=== PATIENT | female | born 1950 | race Caucasian/White ===

== ENCOUNTER 2018-10-23 15:21 | Emergency (ER) | payer OTHER, MEDICARE, SELFPAY ==
[2018-10-23 15:21] VITALS: BP 209/90; PULSE 89; RESP 16; TEMP 36.1; O2SAT 100; BMI 26.2
[2018-10-23 16:05] VITALS: BP 197/97; PULSE 83; RESP 17; O2SAT 97
--- NOTE | 2018-10-23 16:11 | EKG12_ITS ---
Test Reason : HYPOTENSION Blood Pressure : / mmHG Vent. Rate : 079 BPM Atrial Rate : 079 BPM P-R Int : 168 ms QRS Dur : 078 ms QT Int : 368 ms P-R-T Axes : 061 009 051 degrees QTc Int : 421 ms Normal sinus rhythm Voltage criteria for left ventricular hypertrophy Abnormal ECG Confirmed by MELISSA CAROLINA, DIONICIO ([id number]), script editor JOSÉ MIGUEL FONTANEZ ([id number]) on 10/27/2018 9:17:50 AM Referred By: LUCIANO Confirmed By:DIONICIO TORRES MD
--- NOTE | 2018-10-23 16:15 | ED.DCSUM_ITS ---
- ER Visit Summary Date of Service: 10/23/18 Chief Complaint: Hypertension History of Present Illness: The patient is a 68 F who presents with elevated blood pressure that was noticed today. Patient states she went to get her yearly mammogram when they took her blood pressure. Patient states it was 220/120 there. Patient states she was then referred to the emergency department. Patient denies any symptoms. Patient does admit to recent cough and some sinus drainage. Patient admits to a mild bitemporal headache. Patient denies any fevers or chills. Patient denies any chest pain or shortness of breath. Patient denies any nausea or vomiting. Physical Examination: Vital signs are stable except for an elevated blood pressure of 209/90. Patient is afebrile. Patient is in no acute distress. Pupils are equal, round, and reactive to light bilaterally. Extraocular muscles are intact. Oral mucosa is pink and moist. Oropharynx is clear. Neck is supple. Trachea is midline. There is no JVD noted. Heart was regular rate and rhythm. Lungs are clear and equal bilaterally. Abdomen is soft nontender. Cranial nerves II through XII are intact. There are no focal motor or sensory deficits noted. Test Results: EKG showed normal sinus rhythm with a rate of 79. There is left ventricular hypertrophy noted. There are no acute ST or T wave changes. This was unchanged compared to previous EKG dated 12/17/99. CBC, basic metabolic profile, and troponin were obtained and were normal. PA and lateral chest x-ray shows chronic changes consistent with COPD but no acute cardiopulmonary process. Emergency Department Course and Treatment: Patient was given a dose of clonidine here. Patient's blood pressure improved. Patient was given a prescription for clonidine. Patient was instructed to follow-up with her primary care physician in 5-7 days. Patient understood and was agreeable with the plan. All questions were answered. Disposition: Discharge home Impression: Hypertension This note was generated with [employer] dictation software. It may contain incorrect words, spelling, and punctuation that were not noted in review of the chart prior to signing ED Disposition - Plan for ED Patient: Disposition: Home or Assisted Living Diagnosis: Hypertension Instructions: ED Hypertension New Begin Tx Prescriptions: Clonidine HCl [Catapres] 0.1 mg PO DAILY #10 tab Referrals: [facility] Doctor,Out of [Primary Care Provider] - 5-7 Days
[2018-10-23] MEDS: cloNIDine HCl 0.1 MG Tablet PO (16:48)
--- NOTE | 2018-10-23 16:50 | RAD_ITS ---
STUDY: X-RAY CHEST REASON FOR EXAM: Female, 68 years old. Hypertension. TECHNIQUE: Frontal and lateral views of the chest. COMPARISON: None. FINDINGS: Flattened hemidiaphragms and increased AP dimension of the chest, suggestive of COPD. No definite infiltrates. No definite effusions. There is borderline cardiomegaly. Normal mediastinum and bakari. Normal visualized pulmonary arteries. There is atherosclerotic calcification of the aortic arch with tortuosity. There are diffuse degenerative changes of the visualized thoracic spine. Normal visualized ribs, clavicles, and shoulders. There is no demonstrated abnormality of the visualized soft tissue structures of the upper abdomen. RAD/Chest PA and Lateral IMPRESSION: There are findings consistent with COPD. There is no evidence of acute chest disease. Electronically Signed: Erick Chen MD at 17:07 EST , Service support ,
[2018-10-23 17:14] LABS: Anion Gap 8 (5-15); BUN 13 mg/dL (7-18); BUN/Creat Ratio 15.7 RATIO (10-20); Chloride 107 mmol/L (98-107); Creatinine, Serum 0.83 mg/dL (0.55-1.02); EST Glomerular Filtration Rate 73 mL/min (>60); Est Glom Filt Rate - Afr Amer 88 mL/min (>60); Estimated Creatinine Clearance 54.41 ml/min; Glucose 92 mg/dL (74-106); Potassium 3.3 mmol/L (3.5-5.1); Sodium Level 142 mmol/L (136-145)
[2018-10-23 17:44] LABS: Absolute Lymphocyte Count 2.15 X10^3/ul (0.83-4.51); Absolute Neutrophil Count 5.2 X10^3/uL (2.0-7.7); Basophil# 0.02 X10^3/uL; Basophil% 0.2 % (0-1); Eosinophils% 3.6 % (0-5); Hematocrit 35.5 % (37-47); Hemoglobin 11.4 g/dl (12.0-15.0); Lymphocyte # 2.15 X10^3/ul (4.0); Lymphocyte % 25.7 % (19-41); Mean Corp Hgb Conc 32.1 g/gl (32-36); Mean Corpuscular Hgb 27.1 pg (27.0-32.0); Mean Corpuscular Volume 84.5 fL (81-99); Mean Platelet Vol. 10.1 fl (6.2-12.0); Monocyte% 8.4 % (0-10); Neutrophil # 5.18 X10^3/uL (2.7-7.7); Neutrophil % 61.9 % (47-70); Platelet Count 209 K/mm3 (150-450); RBC Distribution Width CV 14.9 % (11.6-14.6); RBC Distribution Width SD 46.4 fl (35.1-43.9); White Blood Count 8.4 K/mm3 (4.4-11.0)
[2018-10-23 17:52] LABS: POSITIVE COUNT NO; POSITIVE DIFFERENTIAL NO; POSITIVE MORPHOLOGY NO
[2018-10-23 18:00] VITALS: BP 186/93
[2018-10-23 18:22] VITALS: BP 199/100
[2018-10-23 18:32] VITALS: BP 165/100
[2018-10-23 19:31] VITALS: BP 158/51; PULSE 71; RESP 18; O2SAT 94
== END 2018-10-23 19:32 | disposition home or self-care (01) ==
PROVIDERS: Emergency Provider Emergency Medicine
DX: I10 Essential (primary) hypertension (principal); K21.9 Gastro-esophageal reflux disease without esophagitis; Z79.899 Other long term (current) drug therapy
CPT/HCPCS: 71046; 80048; 84484; 85025; 93005; 99285; A4216

== ENCOUNTER → 2018-11-19 07:54 | Outpatient (CLI) | payer OTHER, MEDICARE, SELFPAY ==
[2018-10-23 15:21] VITALS: BMI 26.2
[2018-11-19 10:16] LABS: AST(SGOT) 17 U/L (15-37); Alanine Aminotransfer ALT/SGPT 23 U/L (13-56); Albumin, Serum 3.7 g/dL (3.2-5.0); Alkaline Phosphatase 110 U/L (45-117); Cholesterol 248 mg/dL (200); Globulin 4.4 g/dL (2.2-4.2); High Density Lipoprotein 35 mg/dL; Protein, Total 8.1 g/dL (6.4-8.2); T4 Total, Thyroxin 13.2 ug/dL (4.8-13.9); Thyroid Stim Hormone (TSH) 1.29 uIU/mL (0.358-3.74); Triglycerides 199 mg/dL; Very Low Density Lipoprotein 40 mg/dL (5-40)
== END ==
DX: I10 Essential (primary) hypertension (principal)
CPT/HCPCS: 36415; 80061; 80076; 84436; 84443

== ENCOUNTER 2019-10-01 13:46 | Emergency (ER) | payer OTHER, MEDICARE, SELFPAY ==
[2019-10-01 13:47] VITALS: BP 176/93; PULSE 84; RESP 16; TEMP 37; O2SAT 98; BMI 27.7
--- NOTE | 2019-10-01 14:02 | NURSING ---
Pt reports N/T of tip of tongue and lips. No swelling noted. No dyspnea.
--- NOTE | 2019-10-01 14:18 | ED.DCSUM_ITS ---
History of Present Illness Chief Complaint: Numb/Ting Informant: Patient Narrative: Patient presents with what she thought was swelling of her tongue and some tingling, she had been placed on lisinopril last month however once she noticed that she researched it and stopped her lisinopril 6 days ago. Since then she has not had any swelling of her tongue she still feels some sore throat and some upper airway congestion. She has no fever or chills, she has no change in voice she does not feel her throat closing, she has no shortness of breath. Past Medical History - Allergies and Home Meds Allergies/Adverse Reactions: Allergies No Known Allergies Allergy (Verified 10/23/18 15:23) Primary Care Physician: Jose Doctor,Out of [Primary Care Provider] - Past Medical History: - - Hypertension Smoking Status: Never smoker Review of Systems General: Denies: Fever Eyes: Denies: Visual changes - bilaterally ENT: Reports: - - As in HPI Cardiovascular: Denies: Chest pain, Palpitations Respiratory: Denies: Dyspnea, Cough Gastrointestinal: Denies: Nausea, Vomiting Musculoskeletal: Denies: Myalgias Skin: Denies: Rash Neurological: Denies: Weakness Hematologic: Denies: Easy bleeding Allergy: Reports: Swelling of the mouth - Swelling of the tongue as in HPI, it has not swollen in about 6 days, Swelling of the tongue. Denies: Uticaria Physical Exam Vital Signs/Narrative: Vital Signs Temp Pulse Resp BP Pulse Ox 10/01/19 13:47 98.6 F 84 16 176/93 H 98 General: Well nourished, Well developed Head: Normocephalic ENT: - - Normal tongue, no edema is seen normal posterior oropharynx with slight postnasal drip. She does have rhinorrhea she has a slightly bulging left TM but there is no TM erythema. Cardiovascular: Regular rate, Regular rhythm Respiratory: No distress, CTA bilaterally Abdomen: Soft, Nontender Back: Nontender, Normal Inspection Extremities: Nontender, No edema Skin: Normal color, No rash Neurological: Alert, Normal Strength, Normal Sensation Diagnostic/Tx/Re-eval - Medical Decision Making It is very possible that the patient had a's induced angioedema, however she has not taken her LUIZ inhibitor in 6 days and has no signs or symptoms of angioedema at this time. She does have signs and symptoms of upper airway congestion but no signs or symptoms of streptococcal pharyngitis. I will treat her with decongestants, otherwise she is told she can never take lisinopril again, she is to follow-up with her PCP for further blood pressure monitoring. Disposition: Home ED Disposition - Plan for ED Patient: Disposition: Home or Assisted Living Diagnosis: Angioedema, Upper respiratory infection Instructions: ED Angioedema Prescriptions: Guaifenesin [Mucinex] 600 mg PO BID #10 tab Transmission Status: Pending to [id number] Referrals: [facility] Doctor,Out of [Primary Care Provider] - 3-5 Days Additional Instructions: You can never take lisinopril or any other medications in the class LUIZ inhibitors. This may lead to swelling of your tongue lips and airway and may cause .
== END 2019-10-01 14:47 | disposition home or self-care (01) ==
PROVIDERS: Emergency Provider Emergency Medicine
DX: T78.3XXA Angioneurotic edema, initial encounter (principal); J02.9 Acute pharyngitis, unspecified; I10 Essential (primary) hypertension
CPT/HCPCS: 99282

== ENCOUNTER 2020-10-19 16:58 | Outpatient (RCR) | payer OTHER, MEDICARE, SELFPAY ==
[2020-10-19] MEDS: COVID-19 VACC, MRNA(PFIZER)/PF 30 MCG/0.3 ML SYRINGE IM (10:31)
[2020-11-09] MEDS: COVID-19 VACC, MRNA(PFIZER)/PF 30 MCG/0.3 ML SYRINGE IM (10:13)
== END 2020-10-19 23:59 ==
LOC: IMMUN 16:58
PROVIDERS: Visit Provider Family Medicine
DX: Z23 Encounter for immunization (principal)
CPT/HCPCS: 0001A; 0002A

== ENCOUNTER → 2021-02-23 08:12 | Outpatient (CLI) | payer OTHER, MEDICARE, SELFPAY ==
[2021-02-23 10:16] LABS: AST(SGOT) 21 U/L (15-37); Alanine Aminotransfer ALT/SGPT 26 U/L (13-56); Albumin, Serum 3.9 g/dL (3.2-5.0); Alkaline Phosphatase 104 U/L (45-117); Anion Gap 9 (5-15); BUN 15 mg/dL (7-18); BUN/Creat Ratio 15.7 RATIO (10-20); Bilirubin, Direct 0.14 mg/dL (0.00-0.30); Calcium,Total 9.5 mg/dL (8.5-10.1); Chloride 99 mmol/L (98-107); Cholesterol 299 mg/dL (200); Creatinine, Serum 0.96 mg/dL (0.55-1.02); EST Glomerular Filtration Rate 62 mL/min (>60); Est Glom Filt Rate - Afr Amer 74 mL/min (>60); Globulin 4.4 g/dL (2.2-4.2); Glucose 97 mg/dL (74-106); High Density Lipoprotein 35 mg/dL; Potassium 3.2 mmol/L (3.5-5.1); Protein, Total 8.3 g/dL (6.4-8.2); Sodium Level 140 mmol/L (136-145); Triglycerides 324 mg/dL; Very Low Density Lipoprotein 65 mg/dL (5-40)
== END ==
DX: I10 Essential (primary) hypertension (principal)
CPT/HCPCS: 36415; 80048; 80061; 80076

== ENCOUNTER → 2022-05-08 | Outpatient (CLI) | payer OTHER, MEDICARE, SELFPAY ==
[2022-05-08 10:33] LABS: Hematocrit 33.7 % (37-47); Hemoglobin 10.9 g/dL (12.0-15.0); Mean Corp Hgb Conc 32.3 g/dL (32-36); Mean Corpuscular Hgb 27.4 pg (27.0-32.0); Mean Corpuscular Volume 84.7 fL (81-99); Mean Platelet Vol. 9.8 fl (6.2-12.0); Platelet Count 338 K/mm3 (150-450); RBC Distribution Width CV 15.8 % (11.6-14.6); RBC Distribution Width SD 49.1 fl (35.1-43.9); Red Blood Count 3.98 M/mm3 (4.2-5.4); White Blood Count 10.5 K/mm3 (4.4-11.0)
[2022-05-08 10:59] LABS: Anion Gap 7 (5-15); BUN 27 mg/dL (7-18); BUN/Creat Ratio 32.2 RATIO (10-20); Calcium,Total 9.8 mg/dL (8.5-10.1); Chloride 99 mmol/L (98-107); Creatinine, Serum 0.84 mg/dL (0.55-1.02); EST Glomerular Filtration Rate 71 mL/min (>60); Est Glom Filt Rate - Afr Amer 86 mL/min (>60); Glucose 88 mg/dL (74-106); Potassium 3.6 mmol/L (3.5-5.1); Sodium Level 136 mmol/L (136-145)
== END | disposition home or self-care (01) ==
PROVIDERS: Referring Provider Physician Assistant Surgical; Visit Provider Physician Assistant Surgical
DX: E87.6 Hypokalemia (principal); D64.89 Other specified anemias; K21.9 Gastro-esophageal reflux disease without esophagitis; I10 Essential (primary) hypertension; M19.90 Unspecified osteoarthritis, unspecified site; Z96.651 Presence of right artificial knee joint
CPT/HCPCS: 36415; 80048; 85027

== ENCOUNTER → 2022-08-21 | Outpatient (CLI) | payer OTHER, MEDICARE, SELFPAY ==
[2022-08-21 12:56] LABS: Hematocrit 34.1 % (37-47); Hemoglobin 10.8 g/dL (12.0-15.0); Mean Corp Hgb Conc 31.7 g/dL (32-36); Mean Corpuscular Hgb 27.1 pg (27.0-32.0); Mean Corpuscular Volume 85.7 fL (81-99); Platelet Count 509 K/mm3 (150-450); RBC Distribution Width CV 14.2 % (11.6-14.6); RBC Distribution Width SD 44.3 fl (35.1-43.9); Red Blood Count 3.98 M/mm3 (4.2-5.4); White Blood Count 11.2 K/mm3 (4.4-11.0)
== END | disposition home or self-care (01) ==
LOC: MTLAB 09:08
PROVIDERS: Referring Provider Physician Assistant Surgical; Visit Provider Physician Assistant Surgical
DX: I10 Essential (primary) hypertension (principal); M19.90 Unspecified osteoarthritis, unspecified site; D64.89 Other specified anemias
CPT/HCPCS: 36415; 85027

== ENCOUNTER 2023-01-01 08:30 | Outpatient (RCR) | payer OTHER, MEDICARE, SELFPAY ==
--- NOTE | 2022-12-26 10:17 | HP.OTEVAL_ITS ---
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 Date of Evaluation: 12/26/22 Occupational Therapist: Yamila Martinez, TANA/Joseph, CHT - Subjective This 72 year old female was seen for OT eval with dx of right primary osteoarthritis, unilateral primary osteoarthrits of first carpometacarpal joint. pt arrives to OT session. PT states Jul. she notices she woke up and her right hand she could not make a fist or move her wrist- pt went to ER an had xray was placed in brace. pt did go through with her knee sx a few days latter and when she woke up from this sx she could move her wrist and make a fist. pt states she again woke up in the morning of January 05. she could not move her wrist or make a fist again. Pt went to the Ortho on December 20 - pt states gave her a cortisone injection. pt states she did notice some improvement in ROM and a decrease in pain but not enough to be ind. with ADLs and IADLs. pt is right handed - ADLs Comments: pt states family is helping with all daily tasks. pt states she has constant resting pain and any attempt to use her right hand pain increases. - Pain right hand 4 Pain Intensity Range: 7 - ROM Forearm: right supination Neutral pronation WNL left WNL Wrist: right 25/30 left 75/75 CMC: right 10 left 10 MP: right 40 left 40 IP: right 25 left 65 Radial Abduction: right 30 left 45 ROM Comments: pt demo with ability to form bilateral composite fist-. pt demo with OA deformities on bilateral hand DIP and swan neck deformities. - Strength Strength Comments: Not tested due to OA deformities - Sensation Sensation Comments: denies - Quick DASH-Disab of Arm,Shoulder& Hand Quick DASH Score: 77.2725 - Goals Goal:: Pt will demonstrate understanding of joint protection and adaptive equipment to decrease joint stress while performing ADL tasks by d/c Goal:: Pt will demo ind. Donning/doffing of custom orthosis by end of 1st session. Pt will demonstrate understanding of orthosis use and precautions by end of 1st session and demonstrate knowledge of returning to clinic if orthosis needs adj. to increase comfort by end of 1st session. 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 Pain is limiting pts use of right hand with ADLS. Pt would benefit from skilled OT services 2-3 visits to provide ed. on joint protection ed. on ad. eq. Pt demo need for hand based custom orthosis to provide protection and support of right CMCJ and MPJ to assist in decreasing pts pain. Pt demo understanding and agrees to POC. Today therapist ed. pt on dx. and bracing. Pt demo need for custom orthosis providing support to right CMC and MPJ. therapist sawyer. Therapist ed. pt on use and precautions. Pt demo understanding- pt to return to clinic for orthosis adj. and ed. on ad. eq. Rehabilitation Potential: Questionable - Anticipated Interventions Orthoses, Joint Protection/Energy Conservation, Ergonomic Education, Caregiver Training, Home Program Other Interventions: orthosis precautions and use - Visit Plan TEXT: Thank you for the opportunity to evaluate your patient. For Medicare and Medicare HMO plans, please review the plan of care and approve it. It will need to be FAXED BACK to us at [phone] for Medicare purposes. Please let me know if there are questions or concerns regarding this plan of care. Physician Signature: Date:
--- NOTE | 2023-03-19 14:05 | HP.OT.NRP ---
Patient Information Patient Information: KAYLEE BERMUDEZ was seen in my office for initial evaluation on 12/26/22. The following Plan of Care was established for this patient: Anticipated Interventions Anticipated Interventions: Orthoses, Joint Protection/Energy Conservation, Ergonomic Education, Caregiver Training and Home Program Other Interventions: orthosis precautions and use Last Seen Last Seen: This patient was last seen in our office . Pertinent comments regarding their Occupational therapy will appear below: pt was seen for OT eval and one follow up visit. pt was ed. in orthosis use and bracing to decrease pts pain. pt has not returned or scheduled further apts. and at this time is D/C due to time laps in services. At this point I will be discontinuing this patient from occupational therapy. I would be happy to see this patient again in the future if found appropriate by the physician. Thank you! Yamila Martinez, OTR/L, CHT
== END 2023-01-01 19:00 | disposition home or self-care (01) ==
LOC: OT 08:30
PROVIDERS: Referring Provider Physician Assistant Surgical; Visit Provider Physician Assistant Surgical
DX: M19.041 Primary osteoarthritis, right hand (principal); M18.11 Unilateral primary osteoarthritis of first carpometacarpal joint, right hand
CPT/HCPCS: 97166; 97760

== ENCOUNTER 2023-07-26 00:37 | Inpatient (IN) | payer OTHER, MEDICARE, SELFPAY ==
[2023-07-26] VITALS (10 sets, daily range): BP systolic 117–164; BP diastolic 50–77; PULSE 74–87; RESP 15–18; TEMP 36.3–37.9; O2SAT 92–99; BMI 26.4; BMI 26.2
--- NOTE | 2023-07-26 01:05 | EX.ED.DYSGE1 ---
HPI History of Present Illness Chief Complaint: Flank Pain Narrative Narrative: 72-year-old female past medical history of GERD, hypertension, presents with left flank pain that began this afternoon. She states she started feeling twinges of pain in her left flank that radiated towards the front. It became worse at around 3 PM this afternoon, approximately 10 hours ago. She is nauseated and started vomiting. She vomited 3 times without any blood in her emesis. She denies any problems with bowel movements, no diarrhea. She denies any dysuria or hematuria. No exacerbating or alleviating factors. PFSH PFSH Home Medications lansoprazole 30 mg capsule,delayed release (Prevacid) 30 mg PO DAILY 10/23/18 [History Last Taken Unknown] guaifenesin 600 mg tablet, extended release 12 hr 600 mg PO BID #10 tabs 10/01/19 [Rx Last Taken Unknown] hydrochlorothiazide 25 mg tablet 25 mg PO DAILY 10/01/19 [History Last Taken 10/01/19] lisinopril 10 mg tablet 10 mg PO 10/01/19 [History Last Taken 09/26/19] Allergy/AdvReac Type Severity Reaction Status Date / Time clonidine Allergy Severe Shortness Verified 07/26/23 00:41 of breath LUIZ Inhibitors Allergy Angioedema Verified 07/26/23 00:40 Social History Smoking Status: Never smoker ROS ROS ED ROS Narrative Constitutional: No fever, no chills. HEENT: No sore throat. No neck pain. No loss of vision. No rhinorrhea. Cardiovascular: No chest pain. No palpitations. No pedal edema. Respiratory: No cough, no shortness of breath. Abdominal: No abdominal pain. 3 episodes of nausea and vomiting, no hematemesis. Genitourinary: No dysuria. No hematuria. Positive left flank pain. Radiates towards front. Musculoskeletal: No myalgias. No arthralgias. Neurologic: No headaches. No dizziness. No lightheadedness. Skin: No rash. No change in color. Psychiatric: No depression. No anxiety. EXAM Physical Exam Narrative Exam Narrative: Afebrile. Vital signs noted. HEENT: Normocephalic. Atraumatic. PERRL, EOMI. Neck soft and supple. No point tenderness or step off. Cardiovascular: Regular rate and rhythm. No murmurs, rubs, or gallops appreciated. Respiratory: No tachypnea. Lungs clear to auscultation bilaterally. Gastrointestinal: Abdomen soft, nontender, with normoactive bowel sounds. No rebound or guarding. Neurological: Awake. Alert. Nonfocal, nonlateralizing. Skin: No rash. Normal color. No pallor. Musculoskeletal: No pedal edema. Full range of motion extremities. Const Vital Signs: 07/26/23 00:41 Temperature 97.3 F L Temperature Source Oral Pulse Rate 78 Respiratory Rate 18 Blood Pressure 152/66 H Blood Pressure Mean 94 Pulse Ox 99 Oxygen Delivery Method Room Air MDM MDM MDM Narrative Medical decision making narrative: In the right shoulder gnosis is ureterolithiasis versus UTI versus diverticulitis. I have low suspicion for diverticulitis because the history and physical does not support this. She will be given morphine and ondansetron and IV fluids at 250 mL/h. CT will be obtained to rule out ureterolithiasis. I will also obtain a UA and basic lab work. I reviewed her laboratory work and she has a leukocytosis of 14 which may be demargination from her nausea and vomiting. Platelet count normal at 318, hemoglobin normal at 12.8. M potassium slightly low at 3.1 which I think is from her vomiting, creatinine slightly elevated at 1.21 with a BUN of 28 which may be more dehydration. Glucose is elevated at 163 with a normal anion gap of 9. Urinalysis shows WBC count of 5-10. This will be sent for culture. I reviewed the CT report which shows a 4 x 4 x 6 mm stone in the proximal third of the left ureter with hydronephrosis. After morphine and ondansetron, she was still having pain. Given the size of the stone, and her leukocytosis, while I do not have an immediate concern for urosepsis, I discussed patient with Dr. Gusman with urology who will admit the patient to the medical surgical floor. She will be started on Rocephin. Disposition is admit in stable condition. History & Record Review Discussion w/independent historian: Patient Lab Data Attestation: I reviewed the patient's lab results. Labs: Laboratory Results - last 24 hr 07/26/23 01:25 WBC 14.0 H RBC 4.87 Hgb 12.8 Hct 38.4 MCV 78.9 L MCH 26.3 L MCHC 33.3 RDW Std Deviation 43.2 RDW Coeff of Ebonie 15.1 H Plt Count 318 MPV 10.0 Immature Gran % (Auto) 0.800 Neut % (Auto) 81.9 H Lymph % (Auto) 11.2 L [place] % (Auto) 5.1 Eos % (Auto) 0.6 Baso % (Auto) 0.4 Absolute Neuts (auto) 11.5 H Absolute Lymphs (auto) 1.57 Nucleated RBC % 0 Sodium 138 Potassium 3.1 L Chloride 102 Carbon Dioxide 27.0 Anion Gap 9 BUN 28 H Creatinine 1.21 H Estim Creat Clear Calc 35.28 Est GFR (MDRD) Af Amer 56 L Est GFR (MDRD) Non-Af 47 L BUN/Creatinine Ratio 23.1 H Glucose 163 H Calcium 9.6 Urine Color Yellow Urine Clarity Clear Urine pH 7.0 Ur Specific [place] 1.010 Urine Protein 30 H Urine Glucose (UA) 100 H Urine Ketones Negative Urine Occult Blood 10 H Urine Nitrite Negative Urine Bilirubin Negative Urine Urobilinogen Normal Ur Leukocyte Esterase 100 H Urine RBC 0-5 SEEN Urine WBC 5-10 SEEN Ur Squamous Epith Cells 0 SEEN Urine Bacteria 0 SEEN Urine Mucus 0 SEEN Radiography Diagnostic Testing: Clinical Impression(s) from Imaging Studies Abdomen/Pelvis CT 07/26/23 01:42 IMPRESSION: Mild-moderate left hydronephrosis to the level of a 4 mm x 4 mm x 6 mm stone in the proximal left ureter. Left nephrolithiasis. No other acute findings. Cholecystectomy. Hysterectomy. Moderate diverticulosis. Small hiatal hernia. Electronically Signed: Sabrina Flores MD at 2:45 EST , Discharge Plan Dx/Rx/DC Orders Clinical Impression: Intractable pain, Ureterolithiasis, Nausea and vomiting Disposition Disposition: Acute Care Hospital [facility]
[2023-07-26] MEDS: Morphine 4 MG/ML Syringe IV ×2 (01:24→03:19)
[2023-07-26] MEDS: Ondansetron 4 MG/2 ML Vial IV ×4 (01:24→14:24)
[2023-07-26] MEDS: 0.9% Normal Saline (1000mL) 1,000 ML 250 ML IV ×2 (01:24→05:34)
[2023-07-26 01:28] LABS: Bacteria 0 SEEN /hpf (None Seen); Color, Urine Yellow (Yellow); Glucose, Dipstick 100 mg/dl (Normal); Ketone-Dipstick Negative (Negative); Leukocyte Esterase-Dipstick 100 /ul (Negative); Mucous, Urine 0 SEEN /hpf (<or=2+); Nitrite-Dipstick Negative (Negative); Occult Blood-Urine 10 /ul (Negative); Protein-Dipstick 30 mg/dl (Negative); Squamous Epithelial Cells - UA 0 SEEN /hpf (5-10); Urine Bilirubin Dipstick Negative (Negative); Urine Clarity Clear (Clear); Urine Urobilinogen Normal (Normal)
[2023-07-26 01:32] LABS: Absolute Lymphocyte Count 1.57 X10^3/uL (0.83-4.51); Absolute Neutrophil Count 11.5 X10^3/uL (2.0-7.7); Basophil# 0.06 X10^3/uL; Basophil% 0.4 % (0-1); Eosinophil# 0.08 X10^3/uL; Eosinophils% 0.6 % (0-5); Hematocrit 38.4 % (37-47); Hemoglobin 12.8 g/dL (12.0-15.0); Lymphocyte # 1.57 X10^3/ul (0.83-4.51); Lymphocyte % 11.2 % (19-41); Mean Corp Hgb Conc 33.3 g/dL (32-36); Mean Corpuscular Hgb 26.3 pg (27.0-32.0); Mean Corpuscular Volume 78.9 fL (81-99); Monocyte# 0.71 X10^3/uL; Monocyte% 5.1 % (0-10); NRBC Flagged by Analyzer 0 % (0-5); Neutrophil # 11.46 X10^3/uL (2.7-7.7); Neutrophil % 81.9 % (47-70); Platelet Count 318 K/mm3 (150-450); RBC Distribution Width CV 15.1 % (11.6-14.6); RBC Distribution Width SD 43.2 fl (35.1-43.9); Red Blood Count 4.87 M/mm3 (4.2-5.4)
[2023-07-26 01:37] LABS: Red Blood Cells-Urine 0-5 SEEN /hpf (0-5); White Blood Cells 5-10 SEEN /hpf (0-5)
--- NOTE | 2023-07-26 01:42 | CT_ITS ---
EXAM: CT ABDOMEN AND PELVIS WITHOUT INTRAVENOUS CONTRAST CLINICAL INDICATION: Kidney Stone TECHNIQUE: Helically acquired images were obtained of the abdomen and pelvis without intravenous contrast. This CT exam was performed using one or more of the following dose reduction techniques: automated exposure control, adjustment of the mA and/or kV according to patient size, and/or use of iterative reconstruction technique. RADIATION DOSE: CTDIvol = 7.40 mGy, DLP = 380.77 mGy-cm COMPARISON: No relevant prior studies available. FINDINGS: LOWER THORAX: Mild aortic valve calcifications. Mild calcifications or stents in right coronary artery and left anterior descending coronary artery. Small hiatal hernia. Lung bases are clear. No cardiomegaly. No significant pericardial effusion. ABDOMEN: LIVER: Unremarkable. Homogeneous. GALLBLADDER AND BILE DUCTS: Cholecystectomy clips. No intra- or extrahepatic biliary ductal dilation. PANCREAS: Moderately atrophic fatty replaced pancreas. No dilated pancreatic duct. No focal cystic mass. SPLEEN: Unremarkable. Normal size without focal cystic or solid mass. ADRENALS: Unremarkable. No nodules. KIDNEYS AND URETERS: Mild-moderate left hydronephrosis to the level of a 4.4 mm x 3.9 mm x 5.8 mm stone in the proximal third of the left ureter. Tiny nonobstructing stone in the left upper pole kidney. Mild left perinephric soft tissue stranding. Left renal pelvis is 2 cm AP. Normal renal size and position. STOMACH AND BOWEL: Moderate diverticulosis of descending and sigmoid colon, no evidence of acute diverticulitis. No stomach or bowel distention. PELVIS: APPENDIX: No evidence of acute appendicitis. BLADDER: Unremarkable. REPRODUCTIVE: Hysterectomy. ABDOMEN and PELVIS: INTRAPERITONEAL SPACE: Unremarkable. No ascites or other fluid collection. No free air. BONES/JOINTS: Minimal bone changes. No suspicious lytic or blastic abnormality. TISSUES: Small fat-containing umbilical hernia, mild dehiscence at left semilunaris. VASCULATURE: Moderate aortoiliac atherosclerotic calcification. LYMPH NODES: Unremarkable. No enlarged lymph nodes. CT/Abdomen/Pelvis without Cont IMPRESSION: Mild-moderate left hydronephrosis to the level of a 4 mm x 4 mm x 6 mm stone in the proximal left ureter. Left nephrolithiasis. No other acute findings. Cholecystectomy. Hysterectomy. Moderate diverticulosis. Small hiatal hernia. Electronically Signed: Sabrina Flores MD at 2:45 EST ,
[2023-07-26 01:46] LABS: Anion Gap 9 (5-15); BUN 28 mg/dL (7-18); BUN/Creat Ratio 23.1 RATIO (10-20); Calcium,Total 9.6 mg/dL (8.5-10.1); Chloride 102 mmol/L (98-107); Creatinine, Serum 1.21 mg/dL (0.55-1.02); EST Glomerular Filtration Rate 47 mL/min (>60); Est Glom Filt Rate - Afr Amer 56 mL/min (>60); Estimated Creatinine Clearance 35.28 ml/min; Glucose 163 mg/dL (74-106); Potassium 3.1 mmol/L (3.5-5.1); Sodium Level 138 mmol/L (136-145)
[2023-07-26] MEDS: Ceftriaxone 1 GM/50 ML BAG IV (03:20)
[2023-07-26] MEDS: Morphine 2 MG/ML Syringe IV (06:50)
[2023-07-26] MEDS: Lactated Ringers 1,000 ML 125 ML IV ×2 (09:27→18:49)
[2023-07-26] MEDS: Potassium Chloride Oral Tablet 20 MEQ PO (09:29)
[2023-07-26] MEDS: Pantoprazole Sodium 40 MG Tablet PO (09:29)
[2023-07-26] MEDS: hydroCHLOROthiazide 25 MG Tablet PO (09:29)
[2023-07-26] MEDS: amLODIPine 10 MG Tablet PO (09:29)
[2023-07-26] MEDS: proMETHazine 25 MG/ML Syringe IM (09:30)
--- NOTE | 2023-07-26 11:56 | HP.PCM_ITS ---
[facility] - [facility] General Date of Admission: 07/26/23 Chief Complaint: left abdominal pain, ureteral stone [facility] Narrative KAYLEE BERMUDEZ, is a 72 F who presented to the emergency room yesterday with complaints of uncontrolled left-sided abdominal pain with nausea. The pain actually started the day before and continued to increase. She has never had a kidney stone in the past. She reports that overnight she has had improvement in her pain and was actually able to sleep. Her nausea has resolved and she was able to tolerate breakfast. Her urinary tract symptoms at this time including dysuria, urgency, frequency, hematuria. [facility] Home Medications lansoprazole 30 mg capsule,delayed release (Prevacid) 30 mg PO DAILY 10/23/18 [History Last Taken Unknown] hydrochlorothiazide 25 mg tablet 25 mg PO DAILY 10/01/19 [History Last Taken 10/01/19] amlodipine 10 mg tablet 10 mg PO DAILY 07/26/23 [History Last Taken Unknown] cholecalciferol (vitamin D3) 25 mcg (1,000 unit) capsule (Vitamin D3) 25 mcg PO DAILY supplement 07/26/23 [History Last Taken 07/25/23] Allergy/AdvReac Type Severity Reaction Status Date / Time clonidine Allergy Severe Shortness Verified 07/26/23 00:41 of breath lisinopril Allergy Severe Angioedema Verified 07/26/23 07:16 LUIZ Inhibitors Allergy Angioedema Verified 07/26/23 00:40 Social History Smoking Status: Never smoker ROS Constitutional Constitutional: Reports poor appetite; Denies chills, fever(s) or weakness Eyes Eyes: Reports systems reviewed and no addt'l complaints, except as documented ENT HEENT: Reports systems reviewed and no addt'l complaints, except as documented Cardiovascular Cardiovascular: Denies chest pain or dyspnea Respiratory/Chest Respiratory/Chest: Denies chest congestion, chest tightness, cough or shortness of breath at rest Gastrointestinal Gastrointestinal: Reports abdominal pain and nausea Genitourinary Genitourinary: Reports flank pain; Denies difficulty urinating, dysuria, hematuria, urinary frequency, urinary incontinence or urinary urgency Musculoskeletal Musculoskeletal: Reports systems reviewed and no addt'l complaints, except as documented Integumentary Integumentary: Reports systems reviewed and no addt'l complaints, except as documented Neurologic Neurologic: Reports systems reviewed and no addt'l complaints, except as documented Psychiatric Psychiatric: Reports systems reviewed and no addt'l complaints, except as documented Endocrine Endocrinology: Reports systems reviewed and no addt'l complaints, except as documented Hematologic/Lymphatic Hematologic/Lymphatic: Reports systems reviewed and no addt'l complaints, except as documented Allergic/Immunologic Allergic/Immunologic: Reports systems reviewed and no addt'l complaints, except as documented Vital Signs Vital Signs Vital Signs: 07/26/23 00:41 07/26/23 03:26 07/26/23 02:37 Temperature 97.3 F L 97.7 F L Temperature Source Oral Oral Pulse Rate 78 74 78 Respiratory Rate 18 15 18 Respiratory Effort Respiratory Depth Respiratory Pattern Blood Pressure 152/66 H 148/70 H 137/68 H Blood Pressure Mean 94 96 91 Blood Pressure Source Blood Pressure Position Blood Pressure Location Pulse Ox 99 98 95 Oxygen Delivery Method Room Air Room Air Oxygen Flow Rate (L/min) 07/26/23 04:00 07/26/23 06:34 07/26/23 08:59 Temperature 97.7 F L Temperature Source Temporal Pulse Rate 79 85 Respiratory Rate 18 16 Respiratory Effort Normal Non-Labored Respiratory Depth Normal Respiratory Pattern Normal Blood Pressure 138/61 H 164/77 H Blood Pressure Mean 86 106 Blood Pressure Source Monitor Blood Pressure Position Semi-Fowlers Blood Pressure Location Left Arm Pulse Ox 95 98 Oxygen Delivery Method Room Air Room Air Room Air Oxygen Flow Rate (L/min) 07/26/23 09:23 07/26/23 11:41 Temperature 100.3 F H Temperature Source Oral Pulse Rate 84 Respiratory Rate 16 Respiratory Effort Respiratory Depth Respiratory Pattern Blood Pressure 126/61 H Blood Pressure Mean 82 Blood Pressure Source Monitor Blood Pressure Position Semi-Fowlers Blood Pressure Location Right Arm Pulse Ox 93 93 Oxygen Delivery Method Nasal Cannula Nasal Cannula Oxygen Flow Rate (L/min) 2 2 Weight Weight: 67.3 kg Body Mass Index (BMI) 26.2 Physical Exam Const alert, oriented x3 and no apparent distress HEENT normocephalic, head/scalp atraumatic, hearing grossly normal bilaterally, external ears normal, external nose normal, moist oral mucous membranes and dentition normal Eyes General Eye: normal appearance of both eyes Neck supple General: normal visual inspection and trachea midline Lymph Lymphatic: no lymphedema noted Chest inspection of chest normal Resp normal respiratory effort, normal air movement, no retractions and no use of accessory muscles Cardio regular rate GI soft to palpation, non-tender and non-distended no CVA tenderness Narrative: Pain is controlled at the present time Extremity normal to inspection and no calf tenderness Skin no rashes or lesions noted, no wounds, skin turgor normal, no jaundice, no petechiae and no mottling Neuro oriented x3 and CN's II-XII intact bilaterally Psych mental status grossly normal and thought process normal Results Lab / Micro Data 07/26/23 01:25 07/26/23 01:25 Labs: Laboratory Results - last 24 hr 07/26/23 01:25: WBC 14.0 H, RBC 4.87, Hgb 12.8, Hct 38.4, MCV 78.9 L, MCH 26.3 L , MCHC 33.3, RDW Std Deviation 43.2, RDW Coeff of Ebonie 15.1 H, Plt Count 318, MPV 10.0, Immature Gran % (Auto) 0.800, Neut % (Auto) 81.9 H, Lymph % (Auto) 11.2 L, [place] % (Auto) 5.1, Eos % (Auto) 0.6, Baso % (Auto) 0.4, Absolute Neuts (auto) 11.5 H, Absolute Lymphs (auto) 1.57, Nucleated RBC % 0, Sodium 138, Potassium 3.1 L, Chloride 102, Carbon Dioxide 27.0, Anion Gap 9, BUN 28 H, Creatinine 1.21 H, Estim Creat Clear Calc 35.28, Est GFR (MDRD) Af Amer 56 L, Est GFR (MDRD) Non-Af 47 L, BUN/Creatinine Ratio 23.1 H, Glucose 163 H, Calcium 9.6, Urine Color Yellow, Urine Clarity Clear, Urine pH 7.0, Ur Specific [place] 1.010, Urine Protein 30 H, Urine Glucose (UA) 100 H, Urine Ketones Negative, Urine Occult Blood 10 H, Urine Nitrite Negative, Urine Bilirubin Negative, Urine Urobilinogen Normal, Ur Leukocyte Esterase 100 H, Urine RBC 0-5 SEEN, Urine WBC 5-10 SEEN, Ur Squamous Epith Cells 0 SEEN, Urine Bacteria 0 SEEN, Urine Mucus 0 SEEN Imagaing Radiology Impression Abdomen/Pelvis CT 07/26/23 01:42 IMPRESSION: Mild-moderate left hydronephrosis to the level of a 4 mm x 4 mm x 6 mm stone in the proximal left ureter. Left nephrolithiasis. No other acute findings. Cholecystectomy. Hysterectomy. Moderate diverticulosis. Small hiatal hernia. Electronically Signed: Sabrina Flores MD at 2:45 EST , Assessment & Plan Assessment/Plan (1) Ureterolithiasis: (2) Nausea and vomiting: (3) Intractable pain: (4) Acute renal insufficiency: (5) Hydronephrosis, left: PLAN: Continue intravenous fluid hydration, pain control, nausea and vomiting control Reevaluate with blood work in the morning If pain is controlled tomorrow, we will plan to send home for future intervention if needed and follow-up in the office later this week Having issues with pain control, nausea and vomiting or any evidence of infection, will consider for intervention this admission
[2023-07-26] MEDS: oxyCODONE 5 MG Tablet PO (14:25)
--- NOTE | 2023-07-26 17:10 | CASEMGMT ---
MAURICE CM in to discuss SPARKS form with patient. RN CM explained SPARKS form, patient voiced understanding. Pt signed form and filed in chart. Pt provided with a copy of signed SPARKS form. Patient had no further questions or concerns at this time.
[2023-07-27 00:03] VITALS: BMI 26.2
[2023-07-27] MEDS: Lactated Ringers 1,000 ML 125 ML IV ×2 (02:57→11:01)
[2023-07-27] MEDS: Morphine 2 MG/ML Syringe IV ×2 (03:09→12:11)
[2023-07-27 03:20] VITALS: BP 135/65; PULSE 72; RESP 18; TEMP 36.7; O2SAT 99
--- NOTE | 2023-07-27 05:50 | EKG12_ITS ---
Test Reason : AM EKG Blood Pressure : / mmHG Vent. Rate : 070 BPM Atrial Rate : 070 BPM P-R Int : 178 ms QRS Dur : 080 ms QT Int : 392 ms P-R-T Axes : 055 023 048 degrees QTc Int : 423 ms Sinus rhythm with occasional Premature ventricular complexes Otherwise normal ECG When compared with ECG of 23-OCT-2018 16:23, Premature ventricular complexes are now Present Confirmed by ALICIA CAROLINA, KARSTEN ([id number]), news copy editor CLEOPATRA LILLY ([id number]) on 07/29/2023 8:44:27 A M Referred By: Nicky Gusman Confirmed By:PALLAVI VARGAS MD
[2023-07-27 07:50] VITALS: O2SAT 98
[2023-07-27 07:58] LABS: Anion Gap 3 (5-15); BUN 17 mg/dL (7-18); BUN/Creat Ratio 16.5 RATIO (10-20); Chloride 104 mmol/L (98-107); Creatinine, Serum 1.03 mg/dL (0.55-1.02); EST Glomerular Filtration Rate 56 mL/min (>60); Est Glom Filt Rate - Afr Amer 68 mL/min (>60); Estimated Creatinine Clearance 41.44 ml/min; Glucose 108 mg/dL (74-106); Potassium 2.8 mmol/L (3.5-5.1); Sodium Level 138 mmol/L (136-145)
[2023-07-27 09:30] VITALS: BP 114/54; PULSE 71; RESP 18; TEMP 36.8; O2SAT 94
[2023-07-27] MEDS: 0.9% Saline Lock 10 ML Syringe IV (12:11)
[2023-07-27] MEDS: Cefazolin 1 GM/50 ML BAG IV ×2 (14:26→21:55)
[2023-07-27] MEDS: Dextrose 5%-Lactated Ringers 1,000 ML 15 ML IV (14:26)
[2023-07-27 15:40] VITALS: BP 109/56; PULSE 87; RESP 18; TEMP 37.4; O2SAT 96
[2023-07-27 16:25] LABS: Absolute Lymphocyte Count 1.43 X10^3/uL (0.83-4.51); Absolute Neutrophil Count 18.1 X10^3/uL (2.0-7.7); Basophil# 0.05 X10^3/uL; Basophil% 0.2 % (0-1); Eosinophil# 0.11 X10^3/uL; Eosinophils% 0.5 % (0-5); Hemoglobin 9.8 g/dL (12.0-15.0); Lymphocyte # 1.43 X10^3/ul (0.83-4.51); Lymphocyte % 6.6 % (19-41); Mean Corp Hgb Conc 30.6 g/dL (32-36); Mean Corpuscular Hgb 26.3 pg (27.0-32.0); Mean Platelet Vol. 11.2 fl (6.2-12.0); Monocyte# 1.73 X10^3/uL; NRBC Flagged by Analyzer 0 % (0-5); Neutrophil # 18.07 X10^3/uL (2.7-7.7); POSITIVE DIFFERENTIAL YES; Platelet Count 197 K/mm3 (150-450); RBC Distribution Width CV 16.3 % (11.6-14.6); RBC Distribution Width SD 51.3 fl (35.1-43.9); Red Blood Count 3.72 M/mm3 (4.2-5.4); White Blood Count 21.6 K/mm3 (4.4-11.0)
[2023-07-27 16:29] LABS: Differential Indicated SCAN CRITERIA MET
[2023-07-27 16:48] LABS: Differential Comment SCANNED
[2023-07-27] MEDS: Potassium Chloride Oral Tablet 20 MEQ 40 MEQ PO (16:55)
--- NOTE | 2023-07-27 19:28 | PN.URO_ITS ---
Subjective Subjective At her today then she was on coming in. Her pain is still severe when it acts up. No nausea or vomiting. We discussed surgical intervention for tomorrow and she understands and agrees to proceed Objective Data Objective Data Increase in white count today. Renal function has improved and hypokalemia worsened. Vital Signs: Vital Signs Temp Pulse Resp BP Pulse Ox O2 Del Method O2 Flow Rate 99.4 F H 87 18 109/56 L 96 Nasal Cannula 2 07/27/23 15:40 07/27/23 15:40 07/27/23 15:40 07/27/23 15:40 07/27/23 15:40 07/27/23 15:40 07/27/23 15:40 Oxygen Flow Rate (L/min) 2 Oxygen Delivery Method Nasal Cannula Weight: 67.3 kg Body Mass Index (BMI) 26.2 Intake & Output: Intake and Output for Last 24 Hours 07/25/23 07/26/23 07/27/23 23:59 23:59 23:59 Intake Total 3568.33 / 3568.33 2907.5 / 2907.5 Output Total 1150 / 1150 Balance 3568.33 / 3568.33 1757.5 / 1757.5 Lab / Micro Data 07/27/23 06:50 07/27/23 06:50 Labs: Laboratory Results - last 24 hr 07/27/23 06:50: WBC 21.6 H, RBC 3.72 L, Hgb 9.8 L, Hct 32.0 L, MCV 86.0 D, MCH 26.3 L, MCHC 30.6 L D, RDW Std Deviation 51.3 H, RDW Coeff of Ebonie 16.3 H, Plt Count 197, MPV 11.2, Immature Gran % (Auto) 0.700, Neut % (Auto) 84.0 H, Lymph % (Auto) 6.6 L, [place] % (Auto) 8.0, Eos % (Auto) 0.5, Baso % (Auto) 0.2, Absolute Neuts (auto) 18.1 H, Absolute Lymphs (auto) 1.43, Nucleated RBC % 0, Differential Comment SCANNED, Diff Path Review December, Sodium 138, Potassium 2.8 L, Chloride 104, Carbon Dioxide 31.0, Anion Gap 3 L, BUN 17, Creatinine 1.03 H, Estim Creat Clear Calc 41.44, Est GFR (MDRD) Af Amer 68, Est GFR (MDRD) Non- Af 56 L, BUN/Creatinine Ratio 16.5, Glucose 108 H, Calcium 9.0 Micro: Microbiology 07/26/23 01:25 Urine, Clean Catch Urine Culture - Preliminary Gram negative raina Physical Exam Const alert, oriented x3 and no apparent distress General Appearance: cooperative and comfortable HEENT normocephalic Eyes General Eye: normal appearance of both eyes Resp normal respiratory effort, normal air movement, no retractions and no use of accessory muscles Cardio regular rate GI soft to palpation and non-tender no CVA tenderness Assessment & Plan Assessment/Plan (1) Ureterolithiasis: (2) Hydronephrosis, left: (3) Intractable pain: (4) Acute renal insufficiency: (5) Nausea and vomiting: PLAN: Plan Hypokalemia, potassium provided today will recheck in the morning Doing to have pain with her left ureteral stone that has not passed, will proceed with surgical intervention tomorrow with cystoscopy, possible laser lithotripsy and ureteral stent insertion. Continue antibiotics, n.p.o. after midnight tonight. Informed consent was obtained
[2023-07-27] MEDS: oxyCODONE 5 MG Tablet PO (20:01)
[2023-07-27 20:45] VITALS: TEMP 37.7
[2023-07-27 21:45] VITALS: BP 135/66; PULSE 85; RESP 16; RESP 18; TEMP 37.5; O2SAT 95
[2023-07-27 22:32] VITALS: BMI 26.2
[2023-07-28] VITALS (12 sets, daily range): BP systolic 98–133; BP diastolic 49–93; PULSE 71–80; RESP 16–18; TEMP 36.8–37.6; O2SAT 92–97
[2023-07-28] MEDS: oxyCODONE 5 MG Tablet PO ×2 (03:19→08:37)
[2023-07-28] MEDS: Cefazolin 1 GM/50 ML BAG IV ×3 (05:56→21:02)
[2023-07-28 06:52] LABS: Absolute Lymphocyte Count 1.36 X10^3/uL (0.83-4.51); Absolute Neutrophil Count 12.6 X10^3/uL (2.0-7.7); Basophil# 0.04 X10^3/uL; Basophil% 0.2 % (0-1); Eosinophil# 0.25 X10^3/uL; Eosinophils% 1.6 % (0-5); Hematocrit 31.6 % (37-47); Hemoglobin 10.2 g/dL (12.0-15.0); Lymphocyte # 1.36 X10^3/ul (0.83-4.51); Lymphocyte % 8.5 % (19-41); Mean Corp Hgb Conc 32.3 g/dL (32-36); Mean Corpuscular Hgb 26.7 pg (27.0-32.0); Mean Corpuscular Volume 82.7 fL (81-99); Mean Platelet Vol. 11.3 fl (6.2-12.0); Monocyte# 1.65 X10^3/uL; Monocyte% 10.3 % (0-10); NRBC Flagged by Analyzer 0 % (0-5); Neutrophil # 12.63 X10^3/uL (2.7-7.7); Neutrophil % 78.8 % (47-70); POSITIVE DIFFERENTIAL YES; Platelet Count 178 K/mm3 (150-450); RBC Distribution Width CV 15.8 % (11.6-14.6); RBC Distribution Width SD 47.8 fl (35.1-43.9); Red Blood Count 3.82 M/mm3 (4.2-5.4)
[2023-07-28 07:00] LABS: Differential Indicated SCAN CRITERIA MET
[2023-07-28] MEDS: amLODIPine 10 MG Tablet PO (08:25)
[2023-07-28 09:14] LABS: Anion Gap 7 (5-15); BUN 15 mg/dL (7-18); BUN/Creat Ratio 16.7 RATIO (10-20); Calcium,Total 8.9 mg/dL (8.5-10.1); Chloride 100 mmol/L (98-107); EST Glomerular Filtration Rate 66 mL/min (>60); Est Glom Filt Rate - Afr Amer 80 mL/min (>60); Estimated Creatinine Clearance 47.43 ml/min; Glucose 88 mg/dL (74-106); Potassium 2.7 mmol/L (3.5-5.1); Sodium Level 137 mmol/L (136-145)
[2023-07-28 09:47] LABS: Magnesium 1.7 mg/dL (1.6-2.6)
--- NOTE | 2023-07-28 09:50 | CASEMGMT ---
RN CM Face to Face with patient for initial transition planning/care coordination assessment. RN CM introduced self and role at [facility]. Patient lying in bed, alert and oriented, at bedside. Patient willing to participate in assessment and is able to answer all questions appropriately. Care providers, pharmacy, and demographics verified. Patient wishes to discharge home, denies need for home health at this time. Patient states she has no further needs or concerns at this time. CM to follow for discharge planning needs that may arise. PCP: Christiano Specialists: Uzma urologist; yahir Reese Pharmacy: [facility] Insurance: [facility] Prescription Benefit: yes Living Will/HPOA: yes Cheng Schwarz LNOK: Living Arrangements: Patient lives with in a single story home with 2 steps and railing to enter the home. Transportation: self, DME/HHC: Patient has shower chair, raised toilet, cane, walker, and grab bars. No previous HHC or SNF. Disposition Plan: Patient to discharge home with family support and follow-up plans in place. Yvrose LANZA, RN, CM
[2023-07-28] MEDS: Potassium Chloride 10mEq/100mL 10 MEQ/100 ML IV.SOLN. 100 MEQ IV BOLUS ×4 (11:03→14:15)
[2023-07-28] MEDS: Lactated Ringers 1,000 ML 15 ML IV (11:06)
--- NOTE | 2023-07-28 11:06 | NURSING ---
upon checking pt in for surgery, iv access in left ac is swollen and red, stopped LR/dex 5% immediately and discontinued iv. called pharmacy to see if there was anything we need to do, they said no.
--- NOTE | 2023-07-28 11:52 | PCM.OPRPT ---
Report of Operation Date of Procedure: 07/28/23 Pre-Operative Diagnosis: left ureteral stone with hydronephrosis Post-Operative Diagnosis: same Surgery/Procedure Performed:: cystoscopy, attempted ureteroscopy, left ureteral stent insertion Surgeon: Nicky Gusman Type of Anesthesia: General Description of Procedure: The patient is a 72-year-old female with a left ureteral stone who presents for surgical intervention. Informed consent was obtained. The patient was taken to the operating room and placed on the operating room table. Anesthesia monitored the head, neck, airway, IV access and vital signs throughout the case. Once anesthesia was appropriately administered, the patient was placed into dorsolithotomy position was prepped and draped in usual sterile fashion. The patient has a significant cystocele present and a gauze was placed in the vagina to reduce the prolapse. The cystoscope was inserted through the urethra under direct visualization into the urinary bladder. The bladder mucosa was visualized in its entirety with no evidence of mass, erythema or ulceration. The left ureteral orifice was identified and intubated with a 0.035 Glidewire which extended into the renal pelvis without difficulty. An attempt was made at passage of a semirigid ureteroscope with the assistance of a 0.025 Glidewire. This did not easily go and I attempted advancement with a flexible ureteroscope as well. The ureteral orifice was too small to accommodate either of the ureteroscope's. The decision was made to proceed with ureteral stent insertion and come back for definitive stone intervention. The a 6 Lithuanian 24 cm JJ stent was placed over the wire with good positioning in the renal pelvis as well as the urinary bladder. The patient's bladder was then emptied and the gauze was removed from her vagina. The cystoscope was removed and she was awakened and taken to the recovery room in good condition. There were no complications during this procedure. Grafts/Implants Used: 6Fr x 24cm Complications none Admit VTE Documentation VTE Present on Admission: Yes VTE Mechan Device Prophylaxis: SCD's VTE Pharm Prophylaxis ordered?: No Reason prophylaxis not ordered:: Treatment Not Indicated
--- NOTE | 2023-07-28 11:53 | DCINST_ITS ---
Discharge Instructions Diet Discharge Diet: No restrictions Activity Discharge Activity: Return to Normal Activity Dressing / Incision Call your doctor if you observe: Fever of 101 or Higher, Inability to urinate, Inability to have a bowel movement, Shortness of breath and Chest pain Follow Up Care Please Follow Up With: Nicky Gusman MD When: call the office to make an appt for follow up. Needs to follow up with primary care for her decrease O2 saturations. Test Results: Test results from this visit will be discussed in further detail at your follow- up appointment, if applicable. Discharge Plan Admission Admit Date/Time: 07/27/23 20:46 Attending Provider: Nicky Gusman Primary Care Provider: DEE ECHEVARRIA Discharge Orders/Prescriptions Prescriptions: New hydrocodone-acetaminophen [hydrocodone-acetaminophen] 5-325 mg tablet 1 tab PO Q8H PRN PRN (Reason: Pain) 7 Days Qty: 12 0RF cephalexin [cephalexin] 500 mg capsule 500 mg PO 3XD 3 Days Qty: 9 0RF ondansetron HCl [ondansetron HCl] 8 mg tablet 8 mg PO Q8H PRN PRN (Reason: Nausea) 7 Days Qty: 20 0RF phenazopyridine [phenazopyridine] 100 mg tablet 100 mg PO TID Qty: 30 3RF Continued lansoprazole [Prevacid] 30 MG capsule 30 mg PO DAILY hydrochlorothiazide 25 MG tablet 25 mg PO DAILY amlodipine 10 mg tablet 10 mg PO DAILY cholecalciferol (vitamin D3) [Vitamin D3] 25 mcg (1,000 unit) capsule 25 mcg PO DAILY Patient Comments: pt. takes OTC Referrals / Follow Up: DEE ECHEVARRIA [Other] DEE ECHEVARRIA [Other] Disposition Disposition (needs filled in before D/C Order can be placed): Home, Self Care
--- NOTE | 2023-07-28 12:40 | CASEMGMT ---
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 Patient is aware they are not on file at [facility] [place] and will have copies brought in. Megan ALFARO
[2023-07-28] MEDS: Pantoprazole Sodium 40 MG Tablet PO (15:42)
[2023-07-28] MEDS: hydroCHLOROthiazide 25 MG Tablet PO (15:42)
[2023-07-28 17:28] LABS: Anion Gap 5 (5-15); BUN 14 mg/dL (7-18); BUN/Creat Ratio 15.3 RATIO (10-20); Calcium,Total 8.8 mg/dL (8.5-10.1); Chloride 102 mmol/L (98-107); Creatinine, Serum 0.91 mg/dL (0.55-1.02); EST Glomerular Filtration Rate 64 mL/min (>60); Est Glom Filt Rate - Afr Amer 78 mL/min (>60); Estimated Creatinine Clearance 46.91 ml/min; Glucose 138 mg/dL (74-106); Sodium Level 138 mmol/L (136-145)
[2023-07-28] MEDS: Potassium Chloride Oral Tablet 20 MEQ 40 MEQ PO (17:35)
[2023-07-28] MEDS: 0.9% Saline Lock 10 ML Syringe IV (21:11)
[2023-07-29 01:56] VITALS: BP 115/58; PULSE 78; RESP 18; TEMP 36.9; O2SAT 99
[2023-07-29 05:16] VITALS: BP 128/68; PULSE 75; RESP 18; TEMP 36.7; O2SAT 92
[2023-07-29] MEDS: Cefazolin 1 GM/50 ML BAG IV (05:23)
[2023-07-29] MEDS: 0.9% Saline Lock 10 ML Syringe IV (05:27)
[2023-07-29 07:28] LABS: Pathologist Review Reviewed
[2023-07-29 07:29] LABS: Anion Gap 4 (5-15); BUN 11 mg/dL (7-18); Chloride 100 mmol/L (98-107); Creatinine, Serum 0.85 mg/dL (0.55-1.02); EST Glomerular Filtration Rate 70 mL/min (>60); Est Glom Filt Rate - Afr Amer 85 mL/min (>60); Estimated Creatinine Clearance 50.22 ml/min; Glucose 101 mg/dL (74-106); Potassium 3.1 mmol/L (3.5-5.1); Sodium Level 135 mmol/L (136-145)
[2023-07-29 07:33] LABS: Pathologist Review Reviewed
--- NOTE | 2023-07-29 08:00 | RAD_ITS ---
STUDY: X-RAY CHEST REASON FOR EXAM: Female, 72 years old. Low SPO2 TECHNIQUE: AP portable COMPARISON: October 23, 2018 FINDINGS: Mild subsegmental atelectasis in both lower lobes more pronounced on the left.. There is no demonstrated pleural abnormality. Normal size heart. Normal mediastinum and bakari. Normal visualized pulmonary arteries. Mildly calcified aortic arch and descending thoracic aorta. Dorsal spine and shoulders demonstrate degenerative change. Normal visualized ribs, clavicles, and shoulders. There is no demonstrated abnormality of the visualized soft tissue structures of the upper abdomen. RAD/Chest 1 View IMPRESSION: Minor bibasilar atelectasis slightly more pronounced on the left Electronically Signed: Socrates Mccann MD at 17:21 EST ,
[2023-07-29 08:08] VITALS: O2SAT 90
[2023-07-29 08:35] VITALS: BP 117/63; PULSE 74; RESP 16; TEMP 37.1; O2SAT 92
[2023-07-29] MEDS: Potassium Chloride Oral Tablet 20 MEQ 40 MEQ PO (08:43)
[2023-07-29] MEDS: amLODIPine 10 MG Tablet PO (08:43)
[2023-07-29] MEDS: hydroCHLOROthiazide 25 MG Tablet PO (08:43)
[2023-07-29] MEDS: Pantoprazole Sodium 40 MG Tablet PO (08:43)
[2023-07-29] MEDS: oxyCODONE 5 MG Tablet PO (08:44)
[2023-07-29 11:00] VITALS: O2SAT 89; O2SAT 92
--- NOTE | 2023-07-29 12:16 | PHA.DC.MC.R ---
Pharmacy [facility] has performed discharge medication reconciliation and counseling for this patient. Patient counseled via telephone. 1. CEPHALEXIN 500MG PO TID X 3 DAYS 2. HYDROCODONE/ACETAMINOPHEN 5/325MG 1T PO Q8H PRN PAIN 3. ONDANSETRON 8MG PO Q8H PRN NAUSEA 4. PHENAZOPYRIDINE 100MG PO TID X 10 DAYS The patient's discharge medication list was reviewed for discrepancies and discrepancies were resolved. The patient was counseled on the following discharge medications and changes in medications for homegoing were reviewed. The Reason for Use, instructions for use, and potential side effects were reviewed for all new medications. The patient's questions regarding all of their medications were answered. The patient was able to verbally demonstrate an understanding of their discharge medications. Medications at Discharge Home Medications lansoprazole 30 mg capsule,delayed release (Prevacid) 30 mg PO DAILY 10/23/18 hydrochlorothiazide 25 mg tablet 25 mg PO DAILY diuretic 10/01/19 amlodipine 10 mg tablet 10 mg PO DAILY blood pressure 07/26/23 cholecalciferol (vitamin D3) 25 mcg (1,000 unit) capsule (Vitamin D3) 25 mcg PO DAILY supplement 07/26/23 cephalexin 500 mg capsule 500 mg PO 3XD post-operative 3 days #9 CAPSULES 07/29/23 hydrocodone-acetaminophen 5-325mg 5mg-325mg 1 tab PO Q8H PRN PRN Pain 7 days #12 TABLETS 07/29/23 ondansetron HCl 8 mg tablet 8 mg PO Q8H PRN PRN Nausea 7 days #20 TABLETS 07/29/23 phenazopyridine 100 mg tablet 100 mg PO TID #30 TABLETS 07/29/23
--- NOTE | 2023-07-29 14:19 | CASEMGMT ---
Patient has order for discharge. RN CM in to discuss needs at discharge. Patient denied needs or help at discharge. Patient and had no further questions or concerns at this time.
[2023-07-29 14:28] VITALS: BP 116/62; PULSE 79; RESP 16; TEMP 37.1; O2SAT 93
== END 2023-07-29 14:53 | disposition home or self-care (01) | DRG 661 ==
LOC: ED 03:09 → PCU 06:12
PROVIDERS: Admitting Provider Urology; Emergency Provider Emergency Medicine; Referring Provider Urology; Visit Provider Urology
PROC: 0TJ98ZZ Inspection of Ureter, Via Natural or Artificial Opening Endoscopic (ICD-10-PCS; CPT 52352; principal; 2023-07-28 10:45)
DX: N13.2 Hydronephrosis with renal and ureteral calculous obstruction (principal); E86.0 Dehydration; I10 Essential (primary) hypertension; E87.6 Hypokalemia; K21.9 Gastro-esophageal reflux disease without esophagitis; R73.9 Hyperglycemia, unspecified
CPT/HCPCS: 36415; 71045; 74176; 76000; 80048; 81001; 83735; 85025; 87077; 87086; 87088; 87186; 93005; 99284; J7030; J7120; A4216; C2617; J2405

== ENCOUNTER → 2023-08-04 | Outpatient (CLI) | payer OTHER, MEDICARE, SELFPAY ==
--- NOTE | 2023-08-04 08:54 | RAD_ITS ---
STUDY: X-RAY - ABDOMEN/PELVIS REASON FOR EXAM: Female, 72 years old. KUB- STONES TECHNIQUE: Single AP view of the abdomen / pelvis. COMPARISON: None. FINDINGS: Status post cholecystectomy. Left ureteral stent. 5 mm calcific opacity projecting over the distal aspect of the stent worrisome for distal ureteral stone. There is an unremarkable bowel gas pattern. There is no demonstrated free abdominal air. The visualized liver, spleen and kidneys are grossly normal in size and morphology. Normal soft tissue structures. Normal visualized osseous structures. RAD/Abdomen Single View IMPRESSION: Left ureteral stent with possible 5 mm distal left ureteral stone. Electronically Signed: Johann Becerra MD at 22:16 EST ,
== END | disposition home or self-care (01) ==
LOC: MTRAD 08:52
PROVIDERS: Referring Provider Urology; Visit Provider Urology
DX: N20.0 Calculus of kidney (principal)
CPT/HCPCS: 74018

== ENCOUNTER 2023-08-21 05:40 | Day surgery (SDC) | payer OTHER, MEDICARE, SELFPAY ==
[2023-08-21] VITALS (11 sets, daily range): BP systolic 111–147; BP diastolic 63–75; PULSE 67–85; RESP 16–18; TEMP 36.3–36.9; O2SAT 94–100; BMI 25.5
--- OUTSIDE RECORDS SUMMARY | 2023-08-21 05:45 | XMS RPT_ITS | CCD ---
Author Name Unknown Address [address] [place] [address] Organization [facility] Care Team Providers Care Mechanic Chief Name Role Phone DEE ECHEVARRIA Primary Care Physician Unavailab le Dee Echevarria DO Primary Care Provider Dee Echevarria DO Primary Care Provider [phone] MAGED CAROLINA, DONTE Espana Attending Unavailable SWATHI CAROLINA., DEE Echavarria Primary Care Unavailable SWATHI CAROLINA., DEE Echavarria Primary Care Unavailable SWATHI CAROLINA., DEE Echavarria Consulting Unavailable DONTE LYNNE MD Admitting Unavailable DONTE LYNNE MD Referring Unavailable DONTE LYNNE MD Attending Unavailable RAULITO BYNUM Consulting Unavailable SWATHI CAROLINA., DEE Echavarria Primary Care Unavailable SWATHI CAROLINA., DEE P Consulting Unavailable MAGED CAROLINA, DONTE Espana Admitting Unavailable MAGED CAROLINA, DONTE Espana Referring Unavailable DONTE LYNNE MD Attending Unavailable RUBY SANDRA Consulting Bee ECHEVARRIA MD., DEE Echavarria Primary Care Unavailable DONTE LYNNE MD Attending Unavailable SWATHI CAROLINA., DEE P Primary Care Unavailable DONTE LYNNE MD Attending Unavailable SWATHI CAROLINA., DEE P Primary Care Unavailable DONTE LYNNE MD Attending Unavailable DEE ECHEVARRIA Primary Care Unavailable ROM TEJADA Attending Unavaila DEE Enrique Primary Care Unavailable ELSA WIN Referring Unavailable JILLIAN SAVAGE Referring Unavailable DEE ECHEVARRIA Primary Care Unavailable DEE ECHEVARRIA Primary Care Unavailable DEE ECHEVARRIA Primary Care Unavailable Allergies Allergy Classification Reported Allergen(s) Allergy Type Date of Onset Reaction(s) Facility (4 sources) Angiotensin-con verting enzyme inhibitor agent; Translations: [angiotensin converting enzyme inhibitors] Drug allergy 1 tingling of tongue [facility] (3 sources) cloNIDine; Translations: [clonidine] Drug Allergy tingling of tongue [facility] (8 sources) Lisinopril; Translations: [lisinopril] Drug Allergy 0 Angioedema [facility] (4 sources) Angiotensin-con verting enzyme inhibitor agent Drug Intolerance 1 Other: See Comments [facility] Medications Current Medications Medication Drug Class(es) Dates Sig (Normalized) Sig (Original) acetaminophen 500 mg oral tablet (2 sources) Start: 04-30-2022 Tylenol Extra Strength 500 mg oral tablet Dose : 1,000 mg = 2 tab(s), Oral, TID, PRN as needed for pain Start Date: 04/30/22 Status: Ordered amLODIPine 10 mg oral tablet (7 sources) Dihydropyridine Calcium Channel Endy Start: 04-12-2022 amLODIPine 10 mg oral tablet Dose : 10 mg = 1 tab(s), Oral, qDay, # 30 tab(s), 0 Refill(s) Start Date: 04/12/22 Status: Ordered Completed/Discontinued Medications Medication Drug Class(es) Dates Sig (Normalized) Sig (Original) cholecalciferol 0.025 mg oral capsule (4 sources) Vitamin D take 1 capsule by mouth once daily Cholecalciferol, Vitamin D3, 25 mcg (1,000 unit) cap Take 1,000 Units by mouth once daily. 0 Active Problems Active Problems Problem Classification Problem Date Documented Date Episodic/Chronic Conditions associated with dizziness or vertigo (1 source) Vertigo; Translations: [Dizziness and giddiness] Episodic Esophageal disorders (1 source) Gastroesophageal reflux disease without esophagitis; Translations: [Gastro-esophageal reflux disease without esophagitis] Onset: 04-30-2022 Chronic Essential hypertension (1 source) Essential hypertension; Translations: [Essential (primary) hypertension] Onset: 04-30-2022 Chronic Genitourinary symptoms and ill-defined conditions (1 source) Scalding pain on urination ; Translations: [Dysuria] Episodic Osteoarthritis (1 source) Osteoarthritis; Translations: [Unspecified osteoarthritis, unspecified site] Onset: 04-30-2022 Chronic Other connective tissue disease (1 source) Artificial knee joint present; Translations: [Presence of right artificial knee joint] Onset: 04-30-2022 Chronic Other connective tissue disease (2 sources) History of total knee arthroplasty 04-30-2022 Chronic Other screening for suspected conditions (not mental disorders or infectious disease) (2 sources) Patient encounter status; Translations: [Encounter for screening for malignant neoplasm of colon] Onset: 04-09-2023 Episodic Other upper respiratory infections (1 source) Viral upper respiratory tract infection; Translations: [Acute upper respiratory infection, unspecified] Episodic Unclassified (3 sources) 06/05 ABD SACROCOLPOPEXY W/ GRAFT, POSTERIOR REPAIR( Confirmed ) Onset: 08-18-2005 06-05-2006 Past or Other Problems Problem Classification Problem Date Documented Da te Episodic/Chronic Allergic reactions (4 sources) Radiation-induced dermatosis; Translations: [Other skin changes due to chronic exposure to nonionizing radiation] Onset: 02-25-2009 02-25-2009 Episodic Mycoses (5 sources) Dermal mycosis; Translations: [Superficial mycosis, unspecified] Onset: 12-30-2006 Episodic Other and unspecified benign neoplasm (4 sources) Benign neoplasm of skin of face; Translations: [Other benign neoplasm of skin of unspecified part of face] Onset: 12-30-2006 12-30-2006 Episodic Other and unspecified benign neoplasm (4 sources) Benign neoplasm of skin of trunk; Translations: [Other benign neoplasm of skin of trunk] Onset: 11-09-2008 11-09-2008 Episodic Other and unspecified benign neoplasm (4 sources) Melanocytic nevus of trunk; Translations: [Melanocytic nevi of trunk] Onset: 02-24-2010 02-24-2010 Episodic Other and unspecified benign neoplasm (4 sources) Melanocytic nevus of upper limb; Translations: [Melanocytic nevi of unspecified upper limb, including shoulder] Onset: 02-24-2010 02-24-2010 Episodic Other connective tissue disease (4 sources) Synovial cyst; Translations: [Other bursal cyst, unspecified site] Onset: 01-10-2009 01-10-2009 Episodic Other skin disorders (4 sources) Actinic keratosis; Translations: [Actinic keratosis] Onset: 12-30-2006 12-30-2006 Episodic Other skin disorders (4 sources) Inflamed seborrheic keratosis; Translations: [Inflamed seborrheic keratosis] Onset: 12-30-2006 12-30-2006 Episodic Other skin disorders (4 sources) Disorder of sebaceous gland; Translations: [Follicular disorder, unspecified] Onset: 12-30-2006 12-30-2006 Episodic Other skin disorders (8 sources) Disorder of nail; Translations: [Other nail disorders] Onset: 12-30-2006 12-30-2006 Episodic Other skin disorders (4 sources) Disorder of skin pigmentation; Translations: [Disorder of pigmentation, unspecified] Onset: 12-30-2006 01-01-2010 Episodic Other skin disorders (4 sources) Disorder of skin; Translations: [Hypertrophic disorder of the skin, unspecified] Onset: 12-30-2006 12-30-2006 Episodic Other skin disorders (4 sources) Seborrheic keratosis; Translations: [Other seborrheic keratosis] Onset: 11-09-2008 11-09-2008 Episodic Other skin disorders (4 sources) Disorder of pigmentation; Translations: [Disorder of pigmentation, unspecified] Onset: 02-25-2009 02-25-2009 Episodic Other skin disorders (4 sources) Scar conditions and fibrosis of skin; Translations: [Scar conditions and fibrosis of skin] Onset: 02-24-2010 02-24-2010 Episodic Other skin disorders (4 sources) Post-inflammatory hypopigmentation; Translations: [Other specified disorders of pigmentation] Onset: 02-24-2010 02-24-2010 Episodic Residual codes; unclassified (1 source) Pain, unspecified; Translations: [Pain] Onset: 08-07-2022 Episodic Results Test Name Value Interpretation Reference Range Facil ity Vital Signs Date Time Vital Sign Value Performing Clinician Facility 07-29-2022 07:45-[address] DONTE LYNNE MD [facility] 07-29-2022 07:45-[address] DONTE Glover [facility] 07-29-2022 07:45-0500 Body height [address] DONTE LYNNE MD [facility] 07-29-2022 07:45-0500 Body weight [address] DONTE LYNNE MD [facility] 07-29-2022 07:45-0500 Diastolic Blood Pressure Non-Invasive [address] DONTE LYNNE MD [facility] 07-29-2022 07:45-0500 Heart rate 78 /min DR DONTE LYNNE MD [facility] 07-29-2022 07:45-0500 Respiratory rate 18 /min DR DONTE LYNNE MD [facility] 07-29-2022 07:45-0500 Systolic Blood Pressure Non-Invasive [address] DONTE LYNNE MD [facility] 07-28-2022 09:01-0500 Body temperature 97.39 [degF] Jeri Older CHANNEL SALES MANAGER.TRANSLATOR AND INTERPRETER Work Phone: [facility] 07-28-2022 09:01-0500 Body weight 68.95 kg Jeri Older CHANNEL SALES MANAGER.TRANSLATOR AND INTERPRETER Work Phone: [facility] 07-28-2022 09:01-0500 Diastolic blood pressure 72 mm[Hg] Jeri Older CHANNEL SALES MANAGER.TRANSLATOR AND INTERPRETER Work Phone: [facility] 07-28-2022 09:01-0500 Heart rate 86 /min Jeri Older CHANNEL SALES MANAGER.TRANSLATOR AND INTERPRETER Work Phone: [facility] 07-28-2022 09:01-0500 Respiratory rate 16 /min Jeri Older CHANNEL SALES MANAGER.TRANSLATOR AND INTERPRETER Work Phone: [facility] 07-28-2022 09:01-0500 SaO2% (BldA) [Mass fraction] 97 % Jeri Older CHANNEL SALES MANAGER.TRANSLATOR AND INTERPRETER Work Phone: [facility] 07-28-2022 09:01-0500 Systolic blood pressure 130 mm[Hg] Jeri Older CHANNEL SALES MANAGER.TRANSLATOR AND INTERPRETER Work Phone: [facility] 06-12-2022 09:53-0400 Body temperature 98.49 [degF] Jillian Savage APRN.TRANSLATOR AND INTERPRETER Work Phone: [facility] 06-12-2022 09:53-0400 Body weight 67.59 kg Jillian Savage APRN.TRANSLATOR AND INTERPRETER Work Phone: [facility] 06-12-2022 09:53-0400 Diastolic blood pressure 84 mm[Hg] Jillian Savage APRN.TRANSLATOR AND INTERPRETER Work Phone: [facility] 06-12-2022 09:53-0400 Heart rate 84 /min Jillian Savage APRN.TRANSLATOR AND INTERPRETER Work Phone: [facility] 06-12-2022 09:53-0400 Respiratory rate 16 /min Jillian Savage APRN.TRANSLATOR AND INTERPRETER Work Phone: [facility] 06-12-2022 09:53-0400 SaO2% (BldA) [Mass fraction] 96 % Jillian Savage APRN.TRANSLATOR AND INTERPRETER Work Phone: [facility] 06-12-2022 09:53-0400 Systolic blood pressure 142 mm[Hg] Jillian Savage APRN.TRANSLATOR AND INTERPRETER Work Phone: [facility] 05-01-2022 11:00-0400 Body temperature 98.06 [degF] DR DONTE LYNNE MD [facility] 05-01-2022 11:00-0400 Diastolic blood pressure 67 mm[Hg] DR DONTE LYNNE MD [facility] 05-01-2022 11:00-0400 Heart rate 81 /min DR DONTE LYNNE MD [facility] 05-01-2022 11:00-0400 Systolic blood pressure 108 mm[Hg] DR DONTE LYNNE MD [facility] 05-01-2022 09:11-0400 Reason For Taking VItal Signs DR DONTE LYNNE MD [facility] 05-01-2022 07:39-0400 Body temperature 97.88 [degF] DR DONTE LYNNE MD [facility] 05-01-2022 07:39-0400 Diastolic blood pressure 64 mm[Hg] DR DONTE LYNNE MD [facility] 05-01-2022 07:39-0400 Heart rate 67 /min DR DONTE LYNNE MD [facility] 05-01-2022 07:39-0400 Respiratory rate 18 /min DR DONTE LYNNE MD [facility] 05-01-2022 07:39-0400 Systolic blood pressure 117 mm[Hg] DR DONTE LYNNE MD [facility] 05-01-2022 07:29-0400 Heart rate 68 /min DR DONTE LYNNE MD [facility] 05-01-2022 05:28-0400 Body temperature 97.52 [degF] DR DONTE LYNNE MD [facility] 05-01-2022 05:28-0400 Diastolic blood pressure 71 mm[Hg] DR DONTE LYNNE MD [facility] 05-01-2022 05:28-0400 Heart rate 69 /min DR DONTE LYNNE MD [facility] 05-01-2022 05:28-0400 Mean blood pressure 88 mm[Hg] DR DONTE LYNNE MD [facility] 05-01-2022 05:28-0400 Systolic blood pressure 121 mm[Hg] DR DONTE LYNNE MD [facility] 05-01-2022 04:07-0400 Heart rate 70 /min DR DONTE LYNNE MD [facility] 05-01-2022 00:17-0400 Mean blood pressure 72 mm[Hg] DR DONTE LYNNE MD [facility] 04-30-2022 20:09-0400 Mean blood pressure 74 mm[Hg] DR DONTE LYNNE MD [facility] 04-30-2022 15:55-0400 Body height [address] DONTE LYNNE MD [facility] 04-30-2022 15:55-0400 Body weight 64.[address] DONTE LYNNE MD [facility] 04-30-2022 15:55-0400 Body weight 25.23 kg/m2 DR DONTE LYNNE MD [facility] 04-30-2022 15:46-0400 Diastolic Blood Pressure NBP [address] DONTE LYNNE MD [facility] 04-30-2022 15:46-0400 Systolic Blood Pressure NBP [address] DONTE LYNNE MD [facility] 04-30-2022 14:26-0400 Diastolic Blood Pressure NBP [address] DONTE LYNNE MD [facility] 04-30-2022 14:26-0400 Systolic Blood Pressure NBP [address] DONTE LYNNE MD [facility] 04-30-2022 14:10-0400 Diastolic Blood Pressure NBP [address] DONTE LYNNE MD [facility] 04-30-2022 14:10-0400 Systolic Blood Pressure NBP [address] DONTE LYNNE MD [facility] 04-30-2022 13:10-0400 Body temperature 97.52 [degF] DR DONTE LYNNE MD [facility] 04-30-2022 10:09-0400 Heart rate 69 /min DR DONTE LYNNE MD [facility] 04-30-2022 08:57-0400 Body height [address] DONTE LYNNE MD [facility] 04-30-2022 08:57-0400 Body temperature 98.42 [degF] DR DONTE LYNNE MD [facility] 04-30-2022 08:57-0400 Body weight 63.[address] DONTE LYNNE MD [facility] 04-30-2022 08:57-0400 Body weight 24.84 kg/m2 DR DONTE LYNNE MD [facility] 04-30-2022 08:57-0400 Heart rate 74 /min DR DNOTE LYNNE MD [facility] 04-12-2022 07:50-0400 Body height [address] DONTE LYNNE MD [facility] 04-12-2022 07:50-0400 Body weight 65.[address] DONTE LYNNE MD [facility] 04-12-2022 07:50-0400 Body weight 25.55 kg/m2 DR DONTE LYNNE MD [facility] 04-12-2022 07:50-0400 diastolic 62 mm[Hg] DR DONTE LYNNE MD [facility] 04-12-2022 07:50-0400 Heart rate 71 /min DR DONTE LYNNE MD [facility] 04-12-2022 07:50-0400 Respiratory rate 20 /min DR DONTE LYNNE MD [facility] 04-12-2022 07:50-0400 systolic 116 mm[Hg] DR DONTE LYNNE MD [facility] Encounters Encounter Date Encounter Type Care Provider Facility Start: 04-09-2023 End: 04-09-2023 ambulatory ROM TEJADA Facility:[facility] Start: 09-17-2022 Telephone encounter Lana Clark MD Work Phone: [facility] [place] Procedures Date Procedure Procedure Detail Performing Clinician Start: 06-12-2022 Urnls dip stick/tabl et rgnt auto w/o microscopy Jillian Savage APRN.TRANSLATOR AND INTERPRETER Work Phone: Start: 04-30-2022 Total replacement of right knee joint DR DONTE LYNNE MD Start: 04-30-2018 Colonoscopy Jillian Savage APRN.TRANSLATOR AND INTERPRETER Work Phone: Cholecystectomy DR DONTE JACKSON MD Plan of Treatment Date Care Activity Detail Author Start: 04-30-[address] [facility] Start: 04-30-2023 COLORECTAL CANCER SCREENING COLORECTAL CANCER SCREENING [facility] Start: 08-18-2022 ADVANCE DIRECTIVE DISCUSSION ADVANCE DIRECTIVE DISCUSSION [facility] Start: 08-18-2022 DEPRESSION ASSESSMENT DEPRESSION ASSESSMENT [facility] Start: 06-12-2022 End: 08-12-2022 Bacteria identified in Urine by Culture URINE CULTURE Microbiology Routine Burning with urination Expected: 06/12/2022, Expires: 08/12/2022 [facility] Work Phone: Immunizations Immunization Date Immunization Notes Care Provider Fa yoel 07-05-2021 SARS-CoV-2 mRNA (tozinameran) vaccine DR DONTE LYNNE MD [facility] Payers Date Payer Category Payer Private Health Insurance [facility] [id number] 2019-Present [phone] [address] [place] [address] HMO [id number] 2019 Private Health Insurance [id number] 2016 Medicare MEDICARE MEDICAR E A AND B [id number] 2016-Present [phone] [place] [address] Medicare [id number] 2016 Medicare [id number] 1950 Unknown [id number] 1950 Unknown [id number] 1950 Unknown [id number] 1950 Unknown [id number] 1950 Unknown [id number] 1950 Unknown [id number] Social History Date Type Detail Facility Start: 04-12-2022 End: 06-12-2022 Tobacco smoking status Never smoked tobacco (finding) [facility] Sex Assigned At Sex [facility] Start: 06-12-2022 Tobacco use and exposure Smokeless tobacco non-user [facility] Start: 06-12-2022 End: 08-07-2022 Alcohol intake Current non-drinker of alcohol (finding) [facility] Start: 1950 Sex Assigned At Not on file [facility] Start: 06-02-2022 End: 06-12-2022 Exposure to SARS-CoV-2 (event) Not sure [facility] Functional Status Date Assessment Result Facility 05-01-2022 Functional Status Occupational T herapy, Physical Therapy [facility] 05-01-2022 Functional Status 2 [facility] 05-01-2022 Functional Status [facility] 05-01-2022 Functional Status [facility] 05-01-2022 Functional Status Orthotics, Dev ice Worn Per Schedule Yes [facility] 05-01-2022 Functional Status bilateral knee high [facility] 05-01-2022 Functional Status [facility] 04-30-2022 Functional Status [facility] 04-30-2022 Functional Status [facility] 04-30-2022 Functional Status Single level home [facility] 04-30-2022 Functional Status Patient Identi fied Identification band, Verbal [facility] 04-30-2022 Functional Status Maintained [facility] 04-12-2022 Functional Status Sensory Deficits None A [facility] Mental Status Date Assessment Result Facility 05-01-2022 Mental Status Oriented x [facility] 05-01-2022 Mental Status Oriented x 4 [facility] 05-01-2022 Mental Status [facility] 05-01-2022 Mental Status [facility] Clinical Notes 12-30-2006 to 04-09-2023 Patient InstructionsTelephone Encounter - Karina Villavicencio - 09/17/2022 8:39 AM ESTPatient Nicola Sorto APRN.CNP - 07/28/2022 9:10 AM Trell Savage APRN.TRANSLATOR AND INTERPRETER - 06/12/2022 10:12 AM EDT Note Date & Type Note Facility 04-09-2023 Note HNO ID: [id number] Author: Elvia Templeton, RN Service: ? Author Type: Registered Nurse Type: Nursing Progress Note Filed: 04/09/2023 9:56 AM Note Text: Dr. Tejada at bedside to speak to patient. Verbalizes understanding. OK to d/c. [facility] 09-17-2022 Instructions Elsa Win PA-C - 09/17/2022 8:43 AM EST Images from the original note were not included. Bowel Preparation Instructions for: Miralax-Gatorade Preparations IF YOU DO NOT FOLLOW THESE DIRECTIONS, YOUR COLONOSCOPY WILL BE CANCELLED. [place] Instructions: Your bowel must be empty so that your doctor can clearly view your colon. Follow all of the instructions in this handout EXACTLY as they are written. Do NOT eat any solid food the ENTIRE day before your colonoscopy. Buy your bowel preparation at least 5 days before your colonoscopy. Four (4) Dulcolax laxative tablets containing 5mg of bisacodyl each (NOT Dulcolax stool softener) One (1) 8.3oz. bottle Miralax (238 grams) or generic equivalent 2 x 32oz. Bottles of Gatorade (NOT RED) Diabetic Patients: Use G2 (Gatorade 2) TRANSPORTATION on the Day of Your Exam A responsible adult MUST be present with you at Check In prior to your colonoscopy and REMAIN in the endoscopy area until you are discharged. You are NOT ALLOWED to drive, take a taxi or bus, or leave the Endoscopy Center ALONE. If you do not have a responsible medical van driver (family member or friend) with you to take you home, your exam cannot be done with sedation and will be cancelled. Please bring a list of all of your current medications, including any [id number] medications with you. Medications If you take insulin, diabetic medications or blood thinners such as Coumadin (warfarin), Plavix (clopidogrel), Ticlid (ticlopidine hydrochloride), Agrylin (anagrelide), Xarelto (Rivaroxaban), Pradaxa (Dabigatran), Eliquis (Apixaban), and Effient (Prasugrel). You MUST call the doctors who orders those medicines for instructions on altering the dosage before your colonoscopy. All other medications should be taken the day of the exam with a sip of water including ASPIRIN. Five (5) Days Before Your Colonoscopy Do NOT take medicines that stop diarrhea - such as Imodium, Kaopectate, or Pepto Bismol. Do NOT take fiber supplements - such as Metamucil, Citrucel, or Perdiem. Do NOT take products that contain iron - such as multi-vitamins (the label lists what is in the products). Three (3) Days Before Your Colonoscopy Do NOT eat high-fiber foods - such as popcorn, beans, seeds (flax, sunflower, quinoa), multigrain bread, nuts, salad/vegetables, or fresh and dried fruit. 1 Bowel Preparation Instructions for: Miralax-Gatorade Preparations One (1) Day Before Your Colonoscopy Only drink clear liquids the ENTIRE DAY before your colonoscopy. Do NOT eat any solid foods. Drink at least 8 ounces of clear liquids every hour after waking up. The clear liquids you can drink include: Clear Liquid (NO RED LIQUIDS) DO NOT DRINK Gatorade, Pedialyte or Powerade Clear broth or bouillon Coffee or tea (no milk or non-dairy creamer) Carbonated and non-carbonated soft drinks Shahab-Aid or other fruit flavored drinks Strained fruit juices (no pulp) Jell-O, popsicles, hard candy Water Alcohol Milk or non-dairy creamers Noodles or vegetables in soup Juice with pulp Liquid you cannot see through Do not use tobacco/vaping products Mix 1/2 of Miralax bottle (119 grams) in each 32 ounces of Gatorade bottle until dissolved. Keep cool in the refrigerator. DO NOT ADD ICE. The bowel preparation solution will be consumed in two parts. Part 1 5:00 PM - Evening before your colonoscopy Take 4 Dulcolax tablets. 6 PM - Evening before your colonoscopy Drink 32 oz. of the mixed solution. Drink an 8 oz. glass of bowel preparation every 15 minutes for a total of 4 glasses. Fifteen (15) minutes later, drink an 8 oz. glass of of clear liquids every 15 minutes for a total of 2 glasses. You may continue to drink clear liquids till midnight. Part 2 On the day of your colonoscopy you may drink clear liquids up to (three) 3 hours prior to procedure. 4 1/2 hours before your colonoscopy Take another 32 oz. bottle of mixed solution. Drink an 8 oz. glass of bowel prep every 15 minutes for a total of 4 glasses. Fifteen (15) minutes later, drink an 8 oz. glass of clear liquids every 15 minutes for a total of 2 glasses. You may continue to drink clear liquids up to (three) 3 hours before your exam. 2 07/2019 documented in this encounter [facility] 09-17-2022 Miscellaneous Notes Please create a screening colonoscopy order, thank you documented in this encounter [facility] 08-07-2022 Note HNO ID: [id number] Author: RT Pineda(R) Service: ? Author Type: Material Requirements Planning Manager Type: Progress Notes Filed: 08/07/2022 12:37 PM Note Text: Radiology Service Progress Note PATIENT NAME: Kaylee Schwarz DATE OF SERVICE: August 07, 2022 TIME: 12:20 PM PATIENT IDENTITY VERIFICATION COMPLETED USING TWO (2) IDENTIFIERS: Name and Date of confirmed by patient verbally. FALL SCREENING: Has the patient had 2 falls in the last year or 1 fall with injury or currently using an Ambulatory Assistive Device (Walker, Cane, Wheelchair, Crutches, etc.)? No PATIENT GENDER DATA: Female. status: : No status: NO. PATIENT RELEVANT IMPLANT DATA REVIEWED: Yes RADIOLOGY DEPARTMENT: General X-ray: Exam(s) Completed: Upper Extremity X-Ray(s): Wrist, right PERIPHERAL IV DATA: Not applicable SIGNED BY: RT Pineda(R) August 07, 2022 12:20 PM [facility] 08-07-2022 Note HNO ID: [id number] Author: Jillian Savage APRN.TRANSLATOR AND INTERPRETER Service: ? Author Type: Nurse Practitioner Type: Progress Notes Filed: 08/07/2022 1:19 PM Note Text: Subjective Patient came in with complaints of right wrist pain. Patient says it hurts on the outer lateral aspect. Denies any injury at this time. Patient says she woke up Friday night and her in the middle the night. Patient says today feels a little better than it did yesterday but is still quite painful. Patient denies any numbness tingling or loss of feeling in her hands patient does say range of motion motion hurts worse. The history is provided by the patient. No foreign language teacher was used. Wrist/forearm Injury Review of Systems Constitutional: Negative. Skin: Negative. Objective Physical Exam Constitutional: Appearance: Normal appearance. Pulmonary: Effort: Pulmonary effort is normal. Musculoskeletal: Arms: Comments: Patient has pain in the area marked above. The outer lateral aspect is more painful than the inner aspect. Very mild amount of swelling noted no discoloration noted. Range of motion is more painful up-and-down rather than side to side. Neurological: Mental Status: She is alert. PAST MEDICAL HISTORY Diagnosis Date Adenomatous colon polyp Coombs's esophagus Diverticulosis FHx: colon cancer Gallstones GERD (gastroesophageal reflux disease) Other and unspecified hyperlipidemia PAST SURGICAL HISTORY Procedure Laterality Date CHOLECYSTECTOMY COLONOSCOPY 07/05/2014 tubular adenoma, diverticulosis COLONOSCOPY 04/30/2018 normal COLONOSCOPY 05/06/2011 tubular adenoma, diverticulosis EGD 06/28/2014 hiatal hernia EGD 01/23/2010 hx long segment Coombs's s/p radiofrequecy ablation, bx neg, patulous GE junction EGD 12/19/2020 Normal halo ablation 2008 Series of treatments RPR INGUN HERNIA SLIDING ANY AGE TUBAL LIGATION HX VAGINAL HYSTERECTOMY UTERUS 250 GM/< ALLERGIES Chuck Inhibitors and Lisinopril MEDICATIONS KLOR-CON 20 mEq packet MIX ONE PACKET INTO FOUR OUNCES OF BEVERAGE AND DRINK ONCE DAILY potassium chloride (KLOR-CON) 20 mEq packet Take by mouth. Cholecalciferol, Vitamin D3, 25 mcg (1,000 unit) cap Take 1,000 Units by mouth once daily. amLODIPine (NORVASC) 10 mg tablet Take 10 mg by mouth once daily. hydroCHLOROthiazide (HYDRODIURIL, ESIDRIX) 25 mg tablet Take 25 mg by mouth once daily. PREVACID 30 MG CAP Take one(1) tablet daily. FAMILY HISTORY Problem Relation Age of Onset Diabetes Mother Colon Cancer Mother other (heart disease) Mother Heart Father Social History Tobacco Use Smoking status: Never Smokeless tobacco: Never Vaping Use Vaping Use: Never used Substance Use Topics Alcohol use: No Drug use: No ASSESSMENT/PLAN: 1. Pain - ICD9: 780.96, ICD10: R52 - XR WRIST INJURY 4V PA/LAT/OBL/SCAPH RIGHT * * * * Physician Interpretation * * * * EXAM TITLE: XR WRIST 4V PA/LAT/OBL/SCAPH RT EXAM DATE/TIME: 08/07/2022 12:36 PM COMPARISON: None. CLINICAL INDICATION/HISTORY: Wrist pain. TECHNIQUE: PA, lateral, oblique and scaphoid views of right wrist are presented. FINDINGS: No acute fractures or subluxations are noted. First carpometacarpal and triscaphe joint space narrowing is demonstrated, with subchondral bony sclerosis and mild osteophyte formation. Cystic formation seen in the base of the first metacarpal bone. Interphalangeal joint degenerative changes noted in the first digit. The bones are somewhat osteopenic. There is no significant soft tissue swelling. IMPRESSION IMPRESSION: Degenerative changes as described above. Food Science Technician: JUANITO Transcribe Date/Time: Aug 07 2022 12:49P Dictated by : JACQUE MITCHELL MD Right wrist brace was placed on patient for comfort patient has her own orthopedic doctor and will follow-up with that doctor. Patient will rest and ice. Patient was okay with this care plan. Jillian Savage APRN.XOCHITL [facility] 07-28-2022 Note HNO ID: [id number] Author: Jeri Sorto APRN.XOCHITL Service: ? Author Type: Nurse Practitioner Type: Progress Notes Filed: 07/28/2022 10:10 AM Note Text: CC: Patient presents with: Sinus Problem: sinus pressure, drainage x couple days, dizziness x today HPI: Kaylee Schwarz is a 71 year old female who presents to the office with above complaint Sinus symptoms for two days. Associated symptoms includes nasal congestion, rhinorrhea, facial pain/pressure, post nasal drip, pressure in the ears, itchy/watery right eye and fatigue. Denies sore throat, headache, body aches, fever, cough, wheezing, dyspnea, nausea, vomiting , and diarrhea. Treatments tried include nothing so far. Sick contacts: unknown. History of asthma, frequent episodes of bronchitis, chronic bronchitis, bronchiectasis or COPD: No Smoker: No Seasonal/environmental allergies: No Exposures: Sick contacts? No Family or close contacts with confirmed/probable COVID-19 in last 14 days? No COVID vaccine: yes and one booster Patient also reports dizziness that started this morning when she got out of bed. Described as room spinning and feeling off balance. Triggered by head movements, changing positions. Alleviated by sitting still. Neurological symptoms: Denies syncope, feeling faint, seizures, memory loss, confusion, numbness or tingling of hands, numbness or tingling of feet, muscle weakness, neck stiffness, involuntary movements, tremor, slurred speech, facial drooping, visual disturbances REVIEW OF SYSTEMS See HPI PAST MEDICAL HISTORY Diagnosis Date Adenomatous colon polyp Coombs's esophagus Diverticulosis FHx: colon cancer Gallstones GERD (gastroesophageal reflux disease) Other and unspecified hyperlipidemia PAST SURGICAL HISTORY Procedure Laterality Date CHOLECYSTECTOMY COLONOSCOPY 07/05/2014 tubular adenoma, diverticulosis COLONOSCOPY 04/30/2018 normal COLONOSCOPY 05/06/2011 tubular adenoma, diverticulosis EGD 06/28/2014 hiatal hernia EGD 01/23/2010 hx long segment Coombs's s/p radiofrequecy ablation, bx neg, patulous GE junction EGD 12/19/2020 Normal halo ablation 2009 Series of treatments RPR INGUN HERNIA SLIDING ANY AGE TUBAL LIGATION HX VAGINAL HYSTERECTOMY UTERUS 250 GM/< ALLERGIES Chuck Inhibitors and Lisinopril MEDICATIONS KLOR-CON 20 mEq packet MIX ONE PACKET INTO FOUR OUNCES OF BEVERAGE AND DRINK ONCE DAILY potassium chloride (KLOR-CON) 20 mEq packet Take by mouth. Cholecalciferol, Vitamin D3, 25 mcg (1,000 unit) cap Take 1,000 Units by mouth once daily. amLODIPine (NORVASC) 10 mg tablet Take 10 mg by mouth once daily. hydroCHLOROthiazide (HYDRODIURIL, ESIDRIX) 25 mg tablet Take 25 mg by mouth once daily. PREVACID 30 MG CAP Take one(1) tablet daily. FAMILY HISTORY Problem Relation Age of Onset Diabetes Mother Colon Cancer Mother other (heart disease) Mother Heart Father Social History Tobacco Use Smoking status: Never Smokeless tobacco: Never Vaping Use Vaping Use: Never used Substance Use Topics Alcohol use: No Drug use: No PHYSICAL EXAM: BP 130/72 Pulse 86 Temp 36.3 ?C (97.4 ?F) Resp 16 Wt 68.9 kg (152 lb) SpO2 97% BMI 26.50 kg/m? General appearance: tired/ill appearing, alert, cooperative, pleasant, in no acute distress Head: Normocephalic Eyes: PERRLA, EOM's intact, conjunctiva pink and moist, no icterus, sclera white, non-injected Ears: Right ear: External ear/canal- Normal, TM - clear with good landmarks. Left ear: External ear/canal- Normal, TM - clear with good landmarks Nose: clear, no sinus tenderness. Oropharynx:No erythema, exudates or tonsillar hypertrophy. Neck:supple and no adenopathy Heart: Negative. RRR without obvious murmur, gallop, or rubs. No ectopy. Lungs: clear to auscultation, without rales or wheeze, good air exchange Neuro: Gait normal. speech normal, mental status intact, cranial nerves 2-12 intact, Romberg negative, muscle strength normal, finger to nose normal ASSESSMENT/PLAN: 1. Viral URI - ICD9: 465.9, ICD10: J06.9 (primary diagnosis) Recommend COVID testing, patient declined - Discussed viral etiology and rationale for treatment. - Symptomatic treatment with prn analgesia - Supportive care with fluids and rest - The patient may also use OTC Flonase and Mucinex as needed - Follow up in one week if symptoms persist or sooner if worsening of symptoms 2. Vertigo - ICD9: 780.4, ICD10: R42 Suspect secondary to viral URI. No alarm symptoms or exam findings. See plan above. Follow-up with PCP in 2-3 days if vertigo does not improve with above treatment measures Prescription instructions reviewed with patient as applicable. Potential red flag symptoms discussed with the patient. Reviewed appropriate action plan to take if red flag symptoms occur. Patient agreeable to treatment plan. Jeri Sorto APRN.CNP [facility] 07-28-2022 Instructions Jeri Sorto APRN.CNP - 07/28/2022 9:25 AM EST Flonase and Mucinex ER tablet over the counter for sinus symptoms/congestion Go to ER or call 911 for any stroke symptoms, passing out or worst headache of your life that starts suddenly documented in this encounter [facility] 07-28-2022 History of Present illness Narrative CC: Patient presents with: Sinus Problem: sinus pressure, drainage x couple days, dizziness x today HPI: Kaylee Schwarz is a 71 year old female who presents to the office with above complaint Sinus symptoms for two days. Associated symptoms includes nasal congestion, rhinorrhea, facial pain/pressure, post nasal drip, pressure in the ears, itchy/watery right eye and fatigue. Denies sore throat, headache, body aches, fever, cough, wheezing, dyspnea, nausea, vomiting , and diarrhea. Treatments tried include nothing so far. Sick contacts: unknown. History of asthma, frequent episodes of bronchitis, chronic bronchitis, bronchiectasis or COPD: No Smoker: No Seasonal/environmental allergies: No Exposures: Sick contacts? No Family or close contacts with confirmed/probable COVID-19 in last 14 days? No COVID vaccine: yes and one booster Patient also reports dizziness that started this morning when she got out of bed. Described as room spinning and feeling off balance. Triggered by head movements, changing positions. Alleviated by sitting still. Neurological symptoms: Denies syncope, feeling faint, seizures, memory loss, confusion, numbness or tingling of hands, numbness or tingling of feet, muscle weakness, neck stiffness, involuntary movements, tremor, slurred speech, facial drooping, visual disturbances REVIEW OF SYSTEMS See HPI PAST MEDICAL HISTORY Diagnosis Date Adenomatous colon polyp Coombs's esophagus Diverticulosis FHx: colon cancer Gallstones GERD (gastroesophageal reflux disease) Other and unspecified hyperlipidemia PAST SURGICAL HISTORY Procedure Laterality Date CHOLECYSTECTOMY COLONOSCOPY 07/05/2014 tubular adenoma, diverticulosis COLONOSCOPY 04/30/2018 normal COLONOSCOPY 05/06/2011 tubular adenoma, diverticulosis EGD 06/28/2014 hiatal hernia EGD 01/23/2010 hx long segment Coobms's s/p radiofrequecy ablation, bx neg, patulous GE junction EGD 12/19/2020 Normal halo ablation 2009 Series of treatments RPR INGUN HERNIA SLIDING ANY AGE TUBAL LIGATION HX VAGINAL HYSTERECTOMY UTERUS 250 GM/< ALLERGIES Chuck Inhibitors and Lisinopril MEDICATIONS KLOR-CON 20 mEq packet MIX ONE PACKET INTO FOUR OUNCES OF BEVERAGE AND DRINK ONCE DAILY potassium chloride (KLOR-CON) 20 mEq packet Take by mouth. Cholecalciferol, Vitamin D3, 25 mcg (1,000 unit) cap Take 1,000 Units by mouth once daily. amLODIPine (NORVASC) 10 mg tablet Take 10 mg by mouth once daily. hydroCHLOROthiazide (HYDRODIURIL, ESIDRIX) 25 mg tablet Take 25 mg by mouth once daily. PREVACID 30 MG CAP Take one(1) tablet daily. FAMILY HISTORY Problem Relation Age of Onset Diabetes Mother Colon Cancer Mother other (heart disease) Mother Heart Father Social History Tobacco Use Smoking status: Never Smokeless tobacco: Never Vaping Use Vaping Use: Never used Substance Use Topics Alcohol use: No Drug use: No PHYSICAL EXAM: BP 130/72 Pulse 86 Temp 36.3 C (97.4 F) Resp 16 Wt 68.9 kg (152 lb) SpO2 97% BMI 26.50 kg/m General appearance: tired/ill appearing, alert, cooperative, pleasant, in no acute distress Head: Normocephalic Eyes: PERRLA, EOM's intact, conjunctiva pink and moist, no icterus, sclera white, non-injected Ears: Right ear: External ear/canal- Normal, TM - clear with good landmarks. Left ear: External ear/canal- Normal, TM - clear with good landmarks Nose: clear, no sinus tenderness. Oropharynx:No erythema, exudates or tonsillar hypertrophy. Neck:supple and no adenopathy Heart: Negative. RRR without obvious murmur, gallop, or rubs. No ectopy. Lungs: clear to auscultation, without rales or wheeze, good air exchange Neuro: Gait normal. speech normal, mental status intact, cranial nerves 2-12 intact, Romberg negative, muscle strength normal, finger to nose normal ASSESSMENT/PLAN: 1. Viral URI - ICD9: 465.9, ICD10: J06.9 (primary diagnosis) Recommend COVID testing, patient declined - Discussed viral etiology and rationale for treatment. - Symptomatic treatment with prn analgesia - Supportive care with fluids and rest - The patient may also use OTC Flonase and Mucinex as needed - Follow up in one week if symptoms persist or sooner if worsening of symptoms 2. Vertigo - ICD9: 780.4, ICD10: R42 Suspect secondary to viral URI. No alarm symptoms or exam findings. See plan above. Follow-up with PCP in 2-3 days if vertigo does not improve with above treatment measures Prescription instructions reviewed with patient as applicable. Potential red flag symptoms discussed with the patient. Reviewed appropriate action plan to take if red flag symptoms occur. Patient agreeable to treatment plan. Jeri Sorto APRN.CNP documented in this encounter [facility] 06-13-2022 Miscellaneous Notes Patient notified of results, verbalizes understanding of instructions. Lolita Elizabeth LPN Urine culture did not grow any bacteria. If symptoms are persisting patient should follow-up with primary care physician. documented in this encounter [facility] 06-12-2022 Note HNO ID: [id number] Author: Jillian Savage APRN.XOCHITL Service: ? Author Type: Nurse Practitioner Type: Progress Notes Filed: 06/12/2022 10:16 AM Note Text: CC: Patient presents with: UTI: Burning x 7 days Lower abdominal irritation saw this morning HPI Kaylee Schwarz is a 71 year old female who presents with complaint of possible UTI. These symptoms have been present for 2 days. Associated symptoms: burning Denies: fever, chills, sweats, abdominal pain, and flank pain Treatments: nothing The ROS was otherwise negative. PMH, Medications, labs, allergies, and recent past visits with PCP were reviewed and updated as able. PHYSICAL EXAM: BP 142/84 Pulse 84 Temp 36.9 ?C (98.5 ?F) Resp 16 Wt 67.6 kg (149 lb) SpO2 96% BMI 25.98 kg/m? General: Well appearing and alert CV: Regular rate and rhythm without obvious murmur Lungs: clear to auscultation bilaterally Back: straight and symmetric Abdomen: soft, nontender, nondistended Patient has erythema and irritation under abdominal fold. PAST MEDICAL HISTORY Diagnosis Date Adenomatous colon polyp Coombs's esophagus Diverticulosis FHx: colon cancer Gallstones GERD (gastroesophageal reflux disease) Other and unspecified hyperlipidemia PAST SURGICAL HISTORY Procedure Laterality Date CHOLECYSTECTOMY COLONOSCOPY 07/05/2014 tubular adenoma, diverticulosis COLONOSCOPY 04/30/2018 normal COLONOSCOPY 05/06/2011 tubular adenoma, diverticulosis EGD 06/28/2014 hiatal hernia EGD 01/23/2010 hx long segment Coombs's s/p radiofrequecy ablation, bx neg, patulous GE junction EGD 12/19/2020 Normal halo ablation 2009 Series of treatments RPR INGUN HERNIA SLIDING ANY AGE TUBAL LIGATION HX VAGINAL HYSTERECTOMY UTERUS 250 GM/< ALLERGIES Chuck Inhibitors and Lisinopril MEDICATIONS meloxicam (MOBIC) 15 mg tablet Take 15 mg by mouth once daily. KLOR-CON 20 mEq packet MIX ONE PACKET INTO FOUR OUNCES OF BEVERAGE AND DRINK ONCE DAILY potassium chloride (KLOR-CON) 20 mEq packet Take by mouth. Cholecalciferol, Vitamin D3, (VITAMIN D) 25 mcg (1,000 unit) cap Take 1,000 Units by mouth once daily. amLODIPine (NORVASC) 10 mg tablet Take 10 mg by mouth once daily. hydroCHLOROthiazide (HYDRODIURIL, ESIDRIX) 25 mg tablet Take 25 mg by mouth once daily. PREVACID 30 MG CAP Take one(1) tablet daily. nitrofurantoin monohydrate and macrocrystal (MACROBID) 100 mg capsule Take 1 capsule by mouth twice daily for 5 days. nystatin (MYCOSTATIN) powder Apply 1 application to affected area four times daily. FAMILY HISTORY Problem Relation Age of Onset Diabetes Mother Colon Cancer Mother other (heart disease) Mother Heart Father Social History Tobacco Use Smoking status: Never Smokeless tobacco: Never Vaping Use Vaping Use: Never used Substance Use Topics Alcohol use: No Drug use: No ASSESSMENT/PLAN: 1. Burning with urination - ICD9: 788.1, ICD10: R30.0 (primary diagnosis) acute - Send urine for culture - Begin treatment with Macrobid 100 mg BID for 5 days - UA DIP, URINE (POC) - URINE CULTURE 2. Fungal rash of torso - ICD9: 111.9, ICD10: B36.9 Patient recently had labs kidney function was normal according to caregiver. Patient was also placed on nystatin powder 4 times a day for fungal infection on lower mid abdomen. Prescription instructions reviewed with patient as applicable. Potential red flag symptoms discussed with the patient. Reviewed appropriate action plan to take if red flag symptoms occur. Patient agreeable to treatment plan. Jillian Savage APRN.[facility] 06-12-2022 History of Present illness Narrative CC: Patient presents with: UTI: Burning x 7 days Lower abdominal irritation saw this morning HPI Kaylee Schwarz is a 71 year old female who presents with complaint of possible UTI. These symptoms have been present for 2 days. Associated symptoms: burning Denies: fever, chills, sweats, abdominal pain, and flank pain Treatments: nothing The ROS was otherwise negative. PMH, Medications, labs, allergies, and recent past visits with PCP were reviewed and updated as able. PHYSICAL EXAM: BP 142/84 Pulse 84 Temp 36.9 C (98.5 F) Resp 16 Wt 67.6 kg (149 lb) SpO2 96% BMI 25.98 kg/m General: Well appearing and alert CV: Regular rate and rhythm without obvious murmur Lungs: clear to auscultation bilaterally Back: straight and symmetric Abdomen: soft, nontender, nondistended Patient has erythema and irritation under abdominal fold. PAST MEDICAL HISTORY Diagnosis Date Adenomatous colon polyp Coombs's esophagus Diverticulosis FHx: colon cancer Gallstones GERD (gastroesophageal reflux disease) Other and unspecified hyperlipidemia PAST SURGICAL HISTORY Procedure Laterality Date CHOLECYSTECTOMY COLONOSCOPY 07/05/2014 tubular adenoma, diverticulosis COLONOSCOPY 04/30/2018 normal COLONOSCOPY 05/06/2011 tubular adenoma, diverticulosis EGD 06/28/2014 hiatal hernia EGD 01/23/2010 hx long segment Coombs's s/p radiofrequecy ablation, bx neg, patulous GE junction EGD 12/19/2020 Normal halo ablation 2009 Series of treatments RPR INGUN HERNIA SLIDING ANY AGE TUBAL LIGATION HX VAGINAL HYSTERECTOMY UTERUS 250 GM/< ALLERGIES Chuck Inhibitors and Lisinopril MEDICATIONS meloxicam (MOBIC) 15 mg tablet Take 15 mg by mouth once daily. KLOR-CON 20 mEq packet MIX ONE PACKET INTO FOUR OUNCES OF BEVERAGE AND DRINK ONCE DAILY potassium chloride (KLOR-CON) 20 mEq packet Take by mouth. Cholecalciferol, Vitamin D3, (VITAMIN D) 25 mcg (1,000 unit) cap Take 1,000 Units by mouth once daily. amLODIPine (NORVASC) 10 mg tablet Take 10 mg by mouth once daily. hydroCHLOROthiazide (HYDRODIURIL, ESIDRIX) 25 mg tablet Take 25 mg by mouth once daily. PREVACID 30 MG CAP Take one(1) tablet daily. nitrofurantoin monohydrate and macrocrystal (MACROBID) 100 mg capsule Take 1 capsule by mouth twice daily for 5 days. nystatin (MYCOSTATIN) powder Apply 1 application to affected area four times daily. FAMILY HISTORY Problem Relation Age of Onset Diabetes Mother Colon Cancer Mother other (heart disease) Mother Heart Father Social History Tobacco Use Smoking status: Never Smokeless tobacco: Never Vaping Use Vaping Use: Never used Substance Use Topics Alcohol use: No Drug use: No ASSESSMENT/PLAN: 1. Burning with urination - ICD9: 788.1, ICD10: R30.0 (primary diagnosis) acute - Send urine for culture - Begin treatment with Macrobid 100 mg BID for 5 days - UA DIP, URINE (POC) - URINE CULTURE 2. Fungal rash of torso - ICD9: 111.9, ICD10: B36.9 Patient recently had labs kidney function was normal according to caregiver. Patient was also placed on nystatin powder 4 times a day for fungal infection on lower mid abdomen. Prescription instructions reviewed with patient as applicable. Potential red flag symptoms discussed with the patient. Reviewed appropriate action plan to take if red flag symptoms occur. Patient agreeable to treatment plan. Jillian Savage APRN.XOCHITL documented in this encounter [facility] 05-01-2022 Note Date of Service 05/01/2022 Chief Complaint Right knee pain Subjective Patient seen and evaluated while resting in recliner, multiple family members at bedside. Patient states that she feels good this morning. She denies any fever, chills, cough, shortness of breath, chest pain, abdominal pain or nausea. Patient advised that her lab results and vitals were reviewed and are stable. From hospitalist perspective, patient is clear for discharge home today. Patient denies any new problems or concerns. All questions answered. Objective Vitals and Measurements T: 36.7 C (Oral) TMIN: 36.4 C (Oral) TMAX: 36.7 C (Oral) HR: 81(Apical) RR: 18 BP: 108/67 SpO2: 94% HT: 160 cm WT: 64.6 kg BMI: 25.23 Intake and Output 7AM Yesterday to 7AM Today Intake and Output (Last 24 hours) Intake Administration Information 1178.33 Oral Intake 500.00 Supplement Intake 120.00 Output Urine Count 4.00 Total Summary Total Intake 1798.33 Total Output 0.00 Physical Exam General: No acute distress. Patient is alert and appropriate. Skin: No rash. Skin is warm, dry and intact. HEENT: Head is normocephalic, atraumatic. Pupils are equal, round and reactive. Neck: Supple. No lymphadenopathy, thyromegaly. Lungs: Bilaterally clear but diminished without crepitation or wheeze. Unlabored. Heart: Heart is regular rhythm, S1, S2. No murmurs, gallops or rubs. Abdomen: Abdomen is soft, nontender. Bowels sounds present in all quadrants. Extremities: No clubbing, cyanosis, or edema. Peripheral pulses palpable. No calf tenderness. Right knee surgical dressing dry and intact. Neurological: Patient is awake and alert to person, place and time. Following simple commands, moving all extremities. Weight Dosing Weight: 64.6 kg (04/30/22) Dosing Weight: 63.6 kg (04/30/22) Medications No qualifying data available Lab Results 05/01 05:20 WBC: 16.1 H Hgb: 10.4 L Hct: 30.4 L Platelet: 218 Neutrophil %: 89.2 H Glucose Level: 138 H Sodium Level: 138 Potassium Level: 4.0 BUN: 17 Creatinine Lvl (s): 0.85 04/30 09:20 Glucose Level: 104 Sodium Level: 141 Potassium Level: 3.2 L BUN: 27 H Creatinine Lvl (s): 0.88 Imaging Results and Diagnostics XR Knee 1 or 2 Views Right Result Date: April 30, 2022 Verified By: DIEUDONNE JONES DO CLINICAL STATEMENT: IMPRESSION: 1. Right total knee arthroplasty without evidence of hardware complication.2. Expected postoperative change of the soft tissues. EKG No qualifying data available. Assessment/Plan 1. GERD (gastroesophageal reflux disease) Chronic *Continue Pepcid daily. *Denies any increased acid reflux overnight. 2. HTN (hypertension) Chronic, well-controlled on current regimen *Continue current home medications. 3. OA (osteoarthritis) Chronic *Continue Celebrex and Tylenol as needed for pain. 4. Status post total right knee replacement Acute *POD#1. *Consult placed to PT/OT to evaluate and treat - start outpatient PT as arranged. *Management per the primary team. Patient seen and evaluated this morning. Labs and vital signs reviewed and hospitalist team agrees with planned discharge home today. DVT prophylaxis with aspirin 81 mg PO BID. Labs, diagnostic test and progress notes reviewed as noted in HPI. Plan of care discussed with patient. All questions answered. Patient verbalizes understanding and is agreeable with plan of care. This case was discussed with collaborating physician, Dr. Hunter Jackson. Time Spent 35 minutes. Digitally Signed by RUBY SANDRA on 05/01/2022 03:51 PM [facility] 05-01-2022 Note Discharge Instructions Thank you for allowing [facility] to assist you with your healthcare needs. The following is important discharge information regarding your hospital visit. Your Care Team DR. LYNNE Your Diagnosis GERD (gastroesophageal reflux disease) HTN (hypertension) OA (osteoarthritis) Status post total right knee replacement Anemia What to do next Follow Up Appointments Follow Up with STACIE LORA PA-C, Orthopedic When 05/13/2022 08:45 AM EDT Why: Follow-up as scheduled Where: [facility] [address] [place] [id number]- Follow Up with [facility] When 05/03/2022 08:00 AM EDT Why: Follow-up as scheduled Where: Follow Up with DO DEE ECHEVARRIA When Within 5 to 7 days Why: Office closed, please follow up Where: [address] [place] [address]- The Following Activity and Diet Have Been Ordered for You FULL WEIGHT BEARING. NO CHANGES TO YOUR DIET. The Following Treatments Have Been Ordered for You Discharge Labs Discharge Outpatient Labwork - Ordered -- CBC, post-op anemia, follow-up within: 1-2 weeks, Results Notify to: DO DEE ECHEVARRIA, 05/01/22 7:19:00 EDT Discharge Outpatient Labwork - Ordered -- BMP, hypokalemia, follow-up within: 1-2 weeks, Results Notify to: DO DEE ECHEVARRIA, 05/01/22 7:20:00 EDT Discharge Radiology No qualifying data available. Other Therapies No qualifying data available. Post Acute Orders No qualifying data available. Allergies CHUCK inhibitors (tingling of tongue) cloNIDine (tingling of tongue) lisinopril (tingling of tongue) Medications Please ask your primary doctor or pharmacist before taking any other medication not listed, including over the counter drugs, herbal medications, vitamins and or supplements as they may interact with your home medications. What How Much When Why Instructions Last Dose New aspirin (aspirin 81 mg oral delayed release tablet) 1 tab(s) by mouth Two (2) times a day Duration: 30 Days Take 81 mg aspirin twice daily with food for 4 weeks postoperatively for DVT prophylaxis Pickup at [facility] 181105/01/22 at 0846am New docusate-senna (Senokot S 50 mg-8.6 mg oral tablet) 2 tab(s) by mouth Two (2) times a day Take until first bowel movement, then as needed Pickup at [facility] 181105/01/22 at 0846 New ferrous sulfate (ferrous sulfate 325 mg (65 mg elemental iron) oral tablet) 1 tab(s) by mouth Two (2) times a day Anemia Duration: 14 Days Pickup at [facility] 181105/01/22 at 0846 New folic acid (folic acid 1 mg oral tablet) 1 tab(s) by mouth Once a day Anemia Duration: 14 Days Pickup at [facility] 181105/01/22 at 0846 New meloxicam (Mobic 7.5 mg oral tablet) 1 tab(s) by mouth Twice daily with meals Do not take any other nonsteroidal anti-inflammatories while on meloxicam/ Mobic Pickup at [facility] 1811 start tomorrow New oxyCODONE (oxyCODONE 5 mg oral tablet ( IMMEDIATE release )) See instructions Status post total right knee replacement 1-2 tab(s) Oral q4h Pickup at [facility] 181105/01/22 at 0846 Unchanged acetaminophen (Tylenol Extra Strength 500 mg oral tablet) 2 tab(s) by mouth Three (3) times a day as needed for as needed for pain 05/01/22 at 0535 am Unchanged amLODIPine (amLODIPine 10 mg oral tablet) 1 tab(s) by mouth Once a day 05/01/22 at 0846 Unchanged cholecalciferol (Vitamin D3 25 mcg (1000 intl units) oral capsule) 1 cap by mouth Every day none today Unchanged hydroCHLOROthiazide (hydroCHLOROthiazide 25 mg oral tablet) 1 tab(s) by mouth Every day 05/01/22 at 0846 Unchanged lansoprazole (Prevacid) 30 Milligram by mouth Every day 05/01/22 at 0846 Unchanged potassium chloride (Klor-Con 20 mEq oral powder for reconstitution) 1 Packet(s) by mouth Two (2) times a day Dissolve one packet in 4 to 5 ounces of water or other beverage 05/01/22 at 0846 Pharmacy Information [facility]: [address] [place], [place] [id number] [phone] Please take this list to your next doctor s visit. Bring all medications you take, including over the counter medications, herbals and other supplements with you to your doctor s visit. Patients and families are reminded to discard old lists and to update any records with all medication providers or retail pharmacies. Education Materials [facility] Post-operative Instructions PLEASE FOLLOW [facility] POST-OP INSTRUCTIONS GIVEN WATCH FOR SIGNS OF INFECTION: call the office ([phone]) if experencing any of the following: (Usually appears 36-48 hours after surgery) Increased temperature (101 degrees Fahrenheit or higher) Redness or swelling Increased uncontrolled pain Foul odor or drainage Calf discomfort Significant swelling Or if having any chest pain, shortness of breath, or difficulty breathing or swallowing call the office or go the nearest Emergency Room. If you have any questions, please call your doctor at the number listed on your follow up instructions. Form: 338A (84370) R: 12/22 Additional Information VACCINATE! IT SAVES LIVES! Members of the community who have not yet received the COVID-19 vaccine and would like to receive it can visit one of [facility] vaccine clinics. There are many vaccine clinic locations within the [facility]. For locations and available times, please visit [email or web address] It is important to note that some COVID mobile vaccine clinics are held outdoors and may be canceled in rainy or stormy conditions. To learn more about pediatric vaccinations (ages 5-11), we invite you to visit the [facility] webpage. [email or web address] -[email or web address] To learn more about the COVID-19 vaccine, we invite you to visit the [facility] website for a list of frequently asked questions. [email or web address] [facility] Patient Portal Access Instructions: Stay connected with your healthcare team and access your personal medical information anytime with the [facility] [facility] Patient Portal.If you would like a full copy of your medical records, please contact the [facility] Medical Records Department, Friday through Friday between 8a.m. and 4:30p.m. Please follow the directions below to access the portal: 1.Access the email account you provided upon registration to the [facility].2.Look for an invitation email from [facility].3.Open the email and access the invitation link: Accept Invitation to [facility]4.Fill in the required ramírez to create your account. Sign into [email or web address] with your username and password that you created in the above steps to stay up to date. You can then view a summary of results, a summary of your visits, and the ability to download your summaries to your computer or send the information securely to a physician. Remember that your healthcare information is confidential, so carefully consider who you will allow to register on the [facility] [employer] [employer] Patient Portal for access to your information. You can also access the [facility] [employer] Patient Portal on the [email or web address] latha. Simply click on Health Records under Health Data and then click on the [employer] logo. HOW TO SAFELY DISPOSE OF PRESCRIPTION MEDICATIONS Please use one of the following methods to safely dispose of your unused medications. 1.Use a drug disposal kit: the drug disposal pouch allows you to safely discard your old and unused drugs. Ask your nurse to give you one when you are discharged.2.Visit a local take-back location: Many local pharmacies and police departments have programs that collect old and unwanted prescription drugs. Call your local pharmacy or go to http://bit.[employer] Inc/6O2Zy0k to find one close to you.3.Make use of household items: Use cat litter or old coffee grounds to dispose medications if other options are not available. Mix your drugs with these household products, seal them in an airtight container and throw it into the garbage. Call [facility]: [phone] to be sure your drugs can be disposed of in this way. Some medicines may require a different approach.4.Never flush your medications down the toilet. IF YOU HAVE BEEN PRESCRIBED AN OPIOID FOR PAIN If you have been prescribed an opioid (such as hydrocodone, oxycodone or morphine), it is critical to understand the possible side effects and risks of opioid pain medications. Even when taken as directed, opioids can have several side effects including: Tolerance, meaning you might need to take more of a medication for the same pain relief. Nausea, vomiting and/or constipation. Sleepiness, dizziness, dry mouth, confusion, depression or itching. Physical dependence, meaning you have withdrawal symptoms when a medication is stopped, can develop within a few days. KNOW YOUR RESPONSIBILITIES It is important to know exactly how much and how often to take the opioid pain medications you are prescribed. Never take opioids in higher amounts or more often than prescribed. Do not combine opioids with alcohol or other drugs that cause drowsiness, such as benzodiazepines, also known as benzos, including diazepam and alprazolam, muscle relaxants or sleep aids. Never sell or share prescription opioids. This is illegal. Store opioids in a secure place and out of reach of others (including children, family, friends and visitors). The last page of this document has been signed and retained as a CHART COPY. Signatures Patient Education Materials [address] [place] [address] Post-op Instruction 03/2017 (43701) Medication Leaflets My discharge plan and instructions have been reviewed and explained to me and I,KAYLEE SCHWARZ understand my current condition and have read and understand these discharge instructions. I have received a written copy of the plan/instructions. If I have questions, I am aware that I should contact my doctor. 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: _ Date/Time: Relationship to Patient: Witness Name/Signature: Date/Time: [facility] 05-01-2022 Hospital Discharge instructions Patient Education 05/01/2022 07:27:21 5 - [facility] Post-op Instruction 03/2017 (23564) [facility] Post-operative Instructions PLEASE FOLLOW [facility] POST-OP INSTRUCTIONS GIVEN WATCH FOR SIGNS OF INFECTION: call the office ([phone]) if experencing any of the following: (Usually appears 36-48 hours after surgery) Increased temperature (101 degrees Fahrenheit or higher) Redness or swelling Increased uncontrolled pain Foul odor or drainage Calf discomfort Significant swelling Or if having any chest pain, shortness of breath, or difficulty breathing or swallowing call the office or go the nearest Emergency Room. If you have any questions, please call your doctor at the number listed on your follow up instructions. Form: 338A (39379) R: 12/22 Follow Up Care 03/15/2022 13:27:17 With:DO DEE ECHEVARRIA Address: [address] [place] [address]- When:5 to 7 days Comments:Office closed, please follow up With:[facility] Address: When:05/03/2022 08:00:00 Comments:Follow-up as scheduled With:STACIE LORA PA-C, Orthopedic Address: [facility] [address] [place] [address]- When:05/13/2022 08:45:00 Comments:Follow-up as scheduled [facility] 05-01-2022 Note Date of Service May 01, 2022 Subjective The patient was sitting in bed upon examination. Patient denies any chest pain, shortness of breath, dizziness, lightheadedness, nausea or vomiting, or calf pain. No adverse overnight events. Pain has been controlled on medications. Patient did have some nausea last night but this has resolved. Overall patient is doing very well this morning. Preoperatively patient did have hypokalemia when she came in with potassium at 3.1. She has been treated from anesthesia and her morning potassium is 4.0. She has had some decrease O2 saturation overnight but she currently denies any shortness of breath. Denies any history of COPD or sleep apnea. She has never required any oxygen. She has been working on the incentive spirometer. Pain has been well controlled. Overall she is doing well this morning. Objective Vitals and Measurements T: 36.4 C (Oral) TMIN: 36.4 C (Oral) TMAX: 36.9 C (Temporal Artery) HR: 69(Monitored) RR: 20 BP: 121/71 SpO2: 90% HT: 160 cm WT: 64.6 kg BMI: 25.23 Intake and Output 7AM Yesterday to 7AM Today Intake and Output (Last 24 hours) Intake Administration Information 2269.75 Oral Intake 500.00 Supplement Intake 0.00 Output Intra-Op EBL 75.00 Urine Count 4.00 Total Summary Total Intake 2769.75 Total Output 75.00 Fluid Balance 2694.75 Physical Exam Vital signs stable, afebrile SCDs and FATOU hose are in place bilaterally Patient is able to plantarflex and dorsiflex actively Sensation is intact to saphenous, sural, superficial and deep peroneal, and tibial distribution Dressing is clean dry and intact Negative signs and symptoms of DVT, negative Homans bilaterally Weight Dosing Weight: 64.6 kg (04/30/22) Dosing Weight: 63.6 kg (04/30/22) Medications Medications (27) Active Scheduled: (15) acetaminophen 500 mg Tablet 1,000 mg 2 tab(s), Oral, q6h amLODIPine 5 mg tablet 10 mg 2 tab(s), Oral, qDay aspirin 81 mg Chewable 81 mg 1 tab(s), Oral, BIDM bisacodyl 5 mg EC tablet 10 mg 2 tab(s), Oral, Once docusate sodium 100 mg Capsule 100 mg 1 cap(s), Oral, BID docusate-senna (Senokot S) 50 mg-8.6 mg Tablet 2 tab(s), Oral, BID famotidine 20 mg tablet 20 mg 1 tab(s), Oral, qDay ferrous sulfate 325 mg Tablet 325 mg 1 tab(s), Oral, BID folic acid 1 mg tablet 1 mg 1 tab(s), Oral, qDay hydrochlorothiazide 25 mg tablet 25 mg 1 tab(s), Oral, Daily magnesium hydroxide 8% Suspension 30 mL UD 30 mL, Oral, Daily meloxicam 7.5 mg tablet 7.5 mg 1 tab(s), Oral, BIDM multivitamin (Myadec) with minerals Therapeutic Multiple Vitamins with Minerals Tablet 1 tab(s), Oral, qDayM ondansetron 2 mg/ 1 mL 2 mL INJ 4 mg 2 mL, IV Push, q8h potassium chloride 20 mEq ER tablet 20 mEq 1 tab(s), Oral, BID Continuous: (1) Lactated Ringers 1,000 mL 1,000 mL, Intravenous, 100 mL/hr PRN: (11) acetaminophen 325 mg Tablet 650 mg 2 tab(s), Oral, q4h diphenhydramine 25 mg tablet 25 mg 1 tab(s), Oral, q6h diphenhyDRAMINE 50 mg/mL (1 mL) INJ 25 mg 0.5 mL, IV Push, q6h ketorolac 30 mg/mL (1 mL) vial 15 mg 0.5 mL, IV Push, q6h morphine 4 mg/mL 1mL INJ 2 mg 0.5 mL, IV Push, q1h ondansetron 2 mg/ 1 mL 2 mL INJ 4 mg 2 mL, IV Push, q8h oxycodone 5 mg tablet (immediate release) 5 mg 1 tab(s), Oral, q4h oxycodone 5 mg tablet (immediate release) 10 mg 2 tab(s), Oral, q4h prochlorperazine 10 mg/2 mL vial 5 mg 1 mL, IV Push, q6h scopolamine 1.5 mg (1 mg / 72 hours patch) 1 patch(es), Transdermal, q72h sodium biphosphate-sodium phosphate 19 gm-7 gm Enema 133 mL, Rectal, qDay Lab Results 05/01 05:20 WBC: 16.1 H Hgb: 10.4 L Hct: 30.4 L Platelet: 218 Neutrophil %: 89.2 H Glucose Level: 138 H Sodium Level: 138 Potassium Level: 4.0 BUN: 17 Creatinine Lvl (s): 0.85 04/30 09:20 Glucose Level: 104 Sodium Level: 141 Potassium Level: 3.2 L BUN: 27 H Creatinine Lvl (s): 0.88 EKG No qualifying data available. Assessment/Plan 1. GERD (gastroesophageal reflux disease) 2. HTN (hypertension) 3. OA (osteoarthritis) 4. Status post total right knee replacement 1. Status post right total knee arthroplasty postop day #1 2. Continue pain medications: Tylenol, meloxicam, oxycodone. Do not take any other nonsteroidal anti-inflammatories while on meloxicam/Mobic 3. DVT prophylaxis: Take 81 mg aspirin twice daily with food for 4 weeks postoperatively for DVT prophylaxis 4. Physical therapy: Weightbearing as tolerated with walker 5. H & H: 10.4/30.4, asymptomatic. Postoperative anemia secondary to acute blood loss from surgery without intraoperative complications. Patient will be placed on ferrous sulfate and folic acid. She will continue with this for 2 weeks postoperatively. We will have her follow-up with her primary care physician Dr. Dee Echevarria for follow-up lab work. She will also be seen for follow-up for her hypokalemia. 6. Reactive leukocytosis: Currently 16.1, afebrile. Patient did receive Decadron intraoperatively. 7. Hypokalemia: Patient preoperatively came in at 3.1. She was treated with potassium with anesthesia and currently this morning potassium was at 4.0. We will have her continue her home medications and follow-up with the primary care physician with repeat lab work in 2 weeks 8. Postoperative hypoxia: Encouraged incentive spirometry every 30 minutes. 9. Continue postoperative medical management per medicine: Would appreciate input with regards to patient's postoperative hypoxia. She has no underlying medical problems with sleep apnea, asthma, or COPD. Currently denies any chest pain or shortness of breath. Overall appears to be doing very well. 10. Disposition: Plan will be for possible discharge home as long as patient's O2 saturation improves today on room air. I recommended incentive spirometer every 30 minutes. She will continue with this for 2 weeks postoperatively. I would also like input from medicine with any additional discharge planning. As long as patient is doing well with the pain controlled, O2 saturation stabilized, medically stable, tolerating therapy plan will be for possible discharge home today. Patient will follow-up per postop instructions. She would like her medications E scribed to [facility] in [facility]. She will contact her office upon discharge with any concerns or questions. I have reviewed the [place] Automated Rx Reporting System (OARRS) report for this patient for refill pattern and other prescriber involvement as part of the appropriate surveillance for the provision of acute and chronic controlled medications. The report was requested and reviewed on the date of this entry, and was considered in the prescribing process This dictation was created using voice recognition software. Phonetic and/or grammatical errors may exist. Orders: ferrous sulfate, Start: 05/01/22 6:58:00 EDT, Dose = 325 mg, = 1 tab(s), Oral, BID, 05/01/22 6:58:00 EDT folic acid, Start: 05/01/22 9:00:00 EDT, Dose = 1 mg, = 1 tab(s), Oral, qDay, 05/01/22 6:59:00 EDT Discharge Outpatient Labwork Discharge Outpatient Labwork Digitally Signed by STACIE LORA PA-C on 05/01/2022 07:27 AM [facility] 04-30-2022 Note ORIGINAL EXAMINATION: TWO XRAY VIEWS OF THE RIGHT KNEE 04/30/2022 1:38 pm COMPARISON: CT knee 04/12/2022. HISTORY: ORDERING SYSTEM PROVIDED HISTORY: Reason for Exam: Status Post Arthroplasty FINDINGS: Patient is status post right total knee arthroplasty. There is no evidence of hardware complication. Expected postoperative changes are noted relating to soft tissue swelling, subcutaneous emphysema, air within the knee joint, and overlying skin ninoska. IMPRESSION: 1. Right total knee arthroplasty without evidence of hardware complication. 2. Expected postoperative change of the soft tissues. Interpreted by: Dieudonne Jones DO Preliminary Report By: Dieudonne Jnoes DO Electronically signed By Dieudonne Jones DO Dictated Date: 04/30/2022 2:44:55 PM Prelim Date: 04/30/2022 2:45:47 PM Sign Date: 04/30/2022 2:45:47 PM Ordering Provider: DONTE LYNNE [facility] 04-30-2022 Note ORIGINAL EXAMINATION: TWO XRAY VIEWS OF THE RIGHT KNEE 04/30/2022 1:38 pm COMPARISON: CT knee 04/12/2022. HISTORY: ORDERING SYSTEM PROVIDED HISTORY: Reason for Exam: Status Post Arthroplasty FINDINGS: Patient is status post right total knee arthroplasty. There is no evidence of hardware complication. Expected postoperative changes are noted relating to soft tissue swelling, subcutaneous emphysema, air within the knee joint, and overlying skin ninoska. IMPRESSION: 1. Right total knee arthroplasty without evidence of hardware complication. 2. Expected postoperative change of the soft tissues. Interpreted by: Dieudonne Jones DO Preliminary Report By: Dieudonne Jones DO Electronically signed By Dieudonne Jones DO Dictated Date: 04/30/2022 2:44:55 PM Prelim Date: 04/30/2022 2:45:47 PM Sign Date: 04/30/2022 2:45:47 PM Ordering Provider: [facility] 04-30-2022 Anesthesiology Consult note Patient: KAYLEE SCHWARZ Age: 71 years Sex: Female : 1950 Associated Diagnoses: None Author: BENY GALVAN APRN-CHANG Preoperative Information Anesthesia history Patient's history: negative. Family's history: negative. Health Status Allergies: Allergic Reactions (Selected) Severity Not Documented CHUCK inhibitors- Tingling of tongue. CloNIDine- Tingling of tongue. Lisinopril- Tingling of tongue., Allergies (3) ActiveReaction CHUCK inhibitorstingling of tongue cloNIDinetingling of tongue lisinopriltingling of tongue Current medications: (Selected) Inpatient Medications Ordered Betadine 10% topical solution: 17.5 mL, mL/hr, Topical (INT), PREOP pharm Bicitra: 30 mL, Oral, PREOP pharm Bolus LR 1000 mL: 1,000 mL, IV Bolus, PREOP pharm CeleBREX: 400 mg, 2 cap(s), Oral, PREOP pharm Decadron: 10 mg, 1 mL, IV Push, AsDirected Kefzol: 2 gram(s), 200 mL/hr, IV Piggyback, PREOP pharm LR 1000 mL: 20 mL/hr, Intravenous, Stop: 05/01/22 17:59:00 EDT Naropin 25 mg + Toradol 15 mg + EPINEPHrine 1 mg/mL injectable solution 0.3 mg + morphine 2.5 mg...: 25 mg, 5 mL, mL/hr, Other, PREOP pharm Naropin 25 mg + Toradol 15 mg + EPINEPHrine 1 mg/mL injectable solution 0.3 mg + morphine 2.5 mg...: 25 mg, 5 mL, mL/hr, Other, PREOP pharm Pepcid IV: 20 mg, 2 mL, IV Push, PREOP pharm tranexamic acid 1 g / 100 mL 0.7% NaCl PMX: 1 gram(s), 100 mL, 300 mL/hr, IV Piggyback, AsDirected tranexamic acid 1 g / 100 mL 0.7% NaCl PMX: 1 gram(s), 100 mL, 300 mL/hr, IV Piggyback, AsDirected Documented Medications Documented Klor-Con 20 mEq oral powder for reconstitution: 1 packet(s), Oral, BID, Dissolve one packet in 4 to 5 ounces of water or other beverage, 30 EA, 0 Refill(s) Prevacid: Vitamin D3 25 mcg (1000 intl units) oral capsule: 25 mcg, 1 cap(s), Oral, Daily, 0 Refill(s) amLODIPine 10 mg oral tablet: 10 mg, 1 tab(s), Oral, qDay, 30 tab(s), 0 Refill(s) hydroCHLOROthiazide 25 mg oral tablet: 25 mg, 1 tab(s), Oral, Daily, 0 Refill(s), Medications (12) Active Scheduled: (11) ceFAZolin 2 gram(s), IV Piggyback, PREOP pharm celecoxib 200 mg capsule 400 mg 2 cap(s), Oral, PREOP pharm citric acid-sodium citrate 334 mg-500 mg/5 mL (30 mL) Ghazala UD 30 mL, Oral, PREOP pharm dexamethasone 10 mg/mL (1mL) SDV 10 mg 1 mL, IV Push, AsDirected famotidine 20 mg/2 mL vial 20 mg 2 mL, IV Push, PREOP pharm Lactated Ringers Injection 1000 mL * Bolus * 1,000 mL, IV Bolus, PREOP pharm povidone iodine topical 17.5 mL, Topical (INT), PREOP pharm ropivacaine 25 mg + ketorolac 15 mg + epinephrine 0.3 mg + morphine 2.5 mg 25 mg 5 mL, Other, PREOP pharm ropivacaine 25 mg + ketorolac 15 mg + epinephrine 0.3 mg + morphine 2.5 mg 25 mg 5 mL, Other, PREOP pharm tranexamic acid PMX 1 gram(s) 100 mL, IV Piggyback, AsDirected tranexamic acid PMX 1 gram(s) 100 mL, IV Piggyback, AsDirected Continuous: (1) Lactated Ringers 1000 mL 1,000 mL, Intravenous, 20 mL/hr PRN: (0) Problem list: Medical 06/05 ABD SACROCOLPOPEXY W/ GRAFT, POSTERIOR REPAIR / Confirmed, Active Problems (5) 06/05 ABD SACROCOLPOPEXY W/ GRAFT, POSTERIOR REPAIR GERD (gastroesophageal reflux disease) Hiatal hernia HTN (hypertension) OA (osteoarthritis) Histories Past Medical History: No active or resolved past medical history items have been selected or recorded. Family History: No family history items have been selected or recorded. Procedure history: Hysterectomy (361558231). Repair of inguinal hernia ([id number]). Comments: 04/12/2022 8:06 EDT - Neha Barone RN Right Endoscopic radiofrequency ablation of esophageal epithelium ([id number]). Colonoscopy ([id number]). Cholecystectomy ([id number]). EGD - Esophagogastroduodenoscopy ([id number]). Varicose veins ([id number]). 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 Physical Examination Vital Signs 04/30/2022 8:57 EDT Temperature Temporal Artery 36.9 DegC Apical Heart Rate 74 bpm Respiratory Rate 20 br/min Systolic Blood Pressure NBP 129 mmHg Diastolic Blood Pressure NBP 70 mmHg Vital Signs(last 24 hrs) Last Charted Resp Rate 20 br/min (APR 30 08:57) [id number] mmHg (APR 30 08:57) DBP70 mmHg (APR 30 08:57) BMI24.84 (APR 30 08:57) Measurements from flowsheet : Measurements 04/30/2022 8:57 EDT Height 160 cm Height in inches 63 inch(es) Admission Weight 63.6 kg Weight Lbs 139.9 lb Weight Method Stated [place] Body Weight 52.38 kg Body Mass Index 24.84 kg/m2 Body Mass Index 24.84 kg/m2 Admission Body Mass Index 24.84 m2 Pain assessment: Pain Assessment 04/30/2022 8:57 EDT Primary Pain Intensity 0 Pain Scale Type 0-10 Pain scale . General: Alert and oriented. Airway: Normal temporomandibular joint mobility. Mallampati classification: II (soft palate, fauces, uvula visible). Dentition Evaluation: Denies loose/chipped teeth. Respiratory: Lungs are clear to auscultation, Respirations are non-labored. Cardiovascular: Normal rate, Regular rhythm. Neurologic: Alert, Oriented. Review / Management Results review: No qualifying data available , Lab results 04/30/2022 8:57 EDT Designated Person #1 We May Share DIEGO Schwarz [phone] Designated Person #1 Relationship Spouse Designated Person #2 We May Share DIEGO Schwarz [phone] Designated Person #2 Relationship Daughter Privacy Restrictions Requested None Height 160 cm Height in inches 63 inch(es) Admission Weight 63.6 kg Weight Lbs 139.9 lb Weight Method Stated [place] Body Weight 52.38 kg Body Mass Index 24.84 kg/m2 Body Mass Index 24.84 kg/m2 Admission Body Mass Index 24.84 m2 Temperature Temporal Artery 36.9 DegC Apical Heart Rate 74 bpm Respiratory Rate 20 br/min Systolic Blood Pressure NBP 129 mmHg Diastolic Blood Pressure NBP 70 mmHg Primary Pain Intensity 0 Pain Scale Type 0-10 Pain scale Nail Bed Color [place] Capillary Refill < 2 seconds Heart Rhythm Regular All Lobes Breath Sounds Clear Oxygen Therapy Room air Oxygen Saturation 99 % Abdomen Description Non-distended Abdomen Palpation Non-Tender Bowel Sounds All Quadrants Present Urinary Elimination Voiding, no difficulties Status N/A Skin Temperature Warm Skin Description [place], Dry Skin Integrity Intact IV Present Present Neurological Symptoms Patient denies Extremity Movement Equal Characteristics of Speech Clear Level of Consciousness Alert Strength All Extremities Moderate Tone All Extremities Normal Sensation All Extremities Intact Affect/Behavior Appropriate Orientation Oriented x 4 Sensory Deficits None Sleep Apnea Snore No Sleep Apnea Tired No Sleep Apnea Obstruction No Sleep Apnea Pressure Yes Sleep Apnea BMI No Sleep Apnea Age Yes Sleep Apnea Neck No Sleep Apnea Gender No Sleep Apnea Score 2 High Risk for Sleep Apnea No Diagnosed With Sleep Apnea No Advanced Directives No - refuses information Infectious Disease Symptoms Patient states no symptoms Infectious Disease Recent Exposure No Alcohol and Drug Use No Employee of Institutional Living No 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 No History of Exposure to TB No History of Positive Chest X-Ray for TB No History of Positive TB Skin Test No Homeless No Known Immunosuppression No Recent Immigrant No Resident of Institutional Living No Bloody Sputum No Fatigue No Fever No Loss of Appetite No Night Sweats No Persistent Cough > 3 Weeks No Weight Loss No Allergies Yes 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 Consent Form Signed Yes Patient Dressed In Hospital gown CHG Preoperative Wash/Wipe Night before procedure, Day of procedure Preop Nasal Swab Povidone-Iodine CHG Skin Prep Completed for Eligible Surgery History & Physical Update On Chart Yes History & Physical On Chart Yes Obstructive Sleep Apnea Assess Completed Yes Safety Brochure Information Reviewed Yes Janusz Gutierrez Video Viewed No Barriers to Learning None evident Teaching Method Explanation, Printed materials Teaching Evaluation Verbalizes/Nonverbally indicates understanding Preferred Written Language Irish Preferred Spoken Language Irish Information Given by Patient Patient's Current Physicians Patient's Current Physicians Discharge To, Anticipated Home independently Activity Status ADL Awake NPO Status Maintained Standard Safety ID band on, Allergy Band on, Call device within reach, Bed in low position, Wheels locked, Upper/Half-Length side-rails up, Safety level maintained, Non-Slip footwear Prev Test Positive/Diagnosis w/COVID-19 No Current Quarantine/Isolated any Illness No Any Contact with Sick Animals/Birds No Traveled Anywhere in Last 30 Days No Allergy Band on and Verified Yes Patient ID Band on and Verified Yes Implants Verified Yes Pacemaker/AICD Verified Yes Blood Consent Signed Yes Last Fluid Intake 04/29/2022 20:00 Last Food Intake 04/29/2022 20:00 Last Void 04/30/2022 6:00 Patient Cleared for Surgery By DO DEE ECHEVARRIA Lost Weight Unintentionally Recently No Eat Poorly Due to Decreased Appetite No Total MST Score 0 N/A Personal Devices, Patient Valuables Glasses Anesthesia/Transfusions Prior anesthesia Admission Note-Nursing Same Day Patient History . Assessment and Plan [place] [employer] Anesthesiologists (ASA) physical status classification: Class III. Anesthetic Preoperative Plan Anesthetic technique: Spinal. Regional: Spinal. Postoperative pain management: adductor canal. Risks discussed: nausea, vomiting, headache, hypotension, allergic reaction, serious complications. Informed consent: signed by patient. Digitally Signed by BENY GALVAN on 04/30/2022 09:15 AM [facility] 04-12-2022 Note ORIGINAL EXAMINATION: TWO XRAY VIEWS OF THE CHEST04/12/2022 9:15 am COMPARISON: None. HISTORY: ORDERING SYSTEM PROVIDED HISTORY: Reason for Exam: Pre-admission testing for knee surgery. FINDINGS: Cardiomediastinal contours are within normal limits. Atherosclerotic aorta No focal consolidation or pulmonary edema. Mild right basilar atelectasis. No pneumothorax or pleural effusion. Surgical ninoska in the right upper abdomen. IMPRESSION: No acute cardiopulmonary process. I have personally reviewed the images of this examination and agree with the resident's findings and interpretation. Interpreted by: Jay Jay Fish MD Preliminary Report By: Ricardo Alvarez Electronically signed By Jay Jay Fish MD Dictated Date: 04/12/2022 10:58:58 AM Prelim Date: 04/12/2022 11:17:07 AM Sign Date: 04/12/2022 11:17:07 AM Ordering Provider: [facility] 04-12-2022 Note ORIGINAL EXAMINATION: TWO XRAY VIEWS OF THE CHEST04/12/2022 9:15 am COMPARISON: None. HISTORY: ORDERING SYSTEM PROVIDED HISTORY: Reason for Exam: Pre-admission testing for knee surgery. FINDINGS: Cardiomediastinal contours are within normal limits. Atherosclerotic aorta No focal consolidation or pulmonary edema. Mild right basilar atelectasis. No pneumothorax or pleural effusion. Surgical ninoska in the right upper abdomen. IMPRESSION: No acute cardiopulmonary process. I have personally reviewed the images of this examination and agree with the resident's findings and interpretation. Interpreted by: Jay Jay Fish MD Preliminary Report By: Ricardo Alvarez Electronically signed By Jay Jay Fish MD Dictated Date: 04/12/2022 10:58:58 AM Prelim Date: 04/12/2022 11:17:07 AM Sign Date: 04/12/2022 11:17:07 AM Ordering Provider: [facility] documented as of this encounter (statuses as of 06/12/2022) 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 Diagnosis Screening for colon cancer- Primary Special screening for malignant neoplasms, colon documented in this encounter [facility] course Narrative No data available for this section [facility] Hospital Discharge instructions No data available for this section [facility] Progress note No data available for this section [facility] Reason for referral (narrative)* Outpatient Procedure (Routine) - Pending Review Specialty Diagnoses / Procedures Referred By Contbutch t Referred To Contact [facility] Diagnoses Screening for colon cancer Procedures COLONOSCOPY SCREENING COLONOSCOPY FLX DX W/COLLJ SPEC WHEN PFRMD Elsa Win PA-C [address] [place] [address] [facility] [address] [place] [address] Referral ID Status Reason Start Date Expiration Date Visits Requested Visits Authorized [id number] Pending Review Auto-Generat ed Referral 09/17/2022 09/17/[address] [facility] Summary Purpose Family History No Family History Records FoundNo Family History Records Found Advance Directives No Advanced Directives Records FoundNo Advanced Directives Records Found Additional Source Comments Care Team (unrecognized sect ion and content) Care Team Personnel Name: DO DEE ECHEVARRIA Member Role: Primary Care Physician Address: Address: [address] [place] [address] Care Team Related Persons Name: MARIAALESLIE CHENG Address: Home [address] [place] [phone] Name: ROSALIA SCHWARZ Care Team Personnel Name: DO DEE ECHEVARRIA Member Role: Primary Care Physician Address: Address: [address] [place] [address] Care Team Related Persons Name: MARIAALESLIE CHENG Address: [address] [phone] Name: ROSALIA SCHWARZ Care Team Personnel Name: DO DEE ECHEVARRIA Member Role: Primary Care Physician Address: Address: [address] [place] [address] Care Team Related Persons Name: MARIAALESLIE CHENG Address: [address] [phone] Name: ROSALIA SCHWARZ Source Comments (unrecognize d section and content) In the event this informatio n is protected by the Federal Confidentiality of Alcohol and Drug Abuse Patient Records regulations: The Federal rules restrict any use of the information to criminally investigate or prosecute any alcohol or drug abuse patient.[facility] the event this information is protected by the Federal Confidentiality of Alcohol and Drug Abuse Patient Records regulations: The Federal rules restrict any use of the information to criminally investigate or prosecute any alcohol or drug abuse patient.[facility] the event this information is protected by the Federal Confidentiality of Alcohol and Drug Abuse Patient Records regulations: The Federal rules restrict any use of the information to criminally investigate or prosecute any alcohol or drug abuse patient.[facility] the event this information is protected by the Federal Confidentiality of Alcohol and Drug Abuse Patient Records regulations: The Federal rules restrict any use of the information to criminally investigate or prosecute any alcohol or drug abuse patient.[facility] Reason for Visit (unrecogniz ed section and content) Reason Comments Sinus Problem sinus pressure, drai nage x couple days, dizziness x today Reason Comments Results Reason Comments Orders Care Teams (unrecognized sec tion and content) Mechanic Chief Relationship Specialty Start Date End Date Dee Echevarria DO [address] [place] [address] PCP - General 11/04/08 Mechanic Chief Relationship Specialty Start Date End Date Dee Echevarria DO [address] [place] [address] PCP - General 11/04/08 Mechanic Chief Relationship Specialty Start Date End Date Dee Echevarria DO [address] [place] [address] PCP - General 11/04/08 INFORMATION SOURCE (unrecogn ized section and content) DATE CREATED AUTHOR AUTHOR'S JESSICA ATION 04/10/2023 [facility] FOR RECORDS PERTAINING TO PATIENTS WHO ARE OR HAVE BEEN ENROLLED IN A CHEMICAL DEPENDENCY/SUBSTANCEABUSE PROGRAM, SOME INFORMATION MAY BE OMITTED. This clinical summary was aggregated from multiple sources. Caution should be exercised in using it in the provision of clinical care. This summary normalizes information from multiple sources, and as a consequence, information in this document may materially change the coding, format and clinical context of patient data. In addition, data may be omitted in some cases. CLINICAL DECISIONS SHOULD BE BASED ON THE PRIMARY CLINICAL RECORDS. [facility] [email or web address] [facility]. provides no warranty or guarantee of the accuracy or completeness of information in this document.
[2023-08-21] MEDS: Lactated Ringers 1,000 ML 15 ML IV (06:34)
[2023-08-21] MEDS: Cefazolin 2 GM in 0.9% Normal Saline (100mL Bag) 100 ML IV (08:50)
--- NOTE | 2023-08-21 08:57 | DCINST_ITS ---
Discharge Instructions Diet Discharge Diet: No restrictions Activity Discharge Activity: Return to Normal Activity Dressing / Incision Call your doctor if you observe: Fever of 101 or Higher, Inability to urinate and Inability to have a bowel movement Follow Up Care Please Follow Up With: Nicky Gusman MD When: The office will call to make follow-up arrangements Test Results: Test results from this visit will be discussed in further detail at your follow- up appointment, if applicable. Discharge Plan Admission Attending Provider: Nicky Gusman Primary Care Provider: DEE ECHEVARRIA Discharge Orders/Prescriptions Prescriptions: New cephalexin [cephalexin] 500 mg capsule 500 mg PO Q12 3 Days Qty: 6 0RF oxycodone-acetaminophen 10-325 mg tablet 1 tab PO Q8H PRN (Reason: pain) 3 Days Qty: 9 0RF methen-sod phos-meth blue-hyos [Urogesic-Blue] 81.6-40.8-0.12 mg tablet 1 tab PO Q6H PRN PRN (Reason: bladder spasms) 15 Days Qty: 30 3RF Continued lansoprazole [Prevacid] 30 MG capsule 30 mg PO DAILY hydrochlorothiazide 25 MG tablet 25 mg PO DAILY methen-sod phos-meth blue-hyos [Urogesic-Blue] 81.6-40.8-0.12 mg tablet 1 tab PO PRN PRN (Reason: bladder spasms) potassium chloride [Klor-Con] 20 mEq packet 20 meq PO BID amlodipine 10 mg tablet 10 mg PO DAILY cholecalciferol (vitamin D3) [Vitamin D3] 25 mcg (1,000 unit) capsule 25 mcg PO DAILY Patient Comments: pt. takes OTC Referrals / Follow Up: DEE ECHEVARRIA [Other] Disposition Disposition (needs filled in before D/C Order can be placed): Home, Self Care
--- NOTE | 2023-08-21 09:02 | PCM.OPRPT ---
Report of Operation Date of Procedure: 08/21/23 Pre-Operative Diagnosis: Left ureteral calculus Post-Operative Diagnosis: Same Surgery/Procedure Performed:: Cystoscopy with left ureteroscopy, holmium laser lithotripsy, stone basket extraction, left ureteral stent change Surgeon: Nicky Gusman Type of Anesthesia: General Specimen's removed: Ureteral stone Description of Procedure: The patient is a 72-year-old female with a left ureteral calculus who underwent stent insertion 2 to 3 weeks ago. She now presents for removal of her stone. Informed consent was obtained. The patient was taken to the operating room and placed on the operating room table. Anesthesia monitored the head, neck, airway, IV access and vital signs throughout the case. Once anesthesia was appropriate administered, the patient was placed into dorsolithotomy position was prepped and draped in usual sterile fashion. The cystoscope was inserted through the urethra under direct visualization into the urinary bladder. The stent was easily visualized. 2 separate 0.035 Glidewire's were passed alongside the stent which was grasped and removed without difficulty. A flexible ureteroscope was placed over one of the glide wires and easily advanced to the proximal ureter where the stone was lodged. There was significant medial edema identified. The laser fiber was then used to dislodge the stone and it easily advanced into the renal pelvis where the lasering was able to break the stone into 2 pieces. The smaller piece was mostly debris. A stone basket was used to remove the larger piece and this was done without difficulty. There was edema at the location of the stone lodging and the decision was made to leave a 6 Turkmen 24 cm stent without string attached. This was done without difficulty using the safety wire that remained. The urinary bladder was then emptied and the case was terminated. The patient was awakened and taken to the recovery room in good condition. There were no complications during this procedure. Grafts/Implants Used: 6 x 24 cm JJ stent Complications None Admit VTE Documentation VTE Present on Admission: Yes VTE Mechan Device Prophylaxis: SCD's VTE Pharm Prophylaxis ordered?: No
[2023-09-06 14:24] LABS: Size 4x3 mm; Source LEFT KIDNEY
== END 2023-08-21 12:24 | disposition home or self-care (01) ==
LOC: SDC 05:41 → AC 05:43
PROVIDERS: Referring Provider Urology; Visit Provider Urology
PROC: (CPT 52356; principal; 2023-08-21 07:20)
DX: N20.1 Calculus of ureter (principal); I10 Essential (primary) hypertension; Z96.0 Presence of urogenital implants; Z79.899 Other long term (current) drug therapy; Z87.19 Personal history of other diseases of the digestive system; K21.9 Gastro-esophageal reflux disease without esophagitis
CPT/HCPCS: 52356; 00918; 76000; 82360; J7120; C2617; J2405

== ENCOUNTER → 2025-07-04 | Outpatient (CLI) | payer MEDICARE, OTHER, SELFPAY ==
--- OUTSIDE RECORDS SUMMARY | 2025-07-04 08:34 | XMS RPT_ITS | CCD ---
Author Organization [facility] CliniSyct Care Team Providers Care [place] Operator Name Role Phone DEE ECHEVARRIA Primary Care Physician Unavailab le Dee Echevarria DO Primary Care Provider Dee Echevarria DO Primary Care Provider DONTE LYNNE MD Attending Unavailable SWATHI CAROLINA., DEE Echavarria Primary Care Unavailable SWATHI CAROLINA., DEE Echavarria Primary Care Unavailable SWATHI CAROLINA., DEE Echavarria Consulting DONTE Webb MD Admitting Unavailable MAGED CAROLINA, DONTE Espana Referring Unavailable DONTE LYNNE MD Attending Unavailable RAULITO BYNUM Consulting Bee ECHEVARRIA MD., DEE Echavarria Primary Care Unavailable SWATHI CAROLINA., DEE Echavarria Consulting DONTE Webb MD Admitting Unavailable DONTE LYNNE MD Referring Unavailable DONTE LYNNE MD Attending Unavailable RUBY SANDRA Consulting Bee ECHEVARRIA MD., DEE Echavarria Primary Care Unavailable DONTE LYNNE MD Attending Unavailable SWATHI CAROLINA., DEE Echavarria Primary Care Unavailable DONTE LYNNE MD Attending Unavailable SWATHI CHU, DEE Echavarria Primary Care Unavailable DONTE LYNNE MD Attending Unavailable Dr. Kehinde Whyte Attending Provider [phone] Dr. Nicky Gusman Referring Provider Dee Echevarria DO Primary Care Provider [phone] Nicky Gusman Referring Unavailable Nicky Gusman Attending Unavailable JORGITO HERRERA Primary Care Unavailable DEE ECHEVARRIA Primary Care Unavailable CADE LUNSFORD Attending Unavailable CADE LUNSFORD Referring Unavailable DEE ECHEVARRIA Primary Care Unavailable CADE LUNSFORD Attending Unavailable DEE ECHEVARRIA Primary Care Unavailable CADE LUNSFORD Referring Unavailable FALLOONKATHE DEAN [place] Primary Care Unavailable CADE LUNSFORD Referring Unavailable Allergies Allergy Classification Reported Allergen(s) Allergy Type Date of Onset Reaction(s) Facility (5 sources) Angiotensin-con verting enzyme inhibitor agent; Translations: [angiotensin converting enzyme inhibitors] Drug allergy 1 tingling of tongue [facility] (15 sources) cloNIDine; Translations: [clonidine] Drug Allergy 3 Other: See Comments [facility] (19 sources) Lisinopril; Translations: [lisinopril] Drug Allergy 0 Angioedema [facility] (6 sources) Angiotensin Converting Enzyme (Luiz) Inhibitors Allergy to substance 0 Angioedema [facility] (12 sources) Angiotensin-con verting enzyme inhibitor agent Drug Intolerance 1 Other: See Comments [facility] (1 source) Angiotensin Converting Enzyme (Luiz) Inhibitors Drug allergy (disorder) 4 [facility] (1 source) cloNIDine Drug Allergy 4 [facility] (1 source) Lisinopril Drug Allergy 4 [facility] Medications Current Medications Medication Drug Class(es) Dates Sig (Normalized) Sig (Original) acetaminophen 500 mg oral tablet (2 sources) Start: 04-30-2022 Tylenol Extra Strength 500 mg oral tablet Dose : 1,000 mg = 2 tab(s), Oral, TID, PRN as needed for pain Start Date: 04/30/22 Status: Ordered acetaminophen 325 mg / HYDROcodone bitartrate 5 mg oral tablet (1 source) Opioid Agonist Start: 07-29-2023 take 1 tablet by mouth every eight hours as needed Hydrocodone-Aceta minophen Active 1 TABLET PO EVERY 8 HOURS NEEDED 07 24July 29, 2023 acetaminophen 325 mg / oxyCODONE hydrochloride 10 mg oral tablet (1 source) Opioid Agonist Start: 08-21-2023 take 1 tablet by mouth every eight hours Oxycodone-Acetami nophen Active 1 TABLET PO Q8H 9 August 21, 2023 Start: 08-21-2023 take 1 tablet by delbert th every eight hours Oxycodone-Acetaminophen Active 1 TABLET PO Q8H 9 August 21, 2023 amLODIPine 10 mg oral tablet (18 sources) Dihydropyridine Calcium Channel Endy Start: 04-12-2022 take 10 mg by mouth once daily Amlodipine Active 10 MG PO DAILY July 26, 2023 12:00am Comment on above: Take 10 mg by mouth once daily. amoxicillin 500 mg oral capsule (2 sources) Penicillin-class Antibacterial Start: 01-03-2025 amoxicillin (AMOXIL) 500 mg capsule TAKE FOUR CAPSULES BY MOUTH ONE HOUR BEFORE APPOINTMENT 01/03/2025 Active aspirin 81 mg delayed release oral tablet (1 source) Platelet Aggregation Inhibitor, Nonsteroidal Anti-inflammatory Drug Start: 05-01-2022 End: 05-31-2022 take 1 tablet by mouth twice daily aspirin 81 mg oral delayed release tablet Dose : 81 mg = 1 tab(s), Oral, BID, Take 81 mg aspirin twice daily with food for 4 weeks postoperatively for DVT prophylaxis, # 60 tab(s), 0 Refill(s), Pharmacy: [id number], 160, cm, 04/30/22 15:55:00 EDT, Height Start Date: 05/01/22 Stop Date: 05/31/22 Status: Ordered cephalexin 500 mg oral capsule (2 sources) Cephalosporin Antibacterial Start: 08-21-2023 take 500 mg by mouth every twelve hours Cephalexin Active 500 MG PO EVERY 12 HOURS 6 August 21, 2023 12:00am Start: 07-29-2023 take 500 mg by mouth three times daily Cephalexin Active 500 MG PO 3 times daily 9 July 29, 2023 12:00am cholecalciferol 0.025 mg oral capsule (14 sources) Vitamin D Start: 07-26-2023 take 1 capsule by mouth once daily Cholecalciferol (Vitamin D3) (Vitamin D3) 25 mcg (1,000 unit) capsule Active 25 MCG PO DAILY July 26, 2023 12:00am take 1 capsule by mouth once abrahan ly Cholecalciferol, Vitamin D3, 25 mcg (1,000 unit) cap Take 1,000 Units by mouth once daily. Active Cholecalciferol, Vitamin D3, (VITAMIN D) 25 mcg (1,000 unit) cap Take 1,000 Units by mouth once daily. 0 Active Comment on above: Take 1,000 Units by mouth once daily. docusate sodium 50 mg / sennosides, alf 8.6 mg oral tablet (1 source) Start: 05-01-20 End: 05-03-20 take 1 tablet by mouth twice daily Senokot S 50 mg-8.6 mg oral tablet Dose = 2 tab(s), Oral, BID, Take until first bowel movement, then as needed, # 30 tab(s), 0 Refill(s), Pharmacy: [id number], 160, cm, 04/30/22 15:55:00 EDT, Height Start Date: 05/01/22 Stop Date: 05/03/22 Status: Ordered famotidine 20 mg oral tablet (2 sources) Histamine-2 Receptor Antagonist Start: 03-10-20 take 1 tablet by mouth at bedtime as needed famotidine (PEPCID) 20 mg tablet Indications: 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 , Gastroesophageal reflux disease, unspecified whether esophagitis present Take 1 tablet by mouth at bedtime as needed. 30 tablet 1 03/10/2025 Active ferrous sulfate 325 mg oral tablet (1 source) Start: 05-01-20 End: 05-15-20 ferrous sulfate 325 mg (65 mg elemental iron) oral tablet Dose : 325 mg = 1 tab(s), Oral, BID, # 28 tab(s), 0 Refill(s), Pharmacy: [id number], Anemia, 160, cm, 04/30/22 15:55:00 EDT, Height Start Date: 05/01/22 Stop Date: 05/15/22 Status: Ordered folic acid 1 mg oral tablet (1 source) Start: 05-01-20 End: 05-15-20 folic acid 1 mg oral tablet Dose : 1 mg = 1 tab(s), Oral, qDay, # 14 tab(s), 0 Refill(s), Pharmacy: [id number], Anemia, 160, cm, 04/30/22 15:55:00 EDT, Height Start Date: 05/01/22 Stop Date: 05/15/22 Status: Ordered 12 hr guaiFENesin 600 mg extended release oral tablet (6 sources) Start: 10-01-19 take 600 mg by mouth twice daily Guaifenesin Active 600 MG PO TWICE A DAY October 01, 2019 12:00am Start: 10-01-2019 End: 07-26-2023 take 600 mg by mouth twice daily Guaifenesin Discontinued 600 MG PO TWICE A DAY October 01, 2019 12:00am July 26, 2023 6:06am hydroCHLOROthiazide 25 mg oral tablet (20 sources) Thiazide Diuretic Start: 08-26-2019 take 1 tablet by mouth once daily hydroCHLOROthiazide (HYDRODIURIL, ESIDRIX) 25 mg tablet Take 25 mg by mouth once daily. 08/26/2019 Active Comment on above: Take 25 mg by mouth once daily. hyoscyamine sulfate 0.12 mg / methenamine 81.6 mg / methylene blue 10.8 mg / sodium phosphate, monobasic 40.8 mg oral tablet (2 sources) Oxidation-Red uction Agent Start: 08-21-2023 take 1 tablet by mouth every six hours as needed Methen-Sod Phos-Meth Blue-Hyos (Urogesic-Blue) 81.6-40.8-0.12 mg tablet Active 1 TABLET PO EVERY 6 HOURS NEEDED 30 August 21, 2023 8:59am Start: 08-20-2023 Methen-Sod Rachel s-Meth Blue-Hyos (Urogesic-Blue) 81.6-40.8-0.12 mg tablet Active 1 TABLET PO NEEDED August 20, 2023 12:00am lansoprazole 30 mg delayed release oral capsule (20 sources) Proton Pump Inhibitor Start: 05-28-2006 Prevacid 30 mg, PO, Daily, 0, 0 Start Date: 05/28/06 Status: Ordered Start: 03-18-2006 End: 03-10-2025 take 1 capsule by mouth once daily lansoprazole (PREVACID) 30 mg capsule Indications: 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 , Gastroesophageal reflux disease, unspecified whether esophagitis present Take 1 capsule by mouth once daily. 90 capsule 3 03/10/2025 Active Comment on above: Take one(1) tablet d aily. lisinopril 10 mg oral tablet (4 sources) Angiotensin Converting Enzyme Inhibitor Start: take 10 mg by mouth once daily Lisinopril Active 10 MG PO DAILY October 01, 2019 12:00am nitrofurantoin, macrocrystals 25 mg / nitrofurantoin, monohydrate 75 mg oral capsule (1 source) Nitrofuran Antibacterial Start: End: take 1 capsule by mouth twice daily nitrofurantoin monohydrate and macrocrystal (MACROBID) 100 mg capsule Take 1 capsule by mouth twice daily for 5 days. 10 capsule 0 06/12/2022 06/17/2022 Active Comment on above: Take 1 capsule by [facility] twice daily for 5 days. ondansetron 8 mg oral tablet (1 source) Serotonin-3 Receptor Antagonist Start: take 8 mg by mouth every eight hours as needed Ondansetron Hcl Active 8 MG PO EVERY 8 HOURS NEEDED 06 03July 29, 2023 12:00am oxyCODONE hydrochloride 5 mg oral tablet (1 source) Opioid Agonist Start: End: take 1-2 tablets by mouth every four hours as needed for pain oxyCODONE 5 mg oral tablet ( IMMEDIATE release ) See Instructions, PRN as needed for pain, 1-2 tab(s) Oral q4h, # 42 tab(s), 0 Refill(s), 05/08/22 7:29:00 EDT, Pharmacy: [id number], Status post total right knee replacement, 160, cm, 04/30/22 15:55:00 EDT, Height, 64.6 Start Date: 05/01/22 Stop Date: 05/08/22 Status: Ordered phenazopyridine hydrochloride 100 mg oral tablet (1 source) Start: take 100 mg by mouth three times daily Phenazopyridine Active 100 MG PO THREE TIMES A DAY July 29, 2023 12:00am potassium chloride 20 meq powder for oral solution (20 sources) Start: take 20 mEq by mouth twice daily Potassium Chloride (Klor-Con) 20 mEq packet Active 20 MEQ PO TWICE A DAY August 20, 2023 12:00am Start: 06-04-2022 End: 03-10-2024 KLOR-CON 20 mEq packet MIX O NE PACKET INTO FOUR OUNCES OF BEVERAGE AND DRINK ONCE DAILY 06/04/2022 03/10/2024 Discontinued Start: 04-16-2022 Klor-Con 20 mE q oral powder for reconstitution 1 packet(s), Oral, BID, Dissolve one packet in 4 to 5 ounces of water or other beverage, # 30 EA, 0 Refill(s) Start Date: 04/16/22 Status: Ordered Start: 04-16-2022 potassium chlo ride (KLOR-CON) 20 mEq packet Take by mouth. 04/16/2022 Active Comment on above: MIX ONE PACKET INTO FOUR OUNCES OF BEVERAGE AND DRINK ONCE DAILY Take by mouth. Vitamin D3 25 mcg (1000 intl units) oral capsule (3 sources) Start: 04-12-2022 Vitamin D3 25 mcg (1000 intl units) oral capsule Dose : 25 mcg = 1 cap(s), Oral, Daily, 0 Refill(s) Start Date: 04/12/22 Status: Ordered Completed/Discontinued Medications Medication Drug Class(es) Dates Sig (Normalized) Sig (Original) meloxicam 15 mg oral tablet (3 sources) Nonsteroidal Anti-inflammatory Drug Start: 06-10-2022 End: 07-28-2022 take 1 tablet by mouth once daily meloxicam (MOBIC) 15 mg tablet Take 15 mg by mouth once daily. 0 06/10/2022 07/28/2022 Discontinued (Discontinued by Patient) Start: 05-01-2022 Mobic 7.5 mg o ral tablet Dose : 7.5 mg = 1 tab(s), Oral, BIDM, Do not take any other nonsteroidal anti-inflammatories while on meloxicam/Mobic, # 60 tab(s), 0 Refill(s), Pharmacy: [id number], 160, cm, 04/30/22 15:55:00 EDT, Height Start Date: 05/01/22 Status: Ordered Comment on above: Take 15 mg by mouth once daily. nystatin 100 unt/mg topical powder (2 sources) Polyene Antifungal Start: 06-12-2022 End: 07-28-2022 nystatin (MYCOSTATIN) powder Apply 1 application to affected area four times daily. 30 g 1 06/12/2022 07/28/2022 Discontinued (Discontinued by Patient) Comment on above: Apply 1 application to affected area four times daily. Problems Active Problems Problem Classification Problem Date Documented Da te Episodic/Chronic Calculus of urinary tract (7 sources) Ureteric stone; Translations: [Calculus of ureter] Onset: 4 07-26-2023 Episodic Conditions associated with dizziness or vertigo (1 source) Vertigo; Translations: [Dizziness and giddiness] Episodic Esophageal disorders (11 sources) Gastroesophageal reflux disease without esophagitis; Translations: [Gastro-esophageal reflux disease without esophagitis] Onset: 2 Chronic Essential hypertension (7 sources) Essential hypertension; Translations: [Essential (primary) hypertension] Onset: 2 Chronic Genitourinary symptoms and ill-defined conditions (1 source) Scalding pain on urination ; Translations: [Dysuria] Episodic Nausea and vomiting (6 sources) Nausea and vomiting; Translations: [Nausea with vomiting, unspecified] 07-26-2023 Episodic Osteoarthritis (1 source) Osteoarthritis; Translations: [Unspecified osteoarthritis, unspecified site] Onset: 2 Chronic Other connective tissue disease (1 source) Artificial knee joint present; Translations: [Presence of right artificial knee joint] Onset: 2 Chronic Other connective tissue disease (2 sources) History of total knee arthroplasty 04-30-2022 Chronic Other diseases of kidney and ureters (2 sources) Acute renal insufficiency; Translations: [Disorder of kidney and ureter, unspecified] 08-04-2023 Episodic Other diseases of kidney and ureters (2 sources) Hydronephrosis; Translations: [Unspecified hydronephrosis] 08-04-2023 Episodic Other diseases of kidney and ureters (2 sources) Disorder of kidney and ureter, unspecified; Translations: [Unspecified disorder of kidney and ureter] 07-29-2023 Episodic Other diseases of kidney and ureters (2 sources) Unspecified hydronephrosis; Translations: [Hydronephrosis] 07-29-2023 Episodic Other gastrointestinal disorders (3 sources) Dysphagia; Translations: [Dysphagia, unspecified] 03-10-2025 Episodic Other gastrointestinal disorders (2 sources) Dysphagia, unspecified; Translations: [Dysphagia, unspecified type] Onset: 5 Episodic Other injuries and conditions due to external causes (6 sources) Angioedema; Translations: [Angioneurotic edema, initial encounter] 10-02-2019 Episodic Other screening for suspected conditions (not mental disorders or infectious disease) (2 sources) Patient encounter status; Translations: [Encounter for screening for malignant neoplasm of colon] Episodic Other upper respiratory infections (7 sources) Upper respiratory infection; Translations: [Acute upper respiratory infection, unspecified] Episodic Residual codes; unclassified (4 sources) Pain; Translations: [Pain, unspecified] 07-26-2023 Episodic Residual codes; unclassified (3 sources) Pain, unspecified; Translations: [Generalized pain] 07-26-2023 Episodic Unclassified (3 sources) 06/05 ABD SACROCOLPOPEXY W/ GRAFT, POSTERIOR REPAIR( Confirmed ) Onset: 06-05-2006 Past or Other Problems Problem Classification Problem Date Documented Da te Episodic/Chronic Allergic reactions (20 sources) Radiation-induced dermatosis; Translations: [Other skin changes due to chronic exposure to nonionizing radiation] Onset: 12-30-2006 Resolved: 02-25-2009 02-25-2009 Episodic Mycoses (13 sources) Dermal mycosis; Translations: [Superficial mycosis, unspecified] Onset: 12-30-2006 Episodic Other and unspecified benign neoplasm (12 sources) Benign neoplasm of skin of face; Translations: [Other benign neoplasm of skin of unspecified part of face] Onset: 12-30-2006 12-30-2006 Episodic Other and unspecified benign neoplasm (12 sources) Benign neoplasm of skin of trunk; Translations: [Other benign neoplasm of skin of trunk] Onset: 11-09-2008 11-09-2008 Episodic Other and unspecified benign neoplasm (12 sources) Melanocytic nevus of trunk; Translations: [Melanocytic nevi of trunk] Onset: 02-24-2010 02-24-2010 Episodic Other and unspecified benign neoplasm (12 sources) Melanocytic nevus of upper limb; Translations: [Melanocytic nevi of unspecified upper limb, including shoulder] Onset: 02-24-2010 02-24-2010 Episodic Other connective tissue disease (12 sources) Synovial cyst; Translations: [Other bursal cyst, unspecified site] Onset: 01-10-2009 01-10-2009 Episodic Other skin disorders (12 sources) Actinic keratosis; Translations: [Actinic keratosis] Onset: 12-30-2006 12-30-2006 Episodic Other skin disorders (12 sources) Inflamed seborrheic keratosis; Translations: [Inflamed seborrheic keratosis] Onset: 12-30-2006 12-30-2006 Episodic Other skin disorders (12 sources) Disorder of sebaceous gland; Translations: [Follicular disorder, unspecified] Onset: 12-30-2006 12-30-2006 Episodic Other skin disorders (20 sources) Disorder of nail; Translations: [Other nail disorders] Onset: 12-30-2006 12-30-2006 Episodic Other skin disorders (12 sources) Disorder of skin pigmentation; Translations: [Disorder of pigmentation, unspecified] Onset: 12-30-2006 01-01-2010 Episodic Other skin disorders (12 sources) Disorder of skin; Translations: [Hypertrophic disorder of the skin, unspecified] Onset: 12-30-2006 12-30-2006 Episodic Other skin disorders (12 sources) Seborrheic keratosis; Translations: [Other seborrheic keratosis] Onset: 11-09-2008 11-09-2008 Episodic Other skin disorders (12 sources) Disorder of pigmentation; Translations: [Disorder of pigmentation, unspecified] Onset: 02-25-2009 02-25-2009 Episodic Other skin disorders (12 sources) Scar conditions and fibrosis of skin; Translations: [Scar conditions and fibrosis of skin] Onset: 02-24-2010 02-24-2010 Episodic Other skin disorders (12 sources) Post-inflammatory hypopigmentation; Translations: [Other specified disorders of pigmentation] Onset: 02-24-2010 02-24-2010 Episodic Results Test Name Value Interpretation Reference Range Facility XR ESOPHAGRAMon 05-05-2025 XR ESOPHAGRAM * * *Final Report* * * DATE OF EXAM: May 05 2025 8:41AM MDX [id number] - XR ESOPHAGRAM / PROCEDURE REASON: R13.10-Dysphagia, unspecified type * * * * Physician Interpretation * * * * ESOPHAGRAM CLINICAL INFORMATION: Dysphagia. GERD. TECHNIQUE: A biphasic examination of the esophagus was performed utilizing effervescent granules (E-Z-Gas II - 4 grams), high density barium, and low density barium. Contrast: Oral: 140 ml of EZHD Oral: 75 ml of EZPAQUE Oral: 1 ml of EZ DISK Fluoroscopy radiation summary: Fluoroscopy time: 3:00 (min:sec). Air kerma: 18.5 mGy. RESULT: Caliber: Normal. Stricture, Ring, or Web: None. Motility: Normal. Hiatal Hernia: Small, type I. Gastroesophageal Reflux: None, despite provocative maneuvers including cough, Valsalva, straight leg raise, and water siphon. Gastric Cardia: Normal. Barium Tablet: Passed into the Zenker's diverticulum with reproduction of symptoms. Other Findings: Approximately 2 cm Zenker's diverticulum. IMPRESSION: SMALL ZENKER'S DIVERTICULUM. SMALL TYPE I HIATAL HERNIA. NORMAL MOTILITY. Windows Application Developer: [email or web address] Transcribe Date/Time: May 05 2025 8:59A Dictated by : HOANG MARCUS MD This examination was interpreted and the report reviewed and electronically signed by: HONAG MARCUS MD on May 05 2025 9:06AM EST [id number] [facility] 05-04-2025 [facility] Office Visit ([facility] ) KAYLEE SCHWARZ ([id number]) 1950 F Date Time Provider Department 05/04/25 9:15 AM CADE LUNSFORD [facility] During your visit today, we recorded the following information about you: Pulse Blood pressure Weight Height 66/minute 128/68 59.9 kg 1.6 m Cade Lunsford, CERTIFIED MEDICAL TECHNICIAN ASSISTANT.SPACE SCIENCES DIRECTOR 05/04/2025 9:30 AM Signed CHIEF COMPLAINT: Patient presents with: Barretts esophagus HPI Kaylee Joseph Karishma is a 74 year old female here today for follow up dysphagia/globus/GERD. At at last visit, she was started on famotidine 20mg daily at bedtime and esophagram was ordered. Regurgitation and Dysphagia: - Noted improvement with bedtime famotidine; does not take it every night. - Sleeps with head elevated; reports occasional clear or whitish regurgitation. - Experiences regurgitation when lying down, especially after meals or when bending over. - Dysphagia noted with certain foods, such as dry bread or cheese. - Scheduled for an esophagram tomorrow at 0745. - Upper endoscopy performed in June of last year showed no significant findings. - Taking Prevacid 30 mg, previously took 15 mg tablets. Current Outpatient Medications Medication Sig lansoprazole (PREVACID) 30 mg capsule Take 1 capsule by mouth once daily. famotidine (PEPCID) 20 mg tablet Take 1 tablet by mouth at bedtime as needed. potassium chloride (KLOR-CON) 20 mEq packet Take by mouth. Cholecalciferol, Vitamin D3, 25 mcg (1,000 unit) cap Take 1,000 Units by mouth once daily. amLODIPine (NORVASC) 10 mg tablet Take 10 mg by mouth once daily. hydroCHLOROthiazide (HYDRODIURIL, ESIDRIX) 25 mg tablet Take 25 mg by mouth once daily. amoxicillin (AMOXIL) 500 mg capsule TAKE FOUR CAPSULES BY MOUTH ONE HOUR BEFORE APPOINTMENT (Patient not taking: Reported on 03/10/2025) No current facility-administered medications for this visit. ALLERGIES Allergen Reactions Luiz Inhibitors Other: See Comments Tingling of the tongue Clonidine Other: See Comments Lisinopril Angioedema SOCIAL HISTORY[1] PAST MEDICAL HISTORY Diagnosis Date Adenomatous colon polyp Arthritis Fink's esophagus Diverticulosis FHx: colon cancer Gallstones GERD (gastroesophageal reflux disease) Hemorrhoids Hiatal hernia Hypertension Other and unspecified hyperlipidemia Skin cancer PAST SURGICAL HISTORY Procedure Laterality Date CHOLECYSTECTOMY COLONOSCOPY 07/05/2014 tubular adenoma, diverticulosis COLONOSCOPY 04/30/2018 normal COLONOSCOPY 05/06/2011 tubular adenoma, diverticulosis COLONOSCOPY SCREENING 04/09/2023 Diverticulosis EGD 06/28/2014 hiatal hernia EGD 01/23/2010 hx long segment Fink's s/p radiofrequecy ablation, bx neg, patulous GE junction EGD 12/19/2020 Normal EGD 05/26/2024 benign fundic gland polyp, neg Fink's halo ablation 2009 Series of treatments HERNIA REPAIR HX RPR INGUN HERNIA SLIDING ANY AGE TUBAL LIGATION HX VAGINAL HYSTERECTOMY VAGINAL HYSTERECTOMY UTERUS 250 GM/< FAMILY HISTORY Problem Relation Age of Onset Diabetes Mother Colon Cancer Mother other (heart disease) Mother Heart Father REVIEW OF SYSTEMS Review of Systems HENT: Positive for trouble swallowing. All other systems reviewed and are negative. PHYSICAL EXAM BP 128/68 Pulse 66 Ht 5' 3 (1.60m) Wt 132 lb (59.9kg) SpO2 95% BMI 23.39 kg/(m2). Physical Exam Vitals and nursing note reviewed. Constitutional: Appearance: Normal appearance. She is normal weight. Eyes: General: No scleral icterus. Pulmonary: Effort: Pulmonary effort is normal. Neurological: Mental Status: She is alert and oriented to person, place, and time. Psychiatric: Mood and Affect: Mood normal. Behavior: Behavior normal. Thought Content: Thought content normal. ASSESSMENT: 1. Gastroesophageal reflux disease, unspecified whether esophagitis present (K21.9) 2. Dysphagia, unspecified type (R13.10) 3. 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 (K22.70) Chronic GERD and hiatal hernia with intermittent dysphagia and regurgitation, previously evaluated by EGD in June of last year with no significant findings. Patient is on Prevacid 30 mg daily and adheres to lifestyle modifications. Fink's esophagus is stable without dysplasia. - Esophagram scheduled for tomorrow at 7:45 AM to evaluate for possible esophageal stricture, motility disorder, or hiatal hernia progression. - Discussed rationale for esophagram, including assessment of esophageal narrowing, motility, and hernia size. - Reviewed potential next steps if narrowing is identified, including possible endoscopic dilation. - Continue Prevacid 30 mg daily; confirmed time-release formulation. - Follow-up after esophagram results to determine if further intervention is needed. - Yearly follow-up already scheduled for Fink's esophagus surveillance and medication manag (more content not included)... Normal [facility] CNOVon 03-10-2025 CNOV Office Visit (GSTNOR ) KAYLEE SCHWARZ ([id number]) 1950 F Date Time Provider Department 03/10/25 8:25 AM CADE LUNSFORD GSTNOR During your visit today, we recorded the following information about you: Pulse Blood pressure Weight Height 65/minute 130/82 61.4 kg 1.6 m Cade Lunsford, CERTIFIED MEDICAL TECHNICIAN ASSISTANT.SPACE SCIENCES DIRECTOR 03/10/2025 9:49 AM Signed CHIEF COMPLAINT: Patient presents with: Recheck: Fink's Esophagus HPI Kayele Ruiz Karishma is a 74 year old female here today for Recheck (Fink's Esophagus ) Reflex is well controlled on prevacid. Mentions she is having intermittent clear phlegm at night. Props herself up with pillows and makes sure not to eat after 5pm. Mentions pills and bread with get stuck near the sternal notch. Will pass with sips of water or will cough stuck food back up. No trouble with liquids. Occurring roughly 1x/week. This is new since her last EGD Diagnostics: 05/26/24 - EGD Impression: - Z-line, 35 cm from the incisors. - Esophageal mucosal changes consistent with short-segment Fink's esophagus. Biopsied. - Multiple gastric polyps. Resected and retrieved. - Normal examined duodenum. FINAL DIAGNOSIS A. Stomach, fundus, polyp, biopsy: - Fundic gland polyp. B. Esophagus, 34 cm, biopsy: - Squamous and cardio-oxyntic mucosa with no diagnostic abnormality. - Negative for intestinal metaplasia and dysplasia. Current Outpatient Medications Medication Sig potassium chloride (KLOR-CON) 20 mEq packet Take by mouth. Cholecalciferol, Vitamin D3, 25 mcg (1,000 unit) cap Take 1,000 Units by mouth once daily. amLODIPine (NORVASC) 10 mg tablet Take 10 mg by mouth once daily. hydroCHLOROthiazide (HYDRODIURIL, ESIDRIX) 25 mg tablet Take 25 mg by mouth once daily. PREVACID 30 MG CAP Take one(1) tablet daily. amoxicillin (AMOXIL) 500 mg capsule TAKE FOUR CAPSULES BY MOUTH ONE HOUR BEFORE APPOINTMENT (Patient not taking: Reported on 03/10/2025) No current facility-administered medications for this visit. ALLERGIES Allergen Reactions Luiz Inhibitors Other: See Comments Tingling of the tongue Clonidine Other: See Comments Lisinopril Angioedema Social History Tobacco Use Smoking status: Never Smokeless tobacco: Never Vaping Use Vaping status: Never Used Substance Use Topics Alcohol use: No Drug use: No PAST MEDICAL HISTORY Diagnosis Date Adenomatous colon polyp Arthritis Fink's esophagus Diverticulosis FHx: colon cancer Gallstones GERD (gastroesophageal reflux disease) Hemorrhoids Hiatal hernia Hypertension Other and unspecified hyperlipidemia Skin cancer PAST SURGICAL HISTORY Procedure Laterality Date CHOLECYSTECTOMY COLONOSCOPY 07/05/2014 tubular adenoma, diverticulosis COLONOSCOPY 04/30/2018 normal COLONOSCOPY 05/06/2011 tubular adenoma, diverticulosis COLONOSCOPY SCREENING 04/09/2023 Diverticulosis EGD 06/28/2014 hiatal hernia EGD 01/23/2010 hx long segment Fink's s/p radiofrequecy ablation, bx neg, patulous GE junction EGD 12/19/2020 Normal EGD 05/26/2024 benign fundic gland polyp, neg Fink's halo ablation 2009 Series of treatments HERNIA REPAIR HX RPR INGUN HERNIA SLIDING ANY AGE TUBAL LIGATION HX VAGINAL HYSTERECTOMY VAGINAL HYSTERECTOMY UTERUS 250 GM/< FAMILY HISTORY Problem Relation Age of Onset Diabetes Mother Colon Cancer Mother other (heart disease) Mother Heart Father REVIEW OF SYSTEMS Review of Systems All other systems reviewed and are negative. PHYSICAL EXAM BP 130/82 Pulse 65 Ht 5' 3 (1.60m) Wt 135 lb 6.4 oz (61.4kg) BMI 23.99 kg/(m2). Physical Exam Constitutional: Appearance: Normal appearance. She is normal weight. HENT: Head: Normocephalic and atraumatic. Eyes: Pupils: Pupils are equal, round, and reactive to light. Cardiovascular: Rate and Rhythm: Normal rate and regular rhythm. Pulmonary: Effort: Pulmonary effort is normal. Breath sounds: Normal breath sounds. Abdominal: General: Abdomen is flat. Bowel sounds are normal. There is no distension. Palpations: Abdomen is soft. There is no mass. Tenderness: There is no abdominal tenderness. Hernia: No hernia is present. Skin: General: Skin is warm and dry. Neurological: General: No focal deficit present. Mental Status: She is alert and oriented to person, place, and time. Psychiatric: Mood and Affect: Mood normal. Behavior: Behavior normal. ASSESSMENT: 1. 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 EGD in 05/2024 notable for short segment fink's esophagus (-) IM, dysplasia. Taking prevacid 30mg daily with good control. Next EGD Fall 2026. - lansoprazole (PREVACID) 30 mg capsule; Take 1 capsule by mouth once daily. Dispense: 90 capsule; Refill: 3 - famotidine (PEPCID) 20 mg tablet; Take 1 tablet by mouth at bedtime as needed. Dis (more content not included)... Normal [facility] SURGICAL PATHOLOGYOrdered By : Clarence Arellano on 05-27-2024 Case Report Surgical Pathology Report Case: [id number] Authorizing Provider: Kathe Wan, Collected: 05/26/2024 10:28 AM Ordering Location: Ambulatory Surgery Received: 05/26/2024 07:31 PM Pathologist: Clarence Arellano MD Specimens: A) - Stomach, Fundus, Biopsy, fundic gland polyp r/o dysplasia B) - Esophagus, Biopsy, r/o Fink's, H/O Fink's. 34cm [facility] Work Phone: FINAL DIAGNOSIS u0wckEBuJSYjuNYzPScl Ml gtryYnJGGrePLbD4Uvuzjp TEinZR1zIH4frHgqbERkqA KnRDEsWcVcb1vim265wATo t5tdOPBPpzayiCf1dYlfK8 7wz3H5FfaaH10nqSDyITE9 NDDeDNNnzACnSMTwDCX3YC XmpHYqF2inDLGwKD7lneel STotUXelIWNuoXV4TFNhoB HqD8EvYIKfQUiyMQSbctw9 FbJrIm4nqWRceElnZTdtBK LaGCJtQRzcKCUnUbFcPH9w H2SwdYSrcKjbEvOxKLTzRU Lzm6p6zYsuCncysEO1Bzis DTLpLVXUyQ5qzOMzC6pnzr BspQ8wwEEuPDNnjcgcRKTe Ub4gJQHnmTnmX1IxDZZyRH PqsJdhLvdoaLB6RrytMRZp VIJOoKNmnB40eaSrbjDyI3 RtJSnpNK12xD52yYTnzRQl p2QdSViioMjmlz4pAYwnY8 8jm1OeXwLxQk5axc9feIf4 lN2etEFpTW4pJbTmQSCyho JyGy8rYVkskKGmwWlbXBza eUT4PPInREWkBXAxetIzQT qfeEzrb6uxDcpsSDQ9 [facility] Work Phone: Gross Description f2skcQMbUKZwhUTNRTD2 MD KrVQ0edNljuHa4kHncBQAi ulX6bAMyCCgxs1ceNIS2m0 hjabMTDqmaEXLkRO1lTGdj CWSgCM0rQaXyFBSkIbLsKF BhcGVydzEyMjQwXHBhcGVy gOG2ELExOT7nwyomGCqsPM zsNXLtpyN9TGQppGOyX8Ge AGXuWZ9fxfyfVIF6QPBJEh tbBq9baITnpUjkXjCrFkIv RFCpXIIyYPQnx2abczUUgn tkoPz6bB6ZUJHiT8CxXU6J p6cfSBFcpBEdRZN1QWsdj0 qqBOxgYBF4CHYkADQnAFGy YM7OIgGzPPk4QHu5LeRuXc O6AOa1NJSZRTZaGQK8KEh1 ASQjUOw6DDbwGYvujQYnOB UzLSWxCFNaDEykptS1m9ok ZLJcwCRhOXH2GErzi3cqJT psGDY5RDIeOpPaAKQzCJ8E MvPoYZh4AOg2WtLbTbU6QE v2LAFCSxAkSvRrCSs1YkEj ETjhAQq1TTz1TMrXUqBeYw e8OvR3WsQ6BWC6YIIjYHJq XHQgMiBcXHNzIDMgXFxmbC OiYY4zrVziBJWzNC6MMOHn VVtgLCYjEvQrDX4qY6FwvX MteMuuRrOkYEUiWQEUjB6q q5mugVWqC6ujrZLuYP3GIX AqtkHkTLqurBjkpW2rpFAp A8hpCwJyGpwthRoeNpWzsK RvYzEgDQpcbHRycGFyXHNh PzXzUKLqZ1bxRQStAZ1MFP FsHpLsHrDtJYy7QKLdcJ5h Sv4scOLxtD4elXBva51gWP OtSDVmNP4sROZmqwkat88v xWQ7lNGvpEFnjYWiv0TfeL 1iRVQdNEQ3PECzYbJ2JZBa KdQwvV6cJT13YHtykULfoL PfaPV9ABHsuL0qv36eQBAx y8YwgBXuOh7NVQSyqQTQXP K2HU9qMDyzRNLrI4WxT2Yr bfR4XDOmxpGDKnafTmwtpZ ywz8ZbpJOoWLZxWNfkbDQv NTEwMDIgXFxkYiBPVlIgIi M1NUC0WSRyTfLyWKa5DFhp L6HHCTWxCPD8BYN0HLCpSd S9KQl2TKMIRs9wAPL6DTq7 TxO4XBHkAHQ5ANzxSVn7RJ IgXFxzcyAzIFxcZmwgXFxu D39nqRBxUKfpPtSqNQxhmQ tbKMGkAKN8ZO7JJSVnWoEd Bp1hMYKblKjnI6IvSBFUhC 7ac8wprFUlZX8LTKSmtoEp JIurqHwouC8rvRFxS4hvPq MyMlxlcGljTmVzdERvYzEg DQpcbHRycGFyXHNiMzBcZX HaX6yqJmQhRX8LQLZsReZb WgQsWXr6FDLjeK9aVv1aqA XcuC3iRWWvWJ73iPLxuFat UPCkZAUobtQlPpU2OQ4hHZ UvTbBxmOdsb1UjOUVfV0Oa W6A1mT0eAOZrPGSdMIF0TV TyTpO4MWShPlQkgA1yUT71 KXdfjCOizYSeqZG9AUTppN 3wn43rQTOjd3QgoBFcRdIr fPWaJW6IQLXkqbZvwENswV XjBD2VEVHvtxDTDuHQUA3n yR9xUPPeKHwfCqXqJPAtDS oyNiBQTVxwYXIgDQpccGFy PN6HH0Awd7NpOXyttVtjMY Uyf42sqMWgUx8heGSmFTY2 IENsZXZlbGFuZCBDbGluaW GoUXw8RQPwBSUizYqnNSD9 KE6rXRZnJCHqyRIqMGvxI5 koPXWkDHYmaLRiHE2XKPWo LqWwEEIoG4ixXDKqLN1FFZ KjoJSTDHE1LT2vKZnnSHGp G2LnZ8DhlmJ3o5xdbJwoi2 JldFNbMA9jeFXtNE7FQYHw cmQgDQpcZnMyMiANCn0= [facility] Work Phone: Performing Lab l8xkpUZrFOIqcPWjRiPm MD MeKALnx0iwRYArtFQwRsGy MzNcZnRuYmpcdWMxXGRlZm Omi6xkg922tDWmn5eoUKLk KsQ3zYPhMIQmeJBpP300JY WcALbts5sie2BfVHYkhWWw h9S1CJZSzjirqNu0gRsuE4 1ii4R3DekfM0ynFNVtEEZj L5AtIA7wFRByJfb2SOF2CH Y5HMDhHWXwX7JvHC5tARIv aSJwBKh6p1sygOcwIBRsJY B7y3jlSNewsjLdPC1fkg9z fDk8p7aiadJiIIMsHCYtqW ZQMWLzW6ZmzZqaCh1fqRj5 yGvlRsrrGKG4Txs4OI0qkp 40mna1bJhsCWJiibdwVeT3 SIshWKGrcxkiRZu0ONnpBF LvdLP2PWTqcZIaA8MjUFjy ZN7rtny7QGB5UGebLPAkKk P8BFKjmIZzJDEofEakVXdr p275PTM4HdVfVC3mF3Jho0 S9dT3teQFlFFNwyISbElMu AXLztl9edTMvOKyjq4FpMG N5coL9pZYxwYXcHRGhSL23 Xtyyg6RkOufvt6CmP36xsG U6RGkru0meND3tMxT6apHd JJiky4rycF6qBoG7ROfjIC 2qMK1uHCIysU4aifszBWRx YnJkcmhlYWRccGdicmRyZm 8kmEjxTYG0DKzlV8qtwC2t QoC7AYhjW7tdxQ6nOPd5LW jelDR0LYPxyP3rDW8qobnl a1ooKZxiMMyxODVyhuP7bh OsCPTejNQyE2PocN9kXDSg AC9dxjhye0kzNDT4OGxhOS PrSXC5KeYsQMHvx9Pkqvi0 JnDhm4HlyYCyQTbsD81bj1 71JDTnkuYdD9dqnVChvqqf qQTiykcgRPpgkzF2HRLfYX BsYWluXGYxXGZzMjBcbGFu ZzEwMzNcaGljaFxmMVxkYm XtYOVuROdtT2byXyQaUySd AKLLxEPpfm6jyPnqUCcrpL MxfCUhcKZ9gH7rIARpfvUl lm2zPUTsjHDViSO2JPbeje VeB4oenpdxTRR0RTYmRHT1 X7pbJVUEaaTiOOTbLCKjxU ScLAGLEIF3YCK4JGIaRCPT UZGoDXW9UJX4JVWtVQFgvD FyXHBhclxwYXJkXHBsYWlu OSWaMDOcUpGeyGtbxD2jZh VjHpZcSNhvPH1qVIAcE4st mPMpHKDfIEOoK2yqPbEazG 9jaFxmMVxjZjJcZnMyMFxs mFKfdQOTXRPkbxK1u1X4RH xwbGFpblxmMVxmczIwXGxh tkzvLSIoKPecC5eeLtWnDX PkxWdmFOqsn1KuUDAtVMMx DzMcSNebQSI4e2B3EDkbsS RxxkSZWdRTDC5iuSMaozoi DY4QOwlrdINsmgpwWQvvmx AvBLpshzobBNGdNUskZ5vk QnJeQTKuoWkwTFnby9NdXE YxXGZzMjJccGFyfQ== [facility] Work Phone: [facility] Work Phone: [phone] 05-26-2024 [id number] HNO ID: [id number] Author: AYUSH ERNST RN Service: ? Author Type: Registered Nurse Type: [id number] Filed: 05/26/2024 10:41 Note Text: The patient received a copy of EGD discharge instructions that contain information for how to contact the physician who performed the procedure and when to seek medical care. Normal [facility] ANES POSTPROC EVALon 024 ANES POSTPROC EVAL HNO ID: [id number] Author: ERIKA COOPER APRN.CRNA Service: ? Author Type: Nurse Director Of Pulmonary Unit Type: Anesthesia Postprocedure Evaluation Filed: 05/26/2024 10:48 Note Text: POST ANESTHESIA EVALUATION NOTE : 1950 Procedure Summary Date: 05/26/24 Room / Location: Ambulatory Surgery Anesthesia Start: 1023 Anesthesia Stop: 1039 Procedure: EGD DIAGNOSTIC Diagnosis: 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 Gastroesophageal reflux disease, unspecified whether esophagitis present (Follow-up of Fink's esophagus) Scheduled Providers: Kathe Wan MD Responsible Provider: Erika Cooper APRN.CRNA Anesthesia Type: MAC ASA Status: 2 Anesthesia Type: MAC Last Vitals Vitals Value Taken Time BP 112/65 05/26/24 1038 Temp 36.1 ?C (97 ?F) 05/26/24 1038 Pulse 69 05/26/24 1038 Resp 18 05/26/24 1038 SpO2 93 % 05/26/24 1038 Post Anesthesia Patient Status Patient Evaluation: PACU. PACU/ICU Patient Condition: stable. Anticipated Disposition: phase 2 then home. Neurological Status: sleepy but arousable. Pulmonary Status: breathing comfortably on room air Airway Control: returned to baseline unsupported. Cardiovascular Status: stable. Pain Management: clinically adequate - multimodal analgesia pain management approach Postoperative Hydration: acceptable. Intraoperative Events: no significant anesthesia events Post Operative Nausea/Vomiting Status: no significant post operative nausea or vomiting Recommendation: continue current plan of care. Anesthesia Observations No Documentation SIGNATURE: Erika Cooper APRN.CRNA PATIENT NAME: Kaylee Schwarz DATE: May 26, 2024 TIME: 10:48 AM CSN: [id number] Normal [facility] EGD Study observation Viral santana 05-26-2024 [facility] Gastrointestinal Endoscopy Patient Name: Kaylee Schwarz Procedure Date: 05/26/2024 10:17 AM Date of : 1950 Admit Type: Outpatient Age: 73 Room: [place] [address] Gender: Female Note Status: Finalized Attending MD: Kathe Wan MD, [id number] Procedure: Upper GI endoscopy Indications: Follow-up of Fink's esophagus (history of RFA, no NICOL on last EGD 01/05) Providers: Kathe Wan MD Patient Profile: This is a 73 year old female. Refer to note in patient chart for documentation of history and physical. Referring Physician: Cade Lunsford (Referring MD) Medicines: Monitored Anesthesia Care Complications: No immediate complications. Requesting Provider: Procedure: Pre-Anesthesia Assessment: - Prior to the procedure, a History and Physical was performed, and patient medications and allergies were reviewed. The patient's tolerance of previous anesthesia was also reviewed. The risks and benefits of the procedure and the sedation options and risks were discussed with the patient. All questions were answered, and informed consent was obtained. Prior Anticoagulants: The patient has taken no anticoagulant or antiplatelet agents except for NSAID medication. ASA Grade Assessment: II - A patient with mild systemic disease. After reviewing the risks and benefits, the patient was deemed in satisfactory condition to undergo the procedure. After obtaining informed consent, the endoscope was passed under direct vision. Throughout the procedure, the patient's blood pressure, pulse, and oxygen saturations were monitored continuously. The Endoscope was introduced through the mouth, and advanced to the second part of duodenum. I was present and participated during the entire procedure, including non-barreto portions, and during the administration and monitoring of Moderate Sedation. The upper GI endoscopy was accomplished without difficulty. The patient tolerated the procedure well. Moderate Sedation: MAC anesthesia was administered by the anesthesia team. Findings: The esophagus and gastroesophageal junction were examined with white light and narrow band imaging (NBI). There were esophageal mucosal changes consistent with short-segment Fink's esophagus. These changes involved the mucosa along an irregular Z-line (35 cm from the incisors). One tongue of salmon-colored mucosa was present to 34 cm. Mucosa was extensively biopsied with a cold forceps for histology. Multiple sessile polyps were found in the gastric fundus. One polyp was sampled with a cold biopsy forceps. Resection and retrieval were complete. The examined duodenum was normal. Impression: - Z-line, 35 cm from the incisors. - Esophageal mucosal changes consistent with short-segment Fink's esophagus. Biopsied. - Multiple gastric polyps. Resected and retrieved. - Normal examined duodenum. Recommendation: - Patient has a contact number available for emergencies. The signs and symptoms of potential delayed complications were discussed with the patient. Return to normal activities tomorrow. Written discharge instructions were provided to the patient. - Resume previous diet. - Continue present medications. - Await pathology results. - Repeat upper endoscopy for surveillance based on pathology results. - Return to GI clinic as previously scheduled. Procedure Code(s): --- Professional --- 02207, Esophagogastroduodenos copy, flexible, transoral; with biopsy, single or multiple CPT copyright 2020 [employer]. All rights reserved. The c (more content not included)... PROVATION [facility] Radiology Study observation (narrative) [place] [facility] SURGICAL PATHOLOGYon CASE REPORT Normal [facility] Comment on above: Order Comment: Speci men Type: TISSUE SPECIMEN Ordering Facility: [facility] Address: [address] [place] [address] Result Comment: Surg [facility] Pathology Report Case: [id number] Authorizing Provider: Kathe Wan, Collected: 05/26/2024 10:28 AM Ordering Location: Ambulatory Surgery Received: 05/26/2024 07:31 PM Pathologist: Clarence Arellano MD Specimens: A) - Stomach, Fundus, Biopsy, fundic gland polyp r/o dysplasia B) - Esophagus, Biopsy, r/o Fink's, H/O Fink's. 34cm Performed By: #### S #### [facility] CLIA [id number] [address] [place] [address] OF [facility] FINAL DIAGNOSIS Normal [facility] Comment on above: Order Comment: Speci men Type: TISSUE SPECIMEN Ordering Facility: [facility] Address: [address] [place] [address] Result Comment: A. S tomach, fundus, polyp, biopsy: - Fundic gland polyp. B. Esophagus, 34 cm, biopsy: - Squamous and cardio-oxyntic mucosa with no diagnostic abnormality. - Negative for intestinal metaplasia and dysplasia. Performed By: #### S #### [facility] CLIA [id number] [address] [place] [address] OF [facility] FINAL PERFORMING LAB Normal [facility] Comment on above: Order Comment: Speci men Type: TISSUE SPECIMEN Ordering Facility: [facility] Address: [address] [place] [address] Result Comment: Diag nostic interpretation performed at [facility], [address] [place] [address] CLIA# [id number] Ham Pumper: Yovani Randolph M.D. Performed By: #### S #### [facility] CLIA [id number] [address] [place] [address] STATES OF [facility] GROSS DESCRIPTION Normal [facility] Comment on above: Order Comment: Speci men Type: TISSUE SPECIMEN Ordering Facility: [facility] Address: [address] [place] [address] Result Comment: A. S tomach, Fundus, Biopsy Received in formalin is one piece of anderson, soft tissue measuring 0.4 x 0.3 x 0.2 cm. Totally submitted in one cassette. B. Esophagus, Biopsy Received in formalin are multiple pieces of anderson, soft tissue aggregating to 2.0 x 0.3 x 0.2 cm. Totally submitted in one cassette. SS May 26, 2024 11:26 PM Gross examination performed at [facility], [address] [place] [address] Performed By: #### S #### [facility] CLIA [id number] [address] [place] [address] [address] [place] [address] [place] OF [facility] Upper GI endoscopy 024 Upper GI endoscopy [facility] G[facility] Patient Name: Kaylee Schwarz Procedure Date: 05/26/2024 10:17 AM Date of : 1950 Admit Type: Outpatient Age: 73 Room: [place] [address] Gender: Female Note Status: Finalized Attending MD: Kathe Wan MD, [id number] Procedure: Upper GI endoscopy Indications: Follow-up of Fink's esophagus (history of RFA, no NICOL on last EGD 01/05) Providers: Kathe Wan MD Patient Profile: This is a 73 year old female. Refer to note in patient chart for documentation of history and physical. Referring Physician: Cade Lunsford (Referring MD) Medicines: Monitored Anesthesia Care Complications: No immediate complications. Requesting Provider: Procedure: Pre-Anesthesia Assessment: - Prior to the procedure, a History and Physical was performed, and patient medications and allergies were reviewed. The patient's tolerance of previous anesthesia was also reviewed. The risks and benefits of the procedure and the sedation options and risks were discussed with the patient. All questions were answered, and informed consent was obtained. Prior Anticoagulants: The patient has taken no anticoagulant or antiplatelet agents except for NSAID medication. ASA Grade Assessment: II - A patient with mild systemic disease. After reviewing the risks and benefits, the patient was deemed in satisfactory condition to undergo the procedure. After obtaining informed consent, the endoscope was passed under direct vision. Throughout the procedure, the patient's blood pressure, pulse, and oxygen saturations were monitored continuously. The Endoscope was introduced through the mouth, and advanced to the second part of duodenum. I was present and participated during the entire procedure, including non-barreto portions, and during the administration and monitoring of Moderate Sedation. The upper GI endoscopy was accomplished without difficulty. The patient tolerated the procedure well. Moderate Sedation: MAC anesthesia was administered by the anesthesia team. Findings: The esophagus and gastroesophageal junction were examined with white light and narrow band imaging (NBI). There were esophageal mucosal changes consistent with short-segment Fink's esophagus. These changes involved the mucosa along an irregular Z-line (35 cm from the incisors). One tongue of salmon-colored mucosa was present to 34 cm. Mucosa was extensively biopsied with a cold forceps for histology. Multiple sessile polyps were found in the gastric fundus. One polyp was sampled with a cold biopsy forceps. Resection and retrieval were complete. The examined duodenum was normal. Impression: - Z-line, 35 cm from the incisors. - Esophageal mucosal changes consistent with short-segment Fink's esophagus. Biopsied. - Multiple gastric polyps. Resected and retrieved. - Normal examined duodenum. Recommendation: - Patient has a contact number available for emergencies. The signs and symptoms of potential delayed complications were discussed with the patient. Return to normal activities tomorrow. Written discharge instructions were provided to the patient. - Resume previous diet. - Continue present medications. - Await pathology results. - Repeat upper endoscopy for surveillance based on pathology results. - Return to GI clinic as previously scheduled. Procedure Code(s): --- Professional --- 35414, Esophagogastroduodenos copy, flexible, transoral; with biopsy, single or multiple CPT copyright 2020 [employer]. All rights reserved. The codes documented in this report are preliminary and upon shrimp peeling machine tender review may be revised to meet current compliance requirements. Attending Participation: I personally performed the entire procedure. Scope In: 10:26:02 AM Scope Out: 10:31:56 AM Kathe Wan MD 05/26/2024 10:39:56 AM Number of Addenda: 0 Note Initiated On: 05/26/2024 10:17 AM Estimated Blood Loss: Estimated blood loss was minimal. Normal [facility] ANES PRE-OPon 05-20-2024 ANES PRE-OP HNO ID: [id number] Author: ERIKA COOPER APRN.FIRE ALARM OPERATOR Service: ? Author Type: Nurse Director Of Pulmonary Unit Type: Anesthesia Preprocedure Evaluation Filed: 05/26/2024 10:20 Note Text: ANESTHESIOLOGY DAY OF SURGERY NOTE : 1950 Procedure Information Date/Time: 05/26/24 0945 Scheduled providers: Kathe Wan MD Procedure: EGD DIAGNOSTIC Location: Ambulatory Surgery Estimated body mass index is 25.6 kg/m? as calculated from the following: Height as of 03/10/24: 160 cm (5' 3). Weight as of 03/10/24: 65.5 kg (144 lb 8 oz). Most recent hematocrit and potassium results: No results found for this basename: HCT,HEMATOCRIT,K,POTAS SIUM Relevant Problems No relevant active problems I - PHYSICAL EVALUATION AIRWAY Patient intubated: No. Tracheostomy tube not present Mallampati: II. TM distance: >3 FB. Neck ROM: full ROM without neurological symptoms. Mouth opening: adequate. Short neck: no. Thick neck: no Ayon present: no Lip Bite Test: I Microretrognathia/Micr onagthia/Recessed Chin: No DENTAL Dental findings: teeth intact. Additional exam findings: no II - ANESTHESIA PLAN ASA Score: 2 Anesthetic Plan: MAC The patient is not a current smoker. NPO Status: adequate Beta Endy Monitoring Plan Monitoring plan: standard ASA. Post Procedure Analgesic Plan Postoperative analgesic plan: parenteral or oral opioids and multimodal analgesia. Informed Consent Anesthetic risks, benefits, alternatives, personnel and consent discussed: yes. Patient / Responsible Constitution Party agrees to proceed: yes Patient / Surrogate agrees to blood products: blood products not planned Significant changes in the patient condition since the History and Physical, not otherwise documented in primary service progress note: no. Discussed the possibility of lip / dental damage: yes No vitals data found for the desired time range. Outpatient Medications as of 05/26/2024 Medication Sig - potassium chloride (KLOR-CON) 20 mEq packet Take by mouth. - Cholecalciferol, Vitamin D3, 25 mcg (1,000 unit) cap Take 1,000 Units by mouth once daily. - amLODIPine (NORVASC) 10 mg tablet Take 10 mg by mouth once daily. - hydroCHLOROthiazide (HYDRODIURIL, ESIDRIX) 25 mg tablet Take 25 mg by mouth once daily. - PREVACID 30 MG CAP Take one(1) tablet daily. No current facility-administered medications on file as of 05/26/2024. I have interviewed and examined the patient. I have reviewed the medical record and/or the pre-anesthesia evaluation, pertinent labs, and test results. This contains updated information obtained within 48 hours of Surgery/Procedure. SIGNATURE: Erika Cooper APRN.FIRE ALARM OPERATOR PATIENT NAME: Kaylee Schwarz DATE: May 20, 2024 TIME: 5:09 PM CSN: [id number] Normal [facility] Calculi, Urinary w / Photoon 09-06-2023 COMMENT Normal [facility] Comment on above: Order Comment: Comme nts: COLLECTED IN OR Has pt arrived? Y Result Comment: Royce johnson questions regarding Calculi Analysis contact [employer] at: [phone]. Performed By: #### L 3650.0100 #### [facility] [address] [place], [place], [id number] Result Comment: Calc kirill report will follow via computer, mail or associate business analyst delivery. Disclaimer Normal [facility] Comment on above: Order Comment: Comme nts: COLLECTED IN OR Has pt arrived? Y Result Comment: This test was developed and its performance characteristics determined by [employer]. It has not been cleared or approved by the Food and Drug Administration. Performed By: #### L 3650.0100 #### [facility] [address] [place], [place], [id number] [place] PHOSPHATE 5 % Normal [facility] Comment on above: Order Comment: Comme nts: COLLECTED IN OR Has pt arrived? Y Result Comment: Calc ium phosphate (hydroxyl form) includes hydroxyapatite, amorphous calcium phosphate, and whitlockite. Hydroxyapatite is the most common of the calcium phosphate salts found in human kidney stones. Performed By: #### L 3650.0100 #### [facility] [address] [place], [address] PHOTO Normal [facility] Comment on above: Order Comment: Comme nts: COLLECTED IN OR Has pt arrived? Y Result Comment: Phot ograph will follow under a separate cover Performed By: #### L 3650.0100 #### [facility] [address] [place], [place], [id number] . Normal [facility] Comment on above: Order Comment: Comme nts: COLLECTED IN OR Has pt arrived? Y Result Comment: Perc entage (Represents the % composition) Performed By: #### L 0.0100 #### [facility] [address] [place], [address] CA OXAL DIHYDR 30 % Normal [facility] Comment on above: Order Comment: Comme nts: COLLECTED IN OR Has pt arrived? Y Performed By: #### L 0.0100 #### [facility] [address] [place], [address] [place] OXAL MONOHYD 65 % Normal [facility] Comment on above: Order Comment: Comme nts: COLLECTED IN OR Has pt arrived? Y Performed By: #### L 0.0100 #### [facility] [address] [place], [address] WEIGHT 17 mg Normal [facility] Comment on above: Order Comment: Comme nts: COLLECTED IN OR Has pt arrived? Y Performed By: #### L 0.0100 #### [facility] [address] [place], [address] Color (U) BROWN Normal [facility] Comment on above: Order Comment: Comme nts: COLLECTED IN OR Has pt arrived? Y Performed By: #### L 3649.0100 #### [facility] [address] [place], [address] SIZE 4x3 mm Normal [facility] Comment on above: Order Comment: Comme nts: COLLECTED IN OR Has pt arrived? Y Result Comment: Sing le piece received. Performed By: #### L 0.0100 #### [facility] [address] [place], [address] SOURCE LEFT KIDNEY Normal [facility] Comment on above: Order Comment: Comme nts: COLLECTED IN OR Has pt arrived? Y Performed By: #### L 0.0100 #### [facility] [address] [place], [address] Discharge Instructionon 01-0 4-2024 Discharge Instruction [facility] Medical Records Department [address] [place] [address] Instructions for Home/Discharge Instructions 08/21/23 0857 MR#: [id number] Acct: [id number] Name: KAYLEE SCHWARZ Rep #: [id number] : 1950 72 From: Nicky Gusman MD PCP: DEE ECHEVARRIA Status:REG [facility] Discharge Instructions Diet Discharge Diet: No restrictions Activity Discharge Activity: Return to Normal Activity Dressing / Incision Call your doctor if you observe: Fever of 101 or Higher, Inability to urinate and Inability to have a bowel movement Follow Up Care Please Follow Up With: Nicky Gusman MD When: The office will call to make follow-up arrangements Test Results: Test results from this visit will be discussed in further detail at your follow-up appointment, if applicable. Discharge Plan Admission Attending Provider: Nicky Gusman Primary Care Provider: DEE ECHEVARRIA Discharge Orders/Prescriptions Prescriptions: New cephalexin [cephalexin] 500 mg capsule 500 mg PO Q12 3 Days Qty: 6 0RF oxycodone-acetaminophe n 10-325 mg tablet 1 tab PO Q8H PRN (Reason: pain) 3 Days Qty: 9 0RF methen-sod phos-meth blue-hyos [Urogesic-Blue] 81.6-40.8-0.12 mg tablet 1 tab PO Q6H PRN PRN (Reason: bladder spasms) 15 Days Qty: 30 3RF Continued lansoprazole [Prevacid] 30 MG capsule 30 mg PO DAILY hydrochlorothiazide 25 MG tablet 25 mg PO DAILY methen-sod phos-meth blue-hyos [Urogesic-Blue] 81.6-40.8-0.12 mg tablet 1 tab PO PRN PRN (Reason: bladder spasms) potassium chloride [Klor-Con] 20 mEq packet 20 meq PO BID amlodipine 10 mg tablet 10 mg PO DAILY cholecalciferol (vitamin D3) [Vitamin D3] 25 mcg (1,000 unit) capsule 25 mcg PO DAILY Patient Comments: pt. takes OTC Referrals / Follow Up: DEE ECHEVARRIA [Other] Disposition Disposition (needs filled in before D/C Order can be placed): Home, Self Care 08/21/23 09 Nicky Gusman MD CC: DEE ECHEVARRIA Signed Normal [facility] Operative Reporton 4 Operative Report [facility] Medical Records Department [address] [place] [address] Operative Report 08/21/23 09 MR#: [id number] Acct: [id number] Name: KAYLEE SCHWARZ Rep #: [id number] : 1950 72 From: Nicky Gusman MD PCP: DEE ECHEVARRIA Status:REG [facility] Location: [place] [address] Report of Operation Date of Procedure: 08/21/23 Pre-Operative Diagnosis: Left ureteral calculus Post-Operative Diagnosis: Same Surgery/Procedure Performed:: Cystoscopy with left ureteroscopy, holmium laser lithotripsy, stone basket extraction, left ureteral stent change Surgeon: Nicky Gusman Type of Anesthesia: General Specimen's removed: Ureteral stone Description of Procedure: The patient is a 72-year-old female with a left ureteral calculus who underwent stent insertion 2 to 3 weeks ago. She now presents for removal of her stone. Informed consent was obtained. The patient was taken to the operating room and placed on the operating room table. Anesthesia monitored the head, neck, airway, IV access and vital signs throughout the case. Once anesthesia was appropriate administered, the patient was placed into dorsolithotomy position was prepped and draped in usual sterile fashion. The cystoscope was inserted through the urethra under direct visualization into the urinary bladder. The stent was easily visualized. 2 separate 0.035 Glidewire's were passed alongside the stent which was grasped and removed without difficulty. A flexible ureteroscope was placed over one of the glide wires and easily advanced to the proximal ureter where the stone was lodged. There was significant medial edema identified. The laser fiber was then used to dislodge the stone and it easily advanced into the renal pelvis where the lasering was able to break the stone into 2 pieces. The smaller piece was mostly debris. A stone basket was used to remove the larger piece and this was done without difficulty. There was edema at the location of the stone lodging and the decision was made to leave a 6 Somali 24 cm stent without string attached. This was done without difficulty using the safety wire that remained. The urinary bladder was then emptied and the case was terminated. The patient was awakened and taken to the recovery room in good condition. There were no complications during this procedure. Grafts/Implants Used: 6 x 24 cm JJ stent Complications None Admit VTE Documentation VTE Present on Admission: Yes VTE Mechan Device Prophylaxis: SCD's VTE Pharm Prophylaxis ordered?: No 08/21/23 5516 Cosigner Signature (if applicable): CC: DEE ECHEVARRIA; Dr. Nicky Gusman MD Signed Normal [facility] Basophil percentageOrdered B y: Nicky Gusman on 07-29-2023 Chloride [Moles/Vol] 100 mmol/L 98-107 [facility] Glucose [Mass/Vol] 101 mg/dL 74-106 [facility] Comment on above: Fasting Glucose resu lt from 100 to 125 mg/dL suggests IMPAIRED HOMEOSTASIS per A.D.A. criteria. Potassium [Moles/Vol] 3.1 mmol/L 3.5-5.1 [facility] Sodium [Moles/Vol] 135 mmol/L 136-145 [facility] Laboratory - Chemistry and C hemistry - challengeOrdered By: Nicky Gusman on 07-29-2023 CO2 [Moles/Vol] 31.0 mmol/L 21.0-32.0 [facility] Urea nitrogen/Creatinine [Mass ratio] 13.0 mg/mg 10-20 [facility] No Panel InformationOrdered By: Nicky Gusman on 07-29-2023 Estimated Creatinine Clearance Calc 50.22 ml/min [facility] Estimated GFR (MDRD) Amer 85 mL/min >60 [facility] Comment on above: GFR Calc Estimated GFR (MDRD) Non-Af Amer 70 mL/min >60 [facility] Comment on above: Non- GFR Calc Serum or plasma calcium cuca urement (mass/volume)Ordered By: Nicky Gusman on 07-29-2023 Calcium [Mass/Vol] 9.0 mg/dL 8.5-10.1 [facility] Serum or plasma creatinine m easurement (mass/volume)Ordered By: Nicky Gusman on 07-29-2023 Creatinine [Mass/Vol] 0.85 mg/dL 0.55-1.02 [facility] Comment on above: The validity of the calculated GFR & GFRAA in patients over 70 years has not been determined. Clinical correlation is essential. Serum or plasma urea nitroge n measurement (mass/volume)Ordered By: Nicky Gusman on 07-29-2023 Urea nitrogen [Mass/Vol] 11 mg/dL 7-18 [facility] Thin prep Papanicolaou smear with manual screeningOrdered By: Nicky Gusman on 07-29-2023 Thin prep Papanicolaou smear with manual screening 4 5-15 [facility] Absolute lymphocyte countOrd ered By: Nicky Gusman on 07-28-2023 Lymphocytes Auto (Unsp spec) [#/Vol] 1.36 10*3/uL 0.83-4.51 [facility] Basophil percentageOrdered B y: Nicky Gusman on 07-28-2023 Basophils/100 WBC (Bld) 0.2 % 0-1 [facility] Eosinophils/100 WBC (Bld) 1.6 % 0-5 [facility] Neutrophils (Bld) [#/Vol] 12.6 10*3/uL 2.0-7.7 [facility] Neutrophils/100 WBC (Bld) 78.8 % 47-70 [facility] WBC (Bld) [#/Vol] 16.0 10*3/uL 4.4-11.[address] [facility] Blood erythrocytes count (nu mber/volume)Ordered By: Nicky Gusman on 07-28-2023 RBC (Bld) [#/Vol] 3.82 10*6/uL 4.2-5.[address] [facility] Blood hemoglobin measurement (mass/volume)Ordered By: Nicky Gusman on 07-28-2023 Hemoglobin (Bld) [Mass/Vol] 10.2 g/dL 12.0-15.0 [facility] Blood lymphocytes/100 leukoc ytesOrdered By: Nicky Gusman on 07-28-2023 Lymphocytes/100 WBC (Bld) 8.5 % 19-41 [facility] Blood monocytes/100 leukocyt esOrdered By: Nicky Gusman on 07-28-2023 Monocytes/100 WBC (Bld) 10.3 % 0-10 [facility] Blood platelet mean volumeOr dered By: Nicky Gusman on 07-28-2023 Platelet mean volume (Bld) [Entitic vol] 11.3 fL 6.2-12.0 [facility] Determination of erythrocyte mean corpuscular volume (MCV)Ordered By: Nicky Gusman on 07-28-2023 MCV (RBC) [Entitic vol] 82.7 fL 81-99 [facility] Hematocrit Auto (Bld) [Volum e fraction]Ordered By: Nicky Gusman on 07-28-2023 Hematocrit (Bld) [Volume fraction] 31.6 % 37-47 [facility] - Chemistry and C hemistry - challengeOrdered By: Nicky Gusman on 07-28-2023 Magnesium [Mass/Vol] 1.7 mg/dL 1.6-2.6 [facility] - Hematology and Cell countsOrdered By: Nicky Gusman on 07-28-2023 Erythrocyte distribution width (RBC) [Entitic vol] 47.8 fL 35.1-43.9 [facility] Erythrocyte distribution width (RBC) [Ratio] 15.8 % 11.6-14.6 [facility] Immature granulocytes/100 WBC (Bld) 0.600 % 0.0-0.9 [facility] Comment on above: IG% - Immature Granu locytes (promyelocytes, myelocytes and metamyelocytes) > 1% indicates that a LEFT SHIFT is Present. MCH (RBC) [Entitic mass] 26.7 pg 27.0-32.0 [facility] Nucleated RBC/100 WBC (Bld) [Ratio] 0 % 0-5 [facility] MCHC Auto (RBC) [Mass/Vol]Or dered By: Nicky Gusman on 07-28-2023 MCHC (RBC) [Mass/Vol] 32.3 g/dL 32-36 [facility] Comment on above: Delta: 30.6 on 07/27-0650 Platelets bldOrdered By: Dorothea Gusman on 07-28-2023 Platelets (Bld) [#/Vol] 178 10*3/uL 150-450 [facility] Review by pathologistOrdered By: Nicky Gusman on 07-28-2023 Pathologist review Vikash (Unsp spec) [Interp] Reviewed [facility] Comment on above: Previous reported re sult: Gita patsy Edited by: ROSSY on 07/29/23:0733Neutrophilic leukocytosis.Normocytic anemia.Clinical correlation necessary.Marvel Lee M.D. 07/29/23 AMENDED REPORT 07/29/23732 PATH REV previously reported as: Gita garner Blood manual differential co mment interpretation (narrative result)Ordered By: Nicky Gusman on 07-27-2023 Manual differential comment Vikash (Bld) [Interp] SCANNED [facility] Absolute lymphocyte countOrd ered By: Cj Malave on 07-26-2023 Lymphocytes Auto (Unsp spec) [#/Vol] 1.57 10*3/uL 0.83-4.51 [facility] Basophil percentageOrdered B y: Cj Malave on 07-26-2023 Basophil percentage 5-10 SEEN /hpf 0-5 [facility] Basophils/100 WBC (Bld) 0.4 % 0-1 [facility] Chloride [Moles/Vol] 102 mmol/L 98-107 [facility] Eosinophils/100 WBC (Bld) 0.6 % 0-5 [facility] Glucose [Mass/Vol] 163 mg/dL 74-106 [facility] Comment on above: Fasting Glucose resu lt greater than or equal to 126 mg/dL suggests DIABETES MELLITUS per A.D.A. criteria. Neutrophils (Bld) [#/Vol] 11.5 10*3/uL 2.0-7.7 [facility] Neutrophils/100 WBC (Bld) 81.9 % 47-70 [facility] Potassium [Moles/Vol] 3.1 mmol/L 3.5-5.1 [facility] Comment on above: Slight Hemolysis, Re sult may be falsely increased. Sodium [Moles/Vol] 138 mmol/L 136-145 [facility] WBC (Bld) [#/Vol] 14.0 10*3/uL 4.4-11.[address] [facility] Bilirubin Test strip Ql (U)O rdered By: Cj Malave on 07-26-2023 Bilirubin Ql (U) Negative Negative [facility] Blood erythrocytes count (nu mber/volume)Ordered By: Cj Malave on 07-26-2023 RBC (Bld) [#/Vol] 4.87 10*6/uL 4.2-5.[address] [facility] Blood hemoglobin measurement (mass/volume)Ordered By: Cj Malave on 07-26-2023 Hemoglobin (Bld) [Mass/Vol] 12.8 g/dL 12.0-15.0 [facility] Blood lymphocytes/100 leukoc ytesOrdered By: Cj Malave on 07-26-2023 Lymphocytes/100 WBC (Bld) 11.2 % 19-41 [facility] Blood monocytes/100 leukocyt esOrdered By: Cj Malave on 07-26-2023 Monocytes/100 WBC (Bld) 5.1 % 0-10 [facility] Blood platelet mean volumeOr dered By: Cj Malave on 07-26-2023 Platelet mean volume (Bld) [Entitic vol] 10.0 fL 6.2-12.0 [facility] Culture, urineOrdered By: Milind Malave on 07-26-2023 Bacteria identified Cx Nom (U) Proteus mirabilis [facility] Determination of erythrocyte mean corpuscular volume (MCV)Ordered By: Cj Malave on 07-26-2023 MCV (RBC) [Entitic vol] 78.9 fL 81-99 [facility] Hematocrit Auto (Bld) [Volum e fraction]Ordered By: Cj Malave on 07-26-2023 Hematocrit (Bld) [Volume fraction] 38.4 % 37-47 [facility] Ketones Test strip Ql (U)Ord ered By: Cj Malave on 07-26-2023 Ketones Ql (U) Negative Negative [facility] - Chemistry and C hemistry - challengeOrdered By: Cj Malave on 07-26-2023 CO2 [Moles/Vol] 27.0 mmol/L 21.0-32.0 [facility] Urea nitrogen/Creatinine [Mass ratio] 23.1 mg/mg 10-20 [facility] - Hematology and Cell countsOrdered By: Cj Malave on 07-26-2023 Erythrocyte distribution width (RBC) [Entitic vol] 43.2 fL 35.1-43.9 [facility] Erythrocyte distribution width (RBC) [Ratio] 15.1 % 11.6-14.6 [facility] Immature granulocytes/100 WBC (Bld) 0.800 % 0.0-0.9 [facility] Comment on above: IG% - Immature Granu locytes (promyelocytes, myelocytes and metamyelocytes) > 1% indicates that a LEFT SHIFT is Present. MCH (RBC) [Entitic mass] 26.3 pg 27.0-32.0 [facility] Nucleated RBC/100 WBC (Bld) [Ratio] 0 % 0-5 [facility] MCHC Auto (RBC) [Mass/Vol]Or dered By: Cj Malave on 07-26-2023 MCHC (RBC) [Mass/Vol] 33.3 g/dL 32-36 [facility] Mucus LM Ql (Urine sed)Order ed By: Cj Malave on 07-26-2023 Mucus Ql (Urine sed) 0 SEEN /hpf [facility] Nitrite Test strip Ql (U)Ord ered By: Cj Malave on 07-26-2023 Nitrite Ql (U) Negative Negative [facility] No Panel InformationOrdered By: Cj Malave on 07-26-2023 Estimated Creatinine Clearance Calc 35.28 ml/min [facility] Estimated GFR (MDRD) Amer 56 mL/min >60 [facility] Comment on above: GFR Calc Estimated GFR (MDRD) Non-Af Amer 47 mL/min >60 [facility] Comment on above: Non- GFR Calc Platelets bldOrdered By: Paulette Malave on 07-26-2023 Platelets (Bld) [#/Vol] 318 10*3/uL 150-450 [facility] Protein Test strip Ql (U)Ord ered By: Cj Malave on 07-26-2023 Protein Ql (U) 30 mg/dl Negative [facility] Serum or plasma calcium cuca urement (mass/volume)Ordered By: Cj Malave on 07-26-2023 Calcium [Mass/Vol] 9.6 mg/dL 8.5-10.1 [facility] Serum or plasma creatinine m easurement (mass/volume)Ordered By: Cj Malave on 07-26-2023 Creatinine [Mass/Vol] 1.21 mg/dL 0.55-1.02 [facility] Comment on above: The validity of the calculated GFR & GFRAA in patients over 70 years has not been determined. Clinical correlation is essential. Serum or plasma urea nitroge n measurement (mass/volume)Ordered By: Cj Malave on 07-26-2023 Urea nitrogen [Mass/Vol] 28 mg/dL 7-18 [facility] Squamous epithelial cells de tection in urine sediment by light microscopyOrdered By: Cj Malave on 07-26-2023 Epithelial cells.squamous LM Ql (Urine sed) 0 SEEN /hpf 5-10 [facility] Thin prep Papanicolaou smear with manual screeningOrdered By: Cj Malave on 07-26-2023 Thin prep Papanicolaou smear with manual screening 9 5-15 [facility] Urine blood detectionOrdered By: Cj Malave on 07-26-2023 RBC Ql (U) 10 /ul Negative [facility] RBC Ql (U) 0-5 SEEN /hpf 0-5 [facility] Urine clarityOrdered By: Paulette Malave on 07-26-2023 Clarity (U) Clear Clear [facility] Urine color determinationOrd ered By: Cj Malave on 07-26-2023 Color (U) Yellow Yellow [facility] Urine glucose detectionOrder ed By: Cj Malave on 07-26-2023 Glucose Ql (U) 100 mg/dl Normal [facility] Urine leukocyte esterase det ection by dipstickOrdered By: Cj Malave on 07-26-2023 Leukocyte esterase Test strip Ql (U) 100 /ul Negative [facility] Urine pHOrdered By: Cj montana on 07-26-2023 pH (U) 7.0 [pH] 5.0 - 8.0 [facility] Urine sediment bacteria coun t by microscopy (number/high power field)Ordered By: Cj Malave on 07-26-2023 Bacteria LM.HPF (Urine sed) [#/Area] 0 /[HPF] None Seen [facility] Urine specific gravity measu rementOrdered By: Cj Malave on 07-26-2023 Specific gravity (U) [Rel density] 1.010 1.002-1.030 [facility] Urobilinogen Auto test strip Ql (U)Ordered By: Cj Malave on 07-26-2023 Urobilinogen Ql (U) Normal mg/dl Normal [facility] Colonoscopy Study observatio non 04-09-2023 [facility] G[facility] Patient Name: Kaylee Schwarz Procedure Date: 04/09/2023 8:42 AM Date of : 1950 Admit Type: Outpatient Age: 72 Room: [place] [address] Gender: Female Note Status: Finalized Attending MD: Mercy Whalen MD Procedure: Colonoscopy Indications: Screening for colorectal malignant neoplasm Providers: Mercy Whalen MD Patient Profile: Last Colonoscopy: 5 years ago. Referring Physician: Elsa Win (Referring MD) Medicines: Propofol per Anesthesia Complications: No immediate complications. Requesting Provider: Procedure: Pre-Anesthesia Assessment: - Prior to the procedure, a History and Physical was performed, and patient medications and allergies were reviewed. The patient's tolerance of previous anesthesia was also reviewed. The risks and benefits of the procedure and the sedation options and risks were discussed with the patient. All questions were answered, and informed consent was obtained. Prior Anticoagulants: The patient has taken no anticoagulant or antiplatelet agents. ASA Grade Assessment: II - A patient with mild systemic disease. After reviewing the risks and benefits, the patient was deemed in satisfactory condition to undergo the procedure. After I obtained informed consent, the scope was passed under direct vision. Throughout the procedure, the patient's blood pressure, pulse, and oxygen saturations were monitored continuously. The Colonoscope was introduced through the anus and advanced to the cecum, identified by appendiceal orifice and ileocecal valve. I was present and participated during the entire procedure, including non-barreto portions, and during the administration and monitoring of Moderate Sedation. The colonoscopy was performed without difficulty. The patient tolerated the procedure well. The quality of the bowel preparation was good. The ileocecal valve, appendiceal orifice, and rectum were photographed. Moderate Sedation: MAC anesthesia was administered by the anesthesia team. Findings: Scattered large-mouthed diverticula were found in the sigmoid colon and descending colon. Impression: - Diverticulosis in the sigmoid colon and in the descending colon. - No specimens collected. Recommendation: - Resume previous diet. - Continue present medications. - Repeat colonoscopy in 10 years for screening purposes. - The patient is not currently taking anticoagulant or antiplatelet agents. - Patient has a contact number available for emergencies. The signs and symptoms of potential delayed complications were discussed with the patient. Return to normal activities tomorrow. Written discharge instructions were provided to the patient. Procedure Code(s): --- Professional --- 61998, Colonoscopy, flexible; diagnostic, including collection of specimen(s) by brushing or washing, when performed (separate procedure) CPT copyright 2020 [employer]. All rights reserved. The codes documented in this report are preliminary and upon shrimp peeling machine tender review may be revised to meet current compliance requirements. Attending Participation: I personally performed the entire procedure. Scope In: 9:00:31 AM Scope Out: 9:08:56 AM MD Mercy Paul MD 04/09/2023 9:15:33 AM This report has been signed electronically by Mercy Whalen MD Number of Addenda: 0 Note Initiated On: 04/09/2023 8:42 AM Estimated Blood Loss: Estimated blood loss: none. [employer] [facility] Radiology Study observation (narrative) [facility] Basophil percentageOrdered B y: Michel Lora on 08-21-2022 WBC (Bld) [#/Vol] 11.2 10*3/uL 4.4-11.[address] [facility] Blood erythrocytes count (nu mber/volume)Ordered By: Michel Lora on 08-21-2022 RBC (Bld) [#/Vol] 3.98 10*6/uL 4.2-5.[address] [facility] Blood hemoglobin measurement (mass/volume)Ordered By: Michel Lora on 08-21-2022 Hemoglobin (Bld) [Mass/Vol] 10.8 g/dL 12.0-15.0 [facility] Blood platelet mean volumeOr dered By: Michel Lora on 08-21-2022 Platelet mean volume (Bld) [Entitic vol] 10.0 fL 6.2-12.0 [facility] Determination of erythrocyte mean corpuscular volume (MCV)Ordered By: Michel Lora on 08-21-2022 MCV (RBC) [Entitic vol] 85.7 fL 81-99 [facility] Hematocrit Auto (Bld) [Volum e fraction]Ordered By: Michel Lora on 08-21-2022 Hematocrit (Bld) [Volume fraction] 34.1 % 37-47 [facility] Laboratory - Hematology and Cell countsOrdered By: Michel Lora on 08-21-2022 Erythrocyte distribution width (RBC) [Entitic vol] 44.3 fL 35.1-43.9 [facility] Erythrocyte distribution width (RBC) [Ratio] 14.2 % 11.6-14.6 [facility] MCH (RBC) [Entitic mass] 27.1 pg 27.0-32.0 [facility] MCHC Auto (RBC) [Mass/Vol]Or dered By: Michel Lora on 08-21-2022 MCHC (RBC) [Mass/Vol] 31.7 g/dL 32-36 [facility] Platelets bldOrdered By: Michel Lora on 08-21-2022 Platelets (Bld) [#/Vol] 509 10*3/uL 150-450 [facility] .Auto Diffon 08-14-2022 Basophil, Absolute 0.0 10 3/mcL Normal 0.0-0.2 [facility] ([place]) Comment on above: Performed By: #### B MP, ALB, GFR, A1C #### [address] [place], [place] [address] Basophils/100 WBC (Bld) 0.1 % Normal 0.0-2.5 A [facility] ([place]) Comment on above: Performed By: #### B MP, ALB, GFR, A1C #### [address] [place], [place] [address] Eosinophil, Absolute 0.0 10 3/mcL Normal 0.0-0.4 [facility] ([place]) Comment on above: Performed By: #### B MP, ALB, GFR, A1C #### [address] [place], [place] [address] Eosinophils/100 WBC (Bld) 0.0 % Normal 0.0-7.0 [facility] ([place]) Comment on above: Performed By: #### B MP, ALB, GFR, A1C #### [address] [address] Lymphocyte, Absolute 1.0 10 3/mcL Normal 0.8-3.9 [facility] ([place]) Comment on above: Performed By: #### B MP, ALB, GFR, A1C #### [address] [address] Lymphocytes/100 WBC (Bld) 7.0 % Low 10.0-50.0 [facility] ([place]) Comment on above: Performed By: #### B MP, ALB, GFR, A1C #### [address] [address] Monocyte, Absolute 1.0 10 3/mcL Normal 0.2-1.0 [facility] ([place]) Comment on above: Performed By: #### B MP, ALB, GFR, A1C #### [address] [address] Monocytes/100 WBC (Bld) 7.3 % Normal 1.7-13.0 A [facility] ([place]) Comment on above: Performed By: #### B MP, ALB, GFR, A1C #### [address] [address] Neutrophils/100 WBC (Bld) 85.6 % High 37.0-80.0 [facility] ([place]) Comment on above: Performed By: #### B MP, ALB, GFR, A1C #### [address] [address] .GFRon 08-14-2022 GFR 84 ml/min/1.73sqm Normal [facility] ([place]) Comment on above: Result Comment: GFR Population mean for , Non- Americans Ages 20-29 = 116 mL/min/1.73 sq.m. Ages 30-39 = 107 mL/min/1.73 sq.m. Ages 40-49 = 99 mL/min/1.73 sq.m. Ages 50-59 = 93 mL/min/1.73 sq.m. Ages 60-69 = 85 mL/min/1.73 sq.m. Ages 70+ = 75 mL/min/1.73 sq.m. Chronic Kidney Disease: Less than 60 mL/min/1.73 square meters End Stage Renal Disease: Less than 15 mL/min/1.73 square meters Performed By: #### B MP, ALB, GFR, A1C #### [address] [address] GFR Non- 69 ml/min/1.73sqm Normal [facility] ([place]) Comment on above: Result Comment: GFR Population mean for , Non- Americans Ages 20-29 = 116 mL/min/1.73 sq.m. Ages 30-39 = 107 mL/min/1.73 sq.m. Ages 40-49 = 99 mL/min/1.73 sq.m. Ages 50-59 = 93 mL/min/1.73 sq.m. Ages 60-69 = 85 mL/min/1.73 sq.m. Ages 70+ = 75 mL/min/1.73 sq.m. Chronic Kidney Disease: Less than 60 mL/min/1.73 square meters End Stage Renal Disease: Less than 15 mL/min/1.73 square meters Performed By: #### B MP, ALB, GFR, A1C #### [address] [address] .NEUABSon 08-14-2022 Neutrophil, Absolute 12.1 10 3/mcL High 2.9-6.2 A [facility] ([place]) Comment on above: Performed By: #### B MP, ALB, GFR, A1C #### [address] [address] BMPon 08-14-2022 BUN/Creatinine Ratio 22 ratio Normal 7-27 [facility] ([place]) Comment on above: Performed By: #### B MP, ALB, GFR, A1C #### [address] [address] Calcium [Mass/Vol] 10.0 mg/dL Normal 8.4-10.2 [facility] ([place]) Comment on above: Performed By: #### B MP, ALB, GFR, A1C #### [address] [address] Chloride [Moles/Vol] 102 mmol/L Normal 98-107 [facility] ([place]) Comment on above: Performed By: #### B MP, ALB, GFR, A1C #### [address] [address] CO2 [Moles/Vol] 29 mmol/L Normal 23-31 [facility] ([place]) Comment on above: Performed By: #### B MP, ALB, GFR, A1C #### [address] [address] Creatinine [Mass/Vol] 0.82 mg/dL Normal 0.55-1.02 [facility] ([place]) Comment on above: Performed By: #### B MP, ALB, GFR, A1C #### [address] [address] Electrolyte Balance 9.0 mEq/L Normal 4.0-15.0 [facility] ([place]) Comment on above: Performed By: #### B MP, ALB, GFR, A1C #### [address] [address] Glucose [Mass/Vol] 123 mg/dL High 83-110 [facility] ([place]) Comment on above: Performed By: #### B MP, ALB, GFR, A1C #### [address] [address] Potassium [Moles/Vol] 3.9 mmol/L Normal 3.5-5.1 [facility] ([place]) Comment on above: Performed By: #### B MP, ALB, GFR, A1C #### [address] [address] Sodium [Moles/Vol] 140 mmol/L Normal 136-145 [facility] ([place]) Comment on above: Performed By: #### B MP, ALB, GFR, A1C #### [address] [address] Urea nitrogen [Mass/Vol] 18 mg/dL Normal 7-18 [facility] ([place]) Comment on above: Performed By: #### B MP, ALB, GFR, A1C #### [address] [address] CBCon 08-14-2022 Erythrocyte distribution width (RBC) [Ratio] 14.8 % High 11.5-14.5 [facility] ([place] Comment on above: Performed By: #### B MP, ALB, GFR, A1C #### [address] [address] Hematocrit (Bld) [Volume fraction] 31.0 % Low 37.0-47.0 [facility] ([place] Comment on above: Performed By: #### B MP, ALB, GFR, A1C #### [address] [address] Hgb 10.3 G/dL Low 12.0-16.0 [facility] ([place] Comment on above: Performed By: #### B MP, ALB, GFR, A1C #### [address] [address] MCH (RBC) [Entitic mass] 26.9 pg Low 27.0-31.2 [facility] ([place] Comment on above: Performed By: #### B MP, ALB, GFR, A1C #### [address] [address] MCHC 33.3 G/dL Normal 33.0-37.0 [facility] ([place] Comment on above: Performed By: #### B MP, ALB, GFR, A1C #### [address] [address] MCV (RBC) [Entitic vol] 80.7 fL Normal 80.0-94.0 A [facility] ([place]) Comment on above: Performed By: #### B MP, ALB, GFR, A1C #### [address] [address] Platelet 314 10 3/mcL Normal 130-400 [facility] ([place] Comment on above: Performed By: #### B MP, ALB, GFR, A1C #### [address] [address] Platelet mean volume (Bld) [Entitic vol] 7.7 fL Normal 7.4-10.4 [facility] ([place] Comment on above: Performed By: #### B MP, ALB, GFR, A1C #### [address] [address] RBC 3.83 10 6/mcL Low 4.20-5.40 [facility] ([place] Comment on above: Performed By: #### B MP, ALB, GFR, A1C #### [address] [address] WBC 14.2 10 3/mcL High 4.6-10.8 [facility] ([place] Comment on above: Performed By: #### B MP, ALB, GFR, A1C #### [address] [address] Gel ABOon 08-13-2022 ABO/Rh Interp Positive Invalid Interpretation Code [facility] ([place]) Comment on above: Order Comment: Hemol yzed, please recollect Performed By: #### B MP, ALB, GFR, A1C #### [address] [address] Gel ABSon 08-13-2022 Antibody Screen Gel Negative Normal [facility] ([place]) Comment on above: Performed By: #### B MP, ALB, GFR, A1C #### [address] [address] XR KNEE 1 OR 2 VIEWS LEFTon 08-13-2022 XR KNEE 1 OR 2 VIEWS LEFT ORIGINAL EXAMINATION: TWO XRAY VIEWS OF THE LEFT KNEE 08/13/2022 10:42 am COMPARISON: CT knee 07/29/2022. HISTORY: ORDERING SYSTEM PROVIDED HISTORY: Reason for Exam: Status Post Arthroplasty FINDINGS: Left total knee arthroplasty changes are present without evidence of hardware complication. Distal femoral ghost tracks noted. Expected postoperative changes of the soft tissues are noted relating to swelling, subcutaneous emphysema, and air within the knee joint. Skin ninoska noted anteriorly. IMPRESSION: 1. Left total knee arthroplasty without evidence of hardware complication. 2. Expected postoperative changes of the soft tissues. Interpreted by: Dieudonne Jones DO Preliminary Report By: Dieudonne Jones DO Electronically signed By Dieudonne Jones DO Dictated Date: 08/13/2022 10:54:19 AM Prelim Date: 08/13/2022 10:55:17 AM Sign Date: 08/13/2022 10:55:17 AM Ordering Provider: [facility] ([place]) XR Wrist - right 4 Viewson 1 10-08-2021 IMPRESSION: Degenerative changes as described above. Windows Application Developer: [email or web address] Transcribe Date/Time: Aug 07 2022 12:49P Dictated by : JACQUE MITCHELL MD This examination was interpreted and the report reviewed and electronically signed by: JACQUE MITCHELL MD on Aug 07 2022 12:51PM [facility] DIVISION OF RADIOLOGY * * *Final Report* * * DATE OF EXAM: Aug 07 2022 12:36PM WOX [id number] - XR WRIST 4V PA/LAT/OBL/SCAPH RT / PROCEDURE REASON: Pain * * * * Physician Interpretation * [...] There is no significant soft tissue swelling. DIVISION OF RADIOLOGY Provider, [facility] - 08/07/2022 * * *Final Report* * * DATE OF EXAM: Aug 07 2022 12:36PM WOX [id number] - XR WRIST 4V PA/LAT/OBL/SCAPH RT / PROCEDURE REASON: Pain * * * * Physician Interpretation * [...] IMPRESSION IMPRESSION: Degenerative changes as described above. Windows Application Developer: PSCB Transcribe Date/Time: Aug 07 2022 12:49P Dictated by : JACQUE MITCHELL MD This examination was interpreted and the report reviewed and electronically signed by: JACQUE MITCHELL MD on Aug 07 2022 12:51PM EST [facility] Radiology Study observation (narrative) [facility] XR Wrist - right 4 ViewsOrde red By: [facility] Provider on 08-07-2022 [facility] .Auto Diffon 07-29-2022 Basophil, Absolute 0.1 10 3/mcL Normal 0.0-0.2 [facility] ([place]) Comment on above: Performed By: #### B MP, ALB, GFR, A1C #### [address] [address] Basophils/100 WBC (Bld) 0.8 % Normal 0.0-2.5 A [facility] ([place]) Comment on above: Performed By: #### B MP, ALB, GFR, A1C #### [address] [address] Eosinophil, Absolute 0.3 10 3/mcL Normal 0.0-0.4 [facility] ([place]) Comment on above: Performed By: #### B MP, ALB, GFR, A1C #### [address] [address] Eosinophils/100 WBC (Bld) 4.4 % Normal 0.0-7.0 [facility] ([place]) Comment on above: Performed By: #### B MP, ALB, GFR, A1C #### [address] [address] Lymphocyte, Absolute 1.6 10 3/mcL Normal 0.8-3.9 [facility] ([place]) Comment on above: Performed By: #### B MP, ALB, GFR, A1C #### [address] [address] Lymphocytes/100 WBC (Bld) 20.2 % Normal 10.0-50.0 [facility] ([place]) Comment on above: Performed By: #### B MP, ALB, GFR, A1C #### [address] [address] Monocyte, Absolute 0.8 10 3/mcL Normal 0.2-1.0 [facility] ([place]) Comment on above: Performed By: #### B MP, ALB, GFR, A1C #### [address] [address] Monocytes/100 WBC (Bld) 10.4 % Normal 1.7-13.0 A [facility] ([place]) Comment on above: Performed By: #### B MP, ALB, GFR, A1C #### [address] [address] Neutrophils/100 WBC (Bld) 64.2 % Normal 37.0-80.0 [facility] ([place]) Comment on above: Performed By: #### B MP, ALB, GFR, A1C #### [address] [address] .GFRon 07-29-2022 GFR 70 ml/min/1.73sqm Normal [facility] ([place]) Comment on above: Result Comment: GFR Population mean for , Non- Americans Ages 20-29 = 116 mL/min/1.73 sq.m. Ages 30-39 = 107 mL/min/1.73 sq.m. Ages 40-49 = 99 mL/min/1.73 sq.m. Ages 50-59 = 93 mL/min/1.73 sq.m. Ages 60-69 = 85 mL/min/1.73 sq.m. Ages 70+ = 75 mL/min/1.73 sq.m. Chronic Kidney Disease: Less than 60 mL/min/1.73 square meters End Stage Renal Disease: Less than 15 mL/min/1.73 square meters Performed By: #### B MP, ALB, GFR, A1C #### [address] [address] GFR Non- 57 ml/min/1.73sqm Normal [facility] ([place]) Comment on above: Result Comment: GFR Population mean for , Non- Americans Ages 20-29 = 116 mL/min/1.73 sq.m. Ages 30-39 = 107 mL/min/1.73 sq.m. Ages 40-49 = 99 mL/min/1.73 sq.m. Ages 50-59 = 93 mL/min/1.73 sq.m. Ages 60-69 = 85 mL/min/1.73 sq.m. Ages 70+ = 75 mL/min/1.73 sq.m. Chronic Kidney Disease: Less than 60 mL/min/1.73 square meters End Stage Renal Disease: Less than 15 mL/min/1.73 square meters Performed By: #### B MP, ALB, GFR, A1C #### [address] [address] .NEUABSon 07-29-2022 Neutrophil, Absolute 5.1 10 3/mcL Normal 2.9-6.2 [facility] ([place]) Comment on above: Performed By: #### B MP, ALB, GFR, A1C #### [address] [address] A1Con 07-29-2022 HbA1c (Bld) [Mass fraction] 5.6 % Normal 4.3-6.4 [facility] ([place]) Comment on above: Performed By: #### B MP, ALB, GFR, A1C #### [address] [address] ALBon 07-29-2022 Albumin Level 3.7 G/dL Normal 3.4-4.8 [facility] ([place]) Comment on above: Performed By: #### B MP, ALB, GFR, A1C #### [address] [address] BMPon 07-29-2022 BUN/Creatinine Ratio 18 ratio Normal 7-27 [facility] ([place]) Comment on above: Performed By: #### B MP, ALB, GFR, A1C #### [address] [address] Calcium [Mass/Vol] 9.9 mg/dL Normal 8.4-10.2 [facility] ([place]) Comment on above: Performed By: #### B MP, ALB, GFR, A1C #### [address] [address] Chloride [Moles/Vol] 101 mmol/L Normal 98-107 [facility] ([place]) Comment on above: Performed By: #### B MP, ALB, GFR, A1C #### [address] [address] CO2 [Moles/Vol] 31 mmol/L Normal 23-31 [facility] ([place]) Comment on above: Performed By: #### B MP, ALB, GFR, A1C #### [address] [address] Creatinine [Mass/Vol] 0.96 mg/dL Normal 0.55-1.02 [facility] ([place]) Comment on above: Performed By: #### B MP, ALB, GFR, A1C #### [address] [address] Electrolyte Balance 9.0 mEq/L Normal 4.0-15.0 [facility] ([place]) Comment on above: Performed By: #### B MP, ALB, GFR, A1C #### [address] [address] Glucose [Mass/Vol] 86 mg/dL Normal 83-110 [facility] ([place]) Comment on above: Performed By: #### B MP, ALB, GFR, A1C #### [address] [address] Potassium [Moles/Vol] 3.2 mmol/L Low 3.5-5.1 [facility] ([place]) Comment on above: Performed By: #### B MP, ALB, GFR, A1C #### [address] [address] Sodium [Moles/Vol] 141 mmol/L Normal 136-145 [facility] ([place]) Comment on above: Performed By: #### B MP, ALB, GFR, A1C #### [address] [address] Urea nitrogen [Mass/Vol] 17 mg/dL Normal 7-18 [facility] ([place] Comment on above: Performed By: #### B MP, ALB, GFR, A1C #### [address] [address] CBCon 07-29-2022 Erythrocyte distribution width (RBC) [Ratio] 15.4 % High 11.5-14.5 [facility] ([place]) Comment on above: Order Comment: Pre-A dmission Testing Performed By: #### B MP, ALB, GFR, A1C #### [address] [address] Hematocrit (Bld) [Volume fraction] 35.4 % Low 37.0-47.0 [facility] ([place]) Comment on above: Order Comment: Pre-A dmission Testing Performed By: #### B MP, ALB, GFR, A1C #### [address] [address] Hgb 12.1 G/dL Normal 12.0-16.0 [facility] ([place]) Comment on above: Order Comment: Pre-A dmission Testing Performed By: #### B MP, ALB, GFR, A1C #### [address] [address] MCH (RBC) [Entitic mass] 27.8 pg Normal 27.0-31.2 [facility] ([place]) Comment on above: Order Comment: Pre-A dmission Testing Performed By: #### B MP, ALB, GFR, A1C #### [address] [address] MCHC 34.1 G/dL Normal 33.0-37.0 [facility] ([place]) Comment on above: Order Comment: Pre-A dmission Testing Performed By: #### B MP, ALB, GFR, A1C #### [address] [address] MCV (RBC) [Entitic vol] 81.3 fL Normal 80.0-94.0 A [facility] ([place]) Comment on above: Order Comment: Pre-A dmission Testing Performed By: #### B MP, ALB, GFR, A1C #### [address] [address] Platelet 265 10 3/mcL Normal 130-400 [facility] ([place]) Comment on above: Order Comment: Pre-A dmission Testing Performed By: #### B MP, ALB, GFR, A1C #### [address] [address] Platelet mean volume (Bld) [Entitic vol] 8.4 fL Normal 7.4-10.4 [facility] ([place] Comment on above: Order Comment: Pre-A dmission Testing Performed By: #### B MP, ALB, GFR, A1C #### [address] [address] RBC 4.35 10 6/mcL Normal 4.20-5.40 [facility] ([place]) Comment on above: Order Comment: Pre-A dmission Testing Performed By: #### B MP, ALB, GFR, A1C #### [address] [address] WBC 7.9 10 3/mcL Normal 4.6-10.8 [facility] ([place]) Comment on above: Order Comment: Pre-A dmission Testing Performed By: #### B MP, ALB, GFR, A1C #### [address] [address] [address] KNEE W/O CONTRAST LEFTon 07-29-2022 CT KNEE W/O CONTRAST LEFT ORIGINAL EXAMINATION: CT OF THE LEFT KNEE WITHOUT CONTRAST 07/29/2022 8:48 am TECHNIQUE: CT of the left knee was performed without the administration of intravenous contrast. Multiplanar reformatted images are provided for review. Automated exposure control, iterative reconstruction, and/or weight based adjustment of the mA/kV was utilized to reduce the radiation dose to as low as reasonably achievable. COMPARISON: None. HISTORY ORDERING SYSTEM PROVIDED HISTORY: Reason for Exam: Unilateral primary osteoarthritis, left knee. FINDINGS: No acute fracture or dislocation is evident. A diffuse decrease in osseous mineralization is seen. No visible aggressive osseous lesions. Severe medial and lateral femorotibial compartment joint space narrowing is noted with subchondral sclerosis and sizable marginal osteophytes. Mild chondrocalcinosis is also evident. Severe patellofemoral compartment joint space narrowing is noted, greatest laterally. Sizable marginal osteophytes. Trace volume suprapatellar joint fluid is noted, greatest of the medial aspect. Small volume Flores's cyst. The tendons and ligaments are suboptimally evaluated on this exam due to inherent CT modality limitation. Fairly advanced quadriceps muscle atrophy. No acute osseous abnormalities or aggressive osseous lesions are noted the included images of the hip and pelvis. Mild osteophytosis noted of the left hip. Colonic diverticulosis noted without evidence of acute diverticulitis. Calcified lymph node versus phlebolith noted of the left hemipelvis. Provided images of the left ankle demonstrate no acute osseous abnormalities or aggressive osseous lesions. Mild atherosclerosis. IMPRESSION: 1. No acute osseous abnormalities or aggressive osseous lesions. 2. Advanced tricompartmental degenerative change of the knee with chondrocalcinosis. Interpreted by: Dieudonne Jones DO Preliminary Report By: Dieudonne Jones DO Electronically signed By Dieudonne Jones DO Dictated Date: 07/29/2022 8:54:36 AM Prelim Date: 07/29/2022 9:02:02 AM Sign Date: 07/29/2022 9:02:02 AM Ordering Provider: [facility] ([place]) LABORATORYOrdered By: Ju Brooks on 07-29-2022 Albumin BCP dye [Mass/Vol] 3.7 G/dL Invalid Interpretation Code 3.4 - 4.8 G/dL AO ADM SS Calcium [Mass/Vol] 9.9 mg/dL Invalid Interpretation Code 8.4 - 10.2 mg/dL AO ADM SS Chloride [Moles/Vol] 101 mmol/L Invalid Interpretation Code 98 - 107 mmol/L AO ADM SS CO2 [Moles/Vol] 31 mmol/L Invalid Interpretation Code 23 - 31 mmol/L AO ADM SS Creatinine [Mass/Vol] 0.96 mg/dL Invalid Interpretation Code 0.55 - 1.02 mg/dL AO ADM SS Electrolyte Balance 9.0 mEq/L Invalid Interpretation Code 4.0 - 15.0 mEq/L AO ADM SS Glucose [Mass/Vol] 86 mg/dL Invalid Interpretation Code 83 - 110 mg/dL AO ADM SS HbA1c (Bld) [Mass fraction] 5.6 % Invalid Interpretation Code 4.3 - 6.4 % AO ADM SS Potassium [Moles/Vol] 3.2 mmol/L Invalid Interpretation Code 3.5 - 5.1 mmol/L AO ADM SS Sodium [Moles/Vol] 141 mmol/L Invalid Interpretation Code 136 - 145 mmol/L AO ADM SS Urea nitrogen [Mass/Vol] 17 mg/dL Invalid Interpretation Code 7 - 18 mg/dL AO ADM SS Urea nitrogen/Creatinine [Mass ratio] 18 ratio Invalid Interpretation Code 7 - 27 ratio AO ADM SS LABORATORYOrdered By: Janine Ryan on 07-29-2022 Basophil, Absolute 0.1 103/mcL Invalid Interpretation Code 0.0 - 0.2 10^3/mcL AO Workflow SS Basophils/100 WBC (Bld) 0.8 % Invalid Interpretation Code 0.0 - 2.5 % AO Workflow SS Eosinophil, Absolute 0.3 103/mcL Invalid Interpretation Code 0.0 - 0.4 10^3/mcL AO Workflow SS Eosinophils/100 WBC (Bld) 4.4 % Invalid Interpretation Code 0.0 - 7.0 % AO Workflow SS Erythrocyte distribution width (RBC) [Ratio] 15.4 % Invalid Interpretation Code 11.5 - 14.5 % AO Workflow SS Hematocrit (Bld) [Volume fraction] 35.4 % Invalid Interpretation Code 37.0 - 47.0 % AO Workflow SS Hemoglobin (Bld) [Mass/Vol] 12.1 G/dL Invalid Interpretation Code 12.0 - 16.0 G/dL AO Workflow SS Lymphocyte, Absolute 1.6 103/mcL Invalid Interpretation Code 0.8 - 3.9 10^3/mcL AO Workflow SS Lymphocytes/100 WBC (Bld) 20.2 % Invalid Interpretation Code 10.0 - 50.0 % AO Workflow SS MCH (RBC) [Entitic mass] 27.8 pg Invalid Interpretation Code 27.0 - 31.2 pg AO Workflow SS MCHC 34.1 G/dL Invalid Interpretation Code 33.0 - 37.0 G/dL AO Workflow SS MCV (RBC) [Entitic vol] 81.3 fL Invalid Interpretation Code 80.0 - 94.0 fL AO Workflow SS Monocyte, Absolute 0.8 103/mcL Invalid Interpretation Code 0.2 - 1.0 10^3/mcL AO Workflow SS Monocytes/100 WBC (Bld) 10.4 % Invalid Interpretation Code 1.7 - 13.0 % AO Workflow SS Neutrophil, Absolute 5.1 103/mcL Invalid Interpretation Code 2.9 - 6.2 10^3/mcL AO Workflow SS Neutrophils/100 WBC (Bld) 64.2 % Invalid Interpretation Code 37.0 - 80.0 % AO Workflow SS Platelet mean volume (Bld) [Entitic vol] 8.4 fL Invalid Interpretation Code 7.4 - 10.4 fL AO Workflow SS Platelets (Bld) [#/Vol] 265 103/mcL Invalid Interpretation Code 130 - 400 10^3/mcL AO Workflow SS RBC (Bld) [#/Vol] 4.35 106/mcL Invalid Interpretation Code 4.20 - 5.40 10^6/mcL AO Workflow SS WBC (Bld) [#/Vol] 7.9 103/mcL Invalid Interpretation Code 4.6 - 10.8 10^3/mcL AO Workflow SS LABORATORYOrdered By: SYSTEM SYSTEM on 07-29-2022 GFR 70 ml/min/1.73sqm Invalid Interpretation Code AO Chemistry S GFR Non- 57 ml/min/1.73sqm Invalid Interpretation Code AO Chemistry S UA DIP, URINE (POC)on 2021 BILIRUBIN UA (POCT) Negative Negative [facility] CLARITY UA (POCT) Clear [facility] COLOR UA (POCT) Yellow [facility] GLUCOSE UA (POCT) Negative Negative mg/dL [facility] HEMOGLOBIN/BLOOD UA (POCT) Negative Negative [facility] KETONE UA (POCT) Trace Negative mg/dL [facility] LEUKOCYTES UA (POCT) Trace Abnormal Negative [facility] NITRITE UA (POCT) Negative Negative [facility] PH UA (POCT) 5.5 4.5 - 8.0 [facility] Protein Ql (U) Negative Negative mg/dL [facility] SPECIFIC GRAVITY UA (POCT) 1.025 1.005 - 1.030 [facility] UROBILINOGEN UA (POCT) 0.2 E.U./dL [place] l E.U./dL [facility] Basophil percentageOrdered B y: Michel Lora on 05-08-2022 Chloride [Moles/Vol] 99 mmol/L 98-107 [facility] Glucose [Mass/Vol] 88 mg/dL 74-106 [facility] Potassium [Moles/Vol] 3.6 mmol/L 3.5-5.1 [facility] Sodium [Moles/Vol] 136 mmol/L 136-145 [facility] WBC (Bld) [#/Vol] 10.5 10*3/uL 4.4-11.[address] [facility] Blood erythrocytes count (nu mber/volume)Ordered By: Michel Lora on 05-08-2022 RBC (Bld) [#/Vol] 3.98 10*6/uL 4.2-5.[address] [facility] Blood hemoglobin measurement (mass/volume)Ordered By: Michel Lora on 05-08-2022 Hemoglobin (Bld) [Mass/Vol] 10.9 g/dL 12.0-15.0 [facility] Blood platelet mean volumeOr dered By: Michel Lora on 05-08-2022 Platelet mean volume (Bld) [Entitic vol] 9.8 fL 6.2-12.0 [facility] Determination of erythrocyte mean corpuscular volume (MCV)Ordered By: Michel Lora on 05-08-2022 MCV (RBC) [Entitic vol] 84.7 fL 81-99 [facility] Hematocrit Auto (Bld) [Volum e fraction]Ordered By: Michel Lora on 05-08-2022 Hematocrit (Bld) [Volume fraction] 33.7 % 37-47 [facility] [facility] - Chemistry and C hemistry - challengeOrdered By: Michel Lora on 05-08-2022 CO2 [Moles/Vol] 30.0 mmol/L 21.0-32.0 [facility] Urea nitrogen/Creatinine [Mass ratio] 32.2 mg/mg 10-20 [facility] Laboratory - Hematology and Cell countsOrdered By: Michel Lora on 05-08-2022 Erythrocyte distribution width (RBC) [Entitic vol] 49.1 fL 35.1-43.9 [facility] Erythrocyte distribution width (RBC) [Ratio] 15.8 % 11.6-14.6 [facility] MCH (RBC) [Entitic mass] 27.4 pg 27.0-32.0 [facility] MCHC Auto (RBC) [Mass/Vol]Or dered By: Michel Lora on 05-08-2022 MCHC (RBC) [Mass/Vol] 32.3 g/dL 32-36 [facility] No Panel InformationOrdered By: Michel Lora on 05-08-2022 Estimated GFR (MDRD) Amer 86 mL/min >60 [facility] Comment on above: GFR Calc Estimated GFR (MDRD) Non-Af Amer 71 mL/min >60 [facility] Comment on above: Non- GFR Calc Platelets bldOrdered By: Michel Lora on 05-08-2022 Platelets (Bld) [#/Vol] 338 10*3/uL 150-450 [facility] Serum or plasma calcium cuca urement (mass/volume)Ordered By: Michel Lora on 05-08-2022 Calcium [Mass/Vol] 9.8 mg/dL 8.5-10.1 [facility] Serum or plasma creatinine m easurement (mass/volume)Ordered By: Mcihel Lora on 05-08-2022 Creatinine [Mass/Vol] 0.84 mg/dL 0.55-1.02 [facility] Comment on above: The validity of the calculated GFR & GFRAA in patients over 70 years has not been determined. Clinical correlation is essential. Serum or plasma urea nitroge n measurement (mass/volume)Ordered By: Michel Lora on 05-08-2022 Urea nitrogen [Mass/Vol] 27 mg/dL 7-18 [facility] Thin prep Papanicolaou smear with manual screeningOrdered By: Michel Lora on 05-08-2022 Thin prep Papanicolaou smear with manual screening 7 - [facility] Final Surgical Pathology Rep attila 05-02-2022 Final Surgical Pathology Report . Pathology Reports Accession: Collected Date/Time: Received Date/Time: Pathologist: [id number] 04/30/2022 13:15 EDT 05/01/2022 10:48 LAURA BURDICK MD Final Surgical Pathology Report DIAGNOSIS: SYNOVIAL TISSUE, RIGHT KNEE - SYNOVIAL AND SUB SYNOVIAL TISSUE WITH MODERATE CHRONIC INFLAMMATION. NO ACUTE INFLAMMATION. 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 Received in formalin, labeled with the patients name, Case #[id number], and right knee synovium is a white -yellow lobulated and rubbery portion of soft tissue including adipose tissue measuring 5.5 x 5.5 x 1.8 cm. Specimen is serially sectioned to reveal a yellow, glistening cut surface. RS -1 Dictated by ED HENRY MICROSCOPIC DESCRIPTION: Slides reviewed. Electronically Signed by Pathology Report verified by [facility] Electronically signed by LAURA MOHAN Sign out Date: 05/02/2022 16:00 Performing Lab: [facility], [address] [place] [address] Normal [facility] ([place]) .Auto Diffon 05-01-2022 Basophil, Absolute 0.1 10 3/mcL Normal 0.0-0.2 [facility] ([place]) Comment on above: Performed By: #### B MP, ALB, GFR, A1C #### [address] [address] Basophils/100 WBC (Bld) 0.5 % Normal 0.0-2.5 A [facility] ([place]) Comment on above: Performed By: #### B MP, ALB, GFR, A1C #### [address] [address] Eosinophil, Absolute 0.0 10 3/mcL Normal 0.0-0.4 [facility] ([place]) Comment on above: Performed By: #### B MP, ALB, GFR, A1C #### [address] [address] Eosinophils/100 WBC (Bld) 0.0 % Normal 0.0-7.0 [facility] ([place]) Comment on above: Performed By: #### B MP, ALB, GFR, A1C #### [address] [address] Lymphocyte, Absolute 0.9 10 3/mcL Normal 0.8-3.9 [facility] ([place]) Comment on above: Performed By: #### B MP, ALB, GFR, A1C #### [address] [address] Lymphocytes/100 WBC (Bld) 5.5 % Low 10.0-50.0 [facility] ([place]) Comment on above: Performed By: #### B MP, ALB, GFR, A1C #### [address] [address] Monocyte, Absolute 0.8 10 3/mcL Normal 0.2-1.0 [facility] ([place]) Comment on above: Performed By: #### B MP, ALB, GFR, A1C #### [address] [address] Monocytes/100 WBC (Bld) 4.8 % Normal 1.7-13.0 [facility] ([place]) Comment on above: Performed By: #### B MP, ALB, GFR, A1C #### [address] [address] Neutrophils/100 WBC (Bld) 89.2 % High 37.0-80.0 [facility] ([place]) Comment on above: Performed By: #### B MP, ALB, GFR, A1C #### [address] [address] .GFRon 05-01-2022 GFR 80 ml/min/1.73sqm Normal [facility] ([place]) Comment on above: Result Comment: GFR Population mean for , Non- Americans Ages 20-29 = 116 mL/min/1.73 sq.m. Ages 30-39 = 107 mL/min/1.73 sq.m. Ages 40-49 = 99 mL/min/1.73 sq.m. Ages 50-59 = 93 mL/min/1.73 sq.m. Ages 60-69 = 85 mL/min/1.73 sq.m. Ages 70+ = 75 mL/min/1.73 sq.m. Chronic Kidney Disease: Less than 60 mL/min/1.73 square meters End Stage Renal Disease: Less than 15 mL/min/1.73 square meters Performed By: #### B MP, ALB, GFR, A1C #### [address] [address] GFR Non- 66 ml/min/1.73sqm Normal [facility] ([place]) Comment on above: Result Comment: GFR Population mean for , Non- Americans Ages 20-29 = 116 mL/min/1.73 sq.m. Ages 30-39 = 107 mL/min/1.73 sq.m. Ages 40-49 = 99 mL/min/1.73 sq.m. Ages 50-59 = 93 mL/min/1.73 sq.m. Ages 60-69 = 85 mL/min/1.73 sq.m. Ages 70+ = 75 mL/min/1.73 sq.m. Chronic Kidney Disease: Less than 60 mL/min/1.73 square meters End Stage Renal Disease: Less than 15 mL/min/1.73 square meters Performed By: #### B MP, ALB, GFR, A1C #### [address] [address] .NEUABSon 05-01-2022 Neutrophil, Absolute 14.3 10 3/mcL High 2.9-6.2 A [facility] ([place]) Comment on above: Performed By: #### B MP, ALB, GFR, A1C #### [address] [address] BMPon 05-01-2022 BUN/Creatinine Ratio 20 ratio Normal 7-27 [facility] ([place]) Comment on above: Performed By: #### B MP, ALB, GFR, A1C #### [address] [address] Calcium [Mass/Vol] 9.1 mg/dL Normal 8.4-10.2 [facility] ([place]) Comment on above: Performed By: #### B MP, ALB, GFR, A1C #### [address] [address] Chloride [Moles/Vol] 101 mmol/L Normal 98-107 [facility] ([place]) Comment on above: Performed By: #### B MP, ALB, GFR, A1C #### [address] [address] CO2 [Moles/Vol] 30 mmol/L Normal 23-31 [facility] ([place]) Comment on above: Performed By: #### B MP, ALB, GFR, A1C #### [address] [address] Creatinine [Mass/Vol] 0.85 mg/dL Normal 0.55-1.02 [facility] ([place]) Comment on above: Performed By: #### B MP, ALB, GFR, A1C #### [address] [address] Electrolyte Balance 7.0 mEq/L Normal 4.0-15.0 [facility] ([place]) Comment on above: Performed By: #### B MP, ALB, GFR, A1C #### [address] [address] Glucose [Mass/Vol] 138 mg/dL High 83-110 [facility] ([place]) Comment on above: Performed By: #### B MP, ALB, GFR, A1C #### [address] [address] Potassium [Moles/Vol] 4.0 mmol/L Normal 3.5-5.1 [facility] ([place]) Comment on above: Performed By: #### B MP, ALB, GFR, A1C #### [address] [address] Sodium [Moles/Vol] 138 mmol/L Normal 136-145 [facility] ([place]) Comment on above: Performed By: #### B MP, ALB, GFR, A1C #### [address] [address] Urea nitrogen [Mass/Vol] 17 mg/dL Normal 7-18 [facility] ([place]) Comment on above: Performed By: #### B MP, ALB, GFR, A1C #### [address] [address] CBCon 05-01-2022 Erythrocyte distribution width (RBC) [Ratio] 15.9 % High 11.5-14.5 [facility] ([place]) Comment on above: Performed By: #### B MP, ALB, GFR, A1C #### [address] [address] Hematocrit (Bld) [Volume fraction] 30.4 % Low 37.0-47.0 [facility] ([place]) Comment on above: Performed By: #### B MP, ALB, GFR, A1C #### [place] [id number] Hgb 10.4 G/dL Low 12.0-16.0 [facility] ([place]) Comment on above: Performed By: #### B MP, ALB, GFR, A1C #### [address] [address] MCH (RBC) [Entitic mass] 26.9 pg Low 27.0-31.2 [facility] ([place]) Comment on above: Performed By: #### B MP, ALB, GFR, A1C #### [address] [address] MCHC 34.3 G/dL Normal 33.0-37.0 [facility] ([place] Comment on above: Performed By: #### B MP, ALB, GFR, A1C #### [address] [address] MCV (RBC) [Entitic vol] 78.6 fL Low 80.0-94.0 A [facility] ([place]) Comment on above: Performed By: #### B MP, ALB, GFR, A1C #### [address] [address] Platelet 218 10 3/mcL Normal 130-400 [facility] ([place] Comment on above: Performed By: #### B MP, ALB, GFR, A1C #### [address] [address] Platelet mean volume (Bld) [Entitic vol] 8.2 fL Normal 7.4-10.4 [facility] ([place]) Comment on above: Performed By: #### B MP, ALB, GFR, A1C #### [place] [address] [place], [place] [address] RBC 3.87 10 6/mcL Low 4.20-5.40 [facility] ([place]) Comment on above: Performed By: #### B MP, ALB, GFR, A1C #### [place] [address] [place], [place] [address] WBC 16.1 10 3/mcL High 4.6-10.8 [facility] ([place]) Comment on above: Performed By: #### B MP, ALB, GFR, A1C #### [address] [address] LABORATORYOrdered By: Ju Brooks on 05-01-2022 Basophil, Absolute 0.1 103/mcL Invalid Interpretation Code 0.0 - 0.2 10^3/mcL AO Workflow SS Basophils/100 WBC (Bld) 0.5 % Invalid Interpretation Code 0.0 - 2.5 % AO Workflow SS Calcium [Mass/Vol] 9.1 mg/dL Invalid Interpretation Code 8.4 - 10.2 mg/dL AO ADM SS Chloride [Moles/Vol] 101 mmol/L Invalid Interpretation Code 98 - 107 mmol/L AO ADM SS CO2 [Moles/Vol] 30 mmol/L Invalid Interpretation Code 23 - 31 mmol/L AO ADM SS Creatinine [Mass/Vol] 0.85 mg/dL Invalid Interpretation Code 0.55 - 1.02 mg/dL AO ADM SS Electrolyte Balance 7.0 mEq/L Invalid Interpretation Code 4.0 - 15.0 mEq/L AO ADM SS Eosinophil, Absolute 0.0 103/mcL Invalid Interpretation Code 0.0 - 0.4 10^3/mcL AO Workflow SS Eosinophils/100 WBC (Bld) 0.0 % Invalid Interpretation Code 0.0 - 7.0 % AO Workflow SS Erythrocyte distribution width (RBC) [Ratio] 15.9 % Invalid Interpretation Code 11.5 - 14.5 % AO Workflow SS Glucose [Mass/Vol] 138 mg/dL Invalid Interpretation Code 83 - 110 mg/dL AO ADM SS Hematocrit (Bld) [Volume fraction] 30.4 % Invalid Interpretation Code 37.0 - 47.0 % AO Workflow SS Hemoglobin (Bld) [Mass/Vol] 10.4 G/dL Invalid Interpretation Code 12.0 - 16.0 G/dL AO Workflow SS Lymphocyte, Absolute 0.9 103/mcL Invalid Interpretation Code 0.8 - 3.9 10^3/mcL AO Workflow SS Lymphocytes/100 WBC (Bld) 5.5 % Invalid Interpretation Code 10.0 - 50.0 % AO Workflow SS MCH (RBC) [Entitic mass] 26.9 pg Invalid Interpretation Code 27.0 - 31.2 pg AO Workflow SS MCHC 34.3 G/dL Invalid Interpretation Code 33.0 - 37.0 G/dL AO Workflow SS MCV (RBC) [Entitic vol] 78.6 fL Invalid Interpretation Code 80.0 - 94.0 fL AO Workflow SS Monocyte, Absolute 0.8 103/mcL Invalid Interpretation Code 0.2 - 1.0 10^3/mcL AO Workflow SS Monocytes/100 WBC (Bld) 4.8 % Invalid Interpretation Code 1.7 - 13.0 % AO Workflow SS Neutrophil, Absolute 14.3 103/mcL Invalid Interpretation Code 2.9 - 6.2 10^3/mcL AO Workflow SS Neutrophils/100 WBC (Bld) 89.2 % Invalid Interpretation Code 37.0 - 80.0 % AO Workflow SS Platelet mean volume (Bld) [Entitic vol] 8.2 fL Invalid Interpretation Code 7.4 - 10.4 fL AO Workflow SS Platelets (Bld) [#/Vol] 218 103/mcL Invalid Interpretation Code 130 - 400 10^3/mcL AO Workflow SS Potassium [Moles/Vol] 4.0 mmol/L Invalid Interpretation Code 3.5 - 5.1 mmol/L AO ADM SS RBC (Bld) [#/Vol] 3.87 106/mcL Invalid Interpretation Code 4.20 - 5.40 10^6/mcL AO Workflow SS Sodium [Moles/Vol] 138 mmol/L Invalid Interpretation Code 136 - 145 mmol/L AO ADM SS Urea nitrogen [Mass/Vol] 17 mg/dL Invalid Interpretation Code 7 - 18 mg/dL AO ADM SS Urea nitrogen/Creatinine [Mass ratio] 20 ratio Invalid Interpretation Code 7 - 27 ratio AO ADM SS WBC (Bld) [#/Vol] 16.1 103/mcL Invalid Interpretation Code 4.6 - 10.8 10^3/mcL AO Workflow SS LABORATORYOrdered By: SYSTEM SYSTEM on 05-01-2022 GFR 80 ml/min/1.73sqm Invalid Interpretation Code AO Chemistry S GFR Non- 66 ml/min/1.73sqm Invalid Interpretation Code AO Chemistry S .GFRon 04-30-2022 GFR 77 ml/min/1.73sqm Normal [facility] ([place]) Comment on above: Result Comment: GFR Population mean for , Non- Americans Ages 20-29 = 116 mL/min/1.73 sq.m. Ages 30-39 = 107 mL/min/1.73 sq.m. Ages 40-49 = 99 mL/min/1.73 sq.m. Ages 50-59 = 93 mL/min/1.73 sq.m. Ages 60-69 = 85 mL/min/1.73 sq.m. Ages 70+ = 75 mL/min/1.73 sq.m. Chronic Kidney Disease: Less than 60 mL/min/1.73 square meters End Stage Renal Disease: Less than 15 mL/min/1.73 square meters Performed By: #### B MP, GFR, ABOG, ANSG #### [address] [address] GFR Non- 64 ml/min/1.73sqm Normal [facility] ([place]) Comment on above: Result Comment: GFR Population mean for , Non- Americans Ages 20-29 = 116 mL/min/1.73 sq.m. Ages 30-39 = 107 mL/min/1.73 sq.m. Ages 40-49 = 99 mL/min/1.73 sq.m. Ages 50-59 = 93 mL/min/1.73 sq.m. Ages 60-69 = 85 mL/min/1.73 sq.m. Ages 70+ = 75 mL/min/1.73 sq.m. Chronic Kidney Disease: Less than 60 mL/min/1.73 square meters End Stage Renal Disease: Less than 15 mL/min/1.73 square meters Performed By: #### B MP, GFR, ABOG, ANSG #### [address] [address] BMPon 04-30-2022 BUN/Creatinine Ratio 31 ratio High 7-27 [facility] ([place]) Comment on above: Performed By: #### B MP, GFR, ABOG, ANSG #### [address] [address] Calcium [Mass/Vol] 9.7 mg/dL Normal 8.4-10.2 [facility] ([place]) Comment on above: Performed By: #### B MP, GFR, ABOG, ANSG #### [address] [address] Chloride [Moles/Vol] 101 mmol/L Normal 98-107 [facility] ([place]) Comment on above: Performed By: #### B MP, GFR, ABOG, ANSG #### [address] [address] CO2 [Moles/Vol] 33 mmol/L High 23-31 [facility] ([place]) Comment on above: Performed By: #### B MP, GFR, ABOG, ANSG #### [address] [address] Creatinine [Mass/Vol] 0.88 mg/dL Normal 0.55-1.02 [facility] ([place]) Comment on above: Performed By: #### B MP, GFR, ABOG, ANSG #### [address] [address] Electrolyte Balance 7.0 mEq/L Normal 4.0-15.0 [facility] ([place]) Comment on above: Performed By: #### B MP, GFR, ABOG, ANSG #### [address] [address] Glucose [Mass/Vol] 104 mg/dL Normal 83-110 [facility] ([place]) Comment on above: Performed By: #### B MP, GFR, ABOG, ANSG #### [address] [address] Potassium [Moles/Vol] 3.2 mmol/L Low 3.5-5.1 [facility] ([place]) Comment on above: Performed By: #### B MP, GFR, ABOG, ANSG #### [address] [address] Sodium [Moles/Vol] 141 mmol/L Normal 136-145 [facility] ([place]) Comment on above: Performed By: #### B MP, GFR, ABOG, ANSG #### [address] [address] Urea nitrogen [Mass/Vol] 27 mg/dL High 7-18 [facility] ([place]) Comment on above: Performed By: #### B MP, GFR, ABOG, ANSG #### [address] [address] Gel ABOon 04-30-2022 ABO/Rh Interp Positive Invalid Interpretation Code [facility] ([place]) Comment on above: Performed By: #### B MP, ALB, GFR, A1C #### [address] [address] Gel ABSon 04-30-2022 Antibody Screen Gel Negative Normal [facility] ([place]) Comment on above: Performed By: #### B MP, ALB, GFR, A1C #### [address] [address] LABORATORYOrdered By: Jorgito Alicea on 04-30-2022 ABO/Rh Interp Positive Invalid Interpretation Code AO BB SS Antibody Screen Gel Negative ABSC (04/30/22 9:20 AM) Invalid Interpretation Code AO BB SS LABORATORYOrdered By: Chuy Brar on 04-30-2022 Calcium [Mass/Vol] 9.7 mg/dL Invalid Interpretation Code 8.4 - 10.2 mg/dL AO ADM SS Chloride [Moles/Vol] 101 mmol/L Invalid Interpretation Code 98 - 107 mmol/L AO ADM SS CO2 [Moles/Vol] 33 mmol/L Invalid Interpretation Code 23 - 31 mmol/L AO ADM SS Creatinine [Mass/Vol] 0.88 mg/dL Invalid Interpretation Code 0.55 - 1.02 mg/dL AO ADM SS Electrolyte Balance 7.0 mEq/L Invalid Interpretation Code 4.0 - 15.0 mEq/L AO ADM SS Glucose [Mass/Vol] 104 mg/dL Invalid Interpretation Code 83 - 110 mg/dL AO ADM SS Potassium [Moles/Vol] 3.2 mmol/L Invalid Interpretation Code 3.5 - 5.1 mmol/L AO ADM SS Sodium [Moles/Vol] 141 mmol/L Invalid Interpretation Code 136 - 145 mmol/L AO ADM SS Urea nitrogen [Mass/Vol] 27 mg/dL Invalid Interpretation Code 7 - 18 mg/dL AO ADM SS Urea nitrogen/Creatinine [Mass ratio] 31 ratio Invalid Interpretation Code 7 - 27 ratio AO ADM SS LABORATORYOrdered By: SYSTEM SYSTEM on 04-30-2022 GFR 77 ml/min/1.73sqm Invalid Interpretation Code AO Chemistry S GFR Non- 64 ml/min/1.73sqm Invalid Interpretation Code AO Chemistry S XR KNEE 1 OR 2 VIEWS RIGHTon 04-30-2022 XR KNEE 1 OR 2 VIEWS RIGHT ORIGINAL EXAMINATION: TWO XRAY VIEWS OF THE [...] 04/30/2022 2:45:47 PM Ordering Provider: DONTE LYNNE Normal [facility] ([place]) .Auto Diffon 04-12-2022 Basophil, Absolute 0.1 10 3/mcL Normal 0.0-0.2 [facility] ([place]) Comment on above: Performed By: #### B MP, ALB, GFR, A1C #### [address] [place] [address] [place], [place] [address] Basophils/100 WBC (Bld) 1.0 % Normal 0.0-2.5 A [facility] ([place]) Comment on above: Performed By: #### B MP, ALB, GFR, A1C #### [address] [address] Eosinophil, Absolute 0.4 10 3/mcL Normal 0.0-0.4 [facility] ([place]) Comment on above: Performed By: #### B MP, ALB, GFR, A1C #### [address] [address] Eosinophils/100 WBC (Bld) 4.1 % Normal 0.0-7.0 [facility] ([place]) Comment on above: Performed By: #### B MP, ALB, GFR, A1C #### [address] [address] Lymphocyte, Absolute 1.9 10 3/mcL Normal 0.8-3.9 [facility] ([place]) Comment on above: Performed By: #### B MP, ALB, GFR, A1C #### [address] [address] Lymphocytes/100 WBC (Bld) 22.3 % Normal 10.0-50.0 [facility] ([place]) Comment on above: Performed By: #### B MP, ALB, GFR, A1C #### [address] [address] Monocyte, Absolute 0.7 10 3/mcL Normal 0.2-1.0 [facility] ([place]) Comment on above: Performed By: #### B MP, ALB, GFR, A1C #### [address] [address] Monocytes/100 WBC (Bld) 8.5 % Normal 1.7-13.0 A [facility] ([place]) Comment on above: Performed By: #### B MP, ALB, GFR, A1C #### [address] [address] Neutrophils/100 WBC (Bld) 64.1 % Normal 37.0-80.0 [facility] ([place]) Comment on above: Performed By: #### B MP, ALB, GFR, A1C #### [address] [address] .GFRon 04-12-2022 GFR 75 ml/min/1.73sqm Normal [facility] ([place]) Comment on above: Result Comment: GFR Population mean for , Non- Americans Ages 20-29 = 116 mL/min/1.73 sq.m. Ages 30-39 = 107 mL/min/1.73 sq.m. Ages 40-49 = 99 mL/min/1.73 sq.m. Ages 50-59 = 93 mL/min/1.73 sq.m. Ages 60-69 = 85 mL/min/1.73 sq.m. Ages 70+ = 75 mL/min/1.73 sq.m. Chronic Kidney Disease: Less than 60 mL/min/1.73 square meters End Stage Renal Disease: Less than 15 mL/min/1.73 square meters Performed By: #### B MP, ALB, GFR, A1C #### [address] [address] GFR Non- 62 ml/min/1.73sqm Normal [facility] ([place]) Comment on above: Result Comment: GFR Population mean for , Non- Americans Ages 20-29 = 116 mL/min/1.73 sq.m. Ages 30-39 = 107 mL/min/1.73 sq.m. Ages 40-49 = 99 mL/min/1.73 sq.m. Ages 50-59 = 93 mL/min/1.73 sq.m. Ages 60-69 = 85 mL/min/1.73 sq.m. Ages 70+ = 75 mL/min/1.73 sq.m. Chronic Kidney Disease: Less than 60 mL/min/1.73 square meters End Stage Renal Disease: Less than 15 mL/min/1.73 square meters Performed By: #### B MP, ALB, GFR, A1C #### [address] [address] .NEUABSon 04-12-2022 Neutrophil, Absolute 5.5 10 3/mcL Normal 2.9-6.2 [facility] ([place]) Comment on above: Performed By: #### B MP, ALB, GFR, A1C #### [address] [address] A1Con 04-12-2022 HbA1c (Bld) [Mass fraction] 6.0 % Normal 4.3-6.4 [facility] ([place]) Comment on above: Performed By: #### B MP, ALB, GFR, A1C #### [address] [address] ALBon 04-12-2022 Albumin Level 4.1 G/dL Normal 3.4-4.8 [facility] ([place]) Comment on above: Performed By: #### B MP, ALB, GFR, A1C #### [address] [address] BMPon 04-12-2022 BUN/Creatinine Ratio 21 ratio Normal 7-27 [facility] ([place]) Comment on above: Performed By: #### B MP, ALB, GFR, A1C #### [address] [address] Calcium [Mass/Vol] 10.0 mg/dL Normal 8.4-10.2 [facility] ([place]) Comment on above: Performed By: #### B MP, ALB, GFR, A1C #### [address] [address] Chloride [Moles/Vol] 103 mmol/L Normal 98-107 [facility] ([place]) Comment on above: Performed By: #### B MP, ALB, GFR, A1C #### [address] [address] CO2 [Moles/Vol] 30 mmol/L Normal 23-31 [facility] ([place] Comment on above: Performed By: #### B MP, ALB, GFR, A1C #### [address] [address] Creatinine [Mass/Vol] 0.90 mg/dL Normal 0.55-1.02 [facility] ([place]) Comment on above: Performed By: #### B MP, ALB, GFR, A1C #### [address] [address] Electrolyte Balance 11.0 mEq/L Normal 4.0-15.0 [facility] ([place]) Comment on above: Performed By: #### B MP, ALB, GFR, A1C #### [address] [address] Glucose [Mass/Vol] 94 mg/dL Normal 83-110 [facility] ([place]) Comment on above: Performed By: #### B MP, ALB, GFR, A1C #### [address] [address] Potassium [Moles/Vol] 3.1 mmol/L Low 3.5-5.1 [facility] ([place]) Comment on above: Performed By: #### B MP, ALB, GFR, A1C #### [address] [address] Sodium [Moles/Vol] 144 mmol/L Normal 136-145 [facility] ([place]) Comment on above: Performed By: #### B MP, ALB, GFR, A1C #### [address] [address] Urea nitrogen [Mass/Vol] 19 mg/dL High 7-18 [facility] ([place]) Comment on above: Performed By: #### B MP, ALB, GFR, A1C #### [address] [address] CBCon 04-12-2022 Erythrocyte distribution width (RBC) [Ratio] 15.7 % High 11.5-14.5 [facility]) Comment on above: Order Comment: Pre-A dmission Testing Performed By: #### B MP, ALB, GFR, A1C #### [address] [address] Hematocrit (Bld) [Volume fraction] 36.4 % Low 37.0-47.0 [facility] ([place]) Comment on above: Order Comment: Pre-A dmission Testing Performed By: #### B MP, ALB, GFR, A1C #### [address] [address] Hgb 12.6 G/dL Normal 12.0-16.0 [facility] ([place]) Comment on above: Order Comment: Pre-A dmission Testing Performed By: #### B MP, ALB, GFR, A1C #### [address] [address] MCH (RBC) [Entitic mass] 27.2 pg Normal 27.0-31.2 [facility] ([place]) Comment on above: Order Comment: Pre-A dmission Testing Performed By: #### B MP, ALB, GFR, A1C #### [address] [address] MCHC 34.5 G/dL Normal 33.0-37.0 [facility] ([place]) Comment on above: Order Comment: Pre-A dmission Testing Performed By: #### B MP, ALB, GFR, A1C #### [address] [address] MCV (RBC) [Entitic vol] 78.8 fL Low 80.0-94.0 A [facility] ([place]) Comment on above: Order Comment: Pre-A dmission Testing Performed By: #### B MP, ALB, GFR, A1C #### [address] [address] Platelet 264 10 3/mcL Normal 130-400 [facility] ([place]) Comment on above: Order Comment: Pre-A dmission Testing Performed By: #### B MP, ALB, GFR, A1C #### [address] [address] Platelet mean volume (Bld) [Entitic vol] 8.2 fL Normal 7.4-10.4 [facility] ([place]) Comment on above: Order Comment: Pre-A dmission Testing Performed By: #### B MP, ALB, GFR, A1C #### [address] [address] RBC 4.62 10 6/mcL Normal 4.20-5.40 [facility] [facility] ([place]) Comment on above: Order Comment: Pre-A dmission Testing Performed By: #### B MP, ALB, GFR, A1C #### [id number] [place], [place] [address] WBC 8.6 10 3/mcL Normal 4.6-10.8 [facility] ([place]) Comment on above: Order Comment: Pre-A dmission Testing Performed By: #### B MP, ALB, GFR, A1C #### [id number] [place], [place] [address] CT KNEE W/O CONTRAST RIGHTon 04-12-2022 CT KNEE W/O CONTRAST RIGHT ORIGINAL EXAMINATION: CT OF THE RIGHT KNEE WITHOUT CONTRAST 04/12/2022 9:30 am TECHNIQUE: CT of the right knee was performed without the administration of intravenous contrast. Multiplanar reformatted images are provided for review. Automated exposure control, iterative reconstruction, and/or weight based adjustment of the mA/kV was utilized to reduce the radiation dose to as low as reasonably achievable. COMPARISON: None. HISTORY ORDERING SYSTEM PROVIDED HISTORY: Reason for Exam: Varus deformity, not elsewhere classified, right knee FINDINGS: Hip: Degenerative changes noted. No aggressive osseous lesion. The Right knee: Severe tricompartmental degenerative changes noted. 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 Prominent hypertrophic spurring visualized. A small joint effusions seen. Large hypertrophic osteophyte bodies noted adjacent to the lateral pole of the patella. Survey images right ankle: No aggressive osseous lesion. Vascular calcifications noted. IMPRESSION: Severe degenerative changes in the right knee. No aggressive osseous lesion Interpreted by: Dieudonne Melo MD Preliminary Report By: Dieudonne Melo MD Electronically signed By Dieudonne Melo MD Dictated Date: 04/12/2022 11:31:27 AM Prelim Date: 04/12/2022 11:35:25 AM Sign Date: 04/12/2022 11:35:25 AM Ordering Provider: DONTE Bright [facility] ([place]) Gel ABOon 04-12-2022 ABO/Rh Interp Positive Invalid Interpretation Code [facility] ([place]) Comment on above: Performed By: #### B MP, ALB, GFR, A1C #### [id number] [place], [place] [address] Gel ABSon 04-12-2022 Antibody Screen Gel Negative [facility] ([place]) Comment on above: Performed By: #### B MP, ALB, GFR, A1C #### [id number] [place], [place] [address] LABORATORYOrdered By: Janine Ryan on 04-12-2022 ABO/Rh Interp Positive Invalid Interpretation Code AO BB SS Antibody Screen Gel Negative ABSC (04/12/22 8:59 AM) Invalid Interpretation Code AO BB SS Basophil, Absolute 0.1 103/mcL Invalid Interpretation Code 0.0 - 0.2 10^3/mcL AO Workflow SS Basophils/100 WBC (Bld) 1.0 % Invalid Interpretation Code 0.0 - 2.5 % AO Workflow SS Eosinophil, Absolute 0.4 103/mcL Invalid Interpretation Code 0.0 - 0.4 10^3/mcL AO Workflow SS Eosinophils/100 WBC (Bld) 4.1 % Invalid Interpretation Code 0.0 - 7.0 % AO Workflow SS Erythrocyte distribution width (RBC) [Ratio] 15.7 % Invalid Interpretation Code 11.5 - 14.5 % AO Workflow SS Hematocrit (Bld) [Volume fraction] 36.4 % Invalid Interpretation Code 37.0 - 47.0 % AO Workflow SS Hemoglobin (Bld) [Mass/Vol] 12.6 G/dL Invalid Interpretation Code 12.0 - 16.0 G/dL AO Workflow SS Lymphocyte, Absolute 1.9 103/mcL Invalid Interpretation Code 0.8 - 3.9 10^3/mcL AO Workflow SS Lymphocytes/100 WBC (Bld) 22.3 % Invalid Interpretation Code 10.0 - 50.0 % AO Workflow SS MCH (RBC) [Entitic mass] 27.2 pg Invalid Interpretation Code 27.0 - 31.2 pg AO Workflow SS MCHC 34.5 G/dL Invalid Interpretation Code 33.0 - 37.0 G/dL AO Workflow SS MCV (RBC) [Entitic vol] 78.8 fL Invalid Interpretation Code 80.0 - 94.0 fL AO Workflow SS Monocyte, Absolute 0.7 103/mcL Invalid Interpretation Code 0.2 - 1.0 10^3/mcL AO Workflow SS Monocytes/100 WBC (Bld) 8.5 % Invalid Interpretation Code 1.7 - 13.0 % AO Workflow SS Neutrophil, Absolute 5.5 103/mcL Invalid Interpretation Code 2.9 - 6.2 10^3/mcL AO Workflow SS Neutrophils/100 WBC (Bld) 64.1 % Invalid Interpretation Code 37.0 - 80.0 % AO Workflow SS Platelet mean volume (Bld) [Entitic vol] 8.2 fL Invalid Interpretation Code 7.4 - 10.4 fL AO Workflow SS Platelets (Bld) [#/Vol] 264 103/mcL Invalid Interpretation Code 130 - 400 10^3/mcL AO Workflow SS RBC (Bld) [#/Vol] 4.62 106/mcL Invalid Interpretation Code 4.20 - 5.40 10^6/mcL AO Workflow SS WBC 8.6 103/mcL Invalid Interpretation Code 4.6 - 10.8 10^3/mcL AO Workflow SS LABORATORYOrdered By: Chuy Brar on 04-12-2022 Albumin BCP dye [Mass/Vol] 4.1 G/dL Invalid Interpretation Code 3.4 - 4.8 G/dL AO ADM SS Calcium [Mass/Vol] 10.0 mg/dL Invalid Interpretation Code 8.4 - 10.2 mg/dL AO ADM SS Chloride [Moles/Vol] 103 mmol/L Invalid Interpretation Code 98 - 107 mmol/L AO ADM SS CO2 [Moles/Vol] 30 mmol/L Invalid Interpretation Code 23 - 31 mmol/L AO ADM SS Creatinine [Mass/Vol] 0.90 mg/dL Invalid Interpretation Code 0.55 - 1.02 mg/dL AO ADM SS Electrolyte Balance 11.0 mEq/L Invalid Interpretation Code 4.0 - 15.0 mEq/L AO ADM SS Glucose [Mass/Vol] 94 mg/dL Invalid Interpretation Code 83 - 110 mg/dL AO ADM SS Potassium [Moles/Vol] 3.1 mmol/L Invalid Interpretation Code 3.5 - 5.1 mmol/L AO ADM SS Sodium [Moles/Vol] 144 mmol/L Invalid Interpretation Code 136 - 145 mmol/L AO ADM SS Urea nitrogen [Mass/Vol] 19 mg/dL Invalid Interpretation Code 7 - 18 mg/dL AO ADM SS Urea nitrogen/Creatinine [Mass ratio] 21 ratio Invalid Interpretation Code 7 - 27 ratio AO ADM SS LABORATORYOrdered By: SYSTEM SYSTEM on 04-12-2022 GFR 75 ml/min/1.73sqm Invalid Interpretation Code AO Chemistry S GFR Non- 62 ml/min/1.73sqm Invalid Interpretation Code AO Chemistry S LABORATORYOrdered By: Jose Preston on 04-12-2022 HbA1c (Bld) [Mass fraction] 6.0 % Invalid Interpretation Code 4.3 - 6.4 % AO ADM SS XR CHEST 2 VIEWSon XR CHEST 2 VIEWS ORIGINAL EXAMINATION: TWO XRAY VIEWS OF THE [...] Date: 04/12/2022 11:17:07 AM Ordering Provider: DONTE L[facility] ([place]) Vital Signs Date Time Vital Sign Value Performing Clinician Facility 05-04-2025 09:00-0400 Body height 160 cm Cade Lunsford APRN.XOCHITL Work Phone: [facility] 05-04-2025 09:00-0400 Body mass index (BMI) [Ratio] 23.38 kg/m2 Cade Lunsford APRN.XOCHITL Work Phone: [facility] 05-04-2025 09:00-0400 Body weight 59.88 kg Cade Lunsford APRN.XOCHITL Work Phone: [facility] 05-04-2025 09:00-0400 Diastolic blood pressure 68 mm[Hg] Cade Lunsford APRN.XOCHITL Work Phone: [facility] 05-04-2025 09:00-0400 Heart rate 66 /min Cade Lunsford APRN.XOCHITL Work Phone: [facility] 05-04-2025 09:00-0400 SaO2% (BldA) [Mass fraction] 95 % Cade Hritz CERTIFIED MEDICAL TECHNICIAN ASSISTANT.SPACE SCIENCES DIRECTOR Work Phone: [facility] 05-04-2025 09:00-0400 Systolic blood pressure 128 mm[Hg] Cade Hritz CERTIFIED MEDICAL TECHNICIAN ASSISTANT.SPACE SCIENCES DIRECTOR Work Phone: [facility] 03-10-2025 08:07-0400 Body height 160 cm Cade Hritz CERTIFIED MEDICAL TECHNICIAN ASSISTANT.SPACE SCIENCES DIRECTOR Work Phone: [facility] 03-10-2025 08:07-0400 Body mass index (BMI) [Ratio] 23.99 kg/m2 Cade Hritz CERTIFIED MEDICAL TECHNICIAN ASSISTANT.SPACE SCIENCES DIRECTOR Work Phone: [facility] 03-10-2025 08:07-0400 Body weight 61.42 kg Cade Hritz CERTIFIED MEDICAL TECHNICIAN ASSISTANT.SPACE SCIENCES DIRECTOR Work Phone: [facility] 03-10-2025 08:07-0400 Diastolic blood pressure 82 mm[Hg] Cade Hritz CERTIFIED MEDICAL TECHNICIAN ASSISTANT.SPACE SCIENCES DIRECTOR Work Phone: [facility] 03-10-2025 08:07-0400 Heart rate 65 /min Cade Hritz CERTIFIED MEDICAL TECHNICIAN ASSISTANT.SPACE SCIENCES DIRECTOR Work Phone: [facility] 03-10-2025 08:07-0400 Systolic blood pressure 130 mm[Hg] Cade Hritz CERTIFIED MEDICAL TECHNICIAN ASSISTANT.SPACE SCIENCES DIRECTOR Work Phone: [facility] 05-26-2024 10:57-0400 Diastolic blood pressure 62 mm[Hg] Kathe Wan MD Work Phone: [facility] 05-26-2024 10:57-0400 Heart rate 59 /min Kathe Wan MD Work Phone: [facility] 05-26-2024 10:57-0400 Respiratory rate 18 /min Kathe Wan MD Work Phone: [facility] 05-26-2024 10:57-0400 SaO2% (BldA) [Mass fraction] 94 % Kathe Wan MD Work Phone: [facility] 05-26-2024 10:57-0400 Systolic blood pressure 114 mm[Hg] Kathe Wan MD Work Phone: [facility] 05-26-2024 10:38-0400 Body temperature 97 [degF] Kathe Wan MD Work Phone: [facility] 05-26-2024 09:27-0400 Body height 160 cm Kathe Wan MD Work Phone: [facility] 05-26-2024 09:27-0400 Body mass index (BMI) [Ratio] 24.45 kg/m2 Kathe Wan MD Work Phone: [facility] 05-26-2024 09:27-0400 Body weight 62.6 kg Kathe Wan MD Work Phone: [facility] 03-10-2024 12:57-0400 Body height 160 cm Cade Hritz CERTIFIED MEDICAL TECHNICIAN ASSISTANT.SPACE SCIENCES DIRECTOR Work Phone: [facility] 03-10-2024 12:57-0400 Body mass index (BMI) [Ratio] 25.6 kg/m2 Cade Hritz CERTIFIED MEDICAL TECHNICIAN ASSISTANT.SPACE SCIENCES DIRECTOR Work Phone: [facility] 03-10-2024 12:57-0400 Body weight 65.55 kg Cade Hritz CERTIFIED MEDICAL TECHNICIAN ASSISTANT.SPACE SCIENCES DIRECTOR Work Phone: [facility] 03-10-2024 12:57-0400 Diastolic blood pressure 78 mm[Hg] Cade Hritz CERTIFIED MEDICAL TECHNICIAN ASSISTANT.SPACE SCIENCES DIRECTOR Work Phone: [facility] 03-10-2024 12:57-0400 Heart rate 62 /min Cade Hritz CERTIFIED MEDICAL TECHNICIAN ASSISTANT.SPACE SCIENCES DIRECTOR Work Phone: [facility] 03-10-2024 12:57-0400 Systolic blood pressure 136 mm[Hg] Cade Hritz CERTIFIED MEDICAL TECHNICIAN ASSISTANT.SPACE SCIENCES DIRECTOR Work Phone: [facility] 08-21-2023 11:30-0500 Body temperature 98.5 [degF] Dr. Nicky Gusman Work Phone: [facility] 08-21-2023 11:30-0500 Diastolic blood pressure 65 mm[Hg] Dr. Nicky Gusman Work Phone: [facility] 08-21-2023 11:30-0500 Heart rate 77 /min Dr. Nicky Gusman Work Phone: [facility] 08-21-2023 11:30-0500 Respiratory rate 16 /min Dr. Nicky Gusman Work Phone: [facility] 08-21-2023 11:30-0500 SaO2% (BldA) [Mass fraction] 95 % Dr. Nicky Gusman Work Phone: [facility] 08-21-2023 11:30-0500 Systolic blood pressure 119 mm[Hg] Dr. Nicky Gusman Work Phone: [facility] 08-21-2023 09:53-0500 Inhaled oxygen flow rate 5 L/min Dr. Nicky Gusman Work Phone: [facility] 08-21-2023 06:25-0500 Body height 160.[address] Nicky Gusman Work Phone: [facility] 08-21-2023 06:25-0500 Body mass index (BMI) [Ratio] 25.5 kg/m2 Dr. Nicky Gusman Work Phone: [facility] 08-21-2023 06:25-0500 Body weight 65.[address] Nicky Gusman Work Phone: [facility] 07-29-2023 14:28-0500 Body temperature 98.7 [degF] Dr. Nicky Gusman Work Phone: [facility] 07-29-2023 14:28-0500 Diastolic blood pressure 62 mm[Hg] Dr. Nicky Gusman Work Phone: [facility] 07-29-2023 14:28-0500 Heart rate 79 /min Dr. Nicky Gusman Work Phone: [facility] 07-29-2023 14:28-0500 Respiratory rate 16 /min Dr. Nicky Gusman Work Phone: [facility] 07-29-2023 14:28-0500 SaO2% (BldA) [Mass fraction] 93 % Dr. Nicky Gusman Work Phone: [facility] 07-29-2023 14:28-0500 Systolic blood pressure 116 mm[Hg] Dr. Nicky Gusman Work Phone: [facility] 07-29-2023 11:00-0500 Inhaled oxygen flow rate 0 L/min Dr. Nicky Gusman Work Phone: [facility] 07-28-2023 08:19-0500 Body height 160.[address] Nicky Gusman Work Phone: [facility] 07-27-2023 22:32-0500 Body mass index (BMI) [Ratio] 26.2 kg/m2 Dr. Nicky Gusman Work Phone: [facility] 07-27-2023 22:32-0500 Body weight 67.[address] Nicky Gusman Work Phone: [facility] 07-26-2023 04:00-0500 Diastolic blood pressure 61 mm[Hg] [facility] 07-26-2023 04:00-0500 Heart rate 79 /min [facility] 07-26-2023 04:00-0500 Respiratory rate 18 /min [facility] 07-26-2023 04:00-0500 SaO2% (BldA) [Mass fraction] 95 % [facility] 07-26-2023 04:00-0500 Systolic blood pressure 138 mm[Hg] [facility] 07-26-2023 02:37-0500 Body temperature 97.7 [degF] [facility] 07-26-2023 00:41-0500 Body height 160.02 cm [facility] 07-26-2023 00:41-0500 Body mass index (BMI) [Ratio] 26.4 kg/m2 [facility] 07-26-2023 00:41-0500 Body weight 67.7 kg [facility] 04-09-2023 09:32-0400 Diastolic blood pressure 60 mm[Hg] Mercy Whalen MD Work Phone: [facility] 04-09-2023 09:32-0400 Heart rate 66 /min Mercy Whalen MD Work Phone: [facility] 04-09-2023 09:32-0400 Respiratory rate 18 /min Mercy Whalen MD Work Phone: [facility] 04-09-2023 09:32-0400 SaO2% (BldA) [Mass fraction] 95 % Mercy Wahlen MD Work Phone: [facility] 04-09-2023 09:32-0400 Systolic blood pressure 126 mm[Hg] Mercy Whalen MD Work Phone: [facility] 04-09-2023 09:14-0400 Body temperature 97.5 [degF] Mercy Whalen MD Work Phone: [facility] 04-09-2023 07:59-0400 Body height 160 cm Mercy Whalen MD Work Phone: [facility] 04-09-2023 07:59-0400 Body mass index (BMI) [Ratio] 26.75 kg/m2 Mercy Whalen MD Work Phone: [facility] 04-09-2023 07:59-0400 Body weight 68.49 kg Mercy Whalen MD Work Phone: [facility] 07-29-2022 07:45-[address] DONTE LYNNE MD [facility] 07-29-2022 07:45-[address] DONTE Glover [facility] 07-29-2022 07:45-0500 Body height [address] DONTE LYNNE MD [facility] 07-29-2022 07:45-0500 Body weight [address] DONTE LYNNE MD [facility] 07-29-2022 07:45-0500 Diastolic Blood Pressure Non-Invasive [address] DONTE LYNNE MD [facility] 07-29-2022 07:45-0500 Heart rate 78 /min DR DONTE LYNNE MD [facility] 07-29-2022 07:45-0500 Respiratory rate 18 /min DR DONTE LYNNE MD [facility] 07-29-2022 07:45-0500 Systolic Blood Pressure Non-Invasive [address] DONTE LYNNE MD [facility] 07-28-2022 09:01-0500 Body temperature 97.39 [degF] Jeri Older CERTIFIED MEDICAL TECHNICIAN ASSISTANT.SPACE SCIENCES DIRECTOR Work Phone: [facility] 07-28-2022 09:01-0500 Body weight 68.95 kg Jeri Older CERTIFIED MEDICAL TECHNICIAN ASSISTANT.SPACE SCIENCES DIRECTOR Work Phone: [facility] 07-28-2022 09:01-0500 Diastolic blood pressure 72 mm[Hg] Jeri Older CERTIFIED MEDICAL TECHNICIAN ASSISTANT.SPACE SCIENCES DIRECTOR Work Phone: [facility] 07-28-2022 09:01-0500 Heart rate 86 /min Jeri Older CERTIFIED MEDICAL TECHNICIAN ASSISTANT.SPACE SCIENCES DIRECTOR Work Phone: [facility] 07-28-2022 09:01-0500 Respiratory rate 16 /min Jeri Older CERTIFIED MEDICAL TECHNICIAN ASSISTANT.SPACE SCIENCES DIRECTOR Work Phone: [facility] 07-28-2022 09:01-0500 SaO2% (BldA) [Mass fraction] 97 % Jeri Older CERTIFIED MEDICAL TECHNICIAN ASSISTANT.SPACE SCIENCES DIRECTOR Work Phone: [facility] 07-28-2022 09:01-0500 Systolic blood pressure 130 mm[Hg] Jeri Sorto APRN.SPACE SCIENCES DIRECTOR Work Phone: [facility] 06-12-2022 09:53-0400 Body temperature 98.49 [degF] Jillian Goyal APRN.SPACE SCIENCES DIRECTOR Work Phone: [facility] 06-12-2022 09:53-0400 Body weight 67.59 kg Jillian Goyal APRN.SPACE SCIENCES DIRECTOR Work Phone: [facility] 06-12-2022 09:53-0400 Diastolic blood pressure 84 mm[Hg] Jillian Goyal APRN.SPACE SCIENCES DIRECTOR Work Phone: [facility] 06-12-2022 09:53-0400 Heart rate 84 /min Jillian Goyal APRN.SPACE SCIENCES DIRECTOR Work Phone: [facility] 06-12-2022 09:53-0400 Respiratory rate 16 /min Jillian Goyal APRN.SPACE SCIENCES DIRECTOR Work Phone: [facility] 06-12-2022 09:53-0400 SaO2% (BldA) [Mass fraction] 96 % Jillian Goyal APRN.SPACE SCIENCES DIRECTOR Work Phone: [facility] 06-12-2022 09:53-0400 Systolic blood pressure 142 mm[Hg] Jillian Goyal APRN.SPACE SCIENCES DIRECTOR Work Phone: [facility] 05-01-2022 11:00-0400 Body temperature 98.06 [degF] DR DONTE LYNNE MD [facility] 05-01-2022 11:00-0400 Diastolic blood pressure 67 mm[Hg] DR DONTE LYNNE MD [facility] 05-01-2022 11:00-0400 Heart rate 81 /min DR DONTE LYNNE MD [facility] 05-01-2022 11:00-0400 Systolic blood pressure 108 mm[Hg] DR DONTE LYNNE MD [facility] 05-01-2022 09:11-0400 Reason For Taking VItal Signs DR DONTE LYNNE MD [facility] 05-01-2022 07:39-0400 Body temperature 97.88 [degF] DR DONTE LYNNE MD [facility] 05-01-2022 07:39-0400 Diastolic blood pressure 64 mm[Hg] DR DONTE LYNNE MD [facility] 05-01-2022 07:39-0400 Heart rate 67 /min DR DONTE LYNNE MD [facility] 05-01-2022 07:39-0400 Respiratory rate 18 /min DR DONTE LYNNE MD [facility] 05-01-2022 07:39-0400 Systolic blood pressure 117 mm[Hg] DR DONTE LYNNE MD [facility] 05-01-2022 07:29-0400 Heart rate 68 /min DR DONTE LYNNE MD [facility] 05-01-2022 05:28-0400 Body temperature 97.52 [degF] DR DONTE LYNNE MD [facility] 05-01-2022 05:28-0400 Diastolic blood pressure 71 mm[Hg] DR DONTE LYNNE MD [facility] 05-01-2022 05:28-0400 Heart rate 69 /min DR DONTE LYNNE MD [facility] 05-01-2022 05:28-0400 Mean blood pressure 88 mm[Hg] DR DONTE LYNNE MD [facility] 05-01-2022 05:28-0400 Systolic blood pressure 121 mm[Hg] DR DONTE LYNNE MD [facility] 05-01-2022 04:07-0400 Heart rate 70 /min DR DONTE LYNNE MD [facility] 05-01-2022 00:17-0400 Mean blood pressure 72 mm[Hg] DR DONTE LYNNE MD [facility] 04-30-2022 20:09-0400 Mean blood pressure 74 mm[Hg] DR DONTE LYNNE MD [facility] 04-30-2022 15:55-0400 Body height [address] DONTE LYNNE MD [facility] 04-30-2022 15:55-0400 Body weight 64.[address] DONTE LYNNE MD [facility] 04-30-2022 15:55-0400 Body weight 25.23 kg/m2 DR DNOTE LYNNE MD [facility] 04-30-2022 15:46-0400 Diastolic Blood Pressure NBP [address] DONTE LYNNE MD [facility] 04-30-2022 15:46-0400 Systolic Blood Pressure NBP [address] DONTE LYNNE MD [facility] 04-30-2022 14:26-0400 Diastolic Blood Pressure NBP [address] DONTE LYNNE MD [facility] 04-30-2022 14:26-0400 Systolic Blood Pressure NBP [address] DONTE LYNNE MD [facility] 04-30-2022 14:10-0400 Diastolic Blood Pressure NBP [address] DONTE LYNNE MD [facility] 04-30-2022 14:10-0400 Systolic Blood Pressure NBP [address] DONTE LYNNE MD [facility] 04-30-2022 13:10-0400 Body temperature 97.52 [degF] DR DONTE LYNNE MD [facility] 04-30-2022 10:09-0400 Heart rate 69 /min DR DONTE LYNNE MD [facility] 04-30-2022 08:57-0400 Body height [address] DONTE LYNNE MD [facility] 04-30-2022 08:57-0400 Body temperature 98.42 [degF] DR DONTE LYNNE MD [facility] 04-30-2022 08:57-0400 Body weight 63.[address] DONTE LYNNE MD [facility] 04-30-2022 08:57-0400 Body weight 24.84 kg/m2 DR DONTE LYNNE MD [facility] 04-30-2022 08:57-0400 Heart rate 74 /min DR DONTE LYNNE MD [facility] 04-12-2022 07:50-0400 Body height [address] DONTE LYNNE MD [facility] 04-12-2022 07:50-0400 Body weight 65.[address] DONTE LYNNE MD [facility] 04-12-2022 07:50-0400 Body weight 25.55 kg/m2 DR DONTE LYNNE MD [facility] 04-12-2022 07:50-0400 diastolic 62 mm[Hg] DR DONTE LYNNE MD [facility] 04-12-2022 07:50-0400 Heart rate 71 /min DR DONTE LYNNE MD [facility] 04-12-2022 07:50-0400 Respiratory rate 20 /min DR DONTE LYNNE MD [facility] 04-12-2022 07:50-0400 systolic 116 mm[Hg] DR DONTE LYNNE MD [facility] Encounters Encounter Date Encounter Type Care Provider Facility Start: 05-05-2025 ambulatory DEE ECHEVARRIA Facility:[facility] Start: 05-04-2025 End: 05-04-2025 Office outpatient visit 15 minutes Cade Lunsford CERTIFIED MEDICAL TECHNICIAN ASSISTANT.SPACE SCIENCES DIRECTOR Work Phone: [facility] Comment on above: Gastroesophageal ref lux disease, unspecified whether esophagitis present (Primary Dx); Dysphagia, unspecified type; 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 Start: 05-04-2025 End: 05-04-2025 [facility] DEE ECHEVARRIA Facility:[facility] Start: 03-10-2025 End: 03-10-2025 Office outpatient visit 15 minutes Cade Lunsford CERTIFIED MEDICAL TECHNICIAN ASSISTANT.SPACE SCIENCES DIRECTOR Work Phone: [facility] Comment on above: 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 (Primary Dx); Gastroesophageal reflux disease, unspecified whether esophagitis present; Dysphagia, unspecified type Start: 03-10-2025 End: 03-10-2025 [facility] DEE ECHEVARRIA Facility:[facility] Start: 05-26-2024 End: 05-26-2024 [facility] DEE ECHEVARRIA Facility:[facility] Start: 05-26-2024 End: 05-26-2024 Subsequent hospital visit by physician Kathe Wan MD Work Phone: [facility] Comment on above: 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 [K22.70] Start: 05-19-2024 End: 05-19-2024 Admission to same day surgery center Kathe Wan MD Work Phone: [facility] Start: 05-19-2024 End: 05-19-2024 ambulatory Kathe Wan MD Work Phone: [facility] Start: 05-04-2024 End: 05-04-2024 Admission to same day surgery center Mercy Whalen MD Work Phone: [facility] Start: 05-04-2024 End: 05-04-2024 ambulatory Mercy Whalen MD Work Phone: [facility] Surgery Start: 03-10-2024 End: 03-10-2024 Office outpatient visit 15 minutes Cade Lunsford APRN.CNP Work Phone: [facility] [place] Comment on above: 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 (Primary Dx); Gastroesophageal reflux disease, unspecified whether esophagitis present Start: 08-21-2023 End: 08-21-2023 Admission to same day surgery center Dr. Nicky Gusman Work Phone: [facility] Start: 08-21-2023 End: 08-21-[address] Nicky Gusman Work Phone: [facility] Work Phone: Start: 08-04-2023 End: 08-04-[address] Nicky Gusman Work Phone: [facility] Work Phone: Start: 08-04-2023 End: 08-04-[address] Nicky Gusman Work Phone: [facility] Work Phone: Start: 07-27-2023 End: 07-29-2023 Evaluation and management of inpatient Dr. Nicky Gusman Work Phone: [facility] Work Phone: Start: 07-27-2023 End: 07-27-2023 Non-patient / Non-visit Dr. Nicky Gusman Work Phone: [facility] Work Phone: Start: 07-26-2023 Evaluation and manag ement of inpatient [facility] Work Phone: Start: 04-09-2023 End: 04-09-2023 Subsequent hospital visit by physician Mercy Whalen MD Work Phone: Ambulatory Surgery Comment on above: Screening for colon cancer [Z12.11] Start: 01-01-2023 End: 01-01-2023 ambulatory [facility] Work Phone: Start: 01-01-2023 End: 01-01-2023 Discharged Recurring [facility] Work Phone: Start: 09-17-2022 Telephone encounter Lana Clark MD Work Phone: [facility] [place] Comment on above: Orders Start: 08-21-2022 End: 08-21-2022 ambulatory [facility] [facility] Work Phone: Start: 08-21-2022 End: 08-21-2022 Patient encounter procedure [facility] Start: 08-13-2022 End: 08-14-2022 ambulatory DEE ECHEVARRIA MD. Facility:B Start: 08-07-2022 End: 08-07-2022 Subsequent hospital visit by physician Zina [facility] Work Phone: Radiology Comment on above: Pain [R52] Start: 07-29-2022 End: 07-30-2022 ambulatory DONTE LYNNE MD Facility:B Start: 07-29-2022 End: 07-29-[address] DONTE LYNNE MD [facility] Start: 07-28-2022 End: 07-28-2022 Patient encounter procedure Jeriamos Sorto CERTIFIED MEDICAL TECHNICIAN ASSISTANT.SPACE SCIENCES DIRECTOR Work Phone: [facility] Comment on above: Viral URI (Primary D x); Vertigo Start: 06-13-2022 Telephone encounter Jillian Goyal APRN.SPACE SCIENCES DIRECTOR Work Phone: [facility] Comment on above: Results Start: 06-12-2022 End: 06-12-2022 Patient encounter procedure Jillian Goyal CERTIFIED MEDICAL TECHNICIAN ASSISTANT.SPACE SCIENCES DIRECTOR Work Phone: [facility] Comment on above: Burning with urinati on (Primary Dx); Fungal rash of torso Start: 05-08-2022 End: 05-08-2022 ambulatory [facility] Work Phone: Start: 05-08-2022 End: 05-08-2022 Patient encounter procedure [facility] Start: 04-30-2022 End: 05-01-2022 ambulatory DEE ECHEVARRIA MD. Facility:B Start: 04-30-2022 End: 05-01-[address] DONTE LYNNE MD [facility] Start: 04-12-2022 End: 04-13-2022 ambulatory DEE ECHEVARRIA MD. Facility:B Start: 04-12-2022 End: 04-13-2022 ambulatory DEE ECHEVARRIA MD. Facility:B Start: 04-12-2022 End: 04-12-[address] DONTE LYNNE MD [facility] Procedures Date Procedure Procedure Detail Performing Clinician Start: 05-26-2024 SURGICAL PATHOLOGY Kathe Wan MD Work Phone: Start: 05-26-2024 Esophagogastroduodenoscopy transoral diagnostic Cade Lunsford APRN.SPACE SCIENCES DIRECTOR Work Phone: Start: 08-21-2023 Cysto,Ureteroscopy,Dil,Basket Ext,Stent (Left) Dr. Nicky Gusman Work Phone: Start: 08-21-[address] Nicky Gusman Work Phone: Start: 08-04-2023 Diagnostic radiography of abdomen Dr. Oral Gusman Work Phone: Start: 07-29-2023 Plain chest X-ray Dr. Nicky Gusman Work Phone: Start: 07-28-[address] Nicky Gusman Work Phone: Start: 07-28-2023 Cystoscopy and retrograde pyelography Dr. Nicky Gusman Work Phone: Start: 07-26-[address] Nicky Gusman Work Phone: Start: 07-26-2023 CT of abdomen and pelvis without contrast Start: 04-09-2023 Colonoscopy flx dx w/collj spec when pfrmd Elsa Villanueva PA-C Work Phone: Start: 04-09-2023 Colonoscopy Cade Lunsford APRN.SPACE SCIENCES DIRECTOR Work Phone: Start: 08-07-2022 Radex wrist complete minimum 3 views Jillian Goyal APRN.SPACE SCIENCES DIRECTOR Work Phone: Start: 06-12-2022 Urnls dip stick/tablet rgnt auto w/o microscopy Jillian Goyal APRN.SPACE SCIENCES DIRECTOR Work Phone: Start: 04-30-2022 Total replacement of right knee joint DR DONTE LYNNE MD Start: 04-30-2018 Colonoscopy Jillian Goyal APRN.SPACE SCIENCES DIRECTOR Work Phone: Cholecystectomy DR DONTE JACKSON MD Comment on above: Right Colonoscopy DR DONTE Armenta MD Endoscopic radiofreq uency ablation of esophageal epithelium DR DONTE LYNNE MD Esophagogastroduodenoscopy D R DONTE LYNNE MD Hysterectomy DR DONTE Armenta MD Venous varices (disorder) DR DONTE LYNNE MD Plan of Treatment Date Care Activity Detail Author Start: 04-09-2028 Screening for malignant neoplasm of colon [facility] Start: 03-10-2026 End: 03-10-2026 Patient encounter procedure 03/10/2026 10:05 AM EDT Office Visit [facility] [place] [id number] [facility] [place] [address] Cade Lunsford, CERTIFIED MEDICAL TECHNICIAN ASSISTANT.SPACE SCIENCES DIRECTOR [address], [place] [phone] 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, GERD [facility] [place] Comment on above: 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, G ERD Start: 05-05-2025 End: 05-05-2025 Patient encounter procedure 05/05/2025 8:00 AM EDT Appointment Radiology [address] [place] [address] Dysphagia, unspecified type [R13.10] Radiology Comment on above: Dysphagia, unspecified type [R13.10] Start: 05-04-2025 End: 05-04-2025 Patient encounter procedure 05/04/2025 9:15 AM EDT Office Visit [facility] [place] [address] [place] [address] Cade Lunsford, CERTIFIED MEDICAL TECHNICIAN ASSISTANT.SPACE SCIENCES DIRECTOR [address], [place] [phone] per patient 1 month F/U after starting new meds [facility] [place] Comment on above: per patient 1 month F/U after starting n ew meds Start: 04-18-2025 Influenza vaccination [facility] Start: 03-10-2025 End: 03-10-2025 Patient encounter procedure 03/10/2025 8:25 AM EDT Office Visit [facility] [place] [address] [place] [phone] Cade Lunsford APRN.SPACE SCIENCES DIRECTOR [address] [facility] [place] [address] 1 year follow up, 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, GERD [facility] [place] Comment on above: 1 year follow up, Fink's esophagus wi thout dysplasia, GERD Start: 08-18-2024 Advance Directive Discussion Advance Directive Discussion [facility] Start: 05-26-2024 End: 05-26-2024 Patient encounter procedure 05/26/2024 9:45 AM EDT Appointment Ambulatory Surgery [address] [place] [phone] Kathe Wan MD [address] [place] [address] EGD Ambulatory Surgery Comment on above: EGD Start: 05-11-2024 End: 05-11-2024 Patient encounter procedure 05/11/2024 9:00 AM EDT Appointment Ambulatory Surgery [address] [place] [phone] Mercy Whalen MD [address], [place] [phone] 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, GERD Ambulatory Surgery Comment on above: 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, G ERD Start: 04-26-2024 End: 04-26-2024 Anesthesia consultation 04/26/2024 11:59 PM EDT Anesthesia Event Ambulatory Surgery [address] [place] [phone] Carl Durant APRN.[facility] [address] [place] [address] Ambulatory Surgery Start: 04-18-2024 Covid-19 Vaccine () Covid-19 Vaccine () [facility] Start: 04-18-2024 Covid-19 Vaccine () Covid-19 Vaccine () [facility] Start: 04-18-2024 Influenza vaccination Influenza Vaccine (#1) [facility] Start: 08-21-2023 Patient discharge [facility] Start: 08-18-2023 Advance Directive Discussion Advance Directive Discussion [facility] Start: 07-29-2023 Patient discharge [facility] Start: 07-27-2023 Admission procedure [facility] Start: 07-26-2023 Application of intermittent pneumatic compression device [facility] Start: 07-26-2023 Bacteria identified in Urine by Culture Urine Culture [facility] Start: 07-26-2023 Following clinical pathway protocol [facility] Start: 07-26-2023 Oxygen therapy [facility] Start: 07-26-2023 Admission procedure [facility] Start: 07-26-2023 Ambulation without limitation [facility] Start: 07-26-2023 Assessment of risk of venous thromboembolism [facility] Start: 07-26-2023 Insertion of catheter into peripheral vein [facility] Start: 07-26-2023 Measuring intake and output [facility] Start: 07-26-2023 Providing care according to standard [facility] Start: 07-26-2023 End: 07-26-2023 [facility] Start: 07-26-2023 Hospital admission, emergency, from emergency room, medical nature [facility] Start: 07-26-2023 [facility] Start: 04-30-2023 Colonoscopy COLONOSCOPY [facility] Start: 04-30-2023 COLORECTAL CANCER SCREENING COLORECTAL CANCER SCREENING [facility] Start: 04-18-2023 Covid-19 Vaccine () Covid-19 Vaccine () [facility] Start: 08-18-2022 ADVANCE DIRECTIVE DISCUSSION ADVANCE DIRECTIVE DISCUSSION [facility] Start: 08-18-2022 DEPRESSION ASSESSMENT DEPRESSION ASSESSMENT [facility] Start: 06-12-2022 End: 08-12-2022 Bacteria identified in Urine by Culture URINE CULTURE Microbiology Routine Burning with urination Expected: 06/12/2022, Expires: 08/12/2022 [facility] Work Phone: Comment on above: Expected: 06/12/2022, Expires: 2 Start: 04-18-2022 Influenza vaccination INFLUENZA (#1) [facility] Start: 08-30-2021 COVID-19 VACCINE (4 - Booster for Pfizer series) COVID-19 VACCINE (4 - Booster for Pfizer series) [facility] Start: 08-18-2021 ADVANCE DIRECTIVE DISCUSSION ADVANCE DIRECTIVE DISCUSSION [facility] Start: 08-18-2021 DEPRESSION ASSESSMENT DEPRESSION ASSESSMENT [facility] Start: 07-20-2021 Pneumococcal Vaccine: 50+ (2 of 2 - PCV20 or PCV21) Pneumococcal Vaccine: 50+ (2 of 2 - PCV20 or PCV21) [facility] Start: 07-20-2021 Pneumococcal Vaccine: 50+ (2 of 2 - PPSV23) Pneumococcal Vaccine: 50+ (2 of 2 - PPSV23) [facility] Start: 07-20-2021 Pneumococcal Vaccine: 65+ (2 of 2 - PPSV23 or PCV20) Pneumococcal Vaccine: 65+ (2 of 2 - PPSV23 or PCV20) [facility] Start: 09-14-2020 Shingrix Vaccine (2 of 2) Shingrix Vaccine (2 of 2) [facility] Start: 2016 BONE DENSITY BONE DENSITY [facility] Start: 2016 PNEUMOCOCCAL: 65+ (1 - PCV) PNEUMOCOCCAL: 65+ (1 - PCV) [facility] Start: 2016 Screening for osteoporosis Bone Density Screening [facility] Start: 08-18-2016 Medicare Annual Wellness Visit Medicare Annual Wellness Visit [facility] Start: 2001 SHINGRIX VACCINE (1 of 2) SHINGRIX VACCINE (1 of 2) [facility] Start: 1996 COLOGUARD (FIT-DNA) COLOGUARD (FIT-DNA) [facility] Start: [address] COLONOGRAPHY [facility] Start: 1996 DIABETES SCREEN DIABETES SCREEN [facility] Start: 1996 Diabetes Screening Diabetes Screening [facility] Start: 1996 FECAL OCCULT BLOOD FECAL OCCULT BLOOD [facility] Start: 1996 Lipid panel Lipid Screening [facility] Start: 1996 LIPID SCREEN LIPID SCREEN [facility] Start: 1996 Screening for malignant neoplasm of colon [facility] Start: 1996 SIGMOIDOSCOPY SIGMOIDOSCOPY [facility] Start: 1991 Mammography MAMMOGRAM [facility] Start: 1991 Screening for malignant neoplasm of breast Mammogram Screening [facility] Start: 1970 Urine microalbumin profile [facility] Start: 1969 Anxiety Screening Anxiety Screening [facility] Start: 1969 Depression Screening Depression Screening [facility] Start: 1969 HEPATITIS C SCREENING HEPATITIS C SCREENING [facility] Start: 1969 Hepatitis C screening Hepatitis C Screening [facility] Calculus analysis [facility] End: 03-10-2025 EGD DIAGNOSTIC EGD DIAGNOSTIC Endoscopy Routine 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 Gastroesophageal reflux disease, unspecified whether esophagitis present 1 Occurrences starting 03/10/2024 until 03/10/2025 [facility] Work Phone: Comment on above: 1 Occurrences starting 03/10/2024 until 03/10/2025 Measurement of weigh t of calculus [facility] Origin of [facility] Patient referral [facility] Work Phone: End: 09-17-2023 Screening colonoscopy COLONOSCOPY SCREENING Endoscopy Routine Screening for colon cancer 1 Occurrences starting 09/17/2022 until 09/17/2023 [facility] Work Phone: Comment on above: 1 Occurrences starting 09/17/2022 until 09/17/2023 Specimen color determination [facility] End: 04-09-2026 XR Esophagus Views W contrast PO XR ESOPHAGRAM Radiology Routine Dysphagia, unspecified type 1 Occurrences starting 03/10/2025 until 04/09/2026 [facility] Work Phone: Comment on above: 1 Occurrences starting 03/10/2025 until 04/09/2026 [facility] Immunizations Immunization Date Immunization Notes Care Provider Marcel diallo 08-17-2024 influenza virus vaccine, unspecified formulation aCde Lunsford APRN.CNP Work Phone: [facility] 06-17-2023 influenza virus vaccine, unspecified formulation Cade Lunsford APRN.SPACE SCIENCES DIRECTOR Work Phone: [facility] 07-05-2021 SARS-CoV-2 mRNA (tozinameran) vaccine DR DONTE LYNNE MD [facility] Comment on above: Result Comment: 2021: [id number] 11-09-2020 SARS-CoV-2 mRNA (tozinameran) vaccine DR DONTE LYNNE MD [facility] 10-19-2020 SARS-CoV-2 mRNA (tozinameran) vaccine DR DONTE LYNNE MD [facility] Comment on above: Result Comment: 2021: [id number] 07-20-2020 pneumococcal conjuga te vaccine, [address] DONTE LYNNE MD [facility] 07-20-[address] DONTE LYNNE MD [facility] 05-19-2020 influenza virus vaccine, unspecified formulation DR DONTE LYNNE MD [facility] 07-29-2019 influenza virus vaccine, unspecified formulation DR DONTE LYNNE MD [facility] 07-29-2019 Seasonal, quadrivale nt, recombinant, injectable influenza vaccine, preservative free Jillian Goyal APRN.SPACE SCIENCES DIRECTOR Work Phone: [facility] 05-27-2018 influenza virus vaccine, unspecified formulation DR DONTE LYNNE MD [facility] 07-01-2017 influenza virus vaccine, unspecified formulation DR DONTE LYNNE MD [facility] 08-24-2016 influenza virus vaccine, unspecified formulation DR DONTE LYNNE MD [facility] 05-24-2015 influenza virus vaccine, unspecified formulation DR DONTE LYNNE MD [facility] Payers Date Payer Category Payer Medicare [id number] 2023 Self-pay [id number] 2019 Private Health Insurance [id number] 2019 Unknown [id number] 2016 Medicare [id number] 2016 Medicare [id number] 1950 Unknown [id number] 1950 Unknown [id number] 1950 Unknown [id number] [id number] 1950 Unknown [id number] 1950 Unknown [id number] [id number] 1950 Unknown [id number] Unknown [id number] Social History Date Type Detail Facility Start: 04-12-2022 End: 06-12-2022 Tobacco smoking status Never smoked tobacco (finding) [facility] Sex Assigned At Sex [facility] Start: 10-01-2019 End: 08-20-2023 Tobacco smoking status NHIS Unknown if ever smoked [facility] Start: 1950 Sex Assigned At Female [facility] Start: 06-12-2022 Tobacco use and exposure Smokeless tobacco non-user [facility] Start: 06-12-2022 End: 06-07-2024 Alcohol intake Current non-drinker of alcohol (finding) [facility] Start: 1950 Sex Assigned At Not on file [facility] Start: 06-02-2022 End: 06-12-2022 Exposure to SARS-CoV-2 (event) Not sure [facility] Start: 03-10-2024 End: 05-04-2025 History of Social function [facility] Start: 03-10-2024 End: 05-04-2025 Tobacco use panel [facility] Start: 07-19-2012 National Score (1-100), lower number is lower risk 48 [facility] Start: 05-04-2025 Alcoholic beverage intake Lifetime non-drinker (finding) [facility] How often do you hav e a drink containing alcohol? Never [facility] NEGATED: Highlighted row [facility] Medical Equipment Procedure Code Equipment Code Equipment Origin al Text Equipment Identifier Dates Cystoscopy, with retrograde pyelogram, ureteroscopy, laser procedure, and stent inser ([id number]) Polymeric ureteral stent [id number] FDA Start: 07-28-2023 Goals Date Patient Goal Desired Activity /State Functional Status Date Assessment Result Facility 07-29-2023 Functional status Activity Abili ty Standby Assist [facility] Work Phone: 07-29-2023 Functional status Ambulates;Bedrest [facility] Work Phone: 05-01-2022 Functional Status Occupational T herapy, Physical Therapy [facility] 05-01-2022 Functional Status 2 Zuleika Oral [facility] 05-01-2022 Functional Status [facility] 05-01-2022 Functional Status [facility] 05-01-2022 Functional Status Orthotics, Dev ice Worn Per Schedule Yes [facility] 05-01-2022 Functional Status bilateral knee high l [facility] 05-01-2022 Functional Status [facility] 04-30-2022 Functional Status [facility] 04-30-2022 Functional Status [facility] 04-30-2022 Functional Status Single level home [facility] 04-30-2022 Functional Status Patient Identi fied Identification band, Verbal [facility] 04-30-2022 Functional Status Maintained [facility] 04-12-2022 Functional Status Sensory Deficits None A [facility] 11-17-2013 Are you deaf, or do you have serious difficulty hearing No 11/17/2013 11:53 AM Angie Singh MA No [facility] 11-17-2013 Are you blind, or do you have serious difficulty seeing, even when wearing glasses No 11/17/2013 11:53 AM Angie Singh MA No [facility] 11-17-2013 Do you have serious difficulty walking or climbing stairs No 11/17/2013 11:53 AM Angie Singh MA [facility] 11-17-2013 Do you have difficul ty dressing or bathing No 11/17/2013 11:53 AM Angie Singh MA [facility] 11-17-2013 Because of a physica l, mental, or emotional condition, do you have difficulty doing errands alone such as visiting a physician's office or shopping No 11/17/2013 11:53 AM Angie Singh MA No [facility] Mental Status Date Assessment Result Facility 08-21-2023 Cognitive function Voice/Name [facility] Work Phone: 07-29-2023 Cognitive function Voice/Name [facility] Work Phone: 05-01-2022 Mental Status Oriented x 4 [facility] 05-01-2022 Mental Status Oriented x 4 [facility] 05-01-2022 Mental Status [facility] 05-01-2022 Mental Status [facility] 11-17-2013 Because of a physica l, mental, or emotional condition, do you have serious difficulty concentrating, remembering, or making decisions No 11/17/2013 11:53 AM EDT Angie Goncalves MA No [facility] Clinical Notes 12-30-2006 to 05-05-2025 Cade Lunsford APRN.XOCHITL - 05/04/2025 8:59 AM EDTPatient Cade Monge APRN.CNP - 03/10/2025 8:07 AM Ayush Malagon RN - 05/26/2024 10:43 AM EDT Note Date & Type Note Facility 05-05-2025 Note HNO ID: [id number] Author: GERARDO TEAGUE RT(R) Service: Radiology Author Type: Technologist Type: Progress Notes Filed: 05/05/2025 08:42 Note Text: Radiology Service Progress Note PATIENT NAME: Kaylee Schwarz DATE OF SERVICE: May 05, 2025 TIME: 8:42 AM PATIENT IDENTITY VERIFICATION COMPLETED USING TWO (2) IDENTIFIERS: Name and Date of confirmed by patient verbally. FALL SCREENING: Has the patient had 2 falls in the last year or 1 fall with injury or currently using an Ambulatory Assistive Device (Walker, Cane, Wheelchair, Crutches, etc.)? No PATIENT GENDER DATA: Assigned female at . status: : No status: NO. PATIENT RELEVANT IMPLANT DATA REVIEWED: Not Applicable PATIENT PRESENTS WITH AN IMPLANTABLE OR ATTACHED TRUCK LOADER AND UNLOADER: No RADIOLOGY DEPARTMENT: General X-ray: Exam(s) Completed: GI/ Procedure(s): Esophogram with barium contrast PERIPHERAL IV DATA: Not applicable SIGNED BY: RT Sherrie(R) May 05, 2025 8:42 AM [facility] 05-04-2025 Note HNO ID: [id number] Author: CADE LUNSFORD APRN.SPACE SCIENCES DIRECTOR Service: ? Author Type: Nurse Practitioner Type: Progress Notes Filed: 05/04/2025 09:30 Note Text: CHIEF COMPLAINT: Patient presents with: Barretts esophagus HPI Kaylee Schwarz is a 74 year old female here today for follow up dysphagia/globus/GERD. At at last visit, she was started on famotidine 20mg daily at bedtime and esophagram was ordered. Regurgitation and Dysphagia: - Noted improvement with bedtime famotidine; does not take it every night. - Sleeps with head elevated; reports occasional clear or whitish regurgitation. - Experiences regurgitation when lying down, especially after meals or when bending over. - Dysphagia noted with certain foods, such as dry bread or cheese. - Scheduled for an esophagram tomorrow at 0745. - Upper endoscopy performed in June of last year showed no significant findings. - Taking Prevacid 30 mg, previously took 15 mg tablets. Current Outpatient Medications Medication Sig lansoprazole (PREVACID) 30 mg capsule Take 1 capsule by mouth once daily. famotidine (PEPCID) 20 mg tablet Take 1 tablet by mouth at bedtime as needed. potassium chloride (KLOR-CON) 20 mEq packet Take by mouth. Cholecalciferol, Vitamin D3, 25 mcg (1,000 unit) cap Take 1,000 Units by mouth once daily. amLODIPine (NORVASC) 10 mg tablet Take 10 mg by mouth once daily. hydroCHLOROthiazide (HYDRODIURIL, ESIDRIX) 25 mg tablet Take 25 mg by mouth once daily. amoxicillin (AMOXIL) 500 mg capsule TAKE FOUR CAPSULES BY MOUTH ONE HOUR BEFORE APPOINTMENT (Patient not taking: Reported on 03/10/2025) No current facility-administered medications for this visit. ALLERGIES Allergen Reactions Luiz Inhibitors Other: See Comments Tingling of the tongue Clonidine Other: See Comments Lisinopril Angioedema SOCIAL HISTORY[1] PAST MEDICAL HISTORY Diagnosis Date Adenomatous colon polyp Arthritis Fink's esophagus Diverticulosis FHx: colon cancer Gallstones GERD (gastroesophageal reflux disease) Hemorrhoids Hiatal hernia Hypertension Other and unspecified hyperlipidemia Skin cancer PAST SURGICAL HISTORY Procedure Laterality Date CHOLECYSTECTOMY COLONOSCOPY 07/05/2014 tubular adenoma, diverticulosis COLONOSCOPY 04/30/2018 normal COLONOSCOPY 05/06/2011 tubular adenoma, diverticulosis COLONOSCOPY SCREENING 04/09/2023 Diverticulosis EGD 06/28/2014 hiatal hernia EGD 01/23/2010 hx long segment Fink's s/p radiofrequecy ablation, bx neg, patulous GE junction EGD 12/19/2020 Normal EGD 05/26/2024 benign fundic gland polyp, neg Fink's halo ablation 2009 Series of treatments HERNIA REPAIR HX RPR INGUN HERNIA SLIDING ANY AGE TUBAL LIGATION HX VAGINAL HYSTERECTOMY VAGINAL HYSTERECTOMY UTERUS 250 GM/< FAMILY HISTORY Problem Relation Age of Onset Diabetes Mother Colon Cancer Mother other (heart disease) Mother Heart Father REVIEW OF SYSTEMS Review of Systems HENT: Positive for trouble swallowing. All other systems reviewed and are negative. PHYSICAL EXAM BP 128/68 Pulse 66 Ht 5' 3 (1.60m) Wt 132 lb (59.9kg) SpO2 95% BMI 23.39 kg/(m2). Physical Exam Vitals and nursing note reviewed. Constitutional: Appearance: Normal appearance. She is normal weight. Eyes: General: No scleral icterus. Pulmonary: Effort: Pulmonary effort is normal. Neurological: Mental Status: She is alert and oriented to person, place, and time. Psychiatric: Mood and Affect: Mood normal. Behavior: Behavior normal. Thought Content: Thought content normal. ASSESSMENT: 1. Gastroesophageal reflux disease, unspecified whether esophagitis present (K21.9) 2. Dysphagia, unspecified type (R13.10) 3. 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 (K22.70) Chronic GERD and hiatal hernia with intermittent dysphagia and regurgitation, previously evaluated by EGD in June of last year with no significant findings. Patient is on Prevacid 30 mg daily and adheres to lifestyle modifications. Fink's esophagus is stable without dysplasia. - Esophagram scheduled for tomorrow at 7:45 AM to evaluate for possible esophageal stricture, motility disorder, or hiatal hernia progression. - Discussed rationale for esophagram, including assessment of esophageal narrowing, motility, and hernia size. - Reviewed potential next steps if narrowing is identified, including possible endoscopic dilation. - Continue Prevacid 30 mg daily; confirmed time-release formulation. - Follow-up after esophagram results to determine if further intervention is needed. - Yearly follow-up already scheduled for Fink's esophagus surveillance and medication management. Follow up in office TBBelen Lunsford APRN.SPACE SCIENCES DIRECTOR May 04, 2025 9:29 AM [1] Social History Tobacco Use Smoking status: Never Smokeless tobacco: Never Vaping Use Vaping status: Never Used Substance Use Topics Alcohol use: (more content not included)... [facility] 05-04-2025 History of Present illness Narrative CHIEF COMPLAINT: Patient presents with: Barretts esophagus HPI Kaylee Schwarz is a 74 year old female here today for follow up dysphagia/globus/GERD. At at last visit, she was started on famotidine 20mg daily at bedtime and esophagram was ordered. Regurgitation and Dysphagia: - Noted improvement with bedtime famotidine; does not take it every night. - Sleeps with head elevated; reports occasional clear or whitish regurgitation. - Experiences regurgitation when lying down, especially after meals or when bending over. - Dysphagia noted with certain foods, such as dry bread or cheese. - Scheduled for an esophagram tomorrow at 0745. - Upper endoscopy performed in June of last year showed no significant findings. - Taking Prevacid 30 mg, previously took 15 mg tablets. Current Outpatient Medications Medication Sig lansoprazole (PREVACID) 30 mg capsule Take 1 capsule by mouth once daily. famotidine (PEPCID) 20 mg tablet Take 1 tablet by mouth at bedtime as needed. potassium chloride (KLOR-CON) 20 mEq packet Take by mouth. Cholecalciferol, Vitamin D3, 25 mcg (1,000 unit) cap Take 1,000 Units by mouth once daily. amLODIPine (NORVASC) 10 mg tablet Take 10 mg by mouth once daily. hydroCHLOROthiazide (HYDRODIURIL, ESIDRIX) 25 mg tablet Take 25 mg by mouth once daily. amoxicillin (AMOXIL) 500 mg capsule TAKE FOUR CAPSULES BY MOUTH ONE HOUR BEFORE APPOINTMENT (Patient not taking: Reported on 03/10/2025) No current facility-administered medications for this visit. ALLERGIES Allergen Reactions Luiz Inhibitors Other: See Comments Tingling of the tongue Clonidine Other: See Comments Lisinopril Angioedema SOCIAL HISTORY[1] PAST MEDICAL HISTORY Diagnosis Date Adenomatous colon polyp Arthritis Fink's esophagus Diverticulosis FHx: colon cancer Gallstones GERD (gastroesophageal reflux disease) Hemorrhoids Hiatal hernia Hypertension Other and unspecified hyperlipidemia Skin cancer PAST SURGICAL HISTORY Procedure Laterality Date CHOLECYSTECTOMY COLONOSCOPY 07/05/2014 tubular adenoma, diverticulosis COLONOSCOPY 04/30/2018 normal COLONOSCOPY 05/06/2011 tubular adenoma, diverticulosis COLONOSCOPY SCREENING 04/09/2023 Diverticulosis EGD 06/28/2014 hiatal hernia EGD 01/23/2010 hx long segment Fink's s/p radiofrequecy ablation, bx neg, patulous GE junction EGD 12/19/2020 Normal EGD 05/26/2024 benign fundic gland polyp, neg Fink's halo ablation 2009 Series of treatments HERNIA REPAIR HX RPR INGUN HERNIA SLIDING ANY AGE TUBAL LIGATION HX VAGINAL HYSTERECTOMY VAGINAL HYSTERECTOMY UTERUS 250 GM/< FAMILY HISTORY Problem Relation Age of Onset Diabetes Mother Colon Cancer Mother other (heart disease) Mother Heart Father REVIEW OF SYSTEMS Review of Systems HENT: Positive for trouble swallowing. All other systems reviewed and are negative. PHYSICAL EXAM BP 128/68 Pulse 66 Ht 5' 3 (1.60m) Wt 132 lb (59.9kg) SpO2 95% BMI 23.39 kg/(m^2). Physical Exam Vitals and nursing note reviewed. Constitutional: Appearance: Normal appearance. She is normal weight. Eyes: General: No scleral icterus. Pulmonary: Effort: Pulmonary effort is normal. Neurological: Mental Status: She is alert and oriented to person, place, and time. Psychiatric: Mood and Affect: Mood normal. Behavior: Behavior normal. Thought Content: Thought content normal. ASSESSMENT: 1. Gastroesophageal reflux disease, unspecified whether esophagitis present (K21.9) 2. Dysphagia, unspecified type (R13.10) 3. 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 (K22.70) Chronic GERD and hiatal hernia with intermittent dysphagia and regurgitation, previously evaluated by EGD in June of last year with no significant findings. Patient is on Prevacid 30 mg daily and adheres to lifestyle modifications. Fink's esophagus is stable without dysplasia. - Esophagram scheduled for tomorrow at 7:45 AM to evaluate for possible esophageal stricture, motility disorder, or hiatal hernia progression. - Discussed rationale for esophagram, including assessment of esophageal narrowing, motility, and hernia size. - Reviewed potential next steps if narrowing is identified, including possible endoscopic dilation. - Continue Prevacid 30 mg daily; confirmed time-release formulation. - Follow-up after esophagram results to determine if further intervention is needed. - Yearly follow-up already scheduled for Fink's esophagus surveillance and medication management. Follow up in office TBD Cade Lunsford APRN.SPACE SCIENCES DIRECTOR May 04, 2025 9:29 AM [1] Social History Tobacco Use Smoking status: Never Smokeless tobacco: Never Vaping Use Vaping status: Never Used Substance Use Topics Alcohol use: Never Drug use: No documented in this encounter [facility] 03-10-2025 Instructions Dhruv Cervantes PA-C - 03/10/2025 8:24 AM EDT Lifestyle Tips for Acid Reflux What is Acid Reflux (GERD)? Acid reflux, also called gastroesophageal reflux disease (GERD), happens when stomach acid flows back up into the esophagus, causing symptoms like heartburn, chest discomfort, or regurgitation. Lifestyle Changes to Help Control Severe Acid Reflux The following steps can help reduce symptoms and improve quality of life. Not every tip works for everyone, so it may help to try several and see which are most effective. 1. Lose Weight if Overweight Even a small amount of weight loss can make a big difference in reducing acid reflux symptoms. Extra weight increases pressure on the stomach, making reflux more likely.[1][2][3][4][5][6][7] 2. Avoid Eating Before Bed Do not eat or drink anything (except water) for at least 2-3 hours before lying down or going to bed. Late meals increase the chance of nighttime reflux.[1][2][3][4][5][8][6][7] 3. Elevate the Head of the Bed Raising the head of the bed by 6-8 inches (15-20 cm) using blocks, a wedge pillow, or an incline mattress can help prevent acid from flowing back up while sleeping. Standard pillows are usually not enough.[1][2][3][4][5][8][6][7] 4. Sleep on the Left Side Sleeping on the left side may reduce nighttime reflux. Avoid sleeping on the right side, which can make reflux worse.[1][2][5][6] 5. Stop Smoking Quitting smoking can significantly improve acid reflux symptoms. Smoking weakens the muscle that keeps stomach acid out of the esophagus.[2][1][3][4][7] 6. Limit or Avoid Alcohol Alcohol can relax the muscle at the bottom of the esophagus and worsen reflux. Reducing or avoiding alcohol may help, especially if it is a personal trigger.[1][2][6] 7. Identify and Avoid Trigger Foods Some foods and drinks can make reflux worse for some people. Common triggers include: - Spicy foods - Fatty or fried foods - Chocolate - Peppermint - Coffee, tea, and caffeinated drinks - Carbonated beverages (soda) - [place] fruits and juices - Tomato products (like tomato sauce) Keep a food diary to help identify which foods make symptoms worse and try to avoid them.[1][2][3][4][5][6] 8. Eat Smaller, More Frequent Meals Large meals can increase pressure in the stomach and worsen reflux. Try eating four or five small meals instead of three large ones.[1][6] 9. Avoid Lying Down or Bending Over After Eating Wait at least 2-3 hours after eating before lying down or taking a nap. Avoid bending over at the waist after meals.[1][6] 10. Wear Loose Clothing Tight belts or clothing around the waist can put pressure on the stomach and make reflux worse. Choose loose-fitting clothes.[1][6] 11. Chew Gum (Except Mint Flavors) Chewing gum can increase saliva, which helps neutralize acid in the esophagus. Avoid mint-flavored gum, as mint can trigger symptoms in some people.[1] 12. Manage Stress Stress can worsen reflux symptoms. Consider stress-reducing activities like deep breathing, meditation, or gentle exercise.[1][8] 13. Review Medications Some medicines can make reflux worse by relaxing the muscle at the bottom of the esophagus. Talk to a healthcare provider before stopping any medication, but ask if any of your medicines could be contributing to symptoms.[1] When to Seek Medical Help If symptoms are severe, frequent, or do not improve with these changes, or if there is trouble swallowing, weight loss, vomiting blood, or black stools, seek medical attention promptly. Summary Lifestyle changes are a barreto part of managing severe acid reflux. Weight loss, avoiding late meals, elevating the head of the bed, and quitting smoking have the strongest evidence for benefit. Other changes, like avoiding trigger foods and eating smaller meals, may also help. It may take time to find the combination that works best. References 1. Gastroesophageal Reflux Disease. Fasbaltazar R. The [place] Journal of Medicine. 2021;387(13):3690-2153. doi:10.1056/[id number]. 2. [facility] Clinical Guideline for the Diagnosis and Management of Gastroesophageal Reflux Disease. Tory PO, Juventino KB, Evangelist FH, et al. The [place] Journal of Gastroenterology. 2021;117(1):27-56. doi:10.98003/[id number]. 3. [place] Society for Gastrointestinal Endoscopy Guideline on the Diagnosis and Management of GERD: Summary and Recommendations. Tabitha M, Miguelangel W, Gurpreet NC, et al. Gastrointestinal Endoscopy. 2024;101(2):267-284. doi:10.1016/j.gie.202.10.008. 4. Gastroesophageal Reflux Disease: A Review. Mk-Joann J, Deven SR, Maureen Hampton. KAYLEIGH. 2020;324(24):2564-5675. doi:10.1001/kayleigh.2020.22907. 5. [facility] Clinical Practice Update on the Diagnosis and Management of Extraesophageal Gastroesophageal Reflux Disease: Expert Review. Sasha JW, Nilson MF, Salinas KA, Lisa DA. Clinical Gastroenterology and Hepatology : The Official Clinical Practice Journal of the [place] Gastro[employer]ological Association. 2022;21(6):1414- 1421.e3. doi:10.1016/j.cgh.2022.01.040. 6. Dietary Factors Involved in GERD Management. Igor Saldana CP. Best Practice & Research. Clinical Gastroenterology. 2022;62-63:101447. doi:10.1016/j.bpg.2023.553674. 7. Lifestyle Intervention in Gastroesophageal Reflux Disease. Jessica E, Alaina K, El-Yoon H, Maureen Hampton. Clinical Gastroenterology and Hepatology : The Official Clinical Practice Journal of the [place] Gastro[employer] Association. 2016;14(2):175-82.e1-3. doi:10.1016/j.cgh.2015.04.176. 8. [facility] Clinical Practice Update on the Personalized Approach to the Evaluation and Management of GERD: Expert Review. Sophie Armenta, Igor DOUGLAS, Elias PISANO. Clinical Gastroenterology and Hepatology : The Official Clinical Practice Journal of the [place] Gastro[employer] Association. 2021;20(5):984-994.e1. doi:10.1016/j.cgh.202.01.025. documented in this encounter [facility] 03-10-2025 Note HNO ID: [id number] Author: CADE LUNSFORD APRN.SPACE SCIENCES DIRECTOR Service: ? Author Type: Nurse Practitioner Type: Progress Notes Filed: 03/10/2025 09:49 Note Text: CHIEF COMPLAINT: Patient presents with: Recheck: Fink's Esophagus HPI Kaylee Schwarz is a 74 year old female here today for Recheck (Fink's Esophagus ) Reflex is well controlled on prevacid. Mentions she is having intermittent clear phlegm at night. Props herself up with pillows and makes sure not to eat after 5pm. Mentions pills and bread with get stuck near the sternal notch. Will pass with sips of water or will cough stuck food back up. No trouble with liquids. Occurring roughly 1x/week. This is new since her last EGD Diagnostics: 05/26/24 - EGD Impression: - Z-line, 35 cm from the incisors. - Esophageal mucosal changes consistent with short-segment Fink's esophagus. Biopsied. - Multiple gastric polyps. Resected and retrieved. - Normal examined duodenum. FINAL DIAGNOSIS A. Stomach, fundus, polyp, biopsy: - Fundic gland polyp. B. Esophagus, 34 cm, biopsy: - Squamous and cardio-oxyntic mucosa with no diagnostic abnormality. - Negative for intestinal metaplasia and dysplasia. Current Outpatient Medications Medication Sig potassium chloride (KLOR-CON) 20 mEq packet Take by mouth. Cholecalciferol, Vitamin D3, 25 mcg (1,000 unit) cap Take 1,000 Units by mouth once daily. amLODIPine (NORVASC) 10 mg tablet Take 10 mg by mouth once daily. hydroCHLOROthiazide (HYDRODIURIL, ESIDRIX) 25 mg tablet Take 25 mg by mouth once daily. PREVACID 30 MG CAP Take one(1) tablet daily. amoxicillin (AMOXIL) 500 mg capsule TAKE FOUR CAPSULES BY MOUTH ONE HOUR BEFORE APPOINTMENT (Patient not taking: Reported on 03/10/2025) No current facility-administered medications for this visit. ALLERGIES Allergen Reactions Luiz Inhibitors Other: See Comments Tingling of the tongue Clonidine Other: See Comments Lisinopril Angioedema Social History Tobacco Use Smoking status: Never Smokeless tobacco: Never Vaping Use Vaping status: Never Used Substance Use Topics Alcohol use: No Drug use: No PAST MEDICAL HISTORY Diagnosis Date Adenomatous colon polyp Arthritis Fink's esophagus Diverticulosis FHx: colon cancer Gallstones GERD (gastroesophageal reflux disease) Hemorrhoids Hiatal hernia Hypertension Other and unspecified hyperlipidemia Skin cancer PAST SURGICAL HISTORY Procedure Laterality Date CHOLECYSTECTOMY COLONOSCOPY 07/05/2014 tubular adenoma, diverticulosis COLONOSCOPY 04/30/2018 normal COLONOSCOPY 05/06/2011 tubular adenoma, diverticulosis COLONOSCOPY SCREENING 04/09/2023 Diverticulosis EGD 06/28/2014 hiatal hernia EGD 01/23/2010 hx long segment Fink's s/p radiofrequecy ablation, bx neg, patulous GE junction EGD 12/19/2020 Normal EGD 05/26/2024 benign fundic gland polyp, neg Fink's halo ablation 2009 Series of treatments HERNIA REPAIR HX RPR INGUN HERNIA SLIDING ANY AGE TUBAL LIGATION HX VAGINAL HYSTERECTOMY VAGINAL HYSTERECTOMY UTERUS 250 GM/< FAMILY HISTORY Problem Relation Age of Onset Diabetes Mother Colon Cancer Mother other (heart disease) Mother Heart Father REVIEW OF SYSTEMS Review of Systems All other systems reviewed and are negative. PHYSICAL EXAM BP 130/82 Pulse 65 Ht 5' 3 (1.60m) Wt 135 lb 6.4 oz (61.4kg) BMI 23.99 kg/(m2). Physical Exam Constitutional: Appearance: Normal appearance. She is normal weight. HENT: Head: Normocephalic and atraumatic. Eyes: Pupils: Pupils are equal, round, and reactive to light. Cardiovascular: Rate and Rhythm: Normal rate and regular rhythm. Pulmonary: Effort: Pulmonary effort is normal. Breath sounds: Normal breath sounds. Abdominal: General: Abdomen is flat. Bowel sounds are normal. There is no distension. Palpations: Abdomen is soft. There is no mass. Tenderness: There is no abdominal tenderness. Hernia: No hernia is present. Skin: General: Skin is warm and dry. Neurological: General: No focal deficit present. Mental Status: She is alert and oriented to person, place, and time. Psychiatric: Mood and Affect: Mood normal. Behavior: Behavior normal. ASSESSMENT: 1. 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 EGD in 05/2024 notable for short segment fink's esophagus (-) IM, dysplasia. Taking prevacid 30mg daily with good control. Next EGD Fall 2026. - lansoprazole (PREVACID) 30 mg capsule; Take 1 capsule by mouth once daily. Dispense: 90 capsule; Refill: 3 - famotidine (PEPCID) 20 mg tablet; Take 1 tablet by mouth at bedtime as needed. Dispense: 30 tablet; Refill: 1 2. Gastroesophageal reflux disease, unspecified whether esophagitis present Chronic GERD well controlled on lansoprazole. Denies dyspepsia, acid reflux. Notes phlegm intermittently at night for the last few months. Has tr (more content not included)... [facility] 03-10-2025 History of Present illness Narrative CHIEF COMPLAINT: Patient presents with: Recheck: Fink's Esophagus HPI Kaylee Schwarz is a 74 year old female here today for Recheck (Fink's Esophagus ) Reflex is well controlled on prevacid. Mentions she is having intermittent clear phlegm at night. Props herself up with pillows and makes sure not to eat after 5pm. Mentions pills and bread with get stuck near the sternal notch. Will pass with sips of water or will cough stuck food back up. No trouble with liquids. Occurring roughly 1x/week. This is new since her last EGD Diagnostics: 05/26/24 - EGD Impression: - Z-line, 35 cm from the incisors. - Esophageal mucosal changes consistent with short-segment Fink's esophagus. Biopsied. - Multiple gastric polyps. Resected and retrieved. - Normal examined duodenum. FINAL DIAGNOSIS A. Stomach, fundus, polyp, biopsy: - Fundic gland polyp. B. Esophagus, 34 cm, biopsy: - Squamous and cardio-oxyntic mucosa with no diagnostic abnormality. - Negative for intestinal metaplasia and dysplasia. Current Outpatient Medications Medication Sig potassium chloride (KLOR-CON) 20 mEq packet Take by mouth. Cholecalciferol, Vitamin D3, 25 mcg (1,000 unit) cap Take 1,000 Units by mouth once daily. amLODIPine (NORVASC) 10 mg tablet Take 10 mg by mouth once daily. hydroCHLOROthiazide (HYDRODIURIL, ESIDRIX) 25 mg tablet Take 25 mg by mouth once daily. PREVACID 30 MG CAP Take one(1) tablet daily. amoxicillin (AMOXIL) 500 mg capsule TAKE FOUR CAPSULES BY MOUTH ONE HOUR BEFORE APPOINTMENT (Patient not taking: Reported on 03/10/2025) No current facility-administered medications for this visit. ALLERGIES Allergen Reactions Luiz Inhibitors Other: See Comments Tingling of the tongue Clonidine Other: See Comments Lisinopril Angioedema Social History Tobacco Use Smoking status: Never Smokeless tobacco: Never Vaping Use Vaping status: Never Used Substance Use Topics Alcohol use: No Drug use: No PAST MEDICAL HISTORY Diagnosis Date Adenomatous colon polyp Arthritis Fink's esophagus Diverticulosis FHx: colon cancer Gallstones GERD (gastroesophageal reflux disease) Hemorrhoids Hiatal hernia Hypertension Other and unspecified hyperlipidemia Skin cancer PAST SURGICAL HISTORY Procedure Laterality Date CHOLECYSTECTOMY COLONOSCOPY 07/05/2014 tubular adenoma, diverticulosis COLONOSCOPY 04/30/2018 normal COLONOSCOPY 05/06/2011 tubular adenoma, diverticulosis COLONOSCOPY SCREENING 04/09/2023 Diverticulosis EGD 06/28/2014 hiatal hernia EGD 01/23/2010 hx long segment Fink's s/p radiofrequecy ablation, bx neg, patulous GE junction EGD 12/19/2020 Normal EGD 05/26/2024 benign fundic gland polyp, neg Fink's halo ablation 2009 Series of treatments HERNIA REPAIR HX RPR INGUN HERNIA SLIDING ANY AGE TUBAL LIGATION HX VAGINAL HYSTERECTOMY VAGINAL HYSTERECTOMY UTERUS 250 GM/< FAMILY HISTORY Problem Relation Age of Onset Diabetes Mother Colon Cancer Mother other (heart disease) Mother Heart Father REVIEW OF SYSTEMS Review of Systems All other systems reviewed and are negative. PHYSICAL EXAM BP 130/82 Pulse 65 Ht 5' 3 (1.60m) Wt 135 lb 6.4 oz (61.4kg) BMI 23.99 kg/(m^2). Physical Exam Constitutional: Appearance: Normal appearance. She is normal weight. HENT: Head: Normocephalic and atraumatic. Eyes: Pupils: Pupils are equal, round, and reactive to light. Cardiovascular: Rate and Rhythm: Normal rate and regular rhythm. Pulmonary: Effort: Pulmonary effort is normal. Breath sounds: Normal breath sounds. Abdominal: General: Abdomen is flat. Bowel sounds are normal. There is no distension. Palpations: Abdomen is soft. There is no mass. Tenderness: There is no abdominal tenderness. Hernia: No hernia is present. Skin: General: Skin is warm and dry. Neurological: General: No focal deficit present. Mental Status: She is alert and oriented to person, place, and time. Psychiatric: Mood and Affect: Mood normal. Behavior: Behavior normal. ASSESSMENT: 1. 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 EGD in 05/2024 notable for short segment fink's esophagus (-) IM, dysplasia. Taking prevacid 30mg daily with good control. Next EGD Fall 2026. - lansoprazole (PREVACID) 30 mg capsule; Take 1 capsule by mouth once daily. Dispense: 90 capsule; Refill: 3 - famotidine (PEPCID) 20 mg tablet; Take 1 tablet by mouth at bedtime as needed. Dispense: 30 tablet; Refill: 1 2. Gastroesophageal reflux disease, unspecified whether esophagitis present Chronic GERD well controlled on lansoprazole. Denies dyspepsia, acid reflux. Notes phlegm intermittently at night for the last few months. Has tried elevating head of bed and not consuming food after 5 pm. Phlegm may be due to GERD or other etiologies such as post-nasal drip. -refilled prevacid -ordered pepcid 20mg - OK to take PRN at night when phlegm is worse. - lansoprazole (PREVACID) 30 mg capsule; Take 1 capsule by mouth once daily. Dispense: 90 capsule; Refill: 3 - famotidine (PEPCID) 20 mg tablet; Take 1 tablet by mouth at bedtime as needed. Dispense: 30 tablet; Refill: 1 3. Dysphagia, unspecified type New onset dysphagia over the last 7 months. Solids and pills intermittently get stuck just below sternal notch. Pass easily with sips of water - occasionally has to cough up food that is stuck. Denies difficulty breathing during these episodes. - esophagram ordered to assess dysphagia and reflux - XR ESOPHAGRAM; Future Supervising clinician was present and guided the care of the patient for the entire session on this date. All documentation was reviewed and agreed upon. Cade Lunsford APRN.CNP DATE: 03/10/25 TIME: 8:11 AM documented in this encounter [facility] 05-26-2024 Note HNO ID: [id number] Author: AYUSH ERNST RN Service: ? Author Type: Registered Nurse Type: Nursing Progress Note Filed: 05/26/2024 10:43 Note Text: Dr Wan at bedside. Reviewed procedure with patient and spouse, Cheng. [facility] 05-26-[address] Wan at bedside. Reviewed procedure with patient and spouse, Cheng. [facility] 05-26-[address] Wan at bedside. Reviewed procedure with patient and spouse, Cheng. documented in this encounter [facility] 05-26-2024 Note Formatting of this n ote might be different from the original. The patient received a copy of EGD discharge instructions that contain information for how to contact the physician who performed the procedure and when to seek medical care. [facility] 05-26-2024 Miscellaneous Notes The patient received a copy of EGD discharge instructions that contain information for how to contact the physician who performed the procedure and when to seek medical care. documented in this encounter [facility] 03-10-2024 History of Present illness Narrative CHIEF COMPLAINT: Patient presents with: Recheck: Due for EGD- Fink's Esophagus HPI: Kaylee Schwarz is a 73 year old female here today for Recheck (Due for EGD- Fink's Esophagus). She is doing well on her prevacid 30mg daily. She denies any dysphagia, n/v, abdominal pain, weight loss, loss of appetite. Denies any bowel issues. She has a hx of RFA of her Fink's in the past. Last EGD 12/19/20: Impression: - Esophagogastric landmarks identified. - [place]-colored mucosa suspicious for Fink's esophagus. Biopsied. - Normal stomach. - Normal first portion of the duodenum and second portion of the duodenum. FINAL DIAGNOSIS Gastroesophageal junction, biopsy Cardio-oxyntic mucosa with no diagnostic abnormality. Current Outpatient Medications Medication Sig potassium chloride (KLOR-CON) 20 mEq packet Take by mouth. Cholecalciferol, Vitamin D3, 25 mcg (1,000 unit) cap Take 1,000 Units by mouth once daily. amLODIPine (NORVASC) 10 mg tablet Take 10 mg by mouth once daily. hydroCHLOROthiazide (HYDRODIURIL, ESIDRIX) 25 mg tablet Take 25 mg by mouth once daily. PREVACID 30 MG CAP Take one(1) tablet daily. No current facility-administered medications for this visit. Facility-Administered Medications Ordered in Other Visits Medication Dose Route Frequency lidocaine (PF) 10 mg/mL (1 %) 1-2 mg injection (XYLOCAINE) 0.1-0.2 mL INTRADERMAL PRN lactated ringers iv infusion 30 mL/hr INTRAVENOUS CONTINUOUS ALLERGIES Allergen Reactions Luiz Inhibitors Other: See Comments Tingling of the tongue Clonidine Other: See Comments Lisinopril Angioedema Social History Tobacco Use Smoking status: Never Smokeless tobacco: Never Vaping Use Vaping Use: Never used Substance Use Topics Alcohol use: No Drug use: No PAST MEDICAL HISTORY Diagnosis Date Adenomatous colon polyp Arthritis Fink's esophagus Diverticulosis FHx: colon cancer Gallstones GERD (gastroesophageal reflux disease) Hemorrhoids Hiatal hernia Hypertension Other and unspecified hyperlipidemia Skin cancer PAST SURGICAL HISTORY Procedure Laterality Date CHOLECYSTECTOMY COLONOSCOPY 07/05/2014 tubular adenoma, diverticulosis COLONOSCOPY 04/30/2018 normal COLONOSCOPY 05/06/2011 tubular adenoma, diverticulosis COLONOSCOPY SCREENING 04/09/2023 Diverticulosis EGD 06/28/2014 hiatal hernia EGD 01/23/2010 hx long segment Fink's s/p radiofrequecy ablation, bx neg, patulous GE junction EGD 12/19/2020 Normal halo ablation 2009 Series of treatments HERNIA REPAIR HX RPR INGUN HERNIA SLIDING ANY AGE TUBAL LIGATION HX VAGINAL HYSTERECTOMY VAGINAL HYSTERECTOMY UTERUS 250 GM/< FAMILY HISTORY Problem Relation Age of Onset Diabetes Mother Colon Cancer Mother other (heart disease) Mother Heart Father REVIEW OF SYSTEMS Review of Systems All other systems reviewed and are negative. PHYSICAL EXAM BP 136/78 Pulse 62 Ht 5' 3 (1.60m) Wt 144 lb 8 oz (65.5kg) BMI 25.60 kg/(m^2). Physical Exam Vitals and nursing note reviewed. Constitutional: Appearance: Normal appearance. She is normal weight. HENT: Head: Normocephalic and atraumatic. Cardiovascular: Rate and Rhythm: Normal rate and regular rhythm. Pulmonary: Breath sounds: Normal breath sounds. Abdominal: General: Abdomen is flat. Bowel sounds are normal. Palpations: Abdomen is soft. Tenderness: There is no abdominal tenderness. There is no guarding or rebound. Skin: General: Skin is warm and dry. Neurological: Mental Status: She is alert and oriented to person, place, and time. Psychiatric: Mood and Affect: Mood normal. Behavior: Behavior normal. Thought Content: Thought content normal. Judgment: Judgment normal. ASSESSMENT: (K22.70) 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 (primary encounter diagnosis) (K21.9) Gastroesophageal reflux disease, unspecified whether esophagitis present 1. 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 - last EGD biopsies did not show any changes of intestinal metaplasia. Plan for repeat EGD for survellance. - continue prevacid 30mg daily - EGD DIAGNOSTIC; Future 2. Gastroesophageal reflux disease, unspecified whether esophagitis present - continue prevacid 30mg daily - EGD DIAGNOSTIC; Future Follow up in office 1 year Cade Lunsford APRN.CNP March 10, 2024 1:11 PM documented in this encounter [facility] 08-21-2023 Procedure note [facility] 08-21-2023 Discharge summary Note Date/Time August 21, 2023 8: 58am [facility] Medical Records Department [address] [place] [address] Instructions for Home/Discharge Instructions 08/21/23 0857 MR#: [id number] Acct: [id number] Name: KAYLEE SCHWARZ Rep #:[id number] : 1950 72 From: Nicky Glover PCP: DEE ECHEVARRIA Status:REG [facility] Discharge Instructions Diet Discharge Diet: No restrictions Activity Discharge Activity: Return to Normal Activity Dressing / Incision Call your doctor if you observe: Fever of 101 or Higher, Inability to urinate and Inability to have a bowel movement Follow Up Care Please Follow Up With: Nicky Gusman MD When: The office will call to make follow-up arrangements Test Results: Test results from this visit will be discussed in further detail at your follow-up appointment, if applicable. Discharge Plan Admission Attending Provider: Nicky Gusman Primary Care Provider: DEE ECHEVARRIA Discharge Orders/Prescriptions Prescriptions: New cephalexin [cephalexin] 500 mg capsule 500 mg PO Q12 3 Days Qty: 6 0RF oxycodone-acetaminophen 10-325 mg tablet 1 tab PO Q8H PRN (Reason: pain) 3 Days Qty: 9 0RF methen-sod phos-meth blue-hyos [Urogesic-Blue] 81.6-40.8-0.12 mg tablet 1 tab PO Q6H PRN PRN (Reason: bladder spasms) 15 Days Qty: 30 3RF Continued lansoprazole [Prevacid] 30 MG capsule 30 mg PO DAILY hydrochlorothiazide 25 MG tablet 25 mg PO DAILY methen-sod phos-meth blue-hyos [Urogesic-Blue] 81.6-40.8-0.12 mg tablet 1 tab PO PRN PRN (Reason: bladder spasms) potassium chloride [Klor-Con] 20 mEq packet 20 meq PO BID amlodipine 10 mg tablet 10 mg PO DAILY cholecalciferol (vitamin D3) [Vitamin D3] 25 mcg (1,000 unit) capsule 25 mcg PO DAILY Patient Comments: pt. takes OTC Referrals / Follow Up: DEE ECHEVARRIA [Other] Disposition Disposition (needs filled in before D/C Order can be placed): Home, Self Care 08/21/23901<Electronically signed by Nicky Gusman MD>Nicky Gusman MD CC: DEE ECHEVARRIA ~ Signed [facility] Work Phone: 1(142) 449-490412-09-2023 Discharge summary Author Cj Malave [facility] July 26, 2023 3:11am Note Date/Time July 26, 2023 1 :08am [facility] Medical Records Department [address] [place], [place] [address] [place] [address] Emergency Department Summary 07/26/23 MR#: [id number] Acct: [id number] Name: KAYLEE SCHWARZ Rep #:[id number] : 1950 72 From: Cj Malave MD PCP: SWATHIDEE Status:REG ER Location: ED HPI History of Present Illness Chief Complaint: Flank Pain Narrative Narrative: 72-year-old female past medical history of GERD, hypertension, presents with left flank pain that began this afternoon. She states she started feeling twinges of pain in her left flank that radiated towards the front. It became worse at around 3 PM this afternoon, approximately 10 hours ago. She is nauseated and started vomiting. She vomited 3 times without any blood in her emesis. She denies any problems with bowel movements, no diarrhea. She denies any dysuria or hematuria. No exacerbating or alleviating factors. PFSH PFSH Home Medications lansoprazole 30 mg capsule,delayed release (Prevacid) 30 mg PO DAILY 10/23/18 [History Last Taken Unknown] guaifenesin 600 mg tablet, extended release 12 hr 600 mg PO BID #10 tabs 10/01/19 [Rx Last Taken Unknown] hydrochlorothiazide 25 mg tablet 25 mg PO DAILY 10/01/19 [History Last Taken 10/01/19] lisinopril 10 mg tablet 10 mg PO 10/01/19 [History Last Taken 09/26/19] Allergy/AdvReac Type Severity Reaction Status Date / Time clonidine Allergy Severe Shortness Verified 07/26/23 00:41 of breath LUIZ Inhibitors Allergy Angioedema Verified 07/26/23 00:40 Social History Smoking Status: Never smoker ROS ROS ED ROS Narrative Constitutional: No fever, no chills. HEENT: No sore throat. No neck pain. No loss of vision. No rhinorrhea. Cardiovascular: No chest pain. No palpitations. No pedal edema. Respiratory: No cough, no shortness of breath. Abdominal: No abdominal pain. 3 episodes of nausea and vomiting, no hematemesis. Genitourinary: No dysuria. No hematuria. Positive left flank pain. Radiates towards front. Musculoskeletal: No myalgias. No arthralgias. Neurologic: No headaches. No dizziness. No lightheadedness. Skin: No rash. No change in color. Psychiatric: No depression. No anxiety. EXAM Physical Exam Narrative Exam Narrative: Afebrile. Vital signs noted. HEENT: Normocephalic. Atraumatic. PERRL, EOMI. Neck soft and supple. No pointtenderness or step off. Cardiovascular: Regular rate and rhythm. No murmurs, rubs, or gallops appreciated. Respiratory: No tachypnea. Lungs clear to auscultation bilaterally. Gastrointestinal: Abdomen soft, nontender, with normoactive bowel sounds. No rebound or guarding. Neurological: Awake. Alert. Nonfocal, nonlateralizing. Skin: No rash. Normal color. No pallor. Musculoskeletal: No pedal edema. Full range of motion extremities. Const Vital Signs: 07/26/23 00:41 Temperature 97.3 F L Temperature Source Oral Pulse Rate 78 Respiratory Rate 18 Blood Pressure 152/66 H Blood Pressure Mean 94 Pulse Ox 99 Oxygen Delivery Method Room Air MDM MDM MDM Narrative Medical decision making narrative: In the right shoulder gnosis is ureterolithiasis versus UTI versus diverticulitis. I have low suspicion for diverticulitis because the history andphysical does not support this. She will be given morphine and ondansetron and IV fluids at 250 mL/h. CT will be obtained to rule out ureterolithiasis. I will also obtain a UA and basic lab work. I reviewed her laboratory work and she has a leukocytosis of 14 which may be demargination from her nausea and vomiting. Platelet count normal at 318, hemoglobin normal at 12.8. M potassium slightly low at 3.1 which I think is from her vomiting, creatinine slightly elevated at 1.21 with a BUN of 28 which may be more dehydration. Glucose is elevated at 163 with a normal anion gap of 9. Urinalysis shows WBC count of 5-10. This will be sent for culture. I reviewed the CT report which shows a 4 x 4 x 6 mm stone in the proximal third ofthe left ureter with hydronephrosis. After morphine and ondansetron, she was still having pain. Given the size of the stone, and her leukocytosis, while I do not have an immediate concern for urosepsis, I discussed patient with Dr. Gusman with urology who will admit the patient to the medical surgical floor. She will be started on Rocephin. Disposition is admit in stable condition. History & Record Review Discussion w/independent historian: Patient Lab Data Attestation: I reviewed the patient's lab results. Labs: Laboratory Results - last 24 hr 07/26/23 01:25 WBC 14.0 H RBC 4.87 Hgb 12.8 Hct 38.4 MCV 78.9 L MCH 26.3 L MCHC 33.3 RDW Std Deviation 43.2 RDW Coeff of Ebonie 15.1 H Plt Count 318 MPV 10.0 Immature Gran % (Auto) 0.800 Neut % (Auto) 81.9 H Lymph % (Auto) 11.2 L Rains % (Auto) 5.1 Eos % (Auto) 0.6 Baso % (Auto) 0.4 Absolute Neuts (auto) 11.5 H Absolute Lymphs (auto) 1.57 Nucleated RBC % 0 Sodium 138 Potassium 3.1 L Chloride 102 Carbon Dioxide 27.0 Anion Gap 9 BUN 28 H Creatinine 1.21 H Estim Creat Clear Calc 35.28 Est GFR (MDRD) Af Amer 56 L Est GFR (MDRD) Non-Af 47 L BUN/Creatinine Ratio 23.1 H Glucose 163 H Calcium 9.6 Urine Color Yellow Urine Clarity Clear Urine pH 7.0 Ur Specific Tyrone 1.010 Urine Protein 30 H Urine Glucose (UA) 100 H Urine Ketones Negative Urine Occult Blood 10 H Urine Nitrite Negative Urine Bilirubin Negative Urine Urobilinogen Normal Ur Leukocyte Esterase 100 H Urine RBC 0-5 SEEN Urine WBC 5-10 SEEN Ur Squamous Epith Cells 0 SEEN Urine Bacteria 0 SEEN Urine Mucus 0 SEEN Radiography Diagnostic Testing: Clinical Impression(s) from Imaging Studies Abdomen/Pelvis CT 07/26/23 01:42 IMPRESSION: Mild-moderate left hydronephrosis to the level of a 4 mm x 4 mm x 6 mm stone in the proximal left ureter. Left nephrolithiasis. No other acute findings. Cholecystectomy. Hysterectomy. Moderate diverticulosis. Small hiatal hernia. Electronically Signed: Sabrina Flores MD at 2:45 EST , Discharge Plan Dx/Rx/DC Orders Clinical Impression: Intractable pain, Ureterolithiasis, Nausea and vomiting Disposition Disposition: Acute Care [facility] What to do if you have Problems For any increased pain, shortness of breath, bleeding, nausea or vomiting, chestpain, or any unexpected problems, contact your Primary Care Provider. Call [facility] ([phone]) or report to the closest Emergency Room. Call 911 if necessary. 07/26/23 0311 <Electronically signed by Cj Malave MD> Cosigner Signature (if applicable): CC: DEE ECHEVARRIA ~ Signed [facility] Work Phone: 1(490) 571-586008-23-2023 Nurse Note* Elvia Templeton RN - 04/09/2023 9:[address] Whalen at bedside to speak to patient. Verbalizes understanding. OK to d/c. [facility]08-23-2023 Nurse Note* Elvia Templeton RN - 04/09/2023 9:[address] Whalen at bedside to speak to patient. Verbalizes understanding. OK to d/c. documented in this encounterW[facility] History and physical note * Mercy Whalen MD - 04/09/2023 8:30 AM EDT HISTORY AND PHYSICAL Kaylee Schwarz, 72 year old female here for colonoscopy, high risk for colonoscopy, history of colon polyps Current history and physical on file: No Is a new History and Physical required for today's visit? Yes Indication for procedure: History of colon polyps PROCEDURE(S) SCHEDULED FOR: Colonoscopy with or without biopsies and with or without removal of polyps or lesions, dilation (any means), treatment of bleeding (any means), based on clinical findings. BASELINE BEHAVIOR: Calm BASELINE ORIENTATION: A & O x3 All medications and allergies reviewed: Yes Skin Assessment: Warm dry muscus membranes pink Airway/Respiratory Assessment: Airway: visualization of the uvula- Yes Mouth: opening greater than 2 fingerbreadths- Yes Neck: full range of motion- Yes Breath sounds clear/equal- Yes Cardiac Assessment: Regular rate and rhythm without murmur Abdominal Assessment: Abdomen soft, non-tender, no masses or organomegaly. Sedation Plan: Deep Additional Comments: None Mercy Whalen MD [facility] Work Phone: 1(808) 592-967408-23-2023 History and physical note* Mercy Whalen MD - 04/09/2023 8:30 AM EDT HISTORY AND PHYSICAL Kaylee Schwarz, 72 year old female here for colonoscopy, high risk for colonoscopy, history of colon polyps Current history and physical on file: No Is a new History and Physical required for today's visit? Yes Indication for procedure: History of colon polyps PROCEDURE(S) SCHEDULED FOR: Colonoscopy with or without biopsies and with or without removal of polyps or lesions, dilation (any means), treatment of bleeding (any means), based on clinical findings. BASELINE BEHAVIOR: Calm BASELINE ORIENTATION: A & O x3 All medications and allergies reviewed: Yes Skin Assessment: Warm dry muscus membranes pink Airway/Respiratory Assessment: Airway: visualization of the uvula- Yes Mouth: opening greater than 2 fingerbreadths- Yes Neck: full range of motion- Yes Breath sounds clear/equal- Yes Cardiac Assessment: Regular rate and rhythm without murmur Abdominal Assessment: Abdomen soft, non-tender, no masses or organomegaly. Sedation Plan: Deep Additional Comments: None Mercy Whalen MD documented in this encounterW[facility] Instructions* Patient Instructions* Elsa Win PA-C - 09/17/2022 8:43 AM EST Images from the original note were not included. Bowel Preparation Instructions for: Miralax-Gatorade Preparations IF YOU DO NOT FOLLOW THESE DIRECTIONS, YOUR COLONOSCOPY WILL BE CANCELLED. [place] Instructions: Your bowel must be empty so [...] If you do not have a responsible otr refrigerated cdl truck driver (family member or friend) withyou to take you home, your exam cannot be done with sedation and will be cancelled. Please bring a list of all of your current medications, including any Kzyi-qti-Vjrslpy medications with you. Medications If you take insulin, diabetic medications or blood thinners such as Coumadin (warfarin), Plavix (clopidogrel), Ticlid (ticlopidine hydrochloride), Agrylin (anagrelide), Xarelto (Rivaroxaban), Pradaxa(Dabigatran), Eliquis (Apixaban), and Effient (Prasugrel). You MUST [...] every 15 minutes for a total of 2glasses. You may continue to drink clear liquids up to (three) 3 hours before your exam. 2 07/2019 documented in this encounterW[facility]01-[facility]-2023 Miscellaneous Notes* Telephone Encounter - Karina Villavicencio - 09/17/2022 8:39 AM EST Please create a screening colonoscopy order, thank you documented in this encounterW[facility]12-[facility]-2022 Instructions* Patient Instructions* Jeri Sorto APRN.CNP - 07/28/2022 9:25 AM EST Flonase and Mucinex ER tablet over the counter for sinus symptoms/congestion Go to ER or call 911 for any stroke symptoms, passing out or worst headache of your life that starts suddenly documented in this encounterW[facility]12-[facility]-2022 History of Present illness Narrative* Jeri Sorto APRN.CNP - 07/28/2022 9:10 AM EST CC: Patient presents with: Sinus Problem: sinus [...] she got out of bed. Described as roomspinning and feeling off balance. Triggered by head movements, changing positions. Alleviated by sitting still. Neurological symptoms: Denies syncope, feeling faint, seizures, memory loss, confusion, numbness ortingling of hands, numbness or tingling of feet, muscle weakness, neck stiffness, involuntary movements, tremor, slurred speech, facial drooping, visual disturbances REVIEW OF SYSTEMS See HPI PAST MEDICAL HISTORY Diagnosis Date Adenomatous colon polyp Fink's esophagus Diverticulosis FHx: colon cancer Gallstones GERD (gastroesophageal reflux disease) Other and unspecified hyperlipidemia PAST SURGICAL HISTORY Procedure Laterality Date CHOLECYSTECTOMY COLONOSCOPY 07/05/2014 tubular adenoma, diverticulosis COLONOSCOPY 04/30/2018 normal COLONOSCOPY 05/06/2011 tubular adenoma, diverticulosis EGD 06/28/2014 hiatal hernia EGD 01/23/2010 hx long segment Fink's s/p radiofrequecy ablation, bx neg, patulous GE junction EGD 12/19/2020 Normal halo ablation 2008 Series of treatments RPR INGUN HERNIA SLIDING ANY AGE TUBAL LIGATION HX VAGINAL HYSTERECTOMY UTERUS 250 GM/< ALLERGIES Luiz Inhibitors and Lisinopril MEDICATIONS KLOR-CON 20 mEq [...] plan. Jeri Sorto APRN.CNP documented in this encounterW[facility]10-27-2022 Miscellaneous Notes* Telephone Encounter - Lolita Elizabeth LPN - 06/13/2022 1:56 PM EDT Patient notified of results, verbalizes understanding of instructions. Lolita Elziabeth LPN * Telephone Encounter - Jillian Goyal APRN.CNP - 06/13/2022 1:34 PM EDT Urine culture did not grow any bacteria. If symptoms are persisting patient should follow-up with primary care physician. documented in this encounterW[facility]10-[facility]22 History of Present illness Narrative* Jillian Goyal APRN.CNP - 06/12/2022 10:12 AM EDT CC: Patient presents with: UTI: Burning x [...] MEDICAL HISTORY Diagnosis Date Adenomatous colon polyp Fink's esophagus Diverticulosis FHx: colon cancer Gallstones GERD (gastroesophageal reflux disease) Other and unspecified hyperlipidemia PAST SURGICAL HISTORY Procedure Laterality Date CHOLECYSTECTOMY COLONOSCOPY 07/05/2014 tubular adenoma, diverticulosis COLONOSCOPY 04/30/2018 normal COLONOSCOPY 05/06/2011 tubular adenoma, diverticulosis EGD 06/28/2014 hiatal hernia EGD 01/23/2010 hx long segment Fink's s/p radiofrequecy ablation, bx neg, patulous GE junction EGD 12/19/2020 Normal halo ablation 2009 Series of treatments RPR INGUN HERNIA SLIDING ANY AGE TUBAL LIGATION HX VAGINAL HYSTERECTOMY UTERUS 250 GM/< ALLERGIES Luiz Inhibitors and Lisinopril MEDICATIONS meloxicam (MOBIC) 15 [...] mg capsule Take 1 capsule by mouth twicedaily for 5 days. nystatin (MYCOSTATIN) powder Apply [...] occur. Patient agreeable to treatment plan. Jillian Goyal APRN.XOCHITL documented in this encounterW[facility]09-14-2022 Note Date of Service 05/01/2022 Chief Complaint [...] HR: 81(Apical) RR: 18 BP: 108/67 SpO2: 94%HT: 160 cm WT: 64.6 kg BMI: 25.23 [...] edema. Peripheral pulses palpable. No calf tenderness. Rightknee surgical dressing dry and intact. Neurological: Patient [...] by RUBY SANDRA on 05/01/2022 03:51 PM [facility]09-14-2022 Note Discharge Instructions Thank you for allowing [facility] to assist you with your healthcare needs. The following is importantdischarge information regarding your hospital visit. Your Care Team DR. LYNNE Your Diagnosis GERD (gastroesophageal reflux disease) HTN (hypertension) OA (osteoarthritis) Status post total right knee replacement Anemia What to do next Follow Up Appointments Follow Up with MICHEL LORA PA-C, Orthopedic When 05/13/2022 08:45 AM EDT Why: Follow-up as scheduled Where: [facility] [address] [place] [address]- Follow Up with [facility] When 05/03/2022 08:00 AM EDT Why: Follow-up as scheduled Where: Follow Up with DO DEE ECHEVARRIA When Within 5 to 7 days Why: Office closed, please follow up Where: [address] [place] [address]- The Following Activity and Diet Have Been [...] Acute Orders No qualifying data available. Allergies LUIZ inhibitors (tingling of tongue) cloNIDine (tingling of tongue) lisinopril (tingling of tongue) Medications Please ask your primary doctor or pharmacist before taking any other medication not listed, including over the counter drugs, herbal medications, vitamins and or supplements as they may interact withyour home medications. What How Much When Why Instructions Last Dose New aspirin (aspirin 81 mg oral delayed release tablet) 1 tab(s) by mouth Two (2) times a day Duration: 30 Days Take 81 mg aspirin twice daily with food for 4 weeks postoperatively for DVT prophylaxis Pickup at [facility] 181105/01/22 at 0846am New docusate-senna (Senokot S 50 mg-8.6 mg oral tablet) 2 tab(s) by mouth Two (2) times a day Take until first bowel movement, then as needed Pickup at [facility] 181105/01/22 at 0846 New ferrous sulfate (ferrous sulfate 325 mg (65 mg elemental iron) oral tablet) 1 tab(s) by mouth Two (2) times a day Anemia Duration: [address] [facility] 181105/01/22 at 0846 New folic acid (folic acid 1 mg oral tablet) 1 tab(s) by mouth Once a day Anemia Duration: [address] [facility] 181105/01/22 at 0846 New meloxicam (Mobic 7.5 mg oral tablet) 1 tab(s) by mouth Twice daily with meals Do not take any other nonsteroidal anti-inflammatories while on meloxicam/ Mobic Pickup at [facility] start tomorrow New oxyCODONE (oxyCODONE 5 mg oral tablet ( IMMEDIATE release )) See instructions Status post total right knee replacement 1-2 tab(s) Oral q4h Pickup at [facility] 181105/01/22 at 0846 Unchanged acetaminophen (Tylenol Extra [...] other beverage 05/01/22 at [address] [facility]: [address] [place], [place] [phone] Please take this list to your next doctor s visit. Bring all medications you take, including over the counter medications, herbals and other supplements with you to your doctor s visit. Patients and families are reminded to discard old lists and to update any records with all medication providers or retail pharmacies. Education Materials [facility] Post-operative Instructions PLEASE FOLLOW [facility] POST-OP INSTRUCTIONS GIVEN WATCH FOR SIGNS OF INFECTION: call the office ([phone]) if experencing any of the following: (Usually [...] on your follow up instructions. Form: 338A ([id number]) R: 12/22 Additional Information VACCINATE! IT SAVES LIVES! Members of the community who have not yet received the COVID-19 vaccine and would like to receive it can visit one of [facility] vaccine clinics. There are many vaccine clinic locations within the [facility]. For locations and available times, please visit [email or web address] It is important to note that some COVID mobile vaccine clinics are held outdoors and may be canceled in rainy or stormy conditions. To learn more about pediatric vaccinations (ages 5-11), we invite you to visit the [facility] webpage. [email or web address].[email or web address]/pages/7209-Aaifz-Ewtmcxzgwyv-Zeqsfwlqrk-Wanjg-Ily stions.htmlTo learn more about the COVID-19 vaccine, we invite you to visit the [employer] website for a list of frequently asked questions. [email or web address]-[email or web address]/[email or web address]-Onlrueevkq _[email or web address]-Questions.pdf [facility] Patient [facility] Access Instructions: Stay connected with your healthcare team and access your personal medical information anytime with the [facility] Patient Portal.If you would like a full copy of your medical records, please contact the [facility] Medical Records Department, Friday through Friday between 8a.m. and 4:30p.m. Please follow the directions below to access the portal: 1.Access the email account you provided upon registration to the [facility].2.Look for an invitation email from [facility].3.Open the email and access the invitation link: Accept Invitation to [facility]4.Fill in the required ramírez to create your account. Sign into [email or web address] with your username and password that you [...] you will allow to register on the [place] [facility] Patient Portal for access to your information. You can also access the [facility] Patient Portal on the [employer] latha. Simply click on Health Records under Linki and then click on the [employer] logo. HOW TO SAFELY DISPOSE OF PRESCRIPTION MEDICATIONS Please use one of the following methods to safely dispose of your unused medications. 1.Use a drug disposal kit: the drug disposal pouch allows you to safely discard your old and unuseddrugs. Ask your nurse to give you one when you are discharged.2.Visit a local take-back location: Many local pharmacies and police departments have programs that collect old and unwanted prescriptiondrugs. Call your local pharmacy or go to http://bit.SMIC/4Z3Il4l to find one close to you.3.Make use of household items: Use cat litter or old coffee grounds to dispose medications if other options arenot available. Mix your drugs with these household products, seal them in an airtight container andthrow it into the garbage. Call [facility]: [phone] to be sure your drugs can be [...] a CHART COPY. Signatures Patient Education Materials [facility] Post-op Instruction 03/2017 (96603) Medication Leaflets My discharge plan and instructions have been reviewed and explained to me and I,KAYLEE SCHWARZ understand my current condition and have read and understand these discharge instructions. I have received a written copy of the plan/instructions. If I have questions, I am aware that I should contact my doctor. Patient/Agency Sales Management Assistant Signature: Date/Time: Relationship to Patient: Witness Name/Signature: Date/Time: [facility]09-14-2022 Hospital Discharge instructions Patient Education 05/01/2022 07:27:21 5 - [facility] Post-op Instruction 03/2017 (08228) [facility] Post-operative Instructions PLEASE FOLLOW [facility] POST-OP INSTRUCTIONS GIVEN WATCH FOR SIGNS OF INFECTION: call the office ([phone]) if experencing any of the following: (Usually [...] on your follow up instructions. Form: 338A (48786) R: 12/22 Follow Up Care 03/15/2022 13:27:17 With:DO DEE ECHEVARRIA Address: [address] [place] [address]. [place] [address]- When:5 to 7 days Comments:Office closed, please follow up With:[facility] Address: When:05/03/2022 08:00:00 Comments:Follow-up as scheduled With:MICHEL LORA PA-C, Orthopedic Address: [facility] [address] [place] [address]- When:05/13/2022 08:45:00 Comments:Follow-up as scheduled [facility] 09-14-2022 Note Date of Service May 01, 2022 [...] from anesthesia and her morning potassium is 4.0.She has had some decrease O2 saturation overnight but she currently denies any shortness of breath.Denies any history of COPD or sleep apnea. [...] We will have her follow-up with her primarycare physician Dr. Dee Echevarria for follow-up lab [...] would like her medications E scribed to [facility] in [facility]. Shewill contact her office upon discharge with any concerns or questions. I have reviewed the [place] Automated Rx Reporting System (OARRS) report for this patient for refill pattern and other prescriber involvement as part of the appropriate surveillance for the provision ofacute and chronic controlled medications. The report was requested and reviewed on the date of thisentry, and was considered in the prescribing process This dictation was created using voice recognition software. Phonetic and/or grammatical errors mayexist. Orders: ferrous sulfate, Start: 05/01/22 6:58:00 EDT, Dose = 325 mg, = 1 tab(s), Oral, BID, 05/01/22 6:58:00 EDT folic acid, Start: 05/01/22 9:00:00 EDT, Dose = 1 mg, = 1 tab(s), Oral, qDay, 05/01/22 6:59:00 EDT Discharge Outpatient Labwork Discharge Outpatient Labwork Digitally Signed by MICHEL LORA PA-C on 05/01/2022 07:27 AM [facility]09-13-2022 Note ORIGINAL EXAMINATION: TWO XRAY VIEWS OF [...] 04/30/2022 2:45:47 PM Ordering Provider: DONTE LYNNE [place] [address]-13-2022 Note ORIGINAL EXAMINATION: TWO XRAY VIEWS OF [...] Sign Date: 04/30/2022 2:45:47 PM Ordering Provider: [facility]09-13-2022 Anesthesiology Consult note Patient: KAYLEE SCHWARZ Age: 71 years Sex: Female : 1950 Associated Diagnoses: None Author: BENY GALVAN APRN-FIRE ALARM OPERATOR Preoperative Information Anesthesia history Patient's history: negative. Family's history: negative. Health Status Allergies: Allergic Reactions (Selected) Severity Not Documented LUIZ inhibitors- Tingling of tongue. CloNIDine- Tingling of tongue. Lisinopril- Tingling of tongue., Allergies (3) ActiveReaction LUIZ inhibitorstingling of tongue cloNIDinetingling of tongue lisinopriltingling [...] Oral, BID, Dissolve one packet in 4 to5 ounces of water or other beverage, 30 [...] 2.5 mg 25 mg 5 mL, Other, [facility] ropivacaine 25 mg + ketorolac 15 mg + epinephrine 0.3 mg + morphine 2.5 mg 25 mg 5 mL, Other, [facility] tranexamic acid PMX 1 gram(s) 100 mL, [...] been selected or recorded. Procedure history: Hysterectomy (530893710). Repair of inguinal hernia (82842209). Comments: 04/12/2022 8:06 EDT - Neha Barone RN Right Endoscopic radiofrequency ablation of esophageal epithelium (7145771951). Colonoscopy (029377530). Cholecystectomy (79411917). EGD - Esophagogastroduodenoscopy (5112732403). Varicose veins (098858453). 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 Lives In Single level home Current [...] Resp Rate 20 br/min (APR 30 08:57) UNM809 mmHg (APR 30 08:57) DBP70 mmHg (APR 30 08:57) BMI24.84 (APR 30 08:57) Measurements from flowsheet : Measurements 04/30/2022 8:57 EDT Height 160 cm Height in inches 63 inch(es) Admission Weight 63.6 kg Weight Lbs 139.9 lb Weight Method Stated Tovey Body Weight 52.38 kg Body Mass Index [...] Person #1 We May Share DIEGO Schwarz [phone] Designated Person #1 Relationship Spouse Designated Person #2 We May Share DIEGO Schwarz [phone] Designated Person #2 Relationship Daughter Privacy Restrictions Requested None Height 160 cm Height in inches 63 inch(es) Admission Weight 63.6 kg Weight Lbs 139.9 lb Weight Method Stated Tovey Body Weight 52.38 kg Body Mass Index 24.84 kg/m2 Body Mass Index 24.84 kg/m2 Admission Body Mass Index 24.84 m2 Temperature Temporal Artery 36.9 DegC Apical Heart Rate 74 bpm Respiratory Rate 20 br/min Systolic Blood Pressure NBP 129 mmHg Diastolic Blood Pressure NBP 70 mmHg Primary Pain Intensity 0 Pain Scale Type 0-10 Pain scale Nail Bed Color [place] Capillary Refill < 2 seconds Heart Rhythm Regular All Lobes Breath Sounds Clear Oxygen Therapy Room air Oxygen Saturation 99 % Abdomen Description Non-distended Abdomen Palpation Non-Tender Bowel Sounds All Quadrants Present Urinary Elimination Voiding, no difficulties Status N/A Skin Temperature Warm Skin Description [place], Dry Skin Integrity Intact IV Present Present [...] Weeks No Weight Loss No Allergies Yes Hamper Maker On Yes Consent Form Signed Yes Patient Dressed In Hospital gown CHG Preoperative Wash/Wipe Night before procedure, Day of procedure Preop Nasal Swab Povidone-Iodine CHG Skin Prep Completed for Eligible Surgery History & Physical Update On Chart Yes History & Physical On Chart Yes Obstructive Sleep Apnea Assess Completed Yes Safety Brochure Information Reviewed Yes [facility] Video Viewed No Barriers to Learning None evident Teaching Method Explanation, Printed materials Teaching Evaluation Verbalizes/Nonverbally indicates understanding Preferred Written Language Afghan Preferred Spoken Language Afghan Information Given by Patient Patient's Current Physicians [...] Day Patient History . Assessment and Plan [place] [employer] Anesthesiologists (ASA) physical status classification: Class III. Anesthetic Preoperative Plan Anesthetic technique: Spinal. Regional: Spinal. Postoperative pain management: adductor canal. Risks discussed: nausea, vomiting, headache, hypotension, allergic reaction, serious complications. Informed consent: signed by patient. Digitally Signed by BENY GALVAN on 04/30/2022 09:15 AM [facility]08-26-2022 Note ORIGINAL EXAMINATION: TWO XRAY VIEWS OF [...] Sign Date: 04/12/2022 11:17:07 AM Ordering Provider: [facility]08-26-2022 Note ORIGINAL EXAMINATION: TWO XRAY VIEWS OF [...] Jay Jay Fish MD Preliminary Report By: Ricrado Alvarez Electronically signed By Jay Jay Fish MD Dictated Date: 04/12/2022 10:58:58 AM Prelim Date: 04/12/2022 11:17:07 AM Sign Date: 04/12/2022 11:17:07 AM Ordering Provider: [facility]05-15-2007 History of Past illness Narrative* Problem Noted Date Resolved Date Other chronic dermatitis due to solar radiation 12/30/2006 02/25/2009 documented as of this encounter (statuses as of 06/12/2022) [facility]05-15-2007 History of Past illness Narrative* Problem Noted Date Resolved Date Other chronic dermatitis due to solar radiation 12/30/2006 02/25/2009 documented as of this encounter (statuses as of 07/28/2022) [facility]05-15-2007 History of Past illness Narrative* Problem Noted Date Resolved Date Other chronic dermatitis due to solar radiation 12/30/2006 02/25/2009 documented as of this encounter (statuses as of 08/11/2022) [facility]05-15-2007 History of Past illness Narrative* Problem Noted Date Resolved Date Other chronic dermatitis due to solar radiation 12/30/2006 02/25/2009 documented as of this encounter (statuses as of 09/17/2022) [facility] + Plan note Future Appointments [facility] Evaluation noteNo assessment information available [facility] Work Phone: Evaluation note* Diagnosis Burning with urination- Primary Dysuria Fungal rash of torso documented in this encounter [facility] note* Diagnosis Viral URI- Primary Acute upper respiratory infections of unspecified site Vertigo Dizziness and giddiness documented in this encounter [facility] note* Diagnosis Screening for colon cancer- Primary Special screening for malignant neoplasms, colon documented in this encounter [facility] note* Diagnosis Onset Date Resolution Status Intractable pain acute Nausea and vomiting acute Ureterolithiasis acute [facility] Work Phone: Evaluation note* Diagnosis Onset Date Resolution Status Ureterolithiasis acute Acute renal insufficiency re solved Hydronephrosis, left resolve d Intractable pain resolved Nausea and vomiting resolved [facility] Work Phone: Evaluation note* Diagnosis 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- Primary Fink's esophagus Gastroesophageal reflux disease, unspecified whether esophagitis present documented in this encounter [facility] note* Diagnosis Screening for colon cancer Special screening for malignant neoplasms, colon documented in this encounter [facility] note* Diagnosis Pain Generalized pain documented in this encounter [facility] note* Diagnosis 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 Fink's esophagus Gastroesophageal reflux disease, unspecified whether esophagitis present documented in this encounter [facility] note* Diagnosis 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- Primary Fink's esophagus Gastroesophageal reflux disease, unspecified whether esophagitis present Dysphagia, unspecified type documented in this encounter [facility] note* Diagnosis Gastroesophageal reflux disease, unspecified whether esophagitis present- Primary Dysphagia, unspecified type 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 Fink's esophagus [facility] No data available for this section [facility] Hospital Discharge instructions No data available for this section [facility] Hospital Discharge instructions Additional Instructions [facility] Progress note No data available for this section [facility] Reason for referral (narrative)* Outpatient Procedure (Routine) - Pending Review Specialty Diagnoses / Procedures Referred By Contac t Referred To Contact [facility] Diagnoses Screening for colon cancer Procedures COLONOSCOPY SCREENING COLONOSCOPY FLX DX W/COLLJ SPEC WHEN PFRMElsa Graham PA-C [address] [facility] [place] [address] [facility] [address] [place] [address] Referral ID Status Reason Start Date Expiration Date Visits Requested Visits Authorized [id number] Pending Review Auto-Generat ed Referral 09/17/2022 09/17/2023 1 1 [facility] for referral (narrative)* Outpatient Procedure (Routine) - Pending Review Specialty Diagnoses / Procedures Referred By Contbutch knowles Referred To Contact [facility] Diagnoses 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 Gastroesophageal reflux disease, unspecified whether esophagitis present Procedures EGD DIAGNOSTIC ESOPHAGOGASTRODUODENOSC OPY TRANSORAL DIAGNOSTIC Cade Lunsford APRN.CNP [address] [place] [address] [facility] [address] [place] [address] Referral ID Status Reason Start Date Expiration Date Visits Requested Visits Authorized [id number] Pending Review Auto-Generat ed Referral 03/10/2024 03/10/2025 1 1 [facility] for referral (narrative)* Outpatient Procedure (Routine) - Closed Specialty Diagnoses / Procedures Referred By Contac t Referred To Contact ENDOSCOPY Diagnoses Screening for colon cancer Procedures COLONOSCOPY SCREENING COLONOSCOPY FLX DX W/COLLJ SPEC WHEN PFRMD Elsa Villanueva PA-C [address] [place] [address] [facility] [address] [place] [address] Referral ID Status Reason Start Date Expiration Date V isits Requested Visits Authorized [id number] Closed Auto-Generate d Referral 02/13/2023 08/17/2023 1 1 [facility] for referral (narrative)* Diagnostic Procedure Only (Urgent) - Closed Specialty Diagnoses / Procedures Referred By Contac t Referred To Contact XR IMAGING Diagnoses Pain Procedures XR WRIST INJURY 4V PA/LAT/OBL/SCAPH RIGHT RADEX WRIST COMPLETE MINIMUM 3 VIEWS Jillian Goyal APRN.SPACE SCIENCES DIRECTOR [address] [place] [address] [place] [address] Referral ID Status Reason Start Date Expiration Date V isits Requested Visits Authorized [id number] Closed Auto-Generate d Referral 08/07/2022 09/06/2023 1 1 [facility] for referral (narrative)* Outpatient Procedure (Routine) - Closed Specialty Diagnoses / Procedures Referred By Contac t Referred To Contact ENDOSCOPY Diagnoses 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 Gastroesophageal reflux disease, unspecified whether esophagitis present Procedures EGD DIAGNOSTIC ESOPHAGOGASTRODUODENOSCOPY TRANSORAL DIAGNOSTIC Cade Lunsford APRN.SPACE SCIENCES DIRECTOR [address] [place] [address] [facility] [address] [place] [address] Referral ID Status Reason Start Date Expiration Date V isits Requested Visits Authorized [id number] Closed Auto-Generate d Referral 05/11/2024 08/09/2024 1 1 [facility] for visit Narrative* Outpatient Procedure (Routine) - Closed Specialty Diagnoses / Procedures Referred By Contac t Referred To Contact ENDOSCOPY Diagnoses Screening for colon cancer Procedures COLONOSCOPY SCREENING COLONOSCOPY FLX DX W/COLLJ SPEC WHEN PFRMD Elsa Villanueva PA-C [address] [place] [address] [facility] [address] [place] [address] Referral ID Status Reason Start Date Expiration Date V isits Requested Visits Authorized [id number] Closed Auto-Generate d Referral 02/13/2023 08/17/2023 1 1 [facility] for visit Narrative* Diagnostic Procedure Only (Urgent) - Closed Specialty Diagnoses / Procedures Referred By Contac t Referred To Contact XR IMAGING Diagnoses Pain Procedures XR WRIST INJURY 4V PA/LAT/OBL/SCAPH RIGHT RADEX WRIST COMPLETE MINIMUM 3 VIEWS Jillian Goyal APRN.SPACE SCIENCES DIRECTOR [address] [place] [address] [place] [address] Referral ID Status Reason Start Date Expiration Date V isits Requested Visits Authorized [id number] Closed Auto-Generate d Referral 08/07/2022 09/06/2023 1 1 [facility] for visit Narrative* Outpatient Procedure (Routine) - Closed Specialty Diagnoses / Procedures Referred By Contac t Referred To Contact ENDOSCOPY Diagnoses 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 Gastroesophageal reflux disease, unspecified whether esophagitis present Procedures EGD DIAGNOSTIC ESOPHAGOGASTRODUODENOSCOPY TRANSORAL DIAGNOSTIC Cade Lunsford APRN.SPACE SCIENCES DIRECTOR [address] [place] [address] [facility] [address] [place] [address] Referral ID Status Reason Start Date Expiration Date V isits Requested Visits Authorized [id number] Closed Auto-Generate d Referral 05/11/2024 08/09/2024 1 1 [facility] Chief Complaint and Reason for Visit Chief Complaint CBC,BMP Chief Complaint CBC,BMP CBC - DISCHARGE LABWORK Chief Complaint OA RIGHT HAND RX HER E Chief Complaint URETEROLITH Reason for Visit Intractable pain Nausea and vomiting Ureterolithiasis Chief Complaint AM EKG URETEROLITH KUB- STONES Reason for Visit Ureterolithiasis Acute renal insufficiency Hydronephrosis, left Intractable pain Nausea and vomiting Chief Complaint AM EKG URETEROLITH KUB- STONES Cysto,Ureteroscopy,Basket Ext,Stent Reason for Visit Ureterolithiasis Acute renal insufficiency Hydronephrosis, left Intractable pain Nausea and vomiting Advance Directives No Advanced Directives Records Found Advance Directive Response Recorded Date/ Time Advance Directives No July 4:14pm Living Will Yes October 01 3:02pm Power of Composition Stone Applicator Yes October 01, 2019 3:02pm Advance Directive Response Recorded Date/ Time Advance Directives No July 3:14pm Living Will Yes October 01 2:02pm Power of Composition Stone Applicator Yes October 01, 2019 2:02pm Advance Directive Response Recorded Date/ Time Advance Directives No July 3:14pm Living Will Yes July 26 12:42am Power of Composition Stone Applicator Yes July 26, 2023 12:42am Name of Medical Power of Composition Stone Applicator Cheng Karishma July 26, 2023 12:42am Advance Directive Response Recorded Date/ Time Name of Medical Power of Composition Stone Applicator Cheng Schwarz July 26, 2023 5:56am Advance Directives No July 3:14pm Living Will Yes July 26 5:56am Power of Composition Stone Applicator Yes July 26, 2023 5:56am Advance Directive Response Recorded Date/ Time Advance Directives No July 3:14pm Living Will No August 20 8:37am Power of Composition Stone Applicator No August 20 8:37am Name of Medical Power of Composition Stone Applicator Cheng [facility] July 26, 2023 5:56am Summary Purpose Family History No Family History Records FoundNo Family History Records FoundNo Family History Records FoundNo Family History Records Found Additional Source Comments Care Team (unrecognized sect ion and content) Care Team Personnel Name: DO DEE ECHEVARRIA Member Role: Primary Care Physician Address: Address: [address] [place] [address] Care Team Related Persons Name: CHENG SCHWARZ Address: Home [address] [place] [phone] Name: MARIAAANTONI NELSONN Care Team Personnel Name: DO DEE ECHEVARRIA Member Role: Primary Care Physician Address: Address: [address] [place] [address] Care Team Related Persons Name: CHENG SCHWARZ Address: Home [address] [place] [phone] Name: KARISHMA ROSALIA Care Team Personnel Name: DO DEE ECHEVARRIA Member Role: Primary Care Physician Address: Address: [address] [place] [address] Care Team Related Persons Name: CHENG SCHWARZ Address: [address] [phone] Name: MARIAAROSALIA NELSON Goals (unrecognized section and content) Goals may be documented in a n alternate section Source Comments (unrecognize d section and content) In the event this informatio n is protected by the Federal Confidentiality of Alcohol and Drug Abuse Patient Records regulations: The Federal rules restrict any use of the information to criminally investigate or prosecute any alcohol or drug abuse patient.[facility] the event this information is protected by the Federal Confidentiality of Alcohol and Drug Abuse Patient Records regulations: The Federal rules restrict any use of the information to criminally investigate or prosecute any alcohol or drug abuse patient.[facility] the event this information is protected by the Federal Confidentiality of Alcohol and Drug Abuse Patient Records regulations: The Federal rules restrict any use of the information to criminally investigate or prosecute any alcohol or drug abuse patient.[facility] the event this information is protected by the Federal Confidentiality of Alcohol and Drug Abuse Patient Records regulations: The Federal rules restrict any use of the information to criminally investigate or prosecute any alcohol or drug abuse patient.[facility] the event this information is protected by the Federal Confidentiality of Alcohol and Drug Abuse Patient Records regulations: The Federal rules restrict any use of the information to criminally investigate or prosecute any alcohol or drug abuse patient.[facility] the event this information is protected by the Federal Confidentiality of Alcohol and Drug Abuse Patient Records regulations: The Federal rules restrict any use of the information to criminally investigate or prosecute any alcohol or drug abuse patient.[facility] Center[facility] the event this information is protected by the Federal Confidentiality of Alcohol and Drug Abuse Patient Records regulations: The Federal rules restrict any use of the information to criminally investigate or prosecute any alcohol or drug abuse patient.[facility] Center[facility] the event this information is protected by the Federal Confidentiality of Alcohol and Drug Abuse Patient Records regulations: The Federal rules restrict any use of the information to criminally investigate or prosecute any alcohol or drug abuse patient.[facility] Center[facility] the event this information is protected by the Federal Confidentiality of Alcohol and Drug Abuse Patient Records regulations: The Federal rules restrict any use of the information to criminally investigate or prosecute any alcohol or drug abuse patient.[facility] Center[facility] the event this information is protected by the Federal Confidentiality of Alcohol and Drug Abuse Patient Records regulations: The Federal rules restrict any use of the information to criminally investigate or prosecute any alcohol or drug abuse patient.[facility] Center[facility] the event this information is protected by the Federal Confidentiality of Alcohol and Drug Abuse Patient Records regulations: The Federal rules restrict any use of the information to criminally investigate or prosecute any alcohol or drug abuse patient.[facility] the event this information is protected by the Federal Confidentiality of Alcohol and Drug Abuse Patient Records regulations: The Federal rules restrict any use of the information to criminally investigate or prosecute any alcohol or drug abuse patient.[facility] Reason for Visit (unrecogniz ed section and content) Reason Comments UTI Burning x 7 days Low er abdominal irritation saw this morning Reason Comments Sinus Problem sinus pressure, drai nage x couple days, dizziness x today Reason Comments Results Reason Comments Orders Reason Comments Recheck Due for EGD- Fink 's Esophagus Reason Comments Recheck Fink's Esophagus Reason Comments Barretts esophagus Care Teams (unrecognized sec tion and content) [place] Operator Relationship Specialty Start Date End Date Dee Echevarria DO [address] [place] [address] PCP - General 11/04/08 Banbury Operator Relationship Specialty Start Date End Date Dee Echevarria DO [address] [place] [address] PCP - General 11/04/08 Banbury Operator Relationship Specialty Start Date End Date Dee Echvearria DO [address] [facility] [id number] PCP - General 11/04/08 Team Status: Active Member Role Status Dates DEE ECHEVARRIA Family Provider Active DEE ECHEVARRIA Primary Care Provider Active Team Status: Inactive Member Role Status Dates SWATHI PRICE Primary Care Provider Active Michel TRINIDAD PA-C Attending Provider, Referring Pr ovider Active [place] Operator Relationship Specialty Start Date End Date Dee Echevarria DO [address] [facility] [place] [address] PCP - General 11/04/08 Team Status: Active Member Role Status Dates SWATHI PRICE Primary Care Provider Active Cj Malave MD Emergency Provider Active Dr. Nicky Gusman MD Admit Provider, A ttending Provider, Referring Provider Active Team Status: Active Member Role Status Dates Dr. Kehinde Whyte MD Attending Provider Activ e Dr. Nicky Gusman MD Referring Provider Active Team Status: Inactive Member Role Status Dates SWATHI PRICE Primary Care Provider Active Cj Malave MD Emergency Provider Active Dr. Nicky Gusman MD Admit Provider, A ttending Provider, Referring Provider Active Team Status: Inactive Member Role Status Dates SWATHI PRICE Primary Care Provider Active Dr. Nicky Gusman MD Attending Provider, Referring P venkat Active [place] Operator Relationship Specialty Start Date End Date Dee Echevarria DO [address] [facility] [place] [phone] PCP - General 11/04/08 Banbury Operator Relationship Specialty Start Date End Date Dee Echevarria DO [address] [facility] [place] [place] [phone] PCP - General 11/04/08 [place]bury Operator Relationship Specialty Start Date End Date Dee Echevarria DO [address] [facility] [place] [place] [phone] PCP - General 11/04/08 Banbury Operator Relationship Specialty Start Date End Date Dee Echevarria DO [address] [facility] [place] [place] [phone] PCP - General 11/04/08 Banbury Operator Relationship Specialty Start Date End Date Dee Echevarria DO [address] [facility] [phone] PCP - General 11/04/08 Banbury Operator Relationship Specialty Start Date End Date Dee Echevarria DO [address] [facility] [id number] PCP - General 11/04/08 [employer]bury Operator Relationship Specialty Start Date End Date Dee Echevarria DO [address] [facility] [phone] PCP - General 11/04/08 Banbury Operator Relationship Specialty Start Date End Date Dee Echevarria DO [address] [facility] [phone] PCP - General 11/04/08 INFORMATION SOURCE (unrecogn ized section and content) DATE CREATED AUTHOR 08/20/2022 [facility] DATE CREATED AUTHOR AUTHOR'S ORGANIZ ATION 08/12/2024 [facility] DATE CREATED AUTHOR AUTHOR'S ORGANIZ ATION 05/05/2025 [facility] DATE CREATED AUTHOR AUTHOR'S ORGANIZ ATION 05/06/2025 [facility] FOR RECORDS PERTAINING TO PATIENTS WHO ARE [...] BE BASED ON THE PRIMARY CLINICAL RECORDS. [facility]. provides no warranty or guarantee of the accuracy or completeness of information in this document.
[2025-07-04 10:28] LABS: Hematocrit 38.2 % (37-47); Hemoglobin 12.5 g/dL (12.0-15.0); Immature Granulocytes Count 0.030 X10^3/uL (0.0-0.0); Mean Corp Hgb Conc 32.7 g/dL (32-36); Mean Corpuscular Volume 82.0 fL (81-99); Mean Platelet Vol. 10.5 fl (6.2-12.0); NRBC Flagged by Analyzer 0 % (0-5); Platelet Count 266 K/mm3 (150-450); RBC Distribution Width CV 15.7 % (11.6-14.6); RBC Distribution Width SD 46.8 fl (35.1-43.9); Red Blood Count 4.66 M/mm3 (4.2-5.4); White Blood Count 6.8 K/mm3 (4.4-11.0)
[2025-07-04 11:05] LABS: AST(SGOT) 19 U/L (<=31); Alanine Aminotransfer ALT/SGPT 12 U/L (<=34); Albumin, Serum 4.6 g/dL (3.4-4.8); Alkaline Phosphatase 90 U/L (35-104); Anion Gap 13 (5-15); BUN 19 mg/dL (4-19); BUN/Creat Ratio 22.7 RATIO (10-20); Calcium,Total 10.3 mg/dL (7.6-11.0); Carbon Dioxide 26.9 mmol/L (21.0-32.0); Chloride 100 mmol/L (98-108); Cholesterol 282 mg/dL (<=200); Globulin 3.6 g/dL (2.2-4.2); Glucose 81 mg/dL (70-99); Low Density Lipoprotein Calc. 200 mg/dL; Potassium 3.3 mmol/L (3.3-5.1); Triglycerides 211 mg/dL; Very Low Density Lipoprotein 42 mg/dL (5-40); cholesterol:hdl ratio screen 6.78
== END | disposition home or self-care (01) ==
LOC: MTLAB 08:10
DX: E78.00 Pure hypercholesterolemia, unspecified (principal)
CPT/HCPCS: 36415; 80053; 80061; 85025